=== PATIENT | female | born 1950 | race Caucasian/White ===

== ENCOUNTER 2016-12-28 14:10 | Emergency (ER) | payer MEDICAID ==
[2016-12-28 14:20] VITALS: BMI 29.1
[2016-12-28 14:22] VITALS: BP 141/78
--- NOTE | 2016-12-28 14:34 | DR.SOBA ---
HPI - Time Seen Time seen: 14:30 - Primary Care Physician Primary Care Physician: SATYA FINNEY - HPI Comment HPI Comment: Hx of fibromyalgia, complaint of back, chest pain and Dyspnea when lying down. Patient used her mothers nebulizer prior to arrival (not prescribed to patient) - Complaints Chief Complaint:: PT STATES " I HAVE BEEN SOB, WHEN I LAY DOWN AND CHEST PAIN'S OFF AND ON , AND KINDNEY PAIN".. Self Treatment fo Chief Complaint: PT STATES " I COULD NOT SLEEP AT NIGHT"./. - Reviewed Nurses Notes Reviewed: Yes - Source History Provided: Patient - Mode of Arrival Mode of Arrival: Ambulatory - Timing Onset of Chief Complaint: 12/27/16 - Duration Duration: Days - Context Onset:: At Rest PE Risk Factors:: None History of:: Anxiety Prehospital Care:: Inhaled B2 - Modifying Factors Worsens:: Lying Flat Improves:: Sitting Up - Associated Signs and Symptoms Associated Signs and Symptoms: Chest Pain, Anxiety - If Chest Pain Location: Chest Wall - If Cough Cough: None - Other History Other History: FIBROMYALGIA PMH - PMH Past Medical History: Yes Past Medical History: Anxiety, Arthritis, Depression, Diabetes, GERD, Hypertension Past Surgical History: Yes Surgical History: Cholecystectomy, Hysterectomy, Ortho Surgery - Family History History of Family Medical Conditions: Yes Family Medical History: Diabetes Mellitus, Cancer, [place], Coronary Artery Disease, Heart Failure, Sudden Cardiac , Hypertension - Social History Does patient currently use any type of tobacco product: No Have you used tobacco products in the last 12 months: No Type of Tobacco Use: None Does any household member use tobacco: No Do you use any recreational Drugs:: No Lives With: Family Lives Where: Home - infectious screening In the last 2 months have you had wt loss of >10#?: NO Have you had fever, night sweats or hemotysis?: No Have you traveled outside the country in the last 6 months?: No Isolation: Standard ROS - Review of Systems Constitutional: No Symptoms Reported Eyes: No Symptoms Reported ENTM: No Symptoms Reported Respiratoy: Short of Breath Cardiovascular: Chest Pain Gastrointestinal/Abdominal: No Symptoms Reported Genitourinary: Other (kidney pain) Musculoskeletal: Other (pain all over fibromyalgia) Integumentary: No Symptoms Reported Hematologic/Lymphatic: No Symptoms Reported Endocrine: No Symptoms Reported Psychiatric: Anxiety, Depression All Other Systems: Reviewed and Negative PE - Vital Signs Vitals: Temperature 98.2 F Pulse Rate 112 Respiratory Rate 20 Blood Pressure [Left Arm] 158/80 Blood Pressure [Right Arm] 171/75 Blood Pressure [Standing] 84/59 Blood Pressure [Lying] 96/58 Blood Pressure 141/78 O2 Sat by Pulse Oximetry 96 - General Limitations: No Limitations General Appearance: Alert, In No Apparent Distress - Head Head Exam: Normal Inspection - Eyes Eye exam: Normal Appearance, EOMI. negative: Scleral Icterus, Conjunctival Injection - ENT ENT Exam: Normal Exam - Neck Neck Exam: Normal Inspection, Full ROM, Trachea Midline - Chest Chest Inspection: Normal Inspection - Respiratory Respiratory Exam: Normal Lung Sounds Bilat. negative: Accessory Muscle Use, Respiratory Distress Respiratory Exam: Bilateral Clear to Auscultation - Cardiovascular Cardiovascular Exam: Tachycardia - Extremities Extremities Exam: Normal Inspection, Full ROM - Back Back Exam: Normal Inspection - Neurologic Neurological Exam: Alert, Oriented X3, CN II-XII Intact - Psychiatric Psychiatric Exam: Depressed, Anxious - Skin Skin Exam: Intact, Normal Color Course - Treatment Treatment: told patient results of test. will repeat troponin 4 hours after first test. Patient with no distress lying in ER. - Consultation Called: 14:00 ROR - Labs Reviewed Result Diagrams: 12/28/16 14:56 12/28/16 14:56 Laboratory: WBC 12.1 X10^3/uL (3.6-10.0) H 12/28/16 14:56 RBC 4.11 X10^6/uL (3.5-5.4) 12/28/16 14:56 Hgb 11.2 g/dL (12.0-16.0) L 12/28/16 14:56 Hct 35.8 % (36.0-47.0) L 12/28/16 14:56 MCV 87.1 fL (80.0-100.0) 12/28/16 14:56 MCH 27.2 pg (27.0-34.0) 12/28/16 14:56 MCHC 31.2 g/dL (33.0-35.0) L 12/28/16 14:56 RDW 17.1 % (11.6-16.5) H 12/28/16 14:56 Plt Count 294 X10^3/uL (150.0-450.0) 12/28/16 14:56 MPV 8.2 fL (7.4-11.0) 12/28/16 14:56 Neut % 78.7 % (42.0-75.0) H 12/28/16 14:56 Lymph % 14.9 % (21.0-51.0) L 12/28/16 14:56 [place] % 5.2 % (0.0-13.0) 12/28/16 14:56 Eos % 0.5 % (0.9-2.9) L 12/28/16 14:56 Baso % 0.7 % (0.2-1.0) 12/28/16 14:56 Neut # 9.5 x10^3/uL (2.2-4.8) H 12/28/16 14:56 Lymph # 1.8 X10^3/uL (1.3-2.9) 12/28/16 14:56 [place] # 0.6 x10^3/uL (0.3-0.8) 12/28/16 14:56 Eos # 0.1 x10^3/uL (0.0-0.2) 12/28/16 14:56 Baso # 0.1 X10^3/uL (0.0-0.1) 12/28/16 14:56 Absolute Nucleated RBC 0.1 /100WBC 12/28/16 14:56 Sodium 138 mmol/L (136-145) 12/28/16 14:56 Corrected Sodium 142 mmol/L (136-145) 12/28/16 14:56 Potassium 4.1 mmol/L (3.5-5.1) 12/28/16 14:56 Chloride 99 mmol/L (98-107) 12/28/16 14:56 Carbon Dioxide 29.9 mmol/L (21-32) 12/28/16 14:56 BUN 13 mg/dL (7-18) 12/28/16 14:56 Creatinine 1.14 mg/dL (0.55-1.02) H 12/28/16 14:56 Est GFR (MDRD) Af Amer > 60 (>60) 12/28/16 14:56 Est GFR (MDRD) Non-Af 51 (>60) L 12/28/16 14:56 Glucose 254 mg/dL (65-99) H 12/28/16 14:56 Calcium 9.2 mg/dL (8.5-10.1) 12/28/16 14:56 Corrected Calcium TNP 12/28/16 14:56 Total Bilirubin 1.00 mg/dL (0.2-1.0) 12/28/16 14:56 AST 20 Units/L (15-37) 12/28/16 14:56 ALT 31 Units/L (12-78) 12/28/16 14:56 Alkaline Phosphatase 96 Units/L (46-116) 12/28/16 14:56 Creatine Kinase 42 Units/L (26-192) 12/28/16 14:56 CK-MB (CK-2) < 1.0 ng/mL (0-4.0) 12/28/16 14:56 CK/CKMB % Calc 2.4 % (<4) 12/28/16 14:56 Troponin I 0.09 ng/mL (0-1.5) 12/28/16 18:23 B-Natriuretic Peptide 964 pg/mL (0-79) H* 12/28/16 14:56 Total Protein 7.0 g/dL (6.4-8.2) 12/28/16 14:56 Albumin 3.4 g/dL (3.4-5.0) 12/28/16 14:56 Globulin 3.6 g/dL (2.5-4.5) 12/28/16 14:56 Albumin/Globulin Ratio 0.9 Ratio (1.1-2.1) L 12/28/16 14:56 Specimen Type Clean catch urine 12/28/16 15:08 Urine Color Dark yellow (YELLOW) 12/28/16 15:08 Urine Appearance Slightly hazy (CLEAR) 12/28/16 15:08 Urine pH 6.0 (5.0 - 8.0) 12/28/16 15:08 Ur Specific [place] 1.015 (1.000-1.030) 12/28/16 15:08 Urine Protein 2+ (NEGATIVE) 12/28/16 15:08 Urine Glucose (UA) 2+ (NEGATIVE) 12/28/16 15:08 Urine Ketones 1+ (NEGATIVE) 12/28/16 15:08 Urine Occult Blood 1+ (NEGATIVE) 12/28/16 15:08 Urine Nitrite Negative (NEGATIVE) 12/28/16 15:08 Urine Bilirubin Negative (NEGATIVE) 12/28/16 15:08 Urine Urobilinogen 1+ (NORMAL) 12/28/16 15:08 Ur Leukocyte Esterase 1+ (NEGATIVE) 12/28/16 15:08 Urine RBC 0-2 /HPF (NEGATIVE) 12/28/16 15:08 Urine WBC 0-2 /HPF (NEGATIVE) 12/28/16 15:08 Ur Squamous Epith Cells Moderate /HPF (NEGATIVE) 12/28/16 15:08 Amorphous Sediment Trace /HPF (NEGATIVE) 12/28/16 15:08 Urine Bacteria Trace /HPF (NEGATIVE) 12/28/16 15:08 Hyaline Casts Few /LPF (NEGATIVE) 12/28/16 15:08 Ur Culture Indicated? No/not indicated 12/28/16 15:08 - EKG Rate: 104 Brady: Normal Rhythm: ST Block: None Hypertrophy: None ST: Nonsp - Diagnosis Discharge Problem: Fibromyalgia syndrome - Discharge Plan Condition: Stable Prescriptions: Prednisone [Deltasone] 20 mg PO BID #6 tab - Follow ups/Referrals Follow ups/Referrals: Jose Ceja [Primary Care Provider] - 3 days - Instructions
[2016-12-28 15:24] LABS: BLOOD UREA NITROGEN 13 mg/dL (7-18); CALCIUM 9.2 mg/dL (8.5-10.1); CARBON DIOXIDE 29.9 mmol/L (21-32); CHLORIDE 99 mmol/L (98-107); COR NA(FOR HYPERGLY) 142 mmol/L (136-145); CREATININE 1.14 mg/dL (0.55-1.02); GLUCOSE 254 mg/dL (65-99); SODIUM 138 mmol/L (136-145); TROPONIN I 0.09 ng/mL (0-1.5); eGFR BLACK RACES > 60 (>60); eGFR NON BLACK RACES 51 (>60)
[2016-12-28 15:28] LABS: ALANINE AMINOTRANSFERASE 31 Units/L (12-78); ALBUMIN 3.4 g/dL (3.4-5.0); ALKALINE PHOSPHATASE 96 Units/L (46-116); ASPARTATE AMINO TRANSFERASE 20 Units/L (15-37); CKMB % 2.4 % (<4); CREATINE KINASE 42 Units/L (26-192); CREATINE KINASE MB < 1.0 ng/mL (0-4.0)
[2016-12-28 15:28] LABS: BILIRUBIN,URINE NEGATIVE (NEGATIVE); BLOOD/HEMOGLOBIN,URINE 1+ (NEGATIVE); GLUCOSE, URINE 2+ (NEGATIVE); KETONES,URINE 1+ (NEGATIVE); LEUKOCYTE ESTERASE ,URINE 1+ (NEGATIVE); NITRITES,URINE NEGATIVE (NEGATIVE); PROTEIN,URINE 2+ (NEGATIVE); UROBILINOGEN,URINE 1+ (NORMAL)
[2016-12-28 15:40] LABS: AMORPHOUS SEDIMENT,UR TRACE /HPF (NEGATIVE); APPEARANCE,URINE SLIGHTLY HAZY (CLEAR); BACTERIA,URINE TRACE /HPF (NEGATIVE); COLOR,URINE DARK YELLOW (YELLOW); HYALINE CASTS, URINE FEW /LPF (NEGATIVE); RBC,URINE 0-2 /HPF (NEGATIVE); SQUAMOUS EPITHELIAL CELL,UR MODERATE /HPF (NEGATIVE)
[2016-12-28 15:44] LABS: BASOPHILS # (AUTO) 0.1 X10^3/uL (0.0-0.1); BASOPHILS % (AUTO) 0.7 % (0.2-1.0); EOSINOPHILS # (AUTO) 0.1 x10^3/uL (0.0-0.2); EOSINOPHILS % (AUTO) 0.5 % (0.9-2.9); HEMATOCRIT 35.8 % (36.0-47.0); HEMOGLOBIN 11.2 g/dL (12.0-16.0); LYMPHOCYTES # (AUTO) 1.8 X10^3/uL (1.3-2.9); LYMPHOCYTES % (AUTO) 14.9 % (21.0-51.0); MEAN CORPUSCULAR HEMOGLOBIN 27.2 pg (27.0-34.0); MEAN CORPUSCULAR HGB CONC 31.2 g/dL (33.0-35.0); MEAN CORPUSCULAR VOLUME 87.1 fL (80.0-100.0); MEAN PLATELET VOLUME 8.2 fL (7.4-11.0); MONOCYTES # (AUTO) 0.6 x10^3/uL (0.3-0.8); MONOCYTES % (AUTO) 5.2 % (0.0-13.0); NEUTROPHILS # (AUTO) 9.5 x10^3/uL (2.2-4.8); NEUTROPHILS % (AUTO) 78.7 % (42.0-75.0); PLATELET COUNT 294 X10^3/uL (150.0-450.0); RED BLOOD COUNT 4.11 X10^6/uL (3.5-5.4); RED CELL DISTRIBUTION WIDTH 17.1 % (11.6-16.5); WHITE BLOOD COUNT 12.1 X10^3/uL (3.6-10.0)
--- NOTE | 2016-12-28 16:05 | RAD ---
HISTORY: Shortness of breath Study: Chest two-view Comparison: May 20, 2015 Findings: The heart is enlarged. No congestive heart failure is noted. The aorta is calcified. The lung [place]yl[place] are clear. The bony thorax is unremarkable. IMPRESSION: 1. Cardiomegaly without congestive heart failure 2. Lungs clear Reported By:
[2016-12-28 16:19] LABS: B-TYPE NATRIURETIC PEPTIDE 964 pg/mL (0-79)
[2016-12-28] MEDS ORDERED: LASIX ONE (16:31)
[2016-12-28] MEDS ORDERED: TORADOL 60 MG VIAL IM ONE (18:54)
[2016-12-28] MEDS ORDERED: TORADOL 60 MG VIAL ONE (18:57)
[2016-12-29] MEDS ORDERED: LASIX PO SCH (09:00)
== END 2016-12-28 19:20 | disposition home or self-care (01) ==
LOC: ER 14:26
DX: M79.7 Fibromyalgia (principal); I51.7 Cardiomegaly
CPT/HCPCS: 36415; 71020; 80053; 81001; 82550; 82553; 83880; 84484; 85025; 93005; 93010; 96372; 99283; J1885

== ENCOUNTER → 2017-04-26 | Outpatient (CLI) | payer OTHER, MEDICAID ==
[2017-04-26 13:11] LABS: BASOPHILS # (AUTO) 0.1 X10^3/uL (0.0-0.1); BASOPHILS % (AUTO) 1.3 % (0.2-1.0); EOSINOPHILS # (AUTO) 0.5 x10^3/uL (0.0-0.2); HEMATOCRIT 31.6 % (36.0-47.0); HEMOGLOBIN 10.2 g/dL (12.0-16.0); LYMPHOCYTES # (AUTO) 2.4 X10^3/uL (1.3-2.9); LYMPHOCYTES % (AUTO) 23.1 % (21.0-51.0); MEAN CORPUSCULAR HEMOGLOBIN 26.6 pg (27.0-34.0); MEAN CORPUSCULAR HGB CONC 32.3 g/dL (33.0-35.0); MEAN CORPUSCULAR VOLUME 82.5 fL (80.0-100.0); MEAN PLATELET VOLUME 8.2 fL (7.4-11.0); MONOCYTES # (AUTO) 0.7 x10^3/uL (0.3-0.8); MONOCYTES % (AUTO) 6.5 % (0.0-13.0); NEUTROPHILS # (AUTO) 6.7 x10^3/uL (2.2-4.8); NEUTROPHILS % (AUTO) 64.1 % (42.0-75.0); PLATELET COUNT 229 X10^3/uL (150.0-450.0); RED BLOOD COUNT 3.83 X10^6/uL (3.5-5.4); RED CELL DISTRIBUTION WIDTH 19.1 % (11.6-16.5)
[2017-04-26 13:28] LABS: CALCIUM 9.2 mg/dL (8.5-10.1); CARBON DIOXIDE 33.2 mmol/L (21-32); CREATININE 1.24 mg/dL (0.55-1.02)
[2017-04-26 13:38] LABS: PLATELET MORPHOLOGY COMMENT NORMAL (NORMAL)
== END ==
LOC: LAB 12:37
PROVIDERS: ATTEND Internal Medicine Cardiovascular Disease
DX: I50.9 Heart failure, unspecified (principal)
CPT/HCPCS: 36415; 80048; 85025; 85610

== ENCOUNTER → 2017-05-02 | Outpatient (CLI) | payer OTHER, MEDICAID ==
[2017-05-02 09:50] LABS: ALANINE AMINOTRANSFERASE 41 Units/L (12-78); ALBUMIN 3.6 g/dL (3.4-5.0); ALKALINE PHOSPHATASE 90 Units/L (46-116); ASPARTATE AMINO TRANSFERASE 33 Units/L (15-37); BLOOD UREA NITROGEN 9 mg/dL (7-18); CARBON DIOXIDE 27.4 mmol/L (21-32); CHLORIDE 104 mmol/L (98-107); COR NA(FOR HYPERGLY) 143 mmol/L (136-145); CREATININE 1.18 mg/dL (0.55-1.02); SODIUM 140 mmol/L (136-145); TOTAL PROTEIN 7.1 g/dL (6.4-8.2); eGFR BLACK RACES 59 (>60); eGFR NON BLACK RACES 49 (>60)
== END ==
LOC: LAB 09:17
PROVIDERS: ATTEND Nurse Practitioner
DX: E87.5 Hyperkalemia (principal)
CPT/HCPCS: 36415; 80053

== ENCOUNTER 2017-08-12 14:24 | Inpatient (IN) | payer OTHER, MEDICAID ==
[2017-08-12] MEDS ORDERED: PHARMACY CONSULT - DOSE _____ XX SCH (17:16)
[2017-08-12 17:25] LABS: BASOPHILS # (AUTO) 0.1 X10^3/uL (0.0-0.1); BASOPHILS % (AUTO) 0.6 % (0.2-1.0); EOSINOPHILS # (AUTO) 0.2 x10^3/uL (0.0-0.2); HEMOGLOBIN 9.1 g/dL (12.0-16.0); LYMPHOCYTES # (AUTO) 1.5 X10^3/uL (1.3-2.9); LYMPHOCYTES % (AUTO) 11.8 % (21.0-51.0); MEAN CORPUSCULAR HEMOGLOBIN 26.3 pg (27.0-34.0); MEAN CORPUSCULAR HGB CONC 32.3 g/dL (33.0-35.0); MEAN CORPUSCULAR VOLUME 81.4 fL (80.0-100.0); MEAN PLATELET VOLUME 8.1 fL (7.4-11.0); MONOCYTES # (AUTO) 0.4 x10^3/uL (0.3-0.8); MONOCYTES % (AUTO) 3.5 % (0.0-13.0); NEUTROPHILS # (AUTO) 10.4 x10^3/uL (2.2-4.8); NEUTROPHILS % (AUTO) 82.1 % (42.0-75.0); PLATELET COUNT 278 X10^3/uL (150.0-450.0); RED BLOOD COUNT 3.44 X10^6/uL (3.5-5.4); RED CELL DISTRIBUTION WIDTH 18.1 % (11.6-16.5); WHITE BLOOD COUNT 12.7 X10^3/uL (3.6-10.0)
[2017-08-12 17:40] LABS: ALBUMIN 3.2 g/dL (3.4-5.0); CARBON DIOXIDE 31.1 mmol/L (21-32); COR CA(FOR HYPOALB) 9.6 mg/dL (8.5-10.1); CREATININE 1.78 mg/dL (0.55-1.02); TOTAL PROTEIN 7.3 g/dL (6.4-8.2)
[2017-08-12] MEDS: NS 1000 ML 1,000 ML IV SCH (17:58)
[2017-08-12 19:27] VITALS: BMI 26.8
[2017-08-12] MEDS ORDERED: VANCOMYCIN HCL 500 MG VIAL 750 MG in D5W 250 ML IV 250 ML IV SCH (20:00)
[2017-08-12] MEDS ORDERED: NS 250 ML IV 250 ML IV ONE (22:07)
[2017-08-12] MEDS ORDERED: VANCOMYCIN HCL 1 GM VIAL ONE (22:08)
[2017-08-12] MEDS: ROXICODONE TAB 15 MG PO PRN (22:29)
[2017-08-12] MEDS: VANCOMYCIN HCL IV SCH (22:31)
[2017-08-12] MEDS: NS IV SCH (22:31)
[2017-08-12] MEDS: SNACK - Diabetic Appropriate PO SCH (22:35)
[2017-08-12] MEDS: XANAX PO SCH (22:36)
[2017-08-13] MEDS: ROXICODONE TAB 15 MG PO PRN ×3 (05:25→20:30)
[2017-08-13] MEDS: XANAX PO SCH ×3 (05:28→22:26)
[2017-08-13] MEDS: NS 1000 ML 1,000 ML IV SCH ×3 (06:05→22:25)
[2017-08-13 06:31] LABS: ALBUMIN 3.1 g/dL (3.4-5.0); CALCIUM 8.8 mg/dL (8.5-10.1); CARBON DIOXIDE 30.1 mmol/L (21-32); COR CA(FOR HYPOALB) 9.5 mg/dL (8.5-10.1); CREATININE 1.63 mg/dL (0.55-1.02)
[2017-08-13 06:34] LABS: BASOPHILS # (AUTO) 0.1 X10^3/uL (0.0-0.1); BASOPHILS % (AUTO) 0.5 % (0.2-1.0); EOSINOPHILS # (AUTO) 0.2 x10^3/uL (0.0-0.2); EOSINOPHILS % (AUTO) 1.7 % (0.9-2.9); HEMATOCRIT 27.7 % (36.0-47.0); HEMOGLOBIN 8.9 g/dL (12.0-16.0); LYMPHOCYTES # (AUTO) 2.8 X10^3/uL (1.3-2.9); LYMPHOCYTES % (AUTO) 19.8 % (21.0-51.0); MEAN CORPUSCULAR HEMOGLOBIN 26.4 pg (27.0-34.0); MEAN CORPUSCULAR VOLUME 82.5 fL (80.0-100.0); MEAN PLATELET VOLUME 8.6 fL (7.4-11.0); MONOCYTES # (AUTO) 0.4 x10^3/uL (0.3-0.8); MONOCYTES % (AUTO) 2.5 % (0.0-13.0); NEUTROPHILS # (AUTO) 10.8 x10^3/uL (2.2-4.8); NEUTROPHILS % (AUTO) 75.5 % (42.0-75.0); PLATELET COUNT 274 X10^3/uL (150.0-450.0); RED BLOOD COUNT 3.36 X10^6/uL (3.5-5.4); RED CELL DISTRIBUTION WIDTH 17.7 % (11.6-16.5); WHITE BLOOD COUNT 14.3 X10^3/uL (3.6-10.0)
[2017-08-13 06:39] LABS: PLATELET MORPHOLOGY COMMENT NORMAL (NORMAL)
[2017-08-13 06:40] LABS: HYPOCHROMASIA SLIGHT
[2017-08-13] MEDS: GLUCOPHAGE XR PO SCH ×2 (08:55→20:31)
[2017-08-13] MEDS: PROTONIX TAB 40 MG PO SCH ×2 (08:55→20:31)
[2017-08-13] MEDS: ASPIRIN EC 81 MG PO SCH (08:55)
[2017-08-13] MEDS: LASIX PO SCH ×2 (08:56→20:31)
[2017-08-13] MEDS: CHECK PATCH XX SCH ×2 (08:56→20:34)
[2017-08-13] MEDS: ZOCOR TAB 10 MG PO SCH (08:56)
[2017-08-13] MEDS: PLAVIX PO SCH (08:56)
[2017-08-13] MEDS: FOLIC ACID TAB 1 MG PO SCH (08:56)
[2017-08-13] MEDS: EFFEXOR XR 150 MG CAP PO SCH (08:56)
[2017-08-13] MEDS: CLARITIN PO SCH (08:56)
[2017-08-13] MEDS ORDERED: PATIENT'S HOME MEDICATION (Venlafaxine Hcl [Venlafaxine Hcl Er] 150 MG) PO SCH (09:00)
[2017-08-13] MEDS ORDERED: PATIENT'S HOME MEDICATION (Loratadine [Loratadine] 1 TAB) PO SCH (09:00)
[2017-08-13] MEDS ORDERED: PHARMACY CONSULT - TPN XX SCH (10:00)
[2017-08-13] MEDS: PROCALAMINE 3 % 1,000 ML IV SCH (10:52)
[2017-08-13] MEDS: HumuLIN R SUBCUT PRN ×2 (12:21→17:00)
[2017-08-13] MEDS: ALBUMIN HUMAN 25%- 100ML 100 ML IV SCH (16:59)
[2017-08-13] MEDS: GENTAMICIN TOPICAL OINT TOP SCH ×2 (17:00→20:44)
[2017-08-13] MEDS: NS IV SCH (20:28)
[2017-08-13] MEDS: VANCOMYCIN HCL IV SCH (20:28)
[2017-08-13] MEDS: COREG TAB 3.125 MG PO SCH (20:32)
[2017-08-13] MEDS ORDERED: MIRALAX POWDER (1 DOSE 17GM) PO PRN (21:13)
[2017-08-13] MEDS: SNACK - Diabetic Appropriate PO SCH (22:25)
[2017-08-14] MEDS: XANAX PO SCH ×3 (05:13→21:03)
[2017-08-14] MEDS: ROXICODONE TAB 15 MG PO PRN ×2 (05:39→21:02)
[2017-08-14 06:47] LABS: BASOPHILS % (AUTO) 0.5 % (0.2-1.0); EOSINOPHILS # (AUTO) 0.3 x10^3/uL (0.0-0.2); HEMATOCRIT 24.4 % (36.0-47.0); LYMPHOCYTES # (AUTO) 1.8 X10^3/uL (1.3-2.9); MEAN CORPUSCULAR HGB CONC 32.9 g/dL (33.0-35.0); MEAN CORPUSCULAR VOLUME 81.9 fL (80.0-100.0); MEAN PLATELET VOLUME 8.2 fL (7.4-11.0); MONOCYTES # (AUTO) 0.3 x10^3/uL (0.3-0.8); MONOCYTES % (AUTO) 3.4 % (0.0-13.0); NEUTROPHILS # (AUTO) 6.5 x10^3/uL (2.2-4.8); NEUTROPHILS % (AUTO) 73.1 % (42.0-75.0); PLATELET COUNT 226 X10^3/uL (150.0-450.0); RED BLOOD COUNT 2.98 X10^6/uL (3.5-5.4); RED CELL DISTRIBUTION WIDTH 17.8 % (11.6-16.5); WHITE BLOOD COUNT 8.9 X10^3/uL (3.6-10.0)
[2017-08-14 06:55] LABS: CALCIUM 8.7 mg/dL (8.5-10.1); CARBON DIOXIDE 28.7 mmol/L (21-32); COR CA(FOR HYPOALB) 9.5 mg/dL (8.5-10.1); CREATININE 1.45 mg/dL (0.55-1.02); TOTAL PROTEIN 6.7 g/dL (6.4-8.2)
[2017-08-14] MEDS: NS 1000 ML 1,000 ML IV SCH ×2 (08:43→21:24)
[2017-08-14] MEDS: PROTONIX TAB 40 MG PO SCH ×2 (08:44→21:05)
[2017-08-14] MEDS: LASIX PO SCH ×2 (08:44→21:04)
[2017-08-14] MEDS: CLARITIN PO SCH (08:44)
[2017-08-14] MEDS: ZOCOR TAB 10 MG PO SCH (08:44)
[2017-08-14] MEDS: ASPIRIN EC 81 MG PO SCH (08:44)
[2017-08-14] MEDS: GLUCOPHAGE XR PO SCH ×2 (08:44→21:04)
[2017-08-14] MEDS: COREG TAB 3.125 MG PO SCH ×2 (08:44→21:04)
[2017-08-14] MEDS: EFFEXOR XR 150 MG CAP PO SCH (08:44)
[2017-08-14] MEDS: PLAVIX PO SCH (08:44)
[2017-08-14] MEDS: FOLIC ACID TAB 1 MG PO SCH (08:44)
[2017-08-14] MEDS: GENTAMICIN TOPICAL OINT TOP SCH ×2 (08:45→21:24)
[2017-08-14] MEDS: CHECK PATCH XX SCH ×2 (08:45→21:24)
[2017-08-14] MEDS: ALBUMIN HUMAN 25%- 100ML 100 ML IV SCH (10:15)
[2017-08-14] MEDS ORDERED: NS 1000 ML 1,000 ML IV ONE (10:27)
[2017-08-14] MEDS ORDERED: NS 100 ML IV + SPIKE MINIBAG* 100 ML IV ONE (11:37)
[2017-08-14] MEDS: ZOSYN VIAL 3.375 GM IV SCH ×3 (12:07→21:25)
[2017-08-14] MEDS: HumuLIN R SUBCUT PRN ×3 (13:25→21:14)
[2017-08-14] MEDS: PROCALAMINE 3 % 1,000 ML IV SCH (16:12)
--- NOTE | 2017-08-14 16:16 | DR.UPDATE ---
H&P Update History and Physical Update: WAS SEEN IN THE OFFICE ON 08/12/2017. AN H&P WAS COMPLETED PRIOR TO ADMISSION. PATIENT HAS BEEN SEEN AND EXAMINED WITH NO CHANGES NOTED TO H&P. Changes noted: NO Yes with the following:
--- NOTE | 2017-08-14 16:54 | VAS ---
HISTORY: Cellulitis, lower extremity swelling Study: Deep vein Doppler ultrasound both lower extremities Comparison: 12/20/2014 TECHNIQUE: Multiple vasquez scale and color flow Doppler images of the deep venous system were obtained of the right and left lower extremity. FINDINGS: The deep venous system of the right and left lower extremities were evaluated from the level of the c ommon femoral vein through the popliteal vein. Normal color flow and augmentation can be observed. In addition, normal compression is seen throughout the deep venous system. IMPRESSION: 1. Negative for DVT. Reported By:
[2017-08-14] MEDS ORDERED: INVANZ INJ 1 GM VIAL 1 GM in NS 50 ML IV + SPIKE MINIBAG* 50 ML IV SCH (17:00)
[2017-08-14] MEDS ORDERED: NS 50 ML IV 50 ML IV ONE (17:32)
[2017-08-14] MEDS ORDERED: NS 100 ML IV 100 ML IV ONE ×2 (17:33→20:21)
[2017-08-14] MEDS: SNACK - Diabetic Appropriate PO SCH (21:24)
--- NOTE | 2017-08-14 22:00 | PCM.PROG ---
Progress Note - Progress Note for Day of Date: 08/13/17 - Subjective Subjective: WAS ADMITTED FOR CELLULITIS TO THE BILATERAL LOWER EXTREMITIES. SHE HAS A DECUBITUS ULCER TO THE LATERAL ASPECT OF THE RIGHT FOOT. WOUNDS ARE ALSO NOTED TO BILATERAL GREAT TOES. CULTURES WERE COLLECTED AND ARE PENDING. TODAY, SHE IS ALERT AND ORIENTED, SITTING UP IN BED ON MORNING ROUNDS. SHE COMPLAINS OF PAIN TO BILATERAL LOWER EXTREMITITIES. LEGS AND FEET CONTINUE WITH ERYTHEMA AND WARMTH. WOUND TO RIGHT FOOT IS OPEN TO AIR, NO DRAINAGE NOTED. HER VITAL SIGNS THIS MORNING ARE 98.2-102-20-95%-129/62. LABS WERE OBTAINED THIS MORNING. HER WBC REMAINS ELEVATED TODAY AT 14.3. RBC 3.36, HGB 8.9 , HCT 27.7, BUN 55, CREATINNE 1.63, GLUCOSE 172, ALK PHOS 137, ALBUMIN 3.1. BLOOD AND WOUND CULTURES ARE PENDING. TODAY, WE PLAN TO START GENTAMYCIN OINTMENT TO WOUNDS BID. WE WILL ALSO START TPN AND ALBUMIN FOR HYPOALBUMINEMIA. OTHERWISE, WE WILL CONTINUE WITH IV ANTIBIOTICS AND PLAN TO OBTAIN A MRI WITH CONTRAST OF LOWER EXTREMITIES ON TUESDAY. WE WILL FOLLOW UP WITH AM LABS AND CONTINUE TO MONITOR PATIENT. - Past Medical Family Social History Past Med/Fam/Surg Hx: No changes since H&P Allergies: Allergies codeine Allergy (Verified 08/13/17 04:47) morphine Allergy (Verified 08/13/17 04:47) Sulfa (Sulfonamide Antibiotics) [SULFA] Allergy (Verified 08/13/17 04:47) TAPE Allergy (Uncoded 12/28/16 14:14) - Review of Systems ROS: No change since H&P - Vital Signs and I&O's Vital Signs: Temperature 99.4 F Pulse Rate [Right Brachial] 92 Pulse Rate [Left Brachial] 103 Respiratory Rate 18 Blood Pressure [Left Arm] 122/58 Blood Pressure [Right Arm] 118/60 Blood Pressure [Standing] 84/59 Blood Pressure [Lying] 96/58 Blood Pressure 141/78 O2 Sat by Pulse Oximetry 93 Intake and Output: Intake & Output 08/12/17 08/13/17 08/14/17 08/15/17 11:59 11:59 11:59 11:59 Intake Total 1700 2670 2300 Output Total 0 Balance 1700 2670 2300 - Physical Exam Oriented: Normal Eyes: Normal Ear: Normal Nose: Normal Throat: Normal Respiratory: Normal Cardiovascular: Edema (BILATERAL LOWER EXTREMITIES ) : Normal Auscultation: Bowel Sounds: Normal Palpation: Normal Tenderness: Normal Skin: Red, Tender, Hot, Wound (BILATERAL LOWER EXTREMITY CELLULITIS, DECUBITUS ULCER TO BILATERAL FEET) Musculoskeletal: Right, Left, Leg, Foot, Swelling, Tender Psychiatric: Normal Mood Description: Calm Affect: Normal Speech Pattern: Clear, Appropriate - Laboratory and Diagnostics Result Diagrams: 08/14/17 06:12 08/14/17 06:12 Labs: 08/12/17 17:46 Toe - Left Big Gram Stain - Final 08/12/17 17:46 Toe - Left Big Wound Culture - Preliminary 08/12/17 17:46 Toe - Right Big Gram Stain - Final 08/12/17 17:46 Toe - Right Big Wound Culture - Preliminary 08/12/17 17:46 Foot - Right Gram Stain - Final 08/12/17 17:46 Foot - Right Wound Culture - Final Citrobacter Braakii 08/12/17 17:05 Blood Blood Culture - Preliminary 08/12/17 17:04 Blood Blood Culture - Preliminary Laboratory WBC 8.9 X10^3/uL (3.6-10.0) 08/14/17 06:12 RBC 2.98 X10^6/uL (3.5-5.4) L 08/14/17 06:12 Hgb 8.0 g/dL (12.0-16.0) L 08/14/17 06:12 Hct 24.4 % (36.0-47.0) L 08/14/17 06:12 MCV 81.9 fL (80.0-100.0) 08/14/17 06:12 MCH 27.0 pg (27.0-34.0) 08/14/17 06:12 MCHC 32.9 g/dL (33.0-35.0) L 08/14/17 06:12 RDW 17.8 % (11.6-16.5) H 08/14/17 06:12 Plt Count 226 X10^3/uL (150.0-450.0) 08/14/17 06:12 Plt Count Comment Adequate (ADEQUATE) 08/13/17 05:10 MPV 8.2 fL (7.4-11.0) 08/14/17 06:12 Neut % 73.1 % (42.0-75.0) 08/14/17 06:12 Lymph % 20.0 % (21.0-51.0) L 08/14/17 06:12 [place] % 3.4 % (0.0-13.0) 08/14/17 06:12 Eos % 3.0 % (0.9-2.9) H 08/14/17 06:12 Baso % 0.5 % (0.2-1.0) 08/14/17 06:12 Neut # 6.5 x10^3/uL (2.2-4.8) H 08/14/17 06:12 Lymph # 1.8 X10^3/uL (1.3-2.9) 08/14/17 06:12 [place] # 0.3 x10^3/uL (0.3-0.8) 08/14/17 06:12 Eos # 0.3 x10^3/uL (0.0-0.2) H 08/14/17 06:12 Baso # 0.0 X10^3/uL (0.0-0.1) 08/14/17 06:12 Absolute Nucleated RBC 0.0 /100WBC 08/14/17 06:12 Plt Morphology Comment Normal (NORMAL) 08/13/17 05:10 RBC Morphology Abnormal (NORMAL) A 08/13/17 05:10 Hypochromasia Slight A 08/13/17 05:10 Sodium 137 mmol/L (136-145) 08/14/17 06:12 Corrected Sodium 140 mmol/L (136-145) 08/14/17 06:12 Potassium 4.3 mmol/L (3.5-5.1) 08/14/17 06:12 Chloride 100 mmol/L (98-107) 08/14/17 06:12 Carbon Dioxide 28.7 mmol/L (21-32) 08/14/17 06:12 BUN 48 mg/dL (7-18) H 08/14/17 06:12 Creatinine 1.45 mg/dL (0.55-1.02) H 08/14/17 06:12 Est GFR (MDRD) Af Amer 47 (>60) L 08/14/17 06:12 Est GFR (MDRD) Non-Af 39 (>60) L 08/14/17 06:12 Glucose 225 mg/dL (65-99) H 08/14/17 06:12 POC Glucose (mg/dL) 309 mg/dL (65-99) H 08/14/17 21:01 Calcium 8.7 mg/dL (8.5-10.1) 08/14/17 06:12 Corrected Calcium 9.5 mg/dL (8.5-10.1) 08/14/17 06:12 Total Bilirubin 0.30 mg/dL (0.2-1.0) 08/14/17 06:12 AST 20 Units/L (15-37) 08/14/17 06:12 ALT 26 Units/L (12-78) 08/14/17 06:12 Alkaline Phosphatase 124 Units/L (46-116) H 08/14/17 06:12 Total Protein 6.7 g/dL (6.4-8.2) 08/14/17 06:12 Albumin 3.0 g/dL (3.4-5.0) L 08/14/17 06:12 Globulin 3.7 g/dL (2.5-4.5) 08/14/17 06:12 Albumin/Globulin Ratio 0.8 Ratio (1.1-2.1) L 08/14/17 06:12 - Plan (1) Cellulitis of both lower extremities Status: Acute Plan: CONTINUE IV ANTIBIOTICS, CONTINUE TO MONITOR (2) Decubital ulcer Status: Acute Qualifiers: Pressure ulcer location: foot, unspecified location Pressure ulcer stage: stage 2 Laterality: unspecified laterality Qualified Code(s): L89.892 - Pressure ulcer of other site, stage 2 Plan: WOUND CARE, WOUND CULTURES, CONTINUE IV ANTIBIOTICS, CONTINUE TO MONITOR
[2017-08-15] MEDS: XANAX PO SCH ×3 (05:46→21:04)
[2017-08-15] MEDS: ZOSYN VIAL 3.375 GM IV SCH ×3 (05:46→21:40)
[2017-08-15 06:23] LABS: BASOPHILS # (AUTO) 0.1 X10^3/uL (0.0-0.1); BASOPHILS % (AUTO) 0.6 % (0.2-1.0); EOSINOPHILS # (AUTO) 0.4 x10^3/uL (0.0-0.2); EOSINOPHILS % (AUTO) 3.6 % (0.9-2.9); HEMATOCRIT 23.8 % (36.0-47.0); LYMPHOCYTES # (AUTO) 1.8 X10^3/uL (1.3-2.9); LYMPHOCYTES % (AUTO) 18.5 % (21.0-51.0); MEAN CORPUSCULAR HEMOGLOBIN 27.4 pg (27.0-34.0); MEAN CORPUSCULAR HGB CONC 33.5 g/dL (33.0-35.0); MEAN CORPUSCULAR VOLUME 81.8 fL (80.0-100.0); MONOCYTES # (AUTO) 0.4 x10^3/uL (0.3-0.8); MONOCYTES % (AUTO) 4.4 % (0.0-13.0); NEUTROPHILS # (AUTO) 7.1 x10^3/uL (2.2-4.8); NEUTROPHILS % (AUTO) 72.9 % (42.0-75.0); PLATELET COUNT 223 X10^3/uL (150.0-450.0); RED BLOOD COUNT 2.91 X10^6/uL (3.5-5.4); RED CELL DISTRIBUTION WIDTH 18.1 % (11.6-16.5); WHITE BLOOD COUNT 9.8 X10^3/uL (3.6-10.0)
[2017-08-15 06:33] LABS: CALCIUM 8.6 mg/dL (8.5-10.1); CARBON DIOXIDE 29.9 mmol/L (21-32); COR CA(FOR HYPOALB) 9.4 mg/dL (8.5-10.1); CREATININE 1.53 mg/dL (0.55-1.02); TOTAL PROTEIN 6.7 g/dL (6.4-8.2)
[2017-08-15] MEDS: PLAVIX PO SCH (09:58)
[2017-08-15] MEDS: EFFEXOR XR 150 MG CAP PO SCH (09:58)
[2017-08-15] MEDS: COREG TAB 3.125 MG PO SCH ×2 (09:58→21:04)
[2017-08-15] MEDS: LASIX PO SCH ×2 (09:58→21:04)
[2017-08-15] MEDS: CLARITIN PO SCH (09:59)
[2017-08-15] MEDS: ZOCOR TAB 10 MG PO SCH (09:59)
[2017-08-15] MEDS: PROTONIX TAB 40 MG PO SCH ×2 (09:59→21:05)
[2017-08-15] MEDS: ASPIRIN EC 81 MG PO SCH (09:59)
[2017-08-15] MEDS: ALBUMIN HUMAN 25%- 100ML 100 ML IV SCH (09:59)
[2017-08-15] MEDS: FOLIC ACID TAB 1 MG PO SCH (09:59)
[2017-08-15] MEDS: CHECK PATCH XX SCH ×2 (10:01→21:37)
[2017-08-15] MEDS: HumuLIN R SUBCUT PRN ×3 (11:50→21:10)
[2017-08-15] MEDS: GENTAMICIN TOPICAL OINT TOP SCH ×2 (11:52→22:38)
[2017-08-15] MEDS: INVANZ INJ 1 GM VIAL 1 GM in NS 100 ML IV + SPIKE MINIBAG* 100 ML IV SCH (11:54)
[2017-08-15] MEDS: NS 1000 ML 1,000 ML IV SCH (14:22)
[2017-08-15] MEDS: ROXICODONE TAB 15 MG PO PRN ×2 (14:23→21:05)
--- NOTE | 2017-08-15 16:56 | PCM.PROG ---
Progress Note - Progress Note for Day of Date: 08/14/17 - Subjective Subjective: WAS ADMITTED FOR CELLULITIS TO THE BILATERAL LOWER EXTREMITIES. SHE HAS A DECUBITUS ULCER TO THE LATERAL ASPECT OF THE RIGHT FOOT. WOUNDS ARE ALSO NOTED TO BILATERAL GREAT TOES. TODAY, SHE IS ALERT AND ORIENTED , SITTING UP IN BED ON MORNING ROUNDS. SHE COMPLAINS OF INCREASING PAIN TO BILATERAL LOWER EXTREMITITIES. LEGS AND FEET CONTINUE WITH ERYTHEMA AND WARMTH. WOUND TO RIGHT FOOT IS OPEN TO AIR, NO DRAINAGE NOTED. HER VITAL SIGNS THIS MORNING ARE 98.9-103-20-97%-122/58. LABS WERE OBTAINED THIS MORNING. WBC HAS DECREASED FROM 14.3 TO 8.9. SHE IS NOTED TO BE ANEMIC WITH HGB BEING 8.0, HCT 24.4. BUN 40, CREATININE 1.53, GLUCOSE 221, AST 45, ALK PHOS 119, ALBUMIN 3.0. WOUND CULTURE OF WOUND TO THE RIGHT LATERAL FOOT REPORTS GROWTH OF CITROBACTER BRAAKII. WE WILL DISCONTINUE VANCOMYCIN AND START INVANZ 1GM IV DAILY AND ZOSYN 3.375MG IV TID. WE WILL OBTAIN BILATERAL VENOUS DOPPLERS TODAY TO ASSESS FOR POSSIBLE DVT. WE WILL ALSO OBTAIN A MRI WITH CONTRAST OF THE RIGHT LOWER EXTREMITY TOMORROW. DUE TO ELEVATED BUN AND CREATININE, WE WILL BOLUS 1 LITER OF NORMAL SALINE AND INCREASE MAINTENANCE FLUIDS TO 100ML/HR. OTHERWISE, WE WILL FOLLOW UP WITH AM LABS AND CONTINUE TO MONITOR PATIENT. - Past Medical Family Social History Past Med/Fam/Surg Hx: No changes since H&P Allergies: Allergies codeine Allergy (Verified 08/13/17 04:47) morphine Allergy (Verified 08/13/17 04:47) Sulfa (Sulfonamide Antibiotics) [SULFA] Allergy (Verified 08/13/17 04:47) TAPE Allergy (Uncoded 12/28/16 14:14) - Review of Systems ROS: No change since H&P - Vital Signs and I&O's Vital Signs: Temperature 98.7 F Pulse Rate [Right Brachial] 90 Pulse Rate [Left Brachial] 103 Respiratory Rate 18 Blood Pressure [Left Arm] 115/51 Blood Pressure [Right Arm] 142/65 Blood Pressure [Standing] 84/59 Blood Pressure [Lying] 96/58 Blood Pressure 141/78 O2 Sat by Pulse Oximetry 92 Intake and Output: Intake & Output 01/06/18 08/14/17 08/15/17 08/16/17 11:59 11:59 11:59 11:59 Intake Total 1700 2670 3900 Output Total 0 Balance 1700 2670 3900 - Physical Exam Oriented: Normal Eyes: Normal Ear: Normal Nose: Normal Throat: Normal Respiratory: Normal Cardiovascular: Edema (BILATERAL LOWER EXTREMITIES ) : Normal Auscultation: Bowel Sounds: Normal Palpation: Normal Tenderness: Normal Skin: Red, Tender, Hot, Wound (BILATERAL LOWER EXTREMITY CELLULITIS, DECUBITUS ULCER TO BILATERAL FEET) Musculoskeletal: Right, Left, Leg, Foot, Swelling, Tender Psychiatric: Normal Mood Description: Calm Affect: Normal Speech Pattern: Clear, Appropriate - Laboratory and Diagnostics Result Diagrams: 08/15/17 05:30 08/15/17 05:30 Labs: 08/12/17 17:46 Toe - Right Big Gram Stain - Final 08/12/17 17:46 Toe - Right Big Wound Culture - Final 08/12/17 17:46 Toe - Left Big Gram Stain - Final 08/12/17 17:46 Toe - Left Big Wound Culture - Final 08/12/17 17:46 Foot - Right Gram Stain - Final 08/12/17 17:46 Foot - Right Wound Culture - Final Citrobacter Braakii 08/12/17 17:05 Blood Blood Culture - Preliminary 08/12/17 17:04 Blood Blood Culture - Preliminary Laboratory WBC 9.8 X10^3/uL (3.6-10.0) 08/15/17 05:30 RBC 2.91 X10^6/uL (3.5-5.4) L 08/15/17 05:30 Hgb 8.0 g/dL (12.0-16.0) L 08/15/17 05:30 Hct 23.8 % (36.0-47.0) L 08/15/17 05:30 MCV 81.8 fL (80.0-100.0) 08/15/17 05:30 MCH 27.4 pg (27.0-34.0) 08/15/17 05:30 MCHC 33.5 g/dL (33.0-35.0) 08/15/17 05:30 RDW 18.1 % (11.6-16.5) H 08/15/17 05:30 Plt Count 223 X10^3/uL (150.0-450.0) 08/15/17 05:30 Plt Count Comment Adequate (ADEQUATE) 08/13/17 05:10 MPV 8.0 fL (7.4-11.0) 08/15/17 05:30 Neut % 72.9 % (42.0-75.0) 08/15/17 05:30 Lymph % 18.5 % (21.0-51.0) L 08/15/17 05:30 [place] % 4.4 % (0.0-13.0) 08/15/17 05:30 Eos % 3.6 % (0.9-2.9) H 08/15/17 05:30 Baso % 0.6 % (0.2-1.0) 08/15/17 05:30 Neut # 7.1 x10^3/uL (2.2-4.8) H 08/15/17 05:30 Lymph # 1.8 X10^3/uL (1.3-2.9) 08/15/17 05:30 [place] # 0.4 x10^3/uL (0.3-0.8) 08/15/17 05:30 Eos # 0.4 x10^3/uL (0.0-0.2) H 08/15/17 05:30 Baso # 0.1 X10^3/uL (0.0-0.1) 08/15/17 05:30 Absolute Nucleated RBC 0.0 /100WBC 08/15/17 05:30 Plt Morphology Comment Normal (NORMAL) 08/13/17 05:10 RBC Morphology Abnormal (NORMAL) A 08/13/17 05:10 Hypochromasia Slight A 08/13/17 05:10 Sodium 139 mmol/L (136-145) 08/15/17 05:30 Corrected Sodium 142 mmol/L (136-145) 08/15/17 05:30 Potassium 3.9 mmol/L (3.5-5.1) 08/15/17 05:30 Chloride 102 mmol/L (98-107) 08/15/17 05:30 Carbon Dioxide 29.9 mmol/L (21-32) 08/15/17 05:30 BUN 40 mg/dL (7-18) H 08/15/17 05:30 Creatinine 1.53 mg/dL (0.55-1.02) H 08/15/17 05:30 Est GFR (MDRD) Af Amer 44 (>60) L 08/15/17 05:30 Est GFR (MDRD) Non-Af 36 (>60) L 08/15/17 05:30 Glucose 221 mg/dL (65-99) H 08/15/17 05:30 POC Glucose (mg/dL) 229 mg/dL (65-99) H 08/15/17 11:27 Calcium 8.6 mg/dL (8.5-10.1) 08/15/17 05:30 Corrected Calcium 9.4 mg/dL (8.5-10.1) 08/15/17 05:30 Total Bilirubin 0.40 mg/dL (0.2-1.0) 08/15/17 05:30 AST 45 Units/L (15-37) H 08/15/17 05:30 ALT 37 Units/L (12-78) 08/15/17 05:30 Alkaline Phosphatase 119 Units/L (46-116) H 08/15/17 05:30 Total Protein 6.7 g/dL (6.4-8.2) 08/15/17 05:30 Albumin 3.0 g/dL (3.4-5.0) L 08/15/17 05:30 Globulin 3.7 g/dL (2.5-4.5) 08/15/17 05:30 Albumin/Globulin Ratio 0.8 Ratio (1.1-2.1) L 08/15/17 05:30 - Plan (1) Cellulitis of both lower extremities Status: Acute Plan: CONTINUE IV ANTIBIOTICS, OBTAIN VENOUS DOPPLER AND MRI WITH CONTRAST, CONTINUE TO MONITOR (2) Decubital ulcer Status: Acute Qualifiers: Pressure ulcer location: foot, unspecified location Pressure ulcer stage: stage 2 Laterality: unspecified laterality Qualified Code(s): L89.892 - Pressure ulcer of other site, stage 2 Plan: WOUND CARE, WOUND CULTURES, CONTINUE IV ANTIBIOTICS, CONTINUE TO MONITOR (3) Citrobacter infection Status: Acute Plan: INVANZ 1GM IV DAILY, ZOSYN 3.375GM IV TID, CONTINUE TO MONITOR
[2017-08-15] MEDS ORDERED: NS 250 ML IV 250 ML IV ONE (19:05)
[2017-08-15] MEDS ORDERED: PHARMACY COMMENT IV SCH (20:45)
[2017-08-15] MEDS: SNACK - Diabetic Appropriate PO SCH (22:37)
[2017-08-16] MEDS: NS 1000 ML 1,000 ML IV SCH ×2 (02:09→16:40)
[2017-08-16] MEDS: ZOSYN VIAL 3.375 GM IV SCH ×3 (05:26→21:56)
[2017-08-16] MEDS: XANAX PO SCH ×3 (05:26→21:56)
[2017-08-16] MEDS: HumuLIN R SUBCUT PRN ×4 (05:57→21:57)
[2017-08-16 06:13] LABS: BASOPHILS # (AUTO) 0.1 X10^3/uL (0.0-0.1); BASOPHILS % (AUTO) 0.7 % (0.2-1.0); EOSINOPHILS # (AUTO) 0.4 x10^3/uL (0.0-0.2); EOSINOPHILS % (AUTO) 4.8 % (0.9-2.9); HEMATOCRIT 26.1 % (36.0-47.0); HEMOGLOBIN 8.4 g/dL (12.0-16.0); LYMPHOCYTES # (AUTO) 1.4 X10^3/uL (1.3-2.9); LYMPHOCYTES % (AUTO) 15.3 % (21.0-51.0); MEAN CORPUSCULAR HEMOGLOBIN 26.7 pg (27.0-34.0); MEAN CORPUSCULAR HGB CONC 32.3 g/dL (33.0-35.0); MEAN CORPUSCULAR VOLUME 82.6 fL (80.0-100.0); MEAN PLATELET VOLUME 7.9 fL (7.4-11.0); MONOCYTES # (AUTO) 0.5 x10^3/uL (0.3-0.8); NEUTROPHILS # (AUTO) 6.6 x10^3/uL (2.2-4.8); NEUTROPHILS % (AUTO) 73.2 % (42.0-75.0); PLATELET COUNT 198 X10^3/uL (150.0-450.0); RED BLOOD COUNT 3.16 X10^6/uL (3.5-5.4); RED CELL DISTRIBUTION WIDTH 18.1 % (11.6-16.5)
[2017-08-16 06:20] LABS: ALANINE AMINOTRANSFERASE 63 Units/L (12-78); ALBUMIN 3.4 g/dL (3.4-5.0); ALKALINE PHOSPHATASE 137 Units/L (46-116); ASPARTATE AMINO TRANSFERASE 77 Units/L (15-37); BLOOD UREA NITROGEN 32 mg/dL (7-18); CALCIUM 8.8 mg/dL (8.5-10.1); CHLORIDE 99 mmol/L (98-107); COR NA(FOR HYPERGLY) 143 mmol/L (136-145); CREATININE 1.51 mg/dL (0.55-1.02); SODIUM 138 mmol/L (136-145); TOTAL PROTEIN 7.4 g/dL (6.4-8.2); eGFR BLACK RACES 44 (>60); eGFR NON BLACK RACES 37 (>60)
[2017-08-16 06:43] LABS: PLATELET MORPHOLOGY COMMENT NORMAL (NORMAL)
[2017-08-16] MEDS: ALBUMIN HUMAN 25%- 100ML 100 ML IV SCH (09:16)
[2017-08-16] MEDS: INVANZ INJ 1 GM VIAL 1 GM in NS 100 ML IV + SPIKE MINIBAG* 100 ML IV SCH (09:17)
[2017-08-16] MEDS: EFFEXOR XR 150 MG CAP PO SCH (09:18)
[2017-08-16] MEDS: COREG TAB 3.125 MG PO SCH ×2 (09:18→20:55)
[2017-08-16] MEDS: ZOCOR TAB 10 MG PO SCH (09:18)
[2017-08-16] MEDS: FOLIC ACID TAB 1 MG PO SCH (09:18)
[2017-08-16] MEDS: LASIX PO SCH ×2 (09:18→20:54)
[2017-08-16] MEDS: CLARITIN PO SCH (09:19)
[2017-08-16] MEDS: ASPIRIN EC 81 MG PO SCH (09:21)
[2017-08-16] MEDS: PLAVIX PO SCH (09:21)
[2017-08-16] MEDS: GENTAMICIN TOPICAL OINT TOP SCH ×2 (09:22→20:56)
[2017-08-16] MEDS: CHECK PATCH XX SCH ×2 (09:22→20:55)
[2017-08-16] MEDS: PROTONIX TAB 40 MG PO SCH ×2 (09:22→20:54)
--- NOTE | 2017-08-16 11:48 | DR.CARTERH ---
Dr. Ceja H&P - Allergies Allergies/Adverse Reactions: Allergies Allergy/AdvReac Type Severity Reaction Status Date / Time codeine Allergy Verified 08/13/17 04:47 morphine Allergy Verified 08/13/17 04:47 Sulfa (Sulfonamide Allergy Verified 08/13/17 04:47 Antibiotics) [SULFA] TAPE Allergy Uncoded 12/28/16 14:14 - Past Medical History Past Medical History: Anxiety, Arthritis, Depression, Diabetes, GERD, Hypertension Additional Medical History: Chronic Pain Syndrome, Gastroparesis, Chronic Constipation, Fibromyalgia, Cervical Dysplasia - Past Surgical History Surgical History: Angioplasty/Stents, Cholecystectomy, Hysterectomy, Ortho Surgery, Tonsillectomy Additional Surgical History: Laser surgery for cervical dysplasia - Family History Family Medical History: Diabetes Mellitus, Cancer, [place], Coronary Artery Disease, Heart Failure, Sudden Cardiac , Hypertension - Social History Does patient currently use any type of tobacco product: No Have you used tobacco products in the last 12 months: No Type of Tobacco Use: None Does any household member use tobacco: No Alcohol Use: None Drug Use: Prescription Drugs - Medications Home Medications: Aspirin EC [ASPIRIN EC 81 MG *] 1 tab PO DAILY 08/12/17 [History Confirmed 08/12] Fentanyl 50 Mcg/Hr [DURAGESIC PATCH 50 mcg/hr *] 1 patch TOP Q72H 08/12/17 [ History Confirmed 08/12/17] Furosemide [LASIX TAB 40 MG *] 1 tab PO BID 08/12/17 [History Confirmed 08/12/17 ] Pantoprazole Sodium 1 tab PO BID 08/12/17 [History Confirmed 08/12/17] - Physical Exam Vital Signs: Temperature 98.9 F Pulse Rate [Right Brachial] 88 Pulse Rate [Left Brachial] 103 Respiratory Rate 18 Blood Pressure [Left Arm] 134/63 Blood Pressure [Right Arm] 145/65 Blood Pressure [Standing] 84/59 Blood Pressure [Lying] 96/58 Blood Pressure 141/78 O2 Sat by Pulse Oximetry 99 Oriented: Normal
[2017-08-16] MEDS ORDERED: NS 100 ML IV + SPIKE MINIBAG* 100 ML IV ONE ×2 (12:44→20:27)
[2017-08-16] MEDS: ACTOS PO SCH (12:47)
--- NOTE | 2017-08-16 13:17 | DR.CONSULT ---
Consult - Consultation for Day of: Date: 08/16/17 - Allergies Allergies/Adverse Reactions: Allergies Allergy/AdvReac Type Severity Reaction Status Date / Time codeine Allergy Verified 08/13/17 04:47 morphine Allergy Verified 08/13/17 04:47 Sulfa (Sulfonamide Allergy Verified 08/13/17 04:47 Antibiotics) [SULFA] TAPE Allergy Uncoded 12/28/16 14:14 - Past Medical History Past Medical History: Anxiety, Arthritis, Depression, Diabetes, GERD, Hypertension Additional Medical History: Chronic Pain Syndrome, Gastroparesis, Chronic Constipation, Fibromyalgia, Cervical Dysplasia - Past Surgical History Surgical History: Angioplasty/Stents, Cholecystectomy, Hysterectomy, Ortho Surgery, Tonsillectomy Additional Surgical History: Laser surgery for cervical dysplasia - Family History Family Medical History: Diabetes Mellitus, Cancer, PR, Coronary Artery Disease, Heart Failure, Sudden Cardiac , Hypertension - Social History Does patient currently use any type of tobacco product: No Have you used tobacco products in the last 12 months: No Type of Tobacco Use: None Does any household member use tobacco: No Alcohol Use: None Drug Use: Prescription Drugs - Medications Home Medications: Aspirin EC [ASPIRIN EC 81 MG *] 1 tab PO DAILY 08/12/17 [History Confirmed 08/12] Fentanyl 50 Mcg/Hr [DURAGESIC PATCH 50 mcg/hr *] 1 patch TOP Q72H 08/12/17 [ History Confirmed 08/12/17] Furosemide [LASIX TAB 40 MG *] 1 tab PO BID 08/12/17 [History Confirmed 08/12/17 ] Pantoprazole Sodium 1 tab PO BID 08/12/17 [History Confirmed 08/12/17] - Physical Exam Vital Signs: Temperature 98.2 F Pulse Rate [Right Brachial] 95 Pulse Rate [Left Brachial] 103 Respiratory Rate 18 Blood Pressure [Left Arm] 147/65 Blood Pressure [Right Arm] 145/65 Blood Pressure [Standing] 84/59 Blood Pressure [Lying] 96/58 Blood Pressure 141/78 O2 Sat by Pulse Oximetry 96
--- NOTE | 2017-08-16 13:40 | DR.CONSULT ---
Consult - Consultation for Day of: Date: 08/16/17 - Chief Complaint Chief Complaint: Pt is amitted with cellulitis both feet .. Pt noticed ulcerated area on the lateral aspect of the Rt foot about 2 weeks ago as well as ulceration of the Lt big toe . She started to have progressive swelling and redness involving both feet extending up to the calves.pt is having severe pain more with ambulation .. H/O previous ulcer on the Rt foot few years back with complete healing - Allergies Allergies/Adverse Reactions: Allergies Allergy/AdvReac Type Severity Reaction Status Date / Time codeine Allergy Verified 08/13/17 04:47 morphine Allergy Verified 08/13/17 04:47 Sulfa (Sulfonamide Allergy Verified 08/13/17 04:47 Antibiotics) [SULFA] TAPE Allergy Uncoded 12/28/16 14:14 - History of Present Illness History of Present Illness: As mentioned above .. Pt has peripheral diabetic neuropathy and PVD required stenting according to pt. - Past Medical History Past Medical History: Anxiety, Arthritis, Depression, Diabetes, GERD, Hypertension Additional Medical History: Chronic Pain Syndrome, Gastroparesis, Chronic Constipation, Fibromyalgia, Cervical Dysplasia - Past Surgical History Surgical History: Angioplasty/Stents, Cholecystectomy, Hysterectomy, Ortho Surgery, Tonsillectomy Additional Surgical History: Laser surgery for cervical dysplasia - Family History Family Medical History: Diabetes Mellitus, Cancer, SC, Coronary Artery Disease, Heart Failure, Sudden Cardiac , Hypertension - Social History Does patient currently use any type of tobacco product: No Have you used tobacco products in the last 12 months: No Type of Tobacco Use: None Does any household member use tobacco: No Alcohol Use: None Drug Use: Prescription Drugs - Medications Home Medications: Aspirin EC [ASPIRIN EC 81 MG *] 1 tab PO DAILY 08/12/17 [History Confirmed 08/12] Fentanyl 50 Mcg/Hr [DURAGESIC PATCH 50 mcg/hr *] 1 patch TOP Q72H 08/12/17 [ History Confirmed 08/12/17] Furosemide [LASIX TAB 40 MG *] 1 tab PO BID 08/12/17 [History Confirmed 08/12/17 ] Pantoprazole Sodium 1 tab PO BID 08/12/17 [History Confirmed 08/12/17] - Review of Systems Gastrointestinal: Nausea (h/o GERD and Gastroperesis ) - Physical Exam Vital Signs: Temperature 98.2 F Pulse Rate [Right Brachial] 95 Pulse Rate [Left Brachial] 103 Respiratory Rate 18 Blood Pressure [Left Arm] 147/65 Blood Pressure [Right Arm] 145/65 Blood Pressure [Standing] 84/59 Blood Pressure [Lying] 96/58 Blood Pressure 141/78 O2 Sat by Pulse Oximetry 96 Oriented: Normal, Time, Person, Place Eyes: Normal Ear: Normal Nose: Normal Throat: Normal Respiratory: Clear Throughout Cardiovascular: Normal : Normal Auscultation: Bowel Sounds: Normal Palpation: Normal Tenderness: Normal Musculoskeletal: Right (Rt foot ulcer on the lateral aspect ,2 x 2 cm down through the sub cu tissue with erythema involving the foot and extending to the ankle ), Left (Lt foot ulceration involving the big toe with moderate erythema ) , Leg (Bilateral calf tenderness with 2+ edema both feet more on the Rt ), Deformity, Pulse Deficit (all pulses were weak but felt with the doppler ) - Plan Plan: Pt is having infected diabetic ulcers Rt lateral foot and Lt big toe. cellulitis both feet . possible osteomyelitis Rt metatarsal. Diabetic peripheral neuropathy. PVD. DM, HTN,Arthritis. Pt is on IV ATB , local care , leg elevation ,DVT prophylaxis. scheduled for bone scan to R/O osteomyelitis
[2017-08-16] MEDS: ROXICODONE TAB 15 MG PO PRN (20:53)
[2017-08-16] MEDS: SNACK - Diabetic Appropriate PO SCH (21:55)
[2017-08-17] MEDS: NS 1000 ML 1,000 ML IV SCH ×2 (01:52→17:07)
[2017-08-17] MEDS ORDERED: NS 100 ML IV + SPIKE MINIBAG* 100 ML IV ONE (05:38)
[2017-08-17 06:07] LABS: BASOPHILS % (AUTO) 0.6 % (0.2-1.0); EOSINOPHILS # (AUTO) 0.4 x10^3/uL (0.0-0.2); EOSINOPHILS % (AUTO) 5.8 % (0.9-2.9); HEMATOCRIT 21.8 % (36.0-47.0); HEMOGLOBIN 7.3 g/dL (12.0-16.0); LYMPHOCYTES # (AUTO) 1.4 X10^3/uL (1.3-2.9); LYMPHOCYTES % (AUTO) 20.2 % (21.0-51.0); MEAN CORPUSCULAR HEMOGLOBIN 26.9 pg (27.0-34.0); MEAN CORPUSCULAR HGB CONC 33.4 g/dL (33.0-35.0); MEAN CORPUSCULAR VOLUME 80.5 fL (80.0-100.0); MEAN PLATELET VOLUME 7.9 fL (7.4-11.0); MONOCYTES # (AUTO) 0.7 x10^3/uL (0.3-0.8); MONOCYTES % (AUTO) 9.5 % (0.0-13.0); NEUTROPHILS # (AUTO) 4.4 x10^3/uL (2.2-4.8); NEUTROPHILS % (AUTO) 63.9 % (42.0-75.0); PLATELET COUNT 187 X10^3/uL (150.0-450.0); RED BLOOD COUNT 2.71 X10^6/uL (3.5-5.4); WHITE BLOOD COUNT 6.9 X10^3/uL (3.6-10.0)
[2017-08-17] MEDS: ZOSYN VIAL 3.375 GM IV SCH ×4 (06:13→23:16)
[2017-08-17] MEDS: XANAX PO SCH ×3 (06:13→23:13)
[2017-08-17 06:48] LABS: CALCIUM 8.5 mg/dL (8.5-10.1); CARBON DIOXIDE 36.2 mmol/L (21-32); COR CA(FOR HYPOALB) 9.3 mg/dL (8.5-10.1); CREATININE 1.42 mg/dL (0.55-1.02); TOTAL PROTEIN 6.3 g/dL (6.4-8.2)
[2017-08-17 06:50] LABS: PLATELET MORPHOLOGY COMMENT NORMAL (NORMAL)
[2017-08-17 06:51] LABS: HYPOCHROMASIA SLIGHT
[2017-08-17] MEDS ORDERED: POTASSIUM CHL 40 MEQ/NS 0.45% 500 ML IV PRN (07:05)
[2017-08-17] MEDS ORDERED: POTASSIUM CHL 60 MEQ/NS 0.45% 500 ML IV PRN (07:05)
[2017-08-17] MEDS ORDERED: MAGNESIUM SULFATE 1 GM/100 mL PREMIX 1 GM/100 ML BAG IV PRN (07:05)
[2017-08-17] MEDS ORDERED: K-LYTE EFFERVESCENT PO PRN (07:05)
[2017-08-17] MEDS ORDERED: POTASSIUM CHLORIDE LIQ 20 MEQ UDC PO PRN (07:05)
[2017-08-17] MEDS ORDERED: K-RIDER 10 MEQ/NS 100 ML 10 MEQ/100 ML BAG IV PRN (07:05)
[2017-08-17] MEDS: FOLIC ACID TAB 1 MG PO SCH (08:22)
[2017-08-17] MEDS: PLAVIX PO SCH (08:22)
[2017-08-17] MEDS: ASPIRIN EC 81 MG PO SCH (08:22)
[2017-08-17] MEDS: ZOCOR TAB 10 MG PO SCH (08:22)
[2017-08-17] MEDS: COREG TAB 3.125 MG PO SCH ×2 (08:22→23:14)
[2017-08-17] MEDS: CLARITIN PO SCH (08:22)
[2017-08-17] MEDS: EFFEXOR XR 150 MG CAP PO SCH (08:23)
[2017-08-17] MEDS: PROTONIX TAB 40 MG PO SCH ×2 (08:23→23:16)
[2017-08-17] MEDS: ACTOS PO SCH (08:23)
[2017-08-17] MEDS: MAG-OX TAB PO PRN (08:25)
[2017-08-17] MEDS ORDERED: METHOTREXATE PO SCH (09:00)
[2017-08-17] MEDS: ALBUMIN HUMAN 25%- 100ML 100 ML IV SCH (09:37)
[2017-08-17] MEDS: INVANZ INJ 1 GM VIAL 1 GM in NS 100 ML IV + SPIKE MINIBAG* 100 ML IV SCH (09:37)
[2017-08-17] MEDS: CHECK PATCH XX SCH ×2 (09:38→23:14)
[2017-08-17] MEDS: GENTAMICIN TOPICAL OINT TOP SCH ×2 (09:38→23:15)
[2017-08-17] MEDS: LASIX PO SCH ×2 (11:42→23:15)
--- NOTE | 2017-08-17 12:28 | NM ---
BONE SCAN THREE PHASE CLINICAL INDICATION: Bilateral foot cellulitis PROCEDURE: 25.5 mCi of technetium-99m MDP were administered intravenously. Flow and blood pool imag es were obtained of the state area. Approximately 2-4 hours later delayed images were also acquired. COMPARISON: None. No plain films obtained. FINDINGS: There is three-phase uptake primarily involving the right foot primarily at what appears to be the 5th MTP joint although to a lesser degree involving the more proximal foot and ankle. IMPRESSION: 1. Abnormal uptake in the distribution mentioned above. This is somewhat nonspecific in the absence of an anatomic study such as plain film or MRI but , with a history cellulitis, osteomyelitis cannot be excluded. Reported By:
[2017-08-17] MEDS ORDERED: NS 100 ML IV 100 ML IV ONE ×2 (13:01→22:58)
[2017-08-17] MEDS: HumuLIN R SUBCUT PRN ×2 (13:20→18:09)
[2017-08-17] MEDS ORDERED: NS 250 ML IV 0 ML IV ONE (13:45)
--- NOTE | 2017-08-17 14:30 | RAD ---
Examination: Left foot, three views History: Cellulitis Findings: No acute fracture, dislocation or osteomyelitis. Apparent partial amputation of the proxima l phalanx, 5th toe. Calcaneal enthesophytes are present. No abnormal calcification is seen. Impression: No acute osseous abnormality noted. Reported By:
--- NOTE | 2017-08-17 14:30 | RAD ---
History: Right foot cellulitis Study: AP and oblique and lateral views of the right foot Findings: There is artifact from a slip for or sock around the right foot. There is osteopenia. There is a moderate plantar spur. No fracture or subluxation is demonstrated. There is no definite bone er osion or destruction. Impression: Exam compromised by artifact from soccer slowed per but no obvious bony abnormality is de monstrated. Reported By:
--- NOTE | 2017-08-17 15:30 | PCM.PROG ---
Progress Note - Progress Note for Day of Date: 08/17/17 - Subjective Subjective: WAS ADMITTED FOR CELLULITIS TO THE BILATERAL LOWER EXTREMITIES. SHE HAS A DECUBITUS ULCER TO THE LATERAL ASPECT OF THE RIGHT FOOT. WOUNDS ARE ALSO NOTED TO BILATERAL GREAT TOES. TODAY, SHE IS ALERT AND ORIENTED , SITTING UP IN BED ON MORNING ROUNDS. SHE COMPLAINS OF INCREASING PAIN TO BILATERAL LOWER EXTREMITITIES. LEGS AND FEET CONTINUE WITH ERYTHEMA AND WARMTH. WOUND TO RIGHT FOOT IS OPEN TO AIR, NO DRAINAGE NOTED. HER VITAL SIGNS THIS MORNING ARE 98.9-103-20-97%-122/58. LABS WERE OBTAINED THIS MORNING. WBC HAS DECREASED FROM 14.3 TO 8.9. SHE IS NOTED TO BE ANEMIC WITH HGB BEING 8.0, HCT 24.4. BUN 40, CREATININE 1.53, GLUCOSE 221, AST 45, ALK PHOS 119, ALBUMIN 3.0. WOUND CULTURE OF WOUND TO THE RIGHT LATERAL FOOT REPORTS GROWTH OF CITROBACTER BRAAKII. WE WILL DISCONTINUE VANCOMYCIN AND START INVANZ 1GM IV DAILY AND ZOSYN 3.375MG IV TID. WE WILL OBTAIN BILATERAL VENOUS DOPPLERS TODAY TO ASSESS FOR POSSIBLE DVT. WE WILL ALSO OBTAIN A MRI WITH CONTRAST OF THE RIGHT LOWER EXTREMITY TOMORROW. DUE TO ELEVATED BUN AND CREATININE, WE WILL BOLUS 1 LITER OF NORMAL SALINE AND INCREASE MAINTENANCE FLUIDS TO 100ML/HR. OTHERWISE, WE WILL FOLLOW UP WITH AM LABS AND CONTINUE TO MONITOR PATIENT. was seen today .. Still having moderate to severe pain mainly the Rt foot and calf. having moderate drainage. Bone scan showed possible osteomyelitis Rt metatarsal .. doppler study is negative for DVT - Past Medical Family Social History Allergies: Allergies codeine Allergy (Verified 08/13/17 04:47) morphine Allergy (Verified 08/13/17 04:47) Sulfa (Sulfonamide Antibiotics) [SULFA] Allergy (Verified 08/13/17 04:47) TAPE Allergy (Uncoded 12/28/16 14:14) - Review of Systems ROS: No change since H&P - Vital Signs and I&O's Vital Signs: Temperature 98.2 F Pulse Rate [Right Brachial] 93 Pulse Rate [Left Brachial] 103 Respiratory Rate 18 Blood Pressure [Left Arm] 121/58 Blood Pressure [Right Arm] 112/54 Blood Pressure [Standing] 84/59 Blood Pressure [Lying] 96/58 Blood Pressure 141/78 O2 Sat by Pulse Oximetry 96 Intake and Output: Intake & Output 08/15/17 08/16/17 08/17/17 08/18/17 11:59 11:59 11:59 11:59 Intake Total 3900 3120 1999 105 Balance 3900 3120 1999 105 - Physical Exam Oriented: Normal, Time, Person, Place Eyes: Normal Ear: Normal Nose: Normal Throat: Normal Respiratory: Normal Cardiovascular: Normal : Normal Auscultation: Bowel Sounds: Normal Palpation: Normal Tenderness: Normal, Epigastric (epigastric and mid abdominal tenderness, no reboubd ,no regidity) Skin: Red, Tender, Hot, Wound (BILATERAL LOWER EXTREMITY CELLULITIS, DECUBITUS ULCER TO BILATERAL FEET) Musculoskeletal: Right (Rt foot ulcer on the lateral aspect ,2 x 2 cm down through the sub cu tissue with erythema involving the foot and extending to the ankle ), Left (Lt foot ulceration involving the big toe with moderate erythema ) , Leg (Bilateral calf tenderness with 2+ edema both feet more on the Rt ), Foot (Rt foot ulcer is the same , 2 x 2 cm with exudate and associated cellulitis about 5 x 5 cm ), Deformity, Pulse Deficit (all pulses were weak but felt with the doppler ) Psychiatric: Normal Mood Description: Calm Affect: Normal Speech Pattern: Clear, Appropriate - Laboratory and Diagnostics Result Diagrams: 08/18/17 08:58 08/18/17 08:58 Labs: 08/12/17 17:46 Toe - Right Big Gram Stain - Final 08/12/17 17:46 Toe - Right Big Wound Culture - Final 08/12/17 17:46 Toe - Left Big Gram Stain - Final 08/12/17 17:46 Toe - Left Big Wound Culture - Final 08/12/17 17:46 Foot - Right Gram Stain - Final 08/12/17 17:46 Foot - Right Wound Culture - Final Citrobacter Braakii 08/12/17 17:05 Blood Blood Culture - Preliminary 08/12/17 17:04 Blood Blood Culture - Preliminary Laboratory WBC 6.9 X10^3/uL (3.6-10.0) 08/17/17 05:35 RBC 2.71 X10^6/uL (3.5-5.4) L 08/17/17 05:35 Hgb 7.3 g/dL (12.0-16.0) L 08/17/17 05:35 Hct 21.8 % (36.0-47.0) L 08/17/17 05:35 MCV 80.5 fL (80.0-100.0) 08/17/17 05:35 MCH 26.9 pg (27.0-34.0) L 08/17/17 05:35 MCHC 33.4 g/dL (33.0-35.0) 08/17/17 05:35 RDW 18.0 % (11.6-16.5) H 08/17/17 05:35 Plt Count 187 X10^3/uL (150.0-450.0) 08/17/17 05:35 Plt Count Comment Adequate (ADEQUATE) 08/17/17 05:35 MPV 7.9 fL (7.4-11.0) 08/17/17 05:35 Neut % 63.9 % (42.0-75.0) 08/17/17 05:35 Lymph % 20.2 % (21.0-51.0) L 08/17/17 05:35 Mcduffie % 9.5 % (0.0-13.0) 08/17/17 05:35 Eos % 5.8 % (0.9-2.9) H 08/17/17 05:35 Baso % 0.6 % (0.2-1.0) 08/17/17 05:35 Neut # 4.4 x10^3/uL (2.2-4.8) 08/17/17 05:35 Lymph # 1.4 X10^3/uL (1.3-2.9) 08/17/17 05:35 Mcduffie # 0.7 x10^3/uL (0.3-0.8) 08/17/17 05:35 Eos # 0.4 x10^3/uL (0.0-0.2) H 08/17/17 05:35 Baso # 0.0 X10^3/uL (0.0-0.1) 08/17/17 05:35 Absolute Nucleated RBC 0.1 /100WBC 08/17/17 05:35 Plt Morphology Comment Normal (NORMAL) 08/17/17 05:35 RBC Morphology Abnormal (NORMAL) A 08/17/17 05:35 Hypochromasia Slight A 08/17/17 05:35 Sodium 142 mmol/L (136-145) 08/17/17 05:35 Corrected Sodium 144 mmol/L (136-145) 08/17/17 05:35 Potassium 3.0 mmol/L (3.5-5.1) L* 08/17/17 05:35 Chloride 99 mmol/L (98-107) 08/17/17 05:35 Carbon Dioxide 36.2 mmol/L (21-32) H 08/17/17 05:35 BUN 24 mg/dL (7-18) H 08/17/17 05:35 Creatinine 1.42 mg/dL (0.55-1.02) H 08/17/17 05:35 Est GFR (MDRD) Af Amer 48 (>60) L 08/17/17 05:35 Est GFR (MDRD) Non-Af 39 (>60) L 08/17/17 05:35 Glucose 175 mg/dL (65-99) H 08/17/17 05:35 POC Glucose (mg/dL) 223 mg/dL (65-99) H 08/17/17 12:53 Hemoglobin A1c 8.2 % (4.5-6.2) H 08/17/17 05:35 Calcium 8.5 mg/dL (8.5-10.1) 08/17/17 05:35 Corrected Calcium 9.3 mg/dL (8.5-10.1) 08/17/17 05:35 Magnesium 1.2 mg/dL (1.7-2.9) L 08/17/17 05:35 Total Bilirubin 0.40 mg/dL (0.2-1.0) 08/17/17 05:35 AST 51 Units/L (15-37) H 08/17/17 05:35 ALT 58 Units/L (12-78) 08/17/17 05:35 Alkaline Phosphatase 91 Units/L (46-116) 08/17/17 05:35 Total Protein 6.3 g/dL (6.4-8.2) L 08/17/17 05:35 Albumin 3.0 g/dL (3.4-5.0) L 08/17/17 05:35 Globulin 3.3 g/dL (2.5-4.5) 08/17/17 05:35 Albumin/Globulin Ratio 0.9 Ratio (1.1-2.1) L 08/17/17 05:35 Blood Type O POSITIVE 08/17/17 12:10 Antibody Screen Negative 08/17/17 12:10 Crossmatch See Detail 08/17/17 12:10 - Plan (1) Diabetic foot ulcer with osteomyelitis Status: Acute Narrative Support Text: bone scan was consistent with oseomyelitis,, Plan: will debride in am and obtain deep culture.. same IV ATB pending C&S (2) Cellulitis of both lower extremities Status: Acute Plan: CONTINUE IV ANTIBIOTICS, OBTAIN VENOUS DOPPLER AND MRI WITH CONTRAST, CONTINUE TO MONITOR (3) Fibromyalgia syndrome Status: Chronic (4) Cervical dysplasia Status: Chronic (5) Depression Status: Chronic (6) Essential hypertension Status: Chronic (7) Fibromyalgia Status: Chronic (8) GERD (gastroesophageal reflux disease) Status: Chronic Qualifiers: Esophagitis presence: without esophagitis Qualified Code(s): K21.9 - Gastro -esophageal reflux disease without esophagitis (9) Osteoarthritis Status: Chronic (10) Chronic kidney disease (CKD) Status: Chronic (11) Chronic anemia Status: Chronic
[2017-08-17] MEDS ORDERED: NS 500 ML IV 500 ML IV ONE (16:18)
[2017-08-17] MEDS ORDERED: BENADRYL INJ 50 MG VIAL IVP PRN (16:18)
[2017-08-17] MEDS ORDERED: TYLENOL 325 MG TAB PO PRN (16:18)
--- NOTE | 2017-08-17 20:42 | PCM.PROG ---
Progress Note - Progress Note for Day of Date: 08/17/17 - Subjective Subjective: WAS ADMITTED FOR CELLULITIS TO THE BILATERAL LOWER EXTREMITIES. SHE HAS A DECUBITUS ULCER TO THE LATERAL ASPECT OF THE RIGHT FOOT AND BILATERAL GREAT TOES. TODAY, SHE IS ALERT AND ORIENTED, SITTING UP IN BED ON MORNING ROUNDS. SHE CONTINUES TO COMPLAIN PAIN TO BILATERAL LOWER EXTREMITITIES. LEGS AND FEET CONTINUE WITH ERYTHEMA AND WARMTH, BUT APPEARS TO HAVE SLIGHTLY IMPROVED SINCE WE LAST SAW HER. WOUND TO RIGHT FOOT IS NOTED WITH A DRESSING. DRESSING IS DRY AND INTACT. WOUNDS TO BILATERAL GREAT TOES OPEN TO AIR. NO DRAINAGE NOTED. HER VITAL SIGNS THIS MORNING ARE 98.1-79-18-99%-109/44. LABS WERE OBTAINED THIS MORNING. ABNORMAL LAB VALUES INCLUDE THE FOLLOWING: RBC 2.71, HGB 7.3, HCT 21.8, POTASSIUM 3.0, CARBON DIOXIDE 36.2, BUN 24, CREATININE 1.42, GLUCOSE 175, HEMOGLOBIC A1C 8.2, MAGNESIUM 1.2, AST 51, TOTAL PROTEIN 6.3 , ALBUMIN 3.0. SHE CONTINUES ON ABX FOR INFECTION. CONSULTED WITH PATIENT AND PLANS FOR DEBRIDEMENT OF WOUND, PENDING RESULTS OF BONE SCAN. PATIENT IS SCHEDULED FOR BONE SCAN TODAY. WE ALSO PLAN TO TRANSFUSE 2 UNITS OF PACKED RED BLOOD CELLS FOR LOW HEMOGLOBIN. WE WILL PREMEDICATE WITH TYLENOL 650MG PO AND BENADRYL 25MG IV X 1 PRIOR TO TRANSFUSION. OTHERWISE, WE WILL FOLLOW UP WITH AM LABS AND CONTINUE TO MONITOR PATIENT. - Past Medical Family Social History Past Med/Fam/Surg Hx: No changes since H&P Allergies: Allergies codeine Allergy (Verified 08/13/17 04:47) morphine Allergy (Verified 08/13/17 04:47) Sulfa (Sulfonamide Antibiotics) [SULFA] Allergy (Verified 08/13/17 04:47) TAPE Allergy (Uncoded 12/28/16 14:14) - Review of Systems ROS: No change since H&P - Vital Signs and I&O's Vital Signs: Temperature 98.1 F Pulse Rate [Right Brachial] 79 Pulse Rate [Left Brachial] 103 Respiratory Rate 18 Blood Pressure [Left Arm] 121/58 Blood Pressure [Right Arm] 109/44 Blood Pressure [Standing] 84/59 Blood Pressure [Lying] 96/58 Blood Pressure 141/78 O2 Sat by Pulse Oximetry 99 Intake and Output: Intake & Output 08/15/17 08/16/17 08/17/17 08/18/17 11:59 11:59 11:59 11:59 Intake Total 3900 3120 2000 1590 Output Total 1100 Balance 3900 3120 2000 490 - Physical Exam Oriented: Normal, Time, Person, Place Eyes: Normal Ear: Normal Nose: Normal Throat: Normal Respiratory: Normal Cardiovascular: Normal : Normal Auscultation: Bowel Sounds: Normal Tenderness: Normal, Epigastric Skin: Red, Tender, Hot, Wound (BILATERAL LOWER EXTREMITY CELLULITIS, DECUBITUS ULCER TO BILATERAL FEET) Musculoskeletal: Right (Rt foot ulcer on the lateral aspect ,2 x 2 cm down through the sub cu tissue with erythema involving the foot and extending to the ankle ), Left (Lt foot ulceration involving the big toe with moderate erythema ) , Leg (Bilateral calf tenderness with 2+ edema both feet more on the Rt ), Foot (Rt foot ulcer is the same , 2 x 2 cm with exudate and associated cellulitis about 5 x 5 cm ), Deformity, Pulse Deficit (all pulses were weak but felt with the doppler ) Psychiatric: Normal Mood Description: Calm Affect: Normal Speech Pattern: Clear, Appropriate - Laboratory and Diagnostics Result Diagrams: 08/17/17 05:35 08/17/17 05:35 Labs: 08/12/17 17:04 Blood Blood Culture - Final 08/12/17 17:05 Blood Blood Culture - Final 08/12/17 17:46 Toe - Right Big Gram Stain - Final 08/12/17 17:46 Toe - Right Big Wound Culture - Final 08/12/17 17:46 Toe - Left Big Gram Stain - Final 08/12/17 17:46 Toe - Left Big Wound Culture - Final 08/12/17 17:46 Foot - Right Gram Stain - Final 08/12/17 17:46 Foot - Right Wound Culture - Final Citrobacter Braakii Laboratory WBC 6.9 X10^3/uL (3.6-10.0) 08/17/17 05:35 RBC 2.71 X10^6/uL (3.5-5.4) L 08/17/17 05:35 Hgb 7.3 g/dL (12.0-16.0) L 08/17/17 05:35 Hct 21.8 % (36.0-47.0) L 08/17/17 05:35 MCV 80.5 fL (80.0-100.0) 08/17/17 05:35 MCH 26.9 pg (27.0-34.0) L 08/17/17 05:35 MCHC 33.4 g/dL (33.0-35.0) 08/17/17 05:35 RDW 18.0 % (11.6-16.5) H 08/17/17 05:35 Plt Count 187 X10^3/uL (150.0-450.0) 08/17/17 05:35 Plt Count Comment Adequate (ADEQUATE) 08/17/17 05:35 MPV 7.9 fL (7.4-11.0) 08/17/17 05:35 Neut % 63.9 % (42.0-75.0) 08/17/17 05:35 Lymph % 20.2 % (21.0-51.0) L 08/17/17 05:35 Wheeler % 9.5 % (0.0-13.0) 08/17/17 05:35 Eos % 5.8 % (0.9-2.9) H 08/17/17 05:35 Baso % 0.6 % (0.2-1.0) 08/17/17 05:35 Neut # 4.4 x10^3/uL (2.2-4.8) 08/17/17 05:35 Lymph # 1.4 X10^3/uL (1.3-2.9) 08/17/17 05:35 Wheeler # 0.7 x10^3/uL (0.3-0.8) 08/17/17 05:35 Eos # 0.4 x10^3/uL (0.0-0.2) H 08/17/17 05:35 Baso # 0.0 X10^3/uL (0.0-0.1) 08/17/17 05:35 Absolute Nucleated RBC 0.1 /100WBC 08/17/17 05:35 Plt Morphology Comment Normal (NORMAL) 08/17/17 05:35 RBC Morphology Abnormal (NORMAL) A 08/17/17 05:35 Hypochromasia Slight A 08/17/17 05:35 Sodium 142 mmol/L (136-145) 08/17/17 05:35 Corrected Sodium 144 mmol/L (136-145) 08/17/17 05:35 Potassium 3.0 mmol/L (3.5-5.1) L* 08/17/17 05:35 Chloride 99 mmol/L (98-107) 08/17/17 05:35 Carbon Dioxide 36.2 mmol/L (21-32) H 08/17/17 05:35 BUN 24 mg/dL (7-18) H 08/17/17 05:35 Creatinine 1.42 mg/dL (0.55-1.02) H 08/17/17 05:35 Est GFR (MDRD) Af Amer 48 (>60) L 08/17/17 05:35 Est GFR (MDRD) Non-Af 39 (>60) L 08/17/17 05:35 Glucose 175 mg/dL (65-99) H 08/17/17 05:35 POC Glucose (mg/dL) 237 mg/dL (65-99) H 08/17/17 16:55 Hemoglobin A1c 8.2 % (4.5-6.2) H 08/17/17 05:35 Calcium 8.5 mg/dL (8.5-10.1) 08/17/17 05:35 Corrected Calcium 9.3 mg/dL (8.5-10.1) 08/17/17 05:35 Magnesium 1.2 mg/dL (1.7-2.9) L 08/17/17 05:35 Total Bilirubin 0.40 mg/dL (0.2-1.0) 08/17/17 05:35 AST 51 Units/L (15-37) H 08/17/17 05:35 ALT 58 Units/L (12-78) 08/17/17 05:35 Alkaline Phosphatase 91 Units/L (46-116) 08/17/17 05:35 Total Protein 6.3 g/dL (6.4-8.2) L 08/17/17 05:35 Albumin 3.0 g/dL (3.4-5.0) L 08/17/17 05:35 Globulin 3.3 g/dL (2.5-4.5) 08/17/17 05:35 Albumin/Globulin Ratio 0.9 Ratio (1.1-2.1) L 08/17/17 05:35 Stool Description 150 grs brown soft 08/17/17 16:34 Stl Occult Blood (IFOB) Negative (NEGATIVE) 08/17/17 16:34 Blood Type O POSITIVE 08/17/17 12:10 Antibody Screen Negative 08/17/17 12:10 Crossmatch See Detail 08/17/17 12:10 - Plan (1) Cellulitis of both lower extremities Status: Acute Plan: CONTINUE IV ANTIBIOTICS, OBTAIN BONE SCAN, CONTINUE TO MONITOR (2) Decubital ulcer Status: Acute Qualifiers: Pressure ulcer location: foot, unspecified location Pressure ulcer stage: stage 2 Laterality: unspecified laterality Qualified Code(s): L89.892 - Pressure ulcer of other site, stage 2 Plan: WOUND CARE, WOUND CULTURES, CONTINUE IV ANTIBIOTICS, CONTINUE TO MONITOR (3) Citrobacter infection Status: Acute Plan: INVANZ 1GM IV DAILY, ZOSYN 3.375GM IV TID, CONTINUE TO MONITOR (4) Anemia Status: Acute Qualifiers: Anemia type: iron deficiency Iron deficiency anemia type: unspecified iron deficiency Qualified Code(s): D50.9 - Iron deficiency anemia, unspecified Plan: TRANSFUSE 2 UNITS PRBC, CONTINUE TO MONITOR H&H
[2017-08-17] MEDS ORDERED: NS 250 ML IV 500 ML IV ONE (22:11)
[2017-08-17] MEDS: SNACK - Diabetic Appropriate PO SCH (23:15)
[2017-08-18] MEDS ORDERED: NS 100 ML IV 100 ML IV ONE ×3 (05:56→21:03)
[2017-08-18] MEDS: XANAX PO SCH ×3 (06:13→21:34)
[2017-08-18 09:13] LABS: BASOPHILS % (AUTO) 0.3 % (0.2-1.0); EOSINOPHILS # (AUTO) 0.5 x10^3/uL (0.0-0.2); EOSINOPHILS % (AUTO) 5.3 % (0.9-2.9); HEMATOCRIT 30.4 % (36.0-47.0); LYMPHOCYTES # (AUTO) 1.2 X10^3/uL (1.3-2.9); LYMPHOCYTES % (AUTO) 11.9 % (21.0-51.0); MEAN CORPUSCULAR HEMOGLOBIN 27.1 pg (27.0-34.0); MEAN CORPUSCULAR HGB CONC 33.1 g/dL (33.0-35.0); MEAN CORPUSCULAR VOLUME 81.9 fL (80.0-100.0); MEAN PLATELET VOLUME 7.6 fL (7.4-11.0); MONOCYTES # (AUTO) 0.6 x10^3/uL (0.3-0.8); MONOCYTES % (AUTO) 5.9 % (0.0-13.0); NEUTROPHILS # (AUTO) 7.6 x10^3/uL (2.2-4.8); NEUTROPHILS % (AUTO) 76.6 % (42.0-75.0); PLATELET COUNT 213 X10^3/uL (150.0-450.0); RED BLOOD COUNT 3.71 X10^6/uL (3.5-5.4); RED CELL DISTRIBUTION WIDTH 18.3 % (11.6-16.5); WHITE BLOOD COUNT 9.9 X10^3/uL (3.6-10.0)
[2017-08-18] MEDS ORDERED: DIPRIVAN VIAL ONE (09:30)
[2017-08-18] MEDS ORDERED: XYLOCAINE 2 % (PLAIN) ONE (09:30)
[2017-08-18] MEDS ORDERED: KETALAR ONE (09:30)
[2017-08-18] MEDS ORDERED: VERSED ONE (09:30)
[2017-08-18 09:38] LABS: ALBUMIN 3.2 g/dL (3.4-5.0); CARBON DIOXIDE 34.2 mmol/L (21-32); COR CA(FOR HYPOALB) 9.6 mg/dL (8.5-10.1); CREATININE 1.25 mg/dL (0.55-1.02); MAGNESIUM 1.6 mg/dL (1.7-2.9); TOTAL PROTEIN 6.7 g/dL (6.4-8.2)
[2017-08-18] MEDS: COREG TAB 3.125 MG PO SCH ×2 (10:16→21:35)
[2017-08-18] MEDS ORDERED: LR 1000 ML IV 1,000 ML IV ONE (11:14)
[2017-08-18] MEDS ORDERED: FENTANYL INJ 100 mcg ONE (11:22)
[2017-08-18] MEDS ORDERED: XYLOCAINE-MPF 1% ONE (11:31)
[2017-08-18] MEDS ORDERED: BACTROBAN OINT ONE (11:43)
[2017-08-18] MEDS: ACTOS PO SCH (12:32)
[2017-08-18] MEDS: FOLIC ACID TAB 1 MG PO SCH (12:32)
[2017-08-18] MEDS: CLARITIN PO SCH (12:33)
[2017-08-18] MEDS: MAG-OX TAB PO PRN (12:34)
[2017-08-18] MEDS: LASIX PO SCH ×2 (12:34→21:35)
[2017-08-18] MEDS: ZOCOR TAB 10 MG PO SCH (12:34)
[2017-08-18] MEDS: INVANZ INJ 1 GM VIAL 1 GM in NS 100 ML IV 100 ML IV SCH (12:35)
[2017-08-18] MEDS: GENTAMICIN TOPICAL OINT TOP SCH ×2 (12:35→21:34)
[2017-08-18] MEDS: PROTONIX TAB 40 MG PO SCH ×2 (12:35→21:35)
[2017-08-18] MEDS: EFFEXOR XR 150 MG CAP PO SCH (12:36)
[2017-08-18] MEDS: PLAVIX PO SCH (12:36)
[2017-08-18] MEDS: ASPIRIN EC 81 MG PO SCH (12:36)
[2017-08-18] MEDS: CHECK PATCH XX SCH ×2 (12:37→21:33)
[2017-08-18] MEDS: ALBUMIN HUMAN 25%- 100ML 100 ML IV SCH (12:38)
[2017-08-18] MEDS: HumuLIN R SUBCUT PRN ×2 (13:04→22:26)
[2017-08-18] MEDS: ZOSYN VIAL 3.375 GM IV SCH ×2 (14:00→21:31)
[2017-08-18] MEDS: NS 1000 ML 1,000 ML IV SCH ×2 (14:06→17:22)
[2017-08-18] MEDS: SNACK - Diabetic Appropriate PO SCH (21:25)
[2017-08-18] MEDS: ROXICODONE TAB 15 MG PO PRN (21:43)
[2017-08-19] MEDS ORDERED: NS 100 ML IV 100 ML IV ONE (05:29)
[2017-08-19 06:11] LABS: BASOPHILS % (AUTO) 0.3 % (0.2-1.0); EOSINOPHILS # (AUTO) 0.4 x10^3/uL (0.0-0.2); HEMATOCRIT 29.5 % (36.0-47.0); HEMOGLOBIN 9.9 g/dL (12.0-16.0); LYMPHOCYTES # (AUTO) 1.6 X10^3/uL (1.3-2.9); LYMPHOCYTES % (AUTO) 17.6 % (21.0-51.0); MEAN CORPUSCULAR HEMOGLOBIN 27.1 pg (27.0-34.0); MEAN CORPUSCULAR HGB CONC 33.6 g/dL (33.0-35.0); MEAN CORPUSCULAR VOLUME 80.6 fL (80.0-100.0); MEAN PLATELET VOLUME 8.1 fL (7.4-11.0); MONOCYTES # (AUTO) 0.2 x10^3/uL (0.3-0.8); MONOCYTES % (AUTO) 2.6 % (0.0-13.0); NEUTROPHILS # (AUTO) 6.6 x10^3/uL (2.2-4.8); NEUTROPHILS % (AUTO) 74.5 % (42.0-75.0); PLATELET COUNT 239 X10^3/uL (150.0-450.0); RED BLOOD COUNT 3.66 X10^6/uL (3.5-5.4); WHITE BLOOD COUNT 8.9 X10^3/uL (3.6-10.0)
[2017-08-19] MEDS: NS 1000 ML 1,000 ML IV SCH ×2 (06:16→08:46)
[2017-08-19] MEDS: XANAX PO SCH (06:17)
[2017-08-19] MEDS: ZOSYN VIAL 3.375 GM IV SCH (06:17)
[2017-08-19 06:32] LABS: ALBUMIN 3.2 g/dL (3.4-5.0); CALCIUM 8.9 mg/dL (8.5-10.1); COR CA(FOR HYPOALB) 9.5 mg/dL (8.5-10.1); CREATININE 1.29 mg/dL (0.55-1.02); MAGNESIUM 1.4 mg/dL (1.7-2.9); TOTAL PROTEIN 6.6 g/dL (6.4-8.2)
[2017-08-19] MEDS: INVANZ INJ 1 GM VIAL 1 GM in NS 100 ML IV 100 ML IV SCH (08:46)
[2017-08-19] MEDS: CLARITIN PO SCH (08:47)
[2017-08-19] MEDS: FOLIC ACID TAB 1 MG PO SCH (08:47)
[2017-08-19] MEDS: MAG-OX TAB PO PRN ×2 (08:47→12:34)
[2017-08-19] MEDS: ASPIRIN EC 81 MG PO SCH (08:47)
[2017-08-19] MEDS: ZOCOR TAB 10 MG PO SCH (08:47)
[2017-08-19] MEDS: EFFEXOR XR 150 MG CAP PO SCH (08:47)
[2017-08-19] MEDS: ACTOS PO SCH (08:47)
[2017-08-19] MEDS: PROTONIX TAB 40 MG PO SCH (08:48)
[2017-08-19] MEDS: COREG TAB 3.125 MG PO SCH (08:48)
[2017-08-19] MEDS: GENTAMICIN TOPICAL OINT TOP SCH (08:50)
[2017-08-19] MEDS: CHECK PATCH XX SCH (08:50)
[2017-08-19] MEDS: PLAVIX PO SCH (08:50)
[2017-08-19] MEDS: ALBUMIN HUMAN 25%- 100ML 100 ML IV SCH (08:53)
[2017-08-19] MEDS ORDERED: BACTROBAN OINT TOP PRN (09:39)
[2017-08-19] MEDS ORDERED: HYDROGEN PEROXIDE 3% ONE (09:57)
[2017-08-19] MEDS ORDERED: NS IRRIGATION 500 ML IR ONE (09:57)
[2017-08-19] MEDS: LASIX PO SCH (11:13)
[2017-08-19] MEDS: HumuLIN R SUBCUT PRN (12:40)
[2017-08-19 13:56] VITALS: BP 140/63
--- NOTE | 2017-08-19 20:13 | PCM.PROG ---
Progress Note - Progress Note for Day of Date: 08/18/17 - Subjective Subjective: WAS ADMITTED FOR CELLULITIS TO THE BILATERAL LOWER EXTREMITIES. SHE HAS A DECUBITUS ULCER TO THE LATERAL ASPECT OF THE RIGHT FOOT AND BILATERAL GREAT TOES. TODAY, SHE IS ALERT AND ORIENTED, SITTING UP IN BED ON MORNING ROUNDS. SHE CONTINUES TO COMPLAIN PAIN TO BILATERAL LOWER EXTREMITITIES. LEGS AND FEET CONTINUE WITH ERYTHEMA AND WARMTH, NO IMPROVEMENT NOTED SINCE YESTERDAY. ALL WOUNDS OPEN TO AIR AT THIS TIME. NO DRAINAGE NOTED. PATIENT RECEIVED TWO UNITS OF PACKED RED BLOOD CELLS YESTERDAY. HER HGB IS STABLE THIS MORNING. HER VITAL SIGNS THIS MORNING ARE 97.4-70-18-100%-141/62. LABS WERE OBTAINED THIS MORNING. ABNORMAL LAB VALUES INCLUDE THE FOLLOWING: HGB 10.0, HCT 30.4, POTASSIUM 3.3, CARBON DIOXIDE 34.2, CREATININE 1.25, GLUCOSE 224 , MAGNESIUM 1.6, ALBUMIN 3.2. A BONE SCAN WAS OBTAINED YESTERDAY AND REPORTED THREE PHASE UPTAKE PRIMARILY INVOLVING THE RIGHT FOOT PRIMARILY AT WHAT APPEARS TO BE THE 5TH MTP JOINT ALTHOUGH TO A LESSER DEGREE INVOLVING THE MORE PROXIMAL FOOT AND ANKLE. THIS IS SOMEWHAT NONSPECIFIC IN THE ABSENCE OF AN ANATOMIC STUDY SUCH A PLAIN FILM OR MRI. OSTEOMYELITIS CANNOT BE EXCLUDED. AN MRI IS NOT ABLE TO BE OBTAINED DUE TO PATIENT HAVING A DEFIBRILLATOR. SHE CONTINUES ON ABX FOR GROWTH OF CITROBACTER BRAAKII TO THE WOUND ON RIGHT LATERAL FOOT. WE WILL CONTINUE THIS TODAY. OTHERWISE, WE WILL FOLLOW UP WITH AM LABS AND CONTINUE TO MONITOR PATIENT. - Past Medical Family Social History Past Med/Fam/Surg Hx: No changes since H&P Allergies: Allergies codeine Allergy (Verified 08/13/17 04:47) morphine Allergy (Verified 08/13/17 04:47) Sulfa (Sulfonamide Antibiotics) [SULFA] Allergy (Verified 08/13/17 04:47) TAPE Allergy (Uncoded 12/28/16 14:14) - Review of Systems ROS: No change since H&P - Vital Signs and I&O's Vital Signs: Temperature 97.9 F Pulse Rate [Right Brachial] 79 Pulse Rate [Left Brachial] 85 Pulse Rate 72 Respiratory Rate 18 Blood Pressure [Left Arm] 121/58 Blood Pressure [Right Arm] 140/63 Blood Pressure [Standing] 84/59 Blood Pressure [Lying] 96/58 Blood Pressure 141/78 O2 Sat by Pulse Oximetry 94 Intake and Output: Intake & Output 08/17/17 08/18/17 08/19/17 08/20/17 11:59 11:59 11:59 11:59 Intake Total 1999 3170 206 Output Total 1100 500 Balance 1999 2069 1560 - Physical Exam Oriented: Normal, Time, Person, Place Eyes: Normal Ear: Normal Nose: Normal Throat: Normal Respiratory: Normal Cardiovascular: Normal : Normal Auscultation: Bowel Sounds: Normal Palpation: Normal Tenderness: Normal, Epigastric (epigastric and mid abdominal tenderness, no reboubd ,no regidity) Skin: Red, Tender, Hot, Wound (BILATERAL LOWER EXTREMITY CELLULITIS, DECUBITUS ULCER TO BILATERAL FEET) Musculoskeletal: Right (Rt foot ulcer on the lateral aspect ,2 x 2 cm down through the sub cu tissue with erythema involving the foot and extending to the ankle ), Left (Lt foot ulceration involving the big toe with moderate erythema ) , Leg (Bilateral calf tenderness with 2+ edema both feet more on the Rt ), Foot (Rt foot ulcer is the same , 2 x 2 cm with exudate and associated cellulitis about 5 x 5 cm ), Deformity, Pulse Deficit (all pulses were weak but felt with the doppler ) Psychiatric: Normal Mood Description: Calm Affect: Normal Speech Pattern: Clear, Appropriate - Laboratory and Diagnostics Result Diagrams: 08/19/17 04:50 08/19/17 04:50 Labs: 08/18/17 12:05 Foot - Right Gram Stain - Final 08/18/17 12:05 Foot - Right Wound Culture - Preliminary 08/18/17 12:11 Foot - Right - Preliminary 08/12/17 17:04 Blood Blood Culture - Final 08/12/17 17:05 Blood Blood Culture - Final 08/12/17 17:46 Toe - Right Big Gram Stain - Final 08/12/17 17:46 Toe - Right Big Wound Culture - Final 08/12/17 17:46 Toe - Left Big Gram Stain - Final 08/12/17 17:46 Toe - Left Big Wound Culture - Final 08/12/17 17:46 Foot - Right Gram Stain - Final 08/12/17 17:46 Foot - Right Wound Culture - Final [facility] WBC 8.9 X10^3/uL (3.6-10.0) 08/19/17 04:50 RBC 3.66 X10^6/uL (3.5-5.4) 08/19/17 04:50 Hgb 9.9 g/dL (12.0-16.0) L 08/19/17 04:50 Hct 29.5 % (36.0-47.0) L 08/19/17 04:50 MCV 80.6 fL (80.0-100.0) 08/19/17 04:50 MCH 27.1 pg (27.0-34.0) 08/19/17 04:50 MCHC 33.6 g/dL (33.0-35.0) 08/19/17 04:50 RDW 18.0 % (11.6-16.5) H 08/19/17 04:50 Plt Count 239 X10^3/uL (150.0-450.0) 08/19/17 04:50 Plt Count Comment Adequate (ADEQUATE) 08/17/17 05:35 MPV 8.1 fL (7.4-11.0) 08/19/17 04:50 Neut % 74.5 % (42.0-75.0) 08/19/17 04:50 Lymph % 17.6 % (21.0-51.0) L 08/19/17 04:50 [place] % 2.6 % (0.0-13.0) 08/19/17 04:50 Eos % 5.0 % (0.9-2.9) H 08/19/17 04:50 Baso % 0.3 % (0.2-1.0) 08/19/17 04:50 Neut # 6.6 x10^3/uL (2.2-4.8) H 08/19/17 04:50 Lymph # 1.6 X10^3/uL (1.3-2.9) 08/19/17 04:50 [place] # 0.2 x10^3/uL (0.3-0.8) L 08/19/17 04:50 Eos # 0.4 x10^3/uL (0.0-0.2) H 08/19/17 04:50 Baso # 0.0 X10^3/uL (0.0-0.1) 08/19/17 04:50 Absolute Nucleated RBC 0.0 /100WBC 08/19/17 04:50 Plt Morphology Comment Normal (NORMAL) 08/17/17 05:35 RBC Morphology Abnormal (NORMAL) A 08/17/17 05:35 Hypochromasia Slight A 08/17/17 05:35 Sodium 137 mmol/L (136-145) 08/19/17 04:50 Corrected Sodium 139 mmol/L (136-145) 08/19/17 04:50 Potassium 3.1 mmol/L (3.5-5.1) L 08/19/17 04:50 Chloride 94 mmol/L (98-107) L 08/19/17 04:50 Carbon Dioxide 38.0 mmol/L (21-32) H 08/19/17 04:50 BUN 16 mg/dL (7-18) 08/19/17 04:50 Creatinine 1.29 mg/dL (0.55-1.02) H 08/19/17 04:50 Est GFR (MDRD) Af Amer 53 (>60) L 08/19/17 04:50 Est GFR (MDRD) Non-Af 44 (>60) L 08/19/17 04:50 Glucose 192 mg/dL (65-99) H 08/19/17 04:50 POC Glucose (mg/dL) 220 mg/dL (65-99) H 08/19/17 11:39 Hemoglobin A1c 8.2 % (4.5-6.2) H 08/17/17 05:35 Calcium 8.9 mg/dL (8.5-10.1) 08/19/17 04:50 Corrected Calcium 9.5 mg/dL (8.5-10.1) 08/19/17 04:50 Magnesium 1.4 mg/dL (1.7-2.9) L 08/19/17 04:50 Total Bilirubin 0.70 mg/dL (0.2-1.0) 08/19/17 04:50 AST 25 Units/L (15-37) 08/19/17 04:50 ALT 38 Units/L (12-78) 08/19/17 04:50 Alkaline Phosphatase 78 Units/L (46-116) 08/19/17 04:50 Total Protein 6.6 g/dL (6.4-8.2) 08/19/17 04:50 Albumin 3.2 g/dL (3.4-5.0) L 08/19/17 04:50 Globulin 3.4 g/dL (2.5-4.5) 08/19/17 04:50 Albumin/Globulin Ratio 0.9 Ratio (1.1-2.1) L 08/19/17 04:50 Carcinoembryonic Ag 1.6 ng/mL (0.0-3.0) 08/17/17 05:35 Stool Description 150 grs brown soft 08/17/17 16:34 Stl Occult Blood (IFOB) Negative (NEGATIVE) 08/17/17 16:34 Blood Type O POSITIVE 08/17/17 12:10 Antibody Screen Negative 08/17/17 12:10 Crossmatch See Detail 08/17/17 12:10 - Plan (1) Cellulitis of both lower extremities Status: Acute Plan: CONTINUE IV ANTIBIOTICS, OBTAIN VENOUS DOPPLER AND MRI WITH CONTRAST, CONTINUE TO MONITOR (2) Decubital ulcer Status: Acute Qualifiers: Pressure ulcer location: foot, unspecified location Pressure ulcer stage: stage 2 Laterality: unspecified laterality Qualified Code(s): L89.892 - Pressure ulcer of other site, stage 2 Plan: WOUND CARE, WOUND CULTURES, CONTINUE IV ANTIBIOTICS, CONTINUE TO MONITOR (3) Citrobacter infection Status: Acute Plan: INVANZ 1GM IV DAILY, ZOSYN 3.375GM IV TID, CONTINUE TO MONITOR (4) Anemia Status: Acute Qualifiers: Anemia type: iron deficiency Iron deficiency anemia type: unspecified iron deficiency Qualified Code(s): D50.9 - Iron deficiency anemia, unspecified Plan: TRANSFUSE 2 UNITS PRBC, CONTINUE TO MONITOR H&H
[2017-08-20] MEDS ORDERED: HYDROGEN PEROXIDE 3% MT SCH (09:00)
== END 2017-08-19 13:15 | disposition home health service (06) | DRG 571 ==
LOC: MED/SURG 14:24
PROVIDERS: ADMIT Internal Medicine; ATTEND Internal Medicine
PROC: 30233N1 Transfusion of Nonautologous Red Blood Cells into Peripheral Vein, Percutaneous Approach (ICD-10-PCS; 2017-08-17)
PROC: 30233N1 Transfusion of Nonautologous Red Blood Cells into Peripheral Vein, Percutaneous Approach (ICD-10-PCS; 2017-08-18)
PROC: 0JBQ0ZZ Excision of Right Foot Subcutaneous Tissue and Fascia, Open Approach (ICD-10-PCS; principal; 2017-08-18 11:00)
DX: L03.116 Cellulitis of left lower limb (principal); M86.171 Other acute osteomyelitis, right ankle and foot; L03.115 Cellulitis of right lower limb; E11.621 Type 2 diabetes mellitus with foot ulcer; E11.628 Type 2 diabetes mellitus with other skin complications; E11.59 Type 2 diabetes mellitus with other circulatory complications; L89.892 Pressure ulcer of other site, stage 2; B95.7 Other staphylococcus as the cause of diseases classified elsewhere; B96.89 Other specified bacterial agents as the cause of diseases classified elsewhere; E78.2 Mixed hyperlipidemia; E03.8 Other specified hypothyroidism; J44.9 Chronic obstructive pulmonary disease, unspecified; G89.4 Chronic pain syndrome; D50.8 Other iron deficiency anemias; N18.9 Chronic kidney disease, unspecified; M79.7 Fibromyalgia; R26.89 Other abnormalities of gait and mobility
CPT/HCPCS: 36415; 36430; 73630; 78315; 80053; 82270; 82378; 83036; 83735; 85025; 86850; 86900; 86901; 86922; 87040; 87070; 87075; 87077; 87186; 87205; 93970; A4216; A4222; B5200; P9016; P9047; A9503; J1200; J1335; J1815; J2001; J2250; J2543; J3010; J3370; J3480; J3490; J7120; J8610

== ENCOUNTER 2017-09-02 13:06 | Inpatient (IN) | payer OTHER, MEDICAID ==
[2017-09-02] MEDS ORDERED: HumuLIN R SUBCUT PRN (14:07)
[2017-09-02] MEDS ORDERED: NS 1000 ML 1,000 ML IV SCH (15:00)
[2017-09-02] MEDS ORDERED: PHARMACY CONSULT - DOSE _____ XX SCH ×2 (15:00→15:40)
[2017-09-02 15:57] LABS: BASOPHILS # (AUTO) 0.1 X10^3/uL (0.0-0.1); BASOPHILS % (AUTO) 0.5 % (0.2-1.0); EOSINOPHILS # (AUTO) 0.4 x10^3/uL (0.0-0.2); EOSINOPHILS % (AUTO) 4.3 % (0.9-2.9); HEMATOCRIT 30.7 % (36.0-47.0); HEMOGLOBIN 9.8 g/dL (12.0-16.0); LYMPHOCYTES # (AUTO) 1.7 X10^3/uL (1.3-2.9); LYMPHOCYTES % (AUTO) 16.8 % (21.0-51.0); MEAN CORPUSCULAR HEMOGLOBIN 26.4 pg (27.0-34.0); MEAN CORPUSCULAR VOLUME 82.3 fL (80.0-100.0); MEAN PLATELET VOLUME 7.7 fL (7.4-11.0); MONOCYTES # (AUTO) 0.2 x10^3/uL (0.3-0.8); MONOCYTES % (AUTO) 2.1 % (0.0-13.0); NEUTROPHILS # (AUTO) 7.9 x10^3/uL (2.2-4.8); NEUTROPHILS % (AUTO) 76.3 % (42.0-75.0); PLATELET COUNT 383 X10^3/uL (150.0-450.0); RED BLOOD COUNT 3.73 X10^6/uL (3.5-5.4); RED CELL DISTRIBUTION WIDTH 18.2 % (11.6-16.5); WHITE BLOOD COUNT 10.4 X10^3/uL (3.6-10.0)
[2017-09-02 16:18] LABS: ALANINE AMINOTRANSFERASE 29 Units/L (12-78); ALBUMIN 3.6 g/dL (3.4-5.0); ALKALINE PHOSPHATASE 93 Units/L (46-116); ASPARTATE AMINO TRANSFERASE 31 Units/L (15-37); BLOOD UREA NITROGEN 44 mg/dL (7-18); CALCIUM 9.4 mg/dL (8.5-10.1); CARBON DIOXIDE 30.3 mmol/L (21-32); CHLORIDE 99 mmol/L (98-107); COR NA(FOR HYPERGLY) 138 mmol/L (136-145); CREATININE 1.96 mg/dL (0.55-1.02); SODIUM 137 mmol/L (136-145); TOTAL PROTEIN 7.8 g/dL (6.4-8.2); eGFR BLACK RACES 33 (>60); eGFR NON BLACK RACES 27 (>60)
[2017-09-02] MEDS: NS 1000 ML 1,000 ML IV SCH (17:02)
[2017-09-02 18:42] VITALS: BMI 26.6
[2017-09-02] MEDS: SNACK - Diabetic Appropriate PO SCH (20:40)
[2017-09-02] MEDS: VANCOMYCIN 1 GM PREMIX (ADDVANTAGE) 250 ML IV SCH (20:40)
[2017-09-02] MEDS: LEVAQUIN PREMIX IV 750 MG 750 MG/150 ML BAG IV SCH (20:40)
--- NOTE | 2017-09-03 00:05 | DR.UPDATE ---
H&P Update History and Physical Update: WAS SEEN AT THE OFFICE TODAY. A H&P WAS COMPLETED PRIOR TO ADMISSION. PATIENT HAS BEEN SEEN AND EXAMINED WITH NO CHANGES NOTED TO H&P. Changes noted: NO Yes with the following:
[2017-09-03] MEDS: NS 1000 ML 1,000 ML IV SCH ×3 (06:26→17:35)
[2017-09-03 06:57] LABS: ALBUMIN 3.1 g/dL (3.4-5.0); CALCIUM 8.8 mg/dL (8.5-10.1); COR CA(FOR HYPOALB) 9.5 mg/dL (8.5-10.1); CREATININE 1.58 mg/dL (0.55-1.02)
[2017-09-03 07:03] LABS: BASOPHILS # (AUTO) 0.1 X10^3/uL (0.0-0.1); BASOPHILS % (AUTO) 0.7 % (0.2-1.0); EOSINOPHILS # (AUTO) 0.5 x10^3/uL (0.0-0.2); EOSINOPHILS % (AUTO) 5.8 % (0.9-2.9); HEMATOCRIT 28.9 % (36.0-47.0); HEMOGLOBIN 9.5 g/dL (12.0-16.0); LYMPHOCYTES # (AUTO) 1.6 X10^3/uL (1.3-2.9); LYMPHOCYTES % (AUTO) 18.4 % (21.0-51.0); MEAN CORPUSCULAR HEMOGLOBIN 26.5 pg (27.0-34.0); MEAN CORPUSCULAR HGB CONC 32.7 g/dL (33.0-35.0); MEAN CORPUSCULAR VOLUME 81.1 fL (80.0-100.0); MEAN PLATELET VOLUME 7.6 fL (7.4-11.0); MONOCYTES # (AUTO) 0.3 x10^3/uL (0.3-0.8); MONOCYTES % (AUTO) 3.6 % (0.0-13.0); NEUTROPHILS # (AUTO) 6.3 x10^3/uL (2.2-4.8); NEUTROPHILS % (AUTO) 71.5 % (42.0-75.0); PLATELET COUNT 344 X10^3/uL (150.0-450.0); RED BLOOD COUNT 3.56 X10^6/uL (3.5-5.4); RED CELL DISTRIBUTION WIDTH 18.4 % (11.6-16.5); WHITE BLOOD COUNT 8.8 X10^3/uL (3.6-10.0)
[2017-09-03] MEDS ORDERED: NS 500 ML IV 500 ML IV ONE (09:00)
[2017-09-03] MEDS ORDERED: HYDROGEN PEROXIDE 3% ONE (10:27)
[2017-09-03] MEDS ORDERED: NS IRRIGATION 500 ML IR ONE (10:27)
[2017-09-03] MEDS ORDERED: NEOSPORIN OINT ONE (10:29)
[2017-09-03] MEDS: HumuLIN R SUBCUT PRN (20:26)
[2017-09-03] MEDS: VANCOMYCIN 1 GM PREMIX (ADDVANTAGE) 250 ML IV SCH (20:27)
[2017-09-03] MEDS: SNACK - Diabetic Appropriate PO SCH (20:34)
[2017-09-03] MEDS: COREG TAB 6.25 MG PO SCH (22:25)
[2017-09-03] MEDS: PROTONIX TAB 40 MG PO SCH (22:26)
[2017-09-03] MEDS: XANAX PO SCH (22:26)
[2017-09-03] MEDS: ROXICODONE TAB 15 MG PO PRN (22:26)
[2017-09-03] MEDS: ZOCOR TAB 10 MG PO SCH (22:26)
[2017-09-03] MEDS: CHECK PATCH XX SCH (22:42)
[2017-09-04] MEDS: NS 1000 ML 1,000 ML IV SCH ×3 (05:26→20:20)
[2017-09-04 06:47] LABS: BASOPHILS # (AUTO) 0.1 X10^3/uL (0.0-0.1); EOSINOPHILS # (AUTO) 0.3 x10^3/uL (0.0-0.2); EOSINOPHILS % (AUTO) 4.5 % (0.9-2.9); HEMATOCRIT 26.2 % (36.0-47.0); HEMOGLOBIN 8.7 g/dL (12.0-16.0); LYMPHOCYTES # (AUTO) 2.1 X10^3/uL (1.3-2.9); LYMPHOCYTES % (AUTO) 28.8 % (21.0-51.0); MEAN CORPUSCULAR HGB CONC 33.2 g/dL (33.0-35.0); MEAN CORPUSCULAR VOLUME 81.2 fL (80.0-100.0); MEAN PLATELET VOLUME 7.8 fL (7.4-11.0); MONOCYTES # (AUTO) 0.4 x10^3/uL (0.3-0.8); MONOCYTES % (AUTO) 5.5 % (0.0-13.0); NEUTROPHILS # (AUTO) 4.3 x10^3/uL (2.2-4.8); NEUTROPHILS % (AUTO) 60.2 % (42.0-75.0); PLATELET COUNT 257 X10^3/uL (150.0-450.0); RED BLOOD COUNT 3.23 X10^6/uL (3.5-5.4); RED CELL DISTRIBUTION WIDTH 18.1 % (11.6-16.5); WHITE BLOOD COUNT 7.2 X10^3/uL (3.6-10.0)
[2017-09-04] MEDS: GLUCOPHAGE PO SCH ×2 (06:52→16:21)
[2017-09-04 06:55] LABS: ALBUMIN 2.8 g/dL (3.4-5.0); CALCIUM 8.5 mg/dL (8.5-10.1); CARBON DIOXIDE 32.2 mmol/L (21-32); COR CA(FOR HYPOALB) 9.5 mg/dL (8.5-10.1); CREATININE 1.24 mg/dL (0.55-1.02); TOTAL PROTEIN 6.2 g/dL (6.4-8.2)
[2017-09-04] MEDS ORDERED: PLAVIX PO SCH (09:00)
[2017-09-04] MEDS ORDERED: ECOTRIN TAB 325 MG PO SCH (09:00)
[2017-09-04] MEDS ORDERED: CLARITIN PO SCH (09:00)
[2017-09-04] MEDS ORDERED: NS 500 ML IV 500 ML IV ONE ×2 (09:31→22:00)
[2017-09-04] MEDS: FOLIC ACID TAB 1 MG PO SCH (10:06)
[2017-09-04] MEDS: XANAX PO SCH ×3 (10:07→21:30)
[2017-09-04] MEDS: EFFEXOR XR 150 MG CAP PO SCH (10:07)
[2017-09-04] MEDS: COREG TAB 6.25 MG PO SCH ×2 (10:08→21:30)
[2017-09-04] MEDS: PROTONIX TAB 40 MG PO SCH ×2 (10:08→21:32)
[2017-09-04] MEDS: VASOTEC TAB 10 MG PO SCH (10:08)
[2017-09-04] MEDS: CHECK PATCH XX SCH ×2 (10:09→21:29)
[2017-09-04] MEDS: CLARITIN PO SCH (10:09)
[2017-09-04] MEDS ORDERED: GLUCOPHAGE ONE (16:11)
[2017-09-04] MEDS: GENTAMICIN TOPICAL OINT EXT SCH ×2 (18:35→21:45)
[2017-09-04] MEDS: VANCOMYCIN 1 GM PREMIX (ADDVANTAGE) 250 ML IV SCH (19:51)
[2017-09-04] MEDS: SNACK - Diabetic Appropriate PO SCH (21:29)
[2017-09-04] MEDS: ZOCOR TAB 10 MG PO SCH (21:30)
[2017-09-04] MEDS: LEVAQUIN PREMIX IV 750 MG 750 MG/150 ML BAG IV SCH (21:31)
[2017-09-04] MEDS: ROXICODONE TAB 15 MG PO PRN (21:33)
[2017-09-05] MEDS ORDERED: NS 1000 ML 1,000 ML IV ONE (03:30)
[2017-09-05] MEDS: GENTAMICIN TOPICAL OINT EXT SCH ×4 (05:18→22:56)
[2017-09-05 05:50] LABS: BASOPHILS % (AUTO) 0.7 % (0.2-1.0); EOSINOPHILS # (AUTO) 0.4 x10^3/uL (0.0-0.2); EOSINOPHILS % (AUTO) 6.7 % (0.9-2.9); HEMATOCRIT 26.6 % (36.0-47.0); HEMOGLOBIN 8.8 g/dL (12.0-16.0); LYMPHOCYTES # (AUTO) 1.9 X10^3/uL (1.3-2.9); MEAN CORPUSCULAR HEMOGLOBIN 26.9 pg (27.0-34.0); MEAN CORPUSCULAR HGB CONC 32.9 g/dL (33.0-35.0); MEAN CORPUSCULAR VOLUME 81.7 fL (80.0-100.0); MEAN PLATELET VOLUME 7.6 fL (7.4-11.0); MONOCYTES # (AUTO) 0.5 x10^3/uL (0.3-0.8); MONOCYTES % (AUTO) 7.4 % (0.0-13.0); NEUTROPHILS # (AUTO) 3.8 x10^3/uL (2.2-4.8); NEUTROPHILS % (AUTO) 57.2 % (42.0-75.0); PLATELET COUNT 230 X10^3/uL (150.0-450.0); RED BLOOD COUNT 3.26 X10^6/uL (3.5-5.4); RED CELL DISTRIBUTION WIDTH 18.2 % (11.6-16.5); WHITE BLOOD COUNT 6.7 X10^3/uL (3.6-10.0)
[2017-09-05 05:54] LABS: ALANINE AMINOTRANSFERASE 52 Units/L (12-78); ALBUMIN 2.7 g/dL (3.4-5.0); ALKALINE PHOSPHATASE 89 Units/L (46-116); ASPARTATE AMINO TRANSFERASE 59 Units/L (15-37); BLOOD UREA NITROGEN 17 mg/dL (7-18); CALCIUM 8.1 mg/dL (8.5-10.1); CARBON DIOXIDE 27.4 mmol/L (21-32); CHLORIDE 108 mmol/L (98-107); COR CA(FOR HYPOALB) 9.1 mg/dL (8.5-10.1); COR NA(FOR HYPERGLY) 143 mmol/L (136-145); CREATININE 1.16 mg/dL (0.55-1.02); SODIUM 142 mmol/L (136-145); TOTAL PROTEIN 6.1 g/dL (6.4-8.2); eGFR BLACK RACES > 60 (>60); eGFR NON BLACK RACES 50 (>60)
[2017-09-05] MEDS: GLUCOPHAGE PO SCH ×2 (07:05→17:48)
[2017-09-05] MEDS: XANAX PO SCH ×3 (07:05→21:31)
[2017-09-05] MEDS ORDERED: NS 1000 ML 1,000 ML ONE (07:49)
[2017-09-05] MEDS ORDERED: NS IRRIGATION 1000 ML 1,000 ML with BACITRACIN VIAL 50,000 UNT IR ONE ×2 (07:57)
[2017-09-05] MEDS ORDERED: ANCEF 1 GM IV PREMIX* 1 GM/50 ML BAG IV ONE (08:18)
[2017-09-05] MEDS ORDERED: BACTROBAN OINT ONE (08:58)
[2017-09-05] MEDS: FOLIC ACID TAB 1 MG PO SCH (09:32)
[2017-09-05] MEDS: VASOTEC TAB 10 MG PO SCH (09:33)
[2017-09-05] MEDS: CLARITIN PO SCH (09:33)
[2017-09-05] MEDS: COREG TAB 6.25 MG PO SCH ×2 (09:34→21:31)
[2017-09-05] MEDS: PROTONIX TAB 40 MG PO SCH ×2 (09:34→21:31)
[2017-09-05] MEDS: CHECK PATCH XX SCH ×2 (09:35→22:57)
[2017-09-05] MEDS: EFFEXOR XR 150 MG CAP PO SCH (09:35)
[2017-09-05] MEDS: NS 1000 ML 1,000 ML IV SCH ×2 (09:59→22:57)
[2017-09-05] MEDS ORDERED: NS 100 ML IV 100 ML IV ONE (10:03)
[2017-09-05] MEDS: METHOTREXATE PO SCH (13:36)
[2017-09-05 13:43] LABS: CREATININE 1.06 mg/dL (0.55-1.02)
[2017-09-05 13:45] LABS: VANCOMYCIN,TROUGH 11.8 ug/mL (15-20)
[2017-09-05] MEDS: VANCOMYCIN 1 GM PREMIX (ADDVANTAGE) 250 ML IV SCH (14:33)
--- NOTE | 2017-09-05 14:35 | CT ---
CT angiogram of the bilateral lower extremities without and with contrast Indication: Bilateral foot cellulitis. Comparison: Radiographs and bone scan 08/17/2017 Technique: CT images of the lower abdomen, pelvis, and bilateral lower extremities were obtained with out and with IV contrast, per protocol. Automatic exposure control was utilized. MIP images provided. Angiographic findings: There is marked diffuse atherosclerosis of the visualized distal abdominal aor ta and iliac arteries. There is no aneurysmal dilatation or significant narrowing of the distal aorta there are mild to moderate multifocal stenoses of the bilateral internal iliac arteries and their ma heather branches. There is approximately 50% narrowing of the bilateral common iliac arteries. The dean [employer] graduate studies al iliac arteries are grossly patent bilaterally. Right lower extremity: There is mild narrowing of the common femoral artery related to atheroscleroti c plaque (approximately 50%). There is severe focal narrowing of the proximal deep femoral artery, wh ich is otherwise grossly patent. There is minimal flow within the proximal SFA, which is otherwise oc cluded distal to the adductor hiatus. There is reconstitution of the distal SFA via deep femoral viktor aterals. There are mild to moderate multifocal stenoses of the popliteal artery, which is otherwise g rossly patent. There is some flow within the proximal portion of the anterior tibial artery, without significant flow within its distal 3rd. The posterior tibial and peroneal arteries are patent through out, without significant narrowing, resulting in a 2 vessel runoff to the foot. The dorsalis pedis ar kenneth is grossly patent, supplied by the peroneal artery. Left lower extremity: There is [id number] narrowing of the common femoral artery (approximately 60%). The deep femoral artery is grossly patent. There is some flow within the proximal portion of t he SFA, which is otherwise occluded to the lower thigh, distal to the adductor hiatus, with reconstit ution via deep femoral artery collaterals. There is mild to moderate multifocal stenoses of the popli teal artery. The anterior posterior tibial arteries are grossly patent throughout their course. There is diminished flow within the distal peroneal artery, although there is three-vessel runoff to the f oot. The dorsalis pedis artery is patent, supplied by the anterior tibial artery. Non angiographic findings: There is large ulceration overlying the right 5th MTP joint with associate d osteolysis of the 5th metatarsal head and proximal phalanx, progressed compared with the most recen t radiographs. No significant ulceration or osteolysis of the left foot is appreciated. Bone windows otherwise demonstrates mild lumbar spondylosis. No marked bowel thickening or dilatation of the visua lized lower GI tract is seen. The uterus is absent. The urinary bladder and rectum are unremarkable. The visualized kidneys demonstrate no acute abnormality. There is mild left renal atrophy. No free fl uid or adenopathy identified. Calcified bilateral buttock injection granulomas are noted. Impression: 1. Large ulceration overlying the right 5th MTP joint with osteomyelitis of the 5th metatarsal head a nd proximal phalanx, with presumed septic arthritis of the MTP joint. Consider further evaluation wit h post-contrast MRI, as indicated. No evidence for osteomyelitis of the left foot. 2. Severe diffuse atherosclerosis with complete occlusion of essentially the entire SFA bilaterally, with reconstitution distally via deep femoral artery collaterals. Additional less severe multifocal s tenoses as above. There is 2 vessel runoff to the right foot and three-vessel runoff to the left. 3. Additional findings as above. Reported By:
[2017-09-05] MEDS: ROXICODONE TAB 15 MG PO PRN ×2 (14:53→21:31)
[2017-09-05] MEDS ORDERED: DIPRIVAN VIAL ONE (15:10)
[2017-09-05] MEDS ORDERED: VERSED ONE (15:10)
[2017-09-05] MEDS ORDERED: GLUCOPHAGE ONE (17:37)
[2017-09-05] MEDS: HumuLIN R SUBCUT PRN (17:48)
--- NOTE | 2017-09-05 19:17 | PCM.PROG ---
Progress Note - Progress Note for Day of Date: 09/03/17 - Subjective Subjective: WAS A DIRECT ADMISSION FOR BILATERAL LOWER EXTREMITY CELLULITIS AND DIABETIC ULCERS TO BILATERAL FEET. TODAY, SHE IS ALERT AND ORIENTED, LYING IN BED ON MORNING ROUNDS. SHE REPORTS PAIN TO BILATERAL LOWER EXTREMITIES. ON EXAMINATION, HEART IS REGULAR IN RATE AND RHYTHM. BILATERAL LUNGS ARE NOTED WITH DIMINISHED LUNG SOUNDS. ABDOMEN IS ROUND, SOFT, AND NON- TENDER WITH NORMAL BOWEL SOUNDS NOTED TO ALL QUADRANTS. BIALTERAL LOWER EXTREMITIES ARE NOTED WITH WARMTH, ERETHEMA, AND EDEMA. DIABETIC ULCERS NOTED TO LEFT GREAT TOE, RIGHT GREAT TOE, AND RIGHT LATERAL FOOT. WOUND TO LEFT FOOT IS NOTED WITH APPROXIMATELY 10% YELLOW SLOUGH, 90% GRANULATED/RED. WOUND TO RIGHT GREAT TOE IS NOTED WITH NECROTIC TISSUE ALONG THE TOP OF THE TOE. WOUND TO RIGHT LATERAL FOOT IS NOTED WITH APPROXIMATELY 80% ESCHAR, 5% YELLOW/SLOUGH, AND 15% GRANULATED/RED. HER VITALS THIS MORNING ARE 97.8-78-20-95%-150/67. LABS WERE OBTAINED. ABNORMAL LAB VALUES INCLUDE THE FOLLOWING: HGB 9.5, HCT 28.9, BUN 33, CREATININE 1.58, GFR 35, GLUCOXE 168, ALBUMIN 3.1. WE PLAN TO OBTAIN A CT OF THE LOWER EXTREMITIES WITH CONTRAST IN THE MORNING. WE WILL BOLUS 500ML NORMAL SALINE AND THEN INCREASE MAINTENANCE FLUIDS TO 100ML/HR. WE WILL CONSULT WITH FOR DEBRIDEMENT OF WOUNDS. OTHERWISE, WE WILL CONTINUE WITH CURRENT PLAN OF CARE. WE PLAN TO FOLLOW UP WITH AM LABS AND CONTINUE TO MONITOR PATIENT. - Past Medical Family Social History Past Med/Fam/Surg Hx: No changes since H&P Allergies: Allergies codeine Allergy (Verified 08/13/17 04:47) morphine Allergy (Verified 08/13/17 04:47) Sulfa (Sulfonamide Antibiotics) [SULFA] Allergy (Verified 08/13/17 04:47) TAPE Allergy (Uncoded 12/28/16 14:14) - Review of Systems ROS: No change since H&P - Vital Signs and I&O's Vital Signs: Temperature 98.2 F Pulse Rate [Left Brachial] 73 Respiratory Rate 18 Blood Pressure [Left Arm] 139/63 Blood Pressure [Right Arm] 150/67 Blood Pressure [Standing] 84/59 Blood Pressure [Lying] 96/58 Blood Pressure 140/63 O2 Sat by Pulse Oximetry 93 Intake and Output: Intake & Output 09/03/17 09/04/17 09/05/17 09/06/17 11:59 11:59 11:59 11:59 Intake Total 1300 1576 3909 360 Output Total 0 400 Balance 1300 1576 3509 360 - Physical Exam Oriented: Normal Eyes: Normal. negative: Blurred Vision, Diplopia, Discharge, Pain, Redness, Photophobia, Other Ear: Normal. negative: Right, Left, Swelling, Ecchymosis, Hemotypanum, Abrasion , Laceration Nose: Normal. negative: Injected, Discharge, Blood, Other Throat: Normal. negative: Tonsillar Hypertrophy, Red, Exudate, Dry, Other Respiratory: Normal. negative: Right, Left, Generalized, Superior, Inferior, Diminished, Wheezes, Rales, Rhonchi, OTHER Cardiovascular: Edema (BILATERAL LOWER EXTREMITIES ) : Normal. negative: Dysuria, Hematuria, Frequency, Discharge, Testicular Pain , Bleeding, , Other Auscultation: Bowel Sounds: Normal. negative: Bruit, Absent, Increased, Decreased, High Pitched, Other Palpation: Normal Tenderness: negative: Normal, Diffuse, RUQ, RLQ, LUQ, LLQ, Epigastric, Periumbilical, Suprapubic, Mild, Moderate, Severe, Rebound, Guarding, Rigidity, Other Skin: Red, Tender (BILATERAL LOWER EXTREMITIES WARM, ERYTHEMA, EDEMA. WOUND TO BILATERAL FEET ), Wound Musculoskeletal: Right, Left, Leg, Foot, Instability Psychiatric: Normal Mood Description: Calm Affect: Normal Speech Pattern: Clear, Appropriate - Laboratory and Diagnostics Result Diagrams: 09/05/17 05:10 09/05/17 13:10 Labs: 09/05/17 09:20 Toe - Left Big Gram Stain - Final 09/02/17 16:51 Toe - Left Big Gram Stain - Final 09/02/17 16:51 Toe - Left Big Wound Culture - Final 09/02/17 16:51 Foot - Right Gram Stain - Final 09/02/17 16:51 Foot - Right Wound Culture - Preliminary 09/02/17 16:51 Toe - Right Big Gram Stain - Final 09/02/17 16:51 Toe - Right Big Wound Culture - Preliminary Laboratory WBC 6.7 X10^3/uL (3.6-10.0) 09/05/17 05:10 RBC 3.26 X10^6/uL (3.5-5.4) L 09/05/17 05:10 Hgb 8.8 g/dL (12.0-16.0) L 09/05/17 05:10 Hct 26.6 % (36.0-47.0) L 09/05/17 05:10 MCV 81.7 fL (80.0-100.0) 09/05/17 05:10 MCH 26.9 pg (27.0-34.0) L 09/05/17 05:10 MCHC 32.9 g/dL (33.0-35.0) L 09/05/17 05:10 RDW 18.2 % (11.6-16.5) H 09/05/17 05:10 Plt Count 230 X10^3/uL (150.0-450.0) 09/05/17 05:10 MPV 7.6 fL (7.4-11.0) 09/05/17 05:10 Neut % 57.2 % (42.0-75.0) 09/05/17 05:10 Lymph % 28.0 % (21.0-51.0) 09/05/17 05:10 [place] % 7.4 % (0.0-13.0) 09/05/17 05:10 Eos % 6.7 % (0.9-2.9) H 09/05/17 05:10 Baso % 0.7 % (0.2-1.0) 09/05/17 05:10 Neut # 3.8 x10^3/uL (2.2-4.8) 09/05/17 05:10 Lymph # 1.9 X10^3/uL (1.3-2.9) 09/05/17 05:10 [place] # 0.5 x10^3/uL (0.3-0.8) 09/05/17 05:10 Eos # 0.4 x10^3/uL (0.0-0.2) H 09/05/17 05:10 Baso # 0.0 X10^3/uL (0.0-0.1) 09/05/17 05:10 Absolute Nucleated RBC 0.1 /100WBC 09/05/17 05:10 Sodium 142 mmol/L (136-145) 09/05/17 05:10 Corrected Sodium 143 mmol/L (136-145) 09/05/17 05:10 Potassium 3.9 mmol/L (3.5-5.1) 09/05/17 05:10 Chloride 108 mmol/L (98-107) H 09/05/17 05:10 Carbon Dioxide 27.4 mmol/L (21-32) 09/05/17 05:10 BUN 17 mg/dL (7-18) 09/05/17 05:10 Creatinine 1.06 mg/dL (0.55-1.02) H 09/05/17 13:10 Est GFR (MDRD) Af Amer > 60 (>60) 09/05/17 05:10 Est GFR (MDRD) Non-Af 50 (>60) L 09/05/17 05:10 Glucose 150 mg/dL (65-99) H 09/05/17 05:10 POC Glucose (mg/dL) 217 mg/dL (65-99) H 09/05/17 17:18 Calcium 8.1 mg/dL (8.5-10.1) L 09/05/17 05:10 Corrected Calcium 9.1 mg/dL (8.5-10.1) 09/05/17 05:10 Total Bilirubin 0.20 mg/dL (0.2-1.0) 09/05/17 05:10 AST 59 Units/L (15-37) H 09/05/17 05:10 ALT 52 Units/L (12-78) 09/05/17 05:10 Alkaline Phosphatase 89 Units/L (46-116) 09/05/17 05:10 Total Protein 6.1 g/dL (6.4-8.2) L 09/05/17 05:10 Albumin 2.7 g/dL (3.4-5.0) L 09/05/17 05:10 Globulin 3.4 g/dL (2.5-4.5) 09/05/17 05:10 Albumin/Globulin Ratio 0.8 Ratio (1.1-2.1) L 09/05/17 05:10 Vancomycin Trough 11.8 ug/mL (15-20) L 09/05/17 13:10 Tissue Pathology To follow 09/05/17 08:54 - Plan (1) Cellulitis of both lower extremities Status: Acute Plan: VANCOMYCIN 1GM IV BID, LEVAQUIN 750MG IV Q48H, WOUND CARE, GENTAMYCIN OINTMENT TO WOUND, OBTAIN LOWER EXTREMITY CT WITH CONTRAST, CONTINUE TO MONITOR (2) Diabetic foot ulcer with osteomyelitis Status: Acute Plan: VANCOMYCIN 1GM IV BID, LEVAQUIN 750MG IV Q48H, WOUND CARE, GENTAMYCIN OINTMENT TO WOUND, CONSULT GENERAL SURGERY FOR DEBRIDEMENT, CONTINUE TO MONITOR (3) Anxiety Status: Chronic Plan: CONTINUE XANAX, CONTINUE TO MONITOR (4) Depression Status: Chronic Qualifiers: Depression Type: major depressive disorder Major depression recurrence: recurrent Active/Remission status: remission status unspecified Qualified Code(s): F33.9 - Major depressive disorder, recurrent, unspecified Plan: CONTINUE VENLAFAXINE, CONTINUE TO MONITOR (5) Diabetes mellitus, type 2 Status: Chronic Qualifiers: Diabetes mellitus complication status: without complication Diabetes mellitus ocean transportation intermediary insulin use: with ocean transportation intermediary use Qualified Code(s): E11.9 - Type 2 diabetes mellitus without complications; Z79.4 - termite inspector (current) use of insulin; Z79.4 - [facility] (current) use of insulin; Z79.4 - [facility] ( current) use of insulin; Z79.4 - termite inspector (current) use of insulin Plan: CONTINUE HUMULIN R SLIDING SCALE, CONTINUE TO MONITOR OTBS (6) Essential hypertension Status: Chronic Plan: CONTINUE COREG, CONTINUE VASOTEC, CONTINUE TO MONITOR (7) Chronic anemia Status: Chronic Plan: CONTINUE FOLIC ACID, CONTINUE TO MONITOR
[2017-09-05 20:16] LABS: CREATININE 1.27 mg/dL (0.55-1.02)
[2017-09-05 20:33] LABS: VANCOMYCIN,TROUGH 22.5 ug/mL (15-20)
--- NOTE | 2017-09-05 21:10 | PCM.PROG ---
Progress Note - Progress Note for Day of Date: 09/04/17 - Subjective Subjective: WAS A DIRECT ADMISSION FOR BILATERAL LOWER EXTREMITY CELLULITIS AND DIABETIC ULCERS TO BILATERAL FEET. TODAY, SHE IS ALERT AND ORIENTED, LYING IN BED ON MORNING ROUNDS. SHE CONTINUES TO REPORT PAIN TO BILATERAL LOWER EXTREMITIES. ON EXAMINATION, HEART IS REGULAR IN RATE AND RHYTHM. BILATERAL LUNGS ARE NOTED WITH DIMINISHED LUNG SOUNDS. ABDOMEN IS ROUND , SOFT, AND NON-TENDER WITH NORMAL BOWEL SOUNDS NOTED TO ALL QUADRANTS. BIALTERAL LOWER EXTREMITIES CONTINUE WITH WARMTH, ERETHEMA, AND EDEMA. DRESSINGS ARE NOTED TO WOUNDS ON LEFT GREAT TOE, RIGHT GREAT TOE, AND RIGHT LATERAL FOOT. DRESSINGS ARE DRY AND INTACT AT THIS TIME. HER VITALS THIS MORNING ARE 98.2-66-18-96%-143/67. LABS WERE OBTAINED. ABNORMAL LAB VALUES INCLUDE THE FOLLOWING: RBC 3.23, HGB 8.7, HCT 26.2, CARBON DIOXIDE 32.2, BUN 20 , CREATININE 1.24, GLUCOSE 189, TOTAL PROTEIN 6.2, ALBUMIN 2.8. HER GFR CONTINUES TO BE TOO LOW TO OBTAIN CT OF THE LOWER EXTREMITIES TODAY. WE WILL BOLUS 500ML NORMAL SALINE THIS MORNING, BOLUS 500ML NORMAL SALINE AT 2200, AND THEN BOLUS ONE LITER AN HOUR PRIOR TO AM LABS. WE WILL ORDER FOR CT TO BE OTAINED IN THE MORNING. PLANS TO TAKE PATIENT TO THE OR FOR DEBIRDEMENT OF WOUNDS TOMORROW MORNING. WE AGREE WITH PLAN. OTHERWISE, WE WILL CONTINUE WITH CURRENT PLAN OF CARE TODAY. WE PLAN TO FOLLOW UP WITH AM LABS AND CONTINUE TO MONITOR PATIENT. - Past Medical Family Social History Past Med/Fam/Surg Hx: No changes since H&P Allergies: Allergies codeine Allergy (Verified 08/13/17 04:47) morphine Allergy (Verified 08/13/17 04:47) Sulfa (Sulfonamide Antibiotics) [SULFA] Allergy (Verified 08/13/17 04:47) TAPE Allergy (Uncoded 12/28/16 14:14) - Review of Systems ROS: No change since H&P - Vital Signs and I&O's Vital Signs: Temperature 98.2 F Pulse Rate [Left Brachial] 73 Respiratory Rate 18 Blood Pressure [Left Arm] 139/63 Blood Pressure [Right Arm] 150/67 Blood Pressure [Standing] 84/59 Blood Pressure [Lying] 96/58 Blood Pressure 140/63 O2 Sat by Pulse Oximetry 93 Intake and Output: Intake & Output 09/03/17 09/04/17 09/05/17 09/06/17 11:59 11:59 11:59 11:59 Intake Total 1300 1576 3909 360 Output Total 0 400 Balance 1300 1576 3509 360 - Physical Exam Oriented: Normal Eyes: Normal. negative: Blurred Vision, Diplopia, Discharge, Pain, Redness, Photophobia, Other Ear: Normal. negative: Right, Left, Swelling, Ecchymosis, Hemotypanum, Abrasion , Laceration Nose: Normal. negative: Injected, Discharge, Blood, Other Throat: Normal. negative: Tonsillar Hypertrophy, Red, Exudate, Dry, Other Respiratory: Normal. negative: Right, Left, Generalized, Superior, Inferior, Diminished, Wheezes, Rales, Rhonchi, OTHER Cardiovascular: Edema (BILATERAL LOWER EXTREMITIES ) : Normal. negative: Dysuria, Hematuria, Frequency, Discharge, Testicular Pain , Bleeding, , Other Auscultation: Bowel Sounds: Normal. negative: Bruit, Absent, Increased, Decreased, High Pitched, Other Palpation: Normal Tenderness: negative: Normal, Diffuse, RUQ, RLQ, LUQ, LLQ, Epigastric, Periumbilical, Suprapubic, Mild, Moderate, Severe, Rebound, Guarding, Rigidity, Other Skin: Red, Tender (BILATERAL LOWER EXTREMITIES WARM, ERYTHEMA, EDEMA. WOUND TO BILATERAL FEET ), Wound Musculoskeletal: Right, Left, Leg, Foot, Instability Psychiatric: Normal Mood Description: Calm Affect: Normal Speech Pattern: Clear, Appropriate - Laboratory and Diagnostics Result Diagrams: 09/05/17 05:10 09/05/17 19:43 Labs: 09/05/17 09:20 Toe - Left Big Gram Stain - Final 09/02/17 16:51 Toe - Left Big Gram Stain - Final 09/02/17 16:51 Toe - Left Big Wound Culture - Final 09/02/17 16:51 Foot - Right Gram Stain - Final 09/02/17 16:51 Foot - Right Wound Culture - Preliminary 09/02/17 16:51 Toe - Right Big Gram Stain - Final 09/02/17 16:51 Toe - Right Big Wound Culture - Preliminary Laboratory WBC 6.7 X10^3/uL (3.6-10.0) 09/05/17 05:10 RBC 3.26 X10^6/uL (3.5-5.4) L 09/05/17 05:10 Hgb 8.8 g/dL (12.0-16.0) L 09/05/17 05:10 Hct 26.6 % (36.0-47.0) L 09/05/17 05:10 MCV 81.7 fL (80.0-100.0) 09/05/17 05:10 MCH 26.9 pg (27.0-34.0) L 09/05/17 05:10 MCHC 32.9 g/dL (33.0-35.0) L 09/05/17 05:10 RDW 18.2 % (11.6-16.5) H 09/05/17 05:10 Plt Count 230 X10^3/uL (150.0-450.0) 09/05/17 05:10 MPV 7.6 fL (7.4-11.0) 09/05/17 05:10 Neut % 57.2 % (42.0-75.0) 09/05/17 05:10 Lymph % 28.0 % (21.0-51.0) 09/05/17 05:10 [place] % 7.4 % (0.0-13.0) 09/05/17 05:10 Eos % 6.7 % (0.9-2.9) H 09/05/17 05:10 Baso % 0.7 % (0.2-1.0) 09/05/17 05:10 Neut # 3.8 x10^3/uL (2.2-4.8) 09/05/17 05:10 Lymph # 1.9 X10^3/uL (1.3-2.9) 09/05/17 05:10 [place] # 0.5 x10^3/uL (0.3-0.8) 09/05/17 05:10 Eos # 0.4 x10^3/uL (0.0-0.2) H 09/05/17 05:10 Baso # 0.0 X10^3/uL (0.0-0.1) 09/05/17 05:10 Absolute Nucleated RBC 0.1 /100WBC 09/05/17 05:10 Sodium 142 mmol/L (136-145) 09/05/17 05:10 Corrected Sodium 143 mmol/L (136-145) 09/05/17 05:10 Potassium 3.9 mmol/L (3.5-5.1) 09/05/17 05:10 Chloride 108 mmol/L (98-107) H 09/05/17 05:10 Carbon Dioxide 27.4 mmol/L (21-32) 09/05/17 05:10 BUN 17 mg/dL (7-18) 09/05/17 05:10 Creatinine 1.27 mg/dL (0.55-1.02) H 09/05/17 19:43 Est GFR (MDRD) Af Amer > 60 (>60) 09/05/17 05:10 Est GFR (MDRD) Non-Af 50 (>60) L 09/05/17 05:10 Glucose 150 mg/dL (65-99) H 09/05/17 05:10 POC Glucose (mg/dL) 217 mg/dL (65-99) H 09/05/17 17:18 Calcium 8.1 mg/dL (8.5-10.1) L 09/05/17 05:10 Corrected Calcium 9.1 mg/dL (8.5-10.1) 09/05/17 05:10 Total Bilirubin 0.20 mg/dL (0.2-1.0) 09/05/17 05:10 AST 59 Units/L (15-37) H 09/05/17 05:10 ALT 52 Units/L (12-78) 09/05/17 05:10 Alkaline Phosphatase 89 Units/L (46-116) 09/05/17 05:10 Total Protein 6.1 g/dL (6.4-8.2) L 09/05/17 05:10 Albumin 2.7 g/dL (3.4-5.0) L 09/05/17 05:10 Globulin 3.4 g/dL (2.5-4.5) 09/05/17 05:10 Albumin/Globulin Ratio 0.8 Ratio (1.1-2.1) L 09/05/17 05:10 Vancomycin Trough 22.5 ug/mL (15-20) H* 09/05/17 19:43 Tissue Pathology To follow 09/05/17 08:54 - Plan (1) Cellulitis of both lower extremities Status: Acute Plan: VANCOMYCIN 1GM IV BID, LEVAQUIN 750MG IV Q48H, WOUND CARE, GENTAMYCIN OINTMENT TO WOUND, OBTAIN LOWER EXTREMITY CT WITH CONTRAST, CONTINUE TO MONITOR (2) Diabetic foot ulcer with osteomyelitis Status: Acute Plan: VANCOMYCIN 1GM IV BID, LEVAQUIN 750MG IV Q48H, WOUND CARE, GENTAMYCIN OINTMENT TO WOUND, CONSULT GENERAL SURGERY FOR DEBRIDEMENT, CONTINUE TO MONITOR (3) Anxiety Status: Chronic Plan: CONTINUE XANAX, CONTINUE TO MONITOR (4) Depression Status: Chronic Qualifiers: Depression Type: major depressive disorder Major depression recurrence: recurrent Active/Remission status: remission status unspecified Qualified Code(s): F33.9 - Major depressive disorder, recurrent, unspecified Plan: CONTINUE VENLAFAXINE, CONTINUE TO MONITOR (5) Diabetes mellitus, type 2 Status: Chronic Qualifiers: Diabetes mellitus complication status: without complication Diabetes mellitus rat exterminator insulin use: with rat exterminator use Qualified Code(s): E11.9 - Type 2 diabetes mellitus without complications; Z79.4 - termite exterminator helper (current) use of insulin; Z79.4 - FPC (current) use of insulin; Z79.4 - termite exterminator helper ( current) use of insulin; Z79.4 - FPC (current) use of insulin Plan: CONTINUE HUMULIN R SLIDING SCALE, CONTINUE TO MONITOR OTBS (6) Essential hypertension Status: Chronic Plan: CONTINUE COREG, CONTINUE VASOTEC, CONTINUE TO MONITOR (7) Chronic anemia Status: Chronic Plan: CONTINUE FOLIC ACID, CONTINUE TO MONITOR
[2017-09-05] MEDS: ZOCOR TAB 10 MG PO SCH (21:31)
[2017-09-05] MEDS: SNACK - Diabetic Appropriate PO SCH (22:56)
[2017-09-06] MEDS: NS 1000 ML 1,000 ML IV SCH ×3 (01:21→13:33)
[2017-09-06] MEDS ORDERED: GLUCOPHAGE ONE (06:03)
[2017-09-06 06:15] LABS: BASOPHILS % (AUTO) 0.6 % (0.2-1.0); EOSINOPHILS # (AUTO) 0.6 x10^3/uL (0.0-0.2); EOSINOPHILS % (AUTO) 7.9 % (0.9-2.9); HEMATOCRIT 26.3 % (36.0-47.0); HEMOGLOBIN 8.6 g/dL (12.0-16.0); LYMPHOCYTES # (AUTO) 1.7 X10^3/uL (1.3-2.9); LYMPHOCYTES % (AUTO) 22.8 % (21.0-51.0); MEAN CORPUSCULAR HGB CONC 32.8 g/dL (33.0-35.0); MEAN CORPUSCULAR VOLUME 82.3 fL (80.0-100.0); MONOCYTES # (AUTO) 0.8 x10^3/uL (0.3-0.8); MONOCYTES % (AUTO) 10.6 % (0.0-13.0); NEUTROPHILS # (AUTO) 4.2 x10^3/uL (2.2-4.8); NEUTROPHILS % (AUTO) 58.1 % (42.0-75.0); PLATELET COUNT 219 X10^3/uL (150.0-450.0); RED BLOOD COUNT 3.19 X10^6/uL (3.5-5.4); RED CELL DISTRIBUTION WIDTH 18.7 % (11.6-16.5); WHITE BLOOD COUNT 7.3 X10^3/uL (3.6-10.0)
[2017-09-06] MEDS: ROXICODONE TAB 15 MG PO PRN ×2 (06:25→21:16)
[2017-09-06] MEDS: XANAX PO SCH ×3 (06:26→21:16)
[2017-09-06] MEDS: GLUCOPHAGE PO SCH ×2 (06:26→16:43)
[2017-09-06] MEDS: GENTAMICIN TOPICAL OINT EXT SCH ×4 (06:26→21:20)
[2017-09-06 06:27] LABS: ALBUMIN 2.8 g/dL (3.4-5.0); CALCIUM 8.1 mg/dL (8.5-10.1); CARBON DIOXIDE 26.7 mmol/L (21-32); COR CA(FOR HYPOALB) 9.1 mg/dL (8.5-10.1); CREATININE 1.38 mg/dL (0.55-1.02); TOTAL PROTEIN 6.2 g/dL (6.4-8.2)
[2017-09-06] MEDS: VANCOMYCIN 1 GM PREMIX (ADDVANTAGE) 250 ML IV SCH ×2 (08:31→21:21)
[2017-09-06] MEDS: PROTONIX TAB 40 MG PO SCH ×2 (08:33→21:16)
[2017-09-06] MEDS: FOLIC ACID TAB 1 MG PO SCH (08:33)
[2017-09-06] MEDS: EFFEXOR XR 150 MG CAP PO SCH (08:33)
[2017-09-06] MEDS: CLARITIN PO SCH (08:33)
[2017-09-06] MEDS: COREG TAB 6.25 MG PO SCH ×2 (08:34→21:16)
[2017-09-06] MEDS: VASOTEC TAB 10 MG PO SCH (08:34)
[2017-09-06] MEDS: CHECK PATCH XX SCH ×2 (08:36→21:21)
[2017-09-06] MEDS: HumuLIN R SUBCUT PRN ×2 (12:20→16:41)
--- NOTE | 2017-09-06 12:29 | PCM.PROG ---
Progress Note - Progress Note for Day of Date: 09/06/17 - Subjective Subjective: s/p debridement both feet ulcers . dong fairly well ,. still c/o pain Rt foot - Past Medical Family Social History Past Med/Fam/Surg Hx: No changes since H&P Allergies: Allergies codeine Allergy (Verified 08/13/17 04:47) morphine Allergy (Verified 08/13/17 04:47) Sulfa (Sulfonamide Antibiotics) [SULFA] Allergy (Verified 08/13/17 04:47) TAPE Allergy (Uncoded 12/28/16 14:14) - Review of Systems ROS: No change since H&P - Vital Signs and I&O's Vital Signs: Temperature 98.4 F Pulse Rate [Left Brachial] 86 Respiratory Rate 20 Blood Pressure [Left Arm] 146/66 Blood Pressure [Right Arm] 150/67 Blood Pressure [Standing] 84/59 Blood Pressure [Lying] 96/58 Blood Pressure 140/63 O2 Sat by Pulse Oximetry 95 Intake and Output: Intake & Output 09/04/17 09/05/17 09/06/17 09/07/17 11:59 11:59 11:59 11:59 Intake Total 1576 3909 2310 Output Total 400 Balance 1576 3509 2310 - Physical Exam Oriented: Normal Eyes: Normal. negative: Blurred Vision, Diplopia, Discharge, Pain, Redness, Photophobia, Other Ear: Normal. negative: Right, Left, Swelling, Ecchymosis, Hemotypanum, Abrasion , Laceration Nose: Normal. negative: Injected, Discharge, Blood, Other Throat: Normal. negative: Tonsillar Hypertrophy, Red, Exudate, Dry, Other Respiratory: Normal. negative: Right, Left, Generalized, Superior, Inferior, Diminished, Wheezes, Rales, Rhonchi, OTHER Cardiovascular: Edema (BILATERAL LOWER EXTREMITIES ) : Normal. negative: Dysuria, Hematuria, Frequency, Discharge, Testicular Pain , Bleeding, , Other Auscultation: Bowel Sounds: Normal. negative: Bruit, Absent, Increased, Decreased, High Pitched, Other Tenderness: negative: Normal, Diffuse, RUQ, RLQ, LUQ, LLQ, Epigastric, Periumbilical, Suprapubic, Mild, Moderate, Severe, Rebound, Guarding, Rigidity, Other Skin: Red, Tender (BILATERAL LOWER EXTREMITIES WARM, ERYTHEMA, EDEMA. WOUND TO BILATERAL FEET ), Wound Musculoskeletal: Right (Rt 5th metatarsal head is exposed and infected ..associated cellulitis of the forefoot '), Left, Leg, Foot, Instability Psychiatric: Normal Mood Description: Calm Affect: Normal Speech Pattern: Clear, Appropriate - Laboratory and Diagnostics Result Diagrams: 09/06/17 05:42 09/06/17 05:42 Labs: 09/05/17 09:20 Toe - Left Big Gram Stain - Final 09/05/17 09:20 Toe - Left Big Wound Culture - Preliminary 09/02/17 16:51 Foot - Right Gram Stain - Final 09/02/17 16:51 Foot - Right Wound Culture - Final 09/02/17 16:51 Toe - Right Big Gram Stain - Final 09/02/17 16:51 Toe - Right Big Wound Culture - Preliminary 09/02/17 16:51 Toe - Left Big Gram Stain - Final 09/02/17 16:51 Toe - Left Big Wound Culture - Final Laboratory WBC 7.3 X10^3/uL (3.6-10.0) 09/06/17 05:42 RBC 3.19 X10^6/uL (3.5-5.4) L 09/06/17 05:42 Hgb 8.6 g/dL (12.0-16.0) L 09/06/17 05:42 Hct 26.3 % (36.0-47.0) L 09/06/17 05:42 MCV 82.3 fL (80.0-100.0) 09/06/17 05:42 MCH 27.0 pg (27.0-34.0) 09/06/17 05:42 MCHC 32.8 g/dL (33.0-35.0) L 09/06/17 05:42 RDW 18.7 % (11.6-16.5) H 09/06/17 05:42 Plt Count 219 X10^3/uL (150.0-450.0) 09/06/17 05:42 MPV 8.0 fL (7.4-11.0) 09/06/17 05:42 Neut % 58.1 % (42.0-75.0) 09/06/17 05:42 Lymph % 22.8 % (21.0-51.0) 09/06/17 05:42 [place] % 10.6 % (0.0-13.0) 09/06/17 05:42 Eos % 7.9 % (0.9-2.9) H 09/06/17 05:42 Baso % 0.6 % (0.2-1.0) 09/06/17 05:42 Neut # 4.2 x10^3/uL (2.2-4.8) 09/06/17 05:42 Lymph # 1.7 X10^3/uL (1.3-2.9) 09/06/17 05:42 [place] # 0.8 x10^3/uL (0.3-0.8) 09/06/17 05:42 Eos # 0.6 x10^3/uL (0.0-0.2) H 09/06/17 05:42 Baso # 0.0 X10^3/uL (0.0-0.1) 09/06/17 05:42 Absolute Nucleated RBC 0.1 /100WBC 09/06/17 05:42 Sodium 141 mmol/L (136-145) 09/06/17 05:42 Corrected Sodium 144 mmol/L (136-145) 09/06/17 05:42 Potassium 3.8 mmol/L (3.5-5.1) 09/06/17 05:42 Chloride 105 mmol/L (98-107) 09/06/17 05:42 Carbon Dioxide 26.7 mmol/L (21-32) 09/06/17 05:42 BUN 21 mg/dL (7-18) H 09/06/17 05:42 Creatinine 1.38 mg/dL (0.55-1.02) H 09/06/17 05:42 Est GFR (MDRD) Af Amer 49 (>60) L 09/06/17 05:42 Est GFR (MDRD) Non-Af 41 (>60) L 09/06/17 05:42 Glucose 243 mg/dL (65-99) H 09/06/17 05:42 POC Glucose (mg/dL) 200 mg/dL (65-99) H 09/06/17 12:01 Calcium 8.1 mg/dL (8.5-10.1) L 09/06/17 05:42 Corrected Calcium 9.1 mg/dL (8.5-10.1) 09/06/17 05:42 Total Bilirubin 0.10 mg/dL (0.2-1.0) L 09/06/17 05:42 AST 48 Units/L (15-37) H 09/06/17 05:42 ALT 59 Units/L (12-78) 09/06/17 05:42 Alkaline Phosphatase 123 Units/L (46-116) H 09/06/17 05:42 Total Protein 6.2 g/dL (6.4-8.2) L 09/06/17 05:42 Albumin 2.8 g/dL (3.4-5.0) L 09/06/17 05:42 Globulin 3.4 g/dL (2.5-4.5) 09/06/17 05:42 Albumin/Globulin Ratio 0.8 Ratio (1.1-2.1) L 09/06/17 05:42 Vancomycin Trough 22.5 ug/mL (15-20) H* 09/05/17 19:43 Tissue Pathology To follow 09/05/17 08:54 - Plan (1) Diabetic foot ulcer with osteomyelitis Status: Acute Plan: VANCOMYCIN 1GM IV BID, LEVAQUIN 750MG IV Q48H, WOUND CARE, GENTAMYCIN OINTMENT TO WOUND,. for transmetatarsal amputation Rt 5th and maybe 4th toe in am.
--- NOTE | 2017-09-06 21:07 | PCM.PROG ---
Progress Note - Progress Note for Day of Date: 09/05/17 - Subjective Subjective: WAS A DIRECT ADMISSION FOR BILATERAL LOWER EXTREMITY CELLULITIS AND DIABETIC ULCERS TO BILATERAL FEET. TODAY, SHE IS ALERT AND ORIENTED, LYING IN BED ON MORNING ROUNDS. SHE CONTINUES TO REPORT PAIN TO BILATERAL LOWER EXTREMITIES. ON EXAMINATION, HEART IS REGULAR IN RATE AND RHYTHM. BILATERAL LUNGS ARE NOTED WITH DIMINISHED LUNG SOUNDS. ABDOMEN IS ROUND , SOFT, AND NON-TENDER WITH NORMAL BOWEL SOUNDS NOTED TO ALL QUADRANTS. BIALTERAL LOWER EXTREMITIES CONTINUE WITH WARMTH, ERETHEMA, AND EDEMA. DRESSINGS ARE NOTED TO WOUNDS ON LEFT GREAT TOE, RIGHT GREAT TOE, AND RIGHT LATERAL FOOT. DRESSINGS ARE DRY AND INTACT AT THIS TIME. HER VITALS THIS MORNING ARE 98.2-73-20-94%-142/65. LABS WERE OBTAINED. ABNORMAL LAB VALUES INCLUDE THE FOLLOWING: RBC 3.26, HGB 8.8, HCT 26.6, BUN 21, CREATININE 1.38, GLUCOSE 243, CALCIUM 8.1, AST 48, ALK PHOS 123, TOTAL PROTEIN 6.2, ALBUMIN 2.8. A LOWER EXTREMITY CTA WAS OBTAINED TODAY. IT REPORTED LARGE ULCERATION OVERLYING THE RIGHT 5TH MTP JOINT WITH OSTEOMYELITIS OF THE 5TH METATARSAL HEAD AND PROXIMAL PHALANX, WITH PRESUMED SEPTIC ARTHRITIS OF THE MTP JOINT. SEVERE DIFFUSE ATHERSCLEROSIS WITH COMPLETE OCCLUSION OF ESSENTIALLY THE ENTIRE SFA BILATERALLY WITH RECONSTITUTION DISTALLY VIA DEEP FEMORAL ARTERY COLLATERALS. ADDITIONAL LESS SEVERE MULTIFOCAL STENOSIS. THERE IS 2 VESSEL RUNOFF TO THE RIGHT FOOT AND 3 VESSEL RUNOFF TO THE LEFT. PLANS TO TAKE PATIENT TO THE OR FOR DEBIRDEMENT OF WOUNDS THIS MORNING. WE AGREE WITH PLAN. OTHERWISE, WE WILL CONTINUE WITH CURRENT PLAN OF CARE TODAY. WE PLAN TO FOLLOW UP WITH AM LABS AND CONTINUE TO MONITOR PATIENT. - Past Medical Family Social History Past Med/Fam/Surg Hx: No changes since H&P Allergies: Allergies codeine Allergy (Verified 08/13/17 04:47) morphine Allergy (Verified 08/13/17 04:47) Sulfa (Sulfonamide Antibiotics) [SULFA] Allergy (Verified 08/13/17 04:47) TAPE Allergy (Uncoded 12/28/16 14:14) - Review of Systems ROS: No change since H&P - Vital Signs and I&O's Vital Signs: Temperature 97.9 F Pulse Rate [Left Brachial] 82 Respiratory Rate 18 Blood Pressure [Left Arm] 175/77 Blood Pressure [Right Arm] 150/67 Blood Pressure [Standing] 84/59 Blood Pressure [Lying] 96/58 Blood Pressure 140/63 O2 Sat by Pulse Oximetry 96 Intake and Output: Intake & Output 09/04/17 09/05/17 09/06/17 09/07/17 11:59 11:59 11:59 11:59 Intake Total 1576 3909 2310 650 Output Total 400 Balance 1576 3509 2310 650 - Physical Exam Oriented: Normal Eyes: Normal. negative: Blurred Vision, Diplopia, Discharge, Pain, Redness, Photophobia, Other Ear: Normal. negative: Right, Left, Swelling, Ecchymosis, Hemotypanum, Abrasion , Laceration Nose: Normal. negative: Injected, Discharge, Blood, Other Throat: Normal. negative: Tonsillar Hypertrophy, Red, Exudate, Dry, Other Respiratory: Normal. negative: Right, Left, Generalized, Superior, Inferior, Diminished, Wheezes, Rales, Rhonchi, OTHER Cardiovascular: Edema (BILATERAL LOWER EXTREMITIES ) : Normal. negative: Dysuria, Hematuria, Frequency, Discharge, Testicular Pain , Bleeding, , Other Auscultation: Bowel Sounds: Normal. negative: Bruit, Absent, Increased, Decreased, High Pitched, Other Palpation: Normal Tenderness: negative: Normal, Diffuse, RUQ, RLQ, LUQ, LLQ, Epigastric, Periumbilical, Suprapubic, Mild, Moderate, Severe, Rebound, Guarding, Rigidity, Other Skin: Red, Tender (BILATERAL LOWER EXTREMITIES WARM, ERYTHEMA, EDEMA. WOUND TO BILATERAL FEET ), Wound Musculoskeletal: Right (Rt 5th metatarsal head is exposed and infected ..associated cellulitis of the forefoot '), Left, Leg, Foot, Instability Psychiatric: Normal Mood Description: Calm Affect: Normal Speech Pattern: Clear, Appropriate - Laboratory and Diagnostics Result Diagrams: 09/06/17 05:42 09/06/17 05:42 Labs: 09/05/17 09:20 Toe - Left Big Gram Stain - Final 09/05/17 09:20 Toe - Left Big Wound Culture - Preliminary 09/02/17 16:51 Foot - Right Gram Stain - Final 09/02/17 16:51 Foot - Right Wound Culture - Final 09/02/17 16:51 Toe - Right Big Gram Stain - Final 09/02/17 16:51 Toe - Right Big Wound Culture - Preliminary 09/02/17 16:51 Toe - Left Big Gram Stain - Final 09/02/17 16:51 Toe - Left Big Wound Culture - Final Laboratory WBC 7.3 X10^3/uL (3.6-10.0) 09/06/17 05:42 RBC 3.19 X10^6/uL (3.5-5.4) L 09/06/17 05:42 Hgb 8.6 g/dL (12.0-16.0) L 09/06/17 05:42 Hct 26.3 % (36.0-47.0) L 09/06/17 05:42 MCV 82.3 fL (80.0-100.0) 09/06/17 05:42 MCH 27.0 pg (27.0-34.0) 09/06/17 05:42 MCHC 32.8 g/dL (33.0-35.0) L 09/06/17 05:42 RDW 18.7 % (11.6-16.5) H 09/06/17 05:42 Plt Count 219 X10^3/uL (150.0-450.0) 09/06/17 05:42 MPV 8.0 fL (7.4-11.0) 09/06/17 05:42 Neut % 58.1 % (42.0-75.0) 09/06/17 05:42 Lymph % 22.8 % (21.0-51.0) 09/06/17 05:42 [place] % 10.6 % (0.0-13.0) 09/06/17 05:42 Eos % 7.9 % (0.9-2.9) H 09/06/17 05:42 Baso % 0.6 % (0.2-1.0) 09/06/17 05:42 Neut # 4.2 x10^3/uL (2.2-4.8) 09/06/17 05:42 Lymph # 1.7 X10^3/uL (1.3-2.9) 09/06/17 05:42 [place] # 0.8 x10^3/uL (0.3-0.8) 09/06/17 05:42 Eos # 0.6 x10^3/uL (0.0-0.2) H 09/06/17 05:42 Baso # 0.0 X10^3/uL (0.0-0.1) 09/06/17 05:42 Absolute Nucleated RBC 0.1 /100WBC 09/06/17 05:42 Sodium 141 mmol/L (136-145) 09/06/17 05:42 Corrected Sodium 144 mmol/L (136-145) 09/06/17 05:42 Potassium 3.8 mmol/L (3.5-5.1) 09/06/17 05:42 Chloride 105 mmol/L (98-107) 09/06/17 05:42 Carbon Dioxide 26.7 mmol/L (21-32) 09/06/17 05:42 BUN 21 mg/dL (7-18) H 09/06/17 05:42 Creatinine 1.38 mg/dL (0.55-1.02) H 09/06/17 05:42 Est GFR (MDRD) Af Amer 49 (>60) L 09/06/17 05:42 Est GFR (MDRD) Non-Af 41 (>60) L 09/06/17 05:42 Glucose 243 mg/dL (65-99) H 09/06/17 05:42 POC Glucose (mg/dL) 226 mg/dL (65-99) H 09/06/17 16:26 Calcium 8.1 mg/dL (8.5-10.1) L 09/06/17 05:42 Corrected Calcium 9.1 mg/dL (8.5-10.1) 09/06/17 05:42 Total Bilirubin 0.10 mg/dL (0.2-1.0) L 09/06/17 05:42 AST 48 Units/L (15-37) H 09/06/17 05:42 ALT 59 Units/L (12-78) 09/06/17 05:42 Alkaline Phosphatase 123 Units/L (46-116) H 09/06/17 05:42 Total Protein 6.2 g/dL (6.4-8.2) L 09/06/17 05:42 Albumin 2.8 g/dL (3.4-5.0) L 09/06/17 05:42 Globulin 3.4 g/dL (2.5-4.5) 09/06/17 05:42 Albumin/Globulin Ratio 0.8 Ratio (1.1-2.1) L 09/06/17 05:42 Vancomycin Trough 22.5 ug/mL (15-20) H* 09/05/17 19:43 Tissue Pathology To follow 09/05/17 08:54 - Plan (1) Cellulitis of both lower extremities Status: Acute Plan: VANCOMYCIN 1GM IV BID, LEVAQUIN 750MG IV Q48H, WOUND CARE, GENTAMYCIN OINTMENT TO WOUND, OBTAIN LOWER EXTREMITY CT WITH CONTRAST, CONTINUE TO MONITOR (2) Diabetic foot ulcer with osteomyelitis Status: Acute Plan: VANCOMYCIN 1GM IV BID, LEVAQUIN 750MG IV Q48H, WOUND CARE, GENTAMYCIN OINTMENT TO WOUND,. for transmetatarsal amputation Rt 5th and maybe 4th toe in am. (3) Anxiety Status: Chronic Plan: CONTINUE XANAX, CONTINUE TO MONITOR (4) Depression Status: Chronic Qualifiers: Depression Type: major depressive disorder Major depression recurrence: recurrent Active/Remission status: remission status unspecified Qualified Code(s): F33.9 - Major depressive disorder, recurrent, unspecified Plan: CONTINUE VENLAFAXINE, CONTINUE TO MONITOR (5) Diabetes mellitus, type 2 Status: Chronic Qualifiers: Diabetes mellitus complication status: without complication Diabetes mellitus halfway insulin use: with halfway use Qualified Code(s): E11.9 - Type 2 diabetes mellitus without complications; Z79.4 - continuous churn buttermaker (current) use of insulin; Z79.4 - continuous churn buttermaker (current) use of insulin; Z79.4 - continuous churn buttermaker ( current) use of insulin; Z79.4 - continuous churn buttermaker (current) use of insulin Plan: CONTINUE HUMULIN R SLIDING SCALE, CONTINUE TO MONITOR OTBS (6) Essential hypertension Status: Chronic Plan: CONTINUE COREG, CONTINUE VASOTEC, CONTINUE TO MONITOR (7) Chronic anemia Status: Chronic Plan: CONTINUE FOLIC ACID, CONTINUE TO MONITOR
[2017-09-06] MEDS: LEVAQUIN PREMIX IV 750 MG 750 MG/150 ML BAG IV SCH (21:15)
[2017-09-06] MEDS: ZOCOR TAB 10 MG PO SCH (21:16)
[2017-09-06] MEDS: SNACK - Diabetic Appropriate PO SCH (21:20)
[2017-09-07] MEDS: NS 1000 ML 1,000 ML IV SCH ×2 (01:18→13:24)
[2017-09-07] MEDS: GENTAMICIN TOPICAL OINT EXT SCH ×3 (05:35→21:21)
[2017-09-07] MEDS: XANAX PO SCH ×3 (05:47→21:20)
[2017-09-07] MEDS: HumuLIN R SUBCUT PRN ×4 (05:48→21:18)
[2017-09-07] MEDS: GLUCOPHAGE PO SCH ×3 (06:18→18:34)
[2017-09-07 06:31] LABS: BASOPHILS % (AUTO) 0.5 % (0.2-1.0); EOSINOPHILS # (AUTO) 0.5 x10^3/uL (0.0-0.2); EOSINOPHILS % (AUTO) 5.8 % (0.9-2.9); HEMATOCRIT 25.9 % (36.0-47.0); HEMOGLOBIN 8.5 g/dL (12.0-16.0); LYMPHOCYTES # (AUTO) 1.7 X10^3/uL (1.3-2.9); LYMPHOCYTES % (AUTO) 20.5 % (21.0-51.0); MEAN CORPUSCULAR HEMOGLOBIN 27.1 pg (27.0-34.0); MEAN CORPUSCULAR VOLUME 82.2 fL (80.0-100.0); MEAN PLATELET VOLUME 8.1 fL (7.4-11.0); MONOCYTES # (AUTO) 0.7 x10^3/uL (0.3-0.8); MONOCYTES % (AUTO) 9.1 % (0.0-13.0); NEUTROPHILS # (AUTO) 5.3 x10^3/uL (2.2-4.8); NEUTROPHILS % (AUTO) 64.1 % (42.0-75.0); PLATELET COUNT 217 X10^3/uL (150.0-450.0); RED BLOOD COUNT 3.15 X10^6/uL (3.5-5.4); RED CELL DISTRIBUTION WIDTH 19.1 % (11.6-16.5); WHITE BLOOD COUNT 8.2 X10^3/uL (3.6-10.0)
[2017-09-07 07:24] LABS: ALBUMIN 2.7 g/dL (3.4-5.0); CALCIUM 7.9 mg/dL (8.5-10.1); CARBON DIOXIDE 26.4 mmol/L (21-32); COR CA(FOR HYPOALB) 8.9 mg/dL (8.5-10.1); CREATININE 1.2 mg/dL (0.55-1.02); TOTAL PROTEIN 6.1 g/dL (6.4-8.2)
[2017-09-07] MEDS: LR 1000 ML IV 1,000 ML IV ONE ×2 (07:35→07:39)
[2017-09-07] MEDS ORDERED: NS IRRIGATION 1000 ML 1,000 ML with BACITRACIN VIAL 50,000 UNT IR ONE ×4 (07:36)
[2017-09-07] MEDS ORDERED: MARCAINE 0.25% INJ ONE (07:43)
[2017-09-07] MEDS: VASOTEC TAB 10 MG PO SCH (09:15)
[2017-09-07] MEDS: FOLIC ACID TAB 1 MG PO SCH (09:15)
[2017-09-07] MEDS: EFFEXOR XR 150 MG CAP PO SCH (09:16)
[2017-09-07] MEDS: CLARITIN PO SCH (09:16)
[2017-09-07] MEDS: COREG TAB 6.25 MG PO SCH ×2 (09:16→21:19)
[2017-09-07] MEDS: PROTONIX TAB 40 MG PO SCH ×2 (09:16→21:19)
[2017-09-07] MEDS: VANCOMYCIN 1 GM PREMIX (ADDVANTAGE) 250 ML IV SCH (09:20)
[2017-09-07] MEDS: ROXICODONE TAB 15 MG PO PRN ×2 (09:28→21:19)
[2017-09-07 09:42] LABS: CREATININE 1.1 mg/dL (0.55-1.02)
[2017-09-07 09:53] LABS: VANCOMYCIN,TROUGH 22.1 ug/mL (15-20)
[2017-09-07] MEDS ORDERED: DIPRIVAN VIAL ONE (10:01)
[2017-09-07] MEDS ORDERED: VERSED ONE (10:01)
[2017-09-07] MEDS ORDERED: XYLOCAINE 2 % (PLAIN) ONE (10:01)
--- NOTE | 2017-09-07 10:30 | OR.GENERIC ---
Post-Op Note Generic - Post-Op Note Operative Report: PT underwent transmetatarsal amputation Rt 5th toe for osteomyelitis of the metatarsal head . there was no arterial bleeding from the digital arteries the wound was left open and the depth of the incision was cultured .. lila wait few days and decide if the wound coiuld be closed ..
[2017-09-07] MEDS: CHECK PATCH XX SCH ×2 (10:51→21:20)
[2017-09-07] MEDS ORDERED: KETALAR ONE (14:54)
[2017-09-07] MEDS ORDERED: GLUCOPHAGE ONE (17:49)
--- NOTE | 2017-09-07 19:43 | PCM.PROG ---
Progress Note - Progress Note for Day of Date: 09/06/17 - Subjective Subjective: WAS A DIRECT ADMISSION FOR BILATERAL LOWER EXTREMITY CELLULITIS AND DIABETIC ULCERS TO BILATERAL FEET. TOOK PATIENT TO THE OR FOR DEBRIDEMENT OF WOUNDS TO THE LEFT GREAT TOE AND RIGHT LATERAL FOOT. TODAY, SHE IS ALERT AND ORIENTED, LYING IN BED ON MORNING ROUNDS. SHE CONTINUES TO REPORT PAIN TO BILATERAL LOWER EXTREMITIES. ON EXAMINATION, HEART IS REGULAR IN RATE AND RHYTHM. BILATERAL LUNGS ARE NOTED WITH DIMINISHED LUNG SOUNDS. ABDOMEN IS ROUND, SOFT, AND NON-TENDER WITH NORMAL BOWEL SOUNDS NOTED TO ALL QUADRANTS. BIALTERAL LOWER EXTREMITIES CONTINUE WITH WARMTH, ERETHEMA, AND EDEMA. DRESSINGS ARE NOTED TO WOUNDS ON LEFT GREAT TOE, RIGHT GREAT TOE, AND RIGHT LATERAL FOOT. DRESSINGS ARE DRY AND INTACT AT THIS TIME. HER VITALS THIS MORNING ARE 98.4-86-20-95%-144/66. LABS WERE OBTAINED. SHE REMAINS HEMODYNAMICALLY STABLE TODAY. REVIEWED THE LOWER EXTREMITY CT. HE PLANS TO TAKE PATIENT BACK TO SURGERY TOMORROW FOR REMOVAL OF THE 5TH METATARSAL DUE TO SEPTIC JOINT. WE AGREE WITH PLAN. AFTER DISCHARGE, WE WILL SCHEDULE HER TO FOLLOW UP WITH A VASCULAR SURGEON. OTHERWISE, WE WILL CONTINUE WITH CURRENT PLAN OF CARE TODAY. WE PLAN TO FOLLOW UP WITH AM LABS AND CONTINUE TO MONITOR PATIENT. - Past Medical Family Social History Past Med/Fam/Surg Hx: No changes since H&P Allergies: Allergies codeine Allergy (Verified 08/13/17 04:47) morphine Allergy (Verified 08/13/17 04:47) Sulfa (Sulfonamide Antibiotics) [SULFA] Allergy (Verified 08/13/17 04:47) TAPE Allergy (Uncoded 12/28/16 14:14) - Review of Systems ROS: No change since H&P - Vital Signs and I&O's Vital Signs: Temperature 98.3 F Pulse Rate [Left Brachial] 80 Pulse Rate 76 Respiratory Rate 18 Blood Pressure [Left Arm] 130/61 Blood Pressure [Right Arm] 130/63 Blood Pressure [Standing] 84/59 Blood Pressure [Lying] 96/58 Blood Pressure 142/65 O2 Sat by Pulse Oximetry 95 Intake and Output: Intake & Output 09/05/17 09/06/17 09/07/17 09/08/17 11:59 11:59 11:59 11:59 Intake Total 3909 2310 1850 780 Output Total 400 300 Balance 3509 2310 1550 780 - Physical Exam Oriented: Normal Eyes: Normal. negative: Blurred Vision, Diplopia, Discharge, Pain, Redness, Photophobia, Other Ear: Normal. negative: Right, Left, Swelling, Ecchymosis, Hemotypanum, Abrasion , Laceration Nose: Normal. negative: Injected, Discharge, Blood, Other Throat: Normal. negative: Tonsillar Hypertrophy, Red, Exudate, Dry, Other Respiratory: Normal. negative: Right, Left, Generalized, Superior, Inferior, Diminished, Wheezes, Rales, Rhonchi, OTHER Cardiovascular: Edema (BILATERAL LOWER EXTREMITIES ) : Normal. negative: Dysuria, Hematuria, Frequency, Discharge, Testicular Pain , Bleeding, , Other Auscultation: Bowel Sounds: Normal. negative: Bruit, Absent, Increased, Decreased, High Pitched, Other Palpation: Normal Tenderness: negative: Normal, Diffuse, RUQ, RLQ, LUQ, LLQ, Epigastric, Periumbilical, Suprapubic, Mild, Moderate, Severe, Rebound, Guarding, Rigidity, Other Skin: Red, Tender (BILATERAL LOWER EXTREMITIES WARM, ERYTHEMA, EDEMA. WOUND TO BILATERAL FEET ), Wound Musculoskeletal: Right (Rt 5th metatarsal head is exposed and infected ..associated cellulitis of the forefoot '), Left, Leg, Foot, Instability Psychiatric: Normal Mood Description: Calm Affect: Normal Speech Pattern: Clear, Appropriate - Laboratory and Diagnostics Result Diagrams: 09/07/17 05:45 09/07/17 09:20 Labs: 09/05/17 09:20 Toe - Left Big Gram Stain - Final 09/05/17 09:20 Toe - Left Big Wound Culture - Final Acinetobacter Baumanii/Haemoly 09/07/17 08:08 Toe - Right Little Gram Stain - Final 09/02/17 16:51 Foot - Right Gram Stain - Final 09/02/17 16:51 Foot - Right Wound Culture - Final 09/02/17 16:51 Toe - Right Big Gram Stain - Final 09/02/17 16:51 Toe - Right Big Wound Culture - Preliminary 09/02/17 16:51 Toe - Left Big Gram Stain - Final 09/02/17 16:51 Toe - Left Big Wound Culture - Final Laboratory WBC 8.2 X10^3/uL (3.6-10.0) 09/07/17 05:45 RBC 3.15 X10^6/uL (3.5-5.4) L 09/07/17 05:45 Hgb 8.5 g/dL (12.0-16.0) L 09/07/17 05:45 Hct 25.9 % (36.0-47.0) L 09/07/17 05:45 MCV 82.2 fL (80.0-100.0) 09/07/17 05:45 MCH 27.1 pg (27.0-34.0) 09/07/17 05:45 MCHC 33.0 g/dL (33.0-35.0) 09/07/17 05:45 RDW 19.1 % (11.6-16.5) H 09/07/17 05:45 Plt Count 217 X10^3/uL (150.0-450.0) 09/07/17 05:45 MPV 8.1 fL (7.4-11.0) 09/07/17 05:45 Neut % 64.1 % (42.0-75.0) 09/07/17 05:45 Lymph % 20.5 % (21.0-51.0) L 09/07/17 05:45 [place] % 9.1 % (0.0-13.0) 09/07/17 05:45 Eos % 5.8 % (0.9-2.9) H 09/07/17 05:45 Baso % 0.5 % (0.2-1.0) 09/07/17 05:45 Neut # 5.3 x10^3/uL (2.2-4.8) H 09/07/17 05:45 Lymph # 1.7 X10^3/uL (1.3-2.9) 09/07/17 05:45 [place] # 0.7 x10^3/uL (0.3-0.8) 09/07/17 05:45 Eos # 0.5 x10^3/uL (0.0-0.2) H 09/07/17 05:45 Baso # 0.0 X10^3/uL (0.0-0.1) 09/07/17 05:45 Absolute Nucleated RBC 0.1 /100WBC 09/07/17 05:45 Sodium 142 mmol/L (136-145) 09/07/17 05:45 Corrected Sodium 144 mmol/L (136-145) 09/07/17 05:45 Potassium 3.8 mmol/L (3.5-5.1) 09/07/17 05:45 Chloride 108 mmol/L (98-107) H 09/07/17 05:45 Carbon Dioxide 26.4 mmol/L (21-32) 09/07/17 05:45 BUN 16 mg/dL (7-18) 09/07/17 05:45 Creatinine 1.10 mg/dL (0.55-1.02) H 09/07/17 09:20 Est GFR (MDRD) Af Amer 58 (>60) L 09/07/17 05:45 Est GFR (MDRD) Non-Af 48 (>60) L 09/07/17 05:45 Glucose 193 mg/dL (65-99) H 09/07/17 05:45 POC Glucose (mg/dL) 227 mg/dL (65-99) H 09/07/17 16:40 Calcium 7.9 mg/dL (8.5-10.1) L 09/07/17 05:45 Corrected Calcium 8.9 mg/dL (8.5-10.1) 09/07/17 05:45 Total Bilirubin 0.20 mg/dL (0.2-1.0) 09/07/17 05:45 AST 145 Units/L (15-37) H 09/07/17 05:45 ALT 114 Units/L (12-78) H 09/07/17 05:45 Alkaline Phosphatase 112 Units/L (46-116) 09/07/17 05:45 Total Protein 6.1 g/dL (6.4-8.2) L 09/07/17 05:45 Albumin 2.7 g/dL (3.4-5.0) L 09/07/17 05:45 Globulin 3.4 g/dL (2.5-4.5) 09/07/17 05:45 Albumin/Globulin Ratio 0.8 Ratio (1.1-2.1) L 09/07/17 05:45 Vancomycin Trough 22.1 ug/mL (15-20) H* 09/07/17 09:20 Tissue Pathology To follow 09/07/17 08:08 - Plan (1) Cellulitis of both lower extremities Status: Acute Plan: VANCOMYCIN 1GM IV BID, LEVAQUIN 750MG IV Q48H, WOUND CARE, GENTAMYCIN OINTMENT TO WOUND, OBTAIN LOWER EXTREMITY CT WITH CONTRAST, CONTINUE TO MONITOR (2) Diabetic foot ulcer with osteomyelitis Status: Acute Plan: VANCOMYCIN 1GM IV BID, LEVAQUIN 750MG IV Q48H, WOUND CARE, GENTAMYCIN OINTMENT TO WOUND,. for transmetatarsal amputation Rt 5th and maybe 4th toe in am. (3) Anxiety Status: Chronic Plan: CONTINUE XANAX, CONTINUE TO MONITOR (4) Depression Status: Chronic Qualifiers: Depression Type: major depressive disorder Major depression recurrence: recurrent Active/Remission status: remission status unspecified Qualified Code(s): F33.9 - Major depressive disorder, recurrent, unspecified Plan: CONTINUE VENLAFAXINE, CONTINUE TO MONITOR (5) Diabetes mellitus, type 2 Status: Chronic Qualifiers: Diabetes mellitus complication status: without complication Diabetes mellitus roasterman insulin use: with longterm use Qualified Code(s): E11.9 - Type 2 diabetes mellitus without complications; Z79.4 - long-term (current) use of insulin; Z79.4 - rn long term care (current) use of insulin; Z79.4 - long-term ( current) use of insulin; Z79.4 - long-term (current) use of insulin Plan: CONTINUE HUMULIN R SLIDING SCALE, CONTINUE TO MONITOR OTBS (6) Essential hypertension Status: Chronic Plan: CONTINUE COREG, CONTINUE VASOTEC, CONTINUE TO MONITOR (7) Chronic anemia Status: Chronic Plan: CONTINUE FOLIC ACID, CONTINUE TO MONITOR
[2017-09-07] MEDS: VANCOMYCIN HCL 1 GM VIAL 1 GM in NS 250 ML IV 250 ML IV SCH (21:18)
[2017-09-07] MEDS: ZOCOR TAB 10 MG PO SCH (21:20)
[2017-09-07] MEDS: SNACK - Diabetic Appropriate PO SCH (21:20)
[2017-09-08] MEDS ORDERED: GLUCOPHAGE ONE ×2 (05:58→17:26)
[2017-09-08] MEDS: ROXICODONE TAB 15 MG PO PRN ×3 (06:01→23:48)
[2017-09-08] MEDS: XANAX PO SCH ×3 (06:01→22:03)
[2017-09-08] MEDS: GLUCOPHAGE PO SCH ×2 (06:02→17:25)
[2017-09-08] MEDS: GENTAMICIN TOPICAL OINT EXT SCH ×3 (06:02→22:04)
[2017-09-08] MEDS: HumuLIN R SUBCUT PRN ×3 (06:03→17:34)
[2017-09-08] MEDS: NS 1000 ML 1,000 ML IV SCH ×2 (06:04→17:34)
[2017-09-08 06:11] LABS: BASOPHILS # (AUTO) 0.1 X10^3/uL (0.0-0.1); BASOPHILS % (AUTO) 0.6 % (0.2-1.0); EOSINOPHILS # (AUTO) 0.4 x10^3/uL (0.0-0.2); EOSINOPHILS % (AUTO) 3.9 % (0.9-2.9); HEMOGLOBIN 8.1 g/dL (12.0-16.0); LYMPHOCYTES # (AUTO) 1.7 X10^3/uL (1.3-2.9); LYMPHOCYTES % (AUTO) 14.9 % (21.0-51.0); MEAN CORPUSCULAR HEMOGLOBIN 26.6 pg (27.0-34.0); MEAN CORPUSCULAR HGB CONC 32.2 g/dL (33.0-35.0); MEAN CORPUSCULAR VOLUME 82.7 fL (80.0-100.0); MONOCYTES # (AUTO) 1.2 x10^3/uL (0.3-0.8); MONOCYTES % (AUTO) 10.7 % (0.0-13.0); NEUTROPHILS % (AUTO) 69.9 % (42.0-75.0); PLATELET COUNT 244 X10^3/uL (150.0-450.0); RED BLOOD COUNT 3.03 X10^6/uL (3.5-5.4); WHITE BLOOD COUNT 11.4 X10^3/uL (3.6-10.0)
[2017-09-08 06:12] LABS: ALBUMIN 2.9 g/dL (3.4-5.0); CALCIUM 8.3 mg/dL (8.5-10.1); CARBON DIOXIDE 25.2 mmol/L (21-32); COR CA(FOR HYPOALB) 9.2 mg/dL (8.5-10.1); CREATININE 1.47 mg/dL (0.55-1.02); TOTAL PROTEIN 6.2 g/dL (6.4-8.2)
[2017-09-08] MEDS: PROTONIX TAB 40 MG PO SCH ×2 (09:22→22:03)
[2017-09-08] MEDS: COREG TAB 6.25 MG PO SCH ×2 (09:22→22:03)
[2017-09-08] MEDS: CLARITIN PO SCH (09:23)
[2017-09-08] MEDS: FOLIC ACID TAB 1 MG PO SCH (09:23)
[2017-09-08] MEDS: VASOTEC TAB 10 MG PO SCH (09:23)
[2017-09-08] MEDS: EFFEXOR XR 150 MG CAP PO SCH (09:23)
[2017-09-08] MEDS: CHECK PATCH XX SCH ×2 (09:45→22:04)
--- NOTE | 2017-09-08 11:17 | PCM.PROG ---
Progress Note - Progress Note for Day of Date: 09/08/17 - Subjective Subjective: PO transmetatarsal amputation Rt 5th toe. 4th toe is viable ,no signs of ischemia now.otherwise Pt is doing fine. - Past Medical Family Social History Past Med/Fam/Surg Hx: No changes since H&P Allergies: Allergies codeine Allergy (Verified 08/13/17 04:47) morphine Allergy (Verified 08/13/17 04:47) Sulfa (Sulfonamide Antibiotics) [SULFA] Allergy (Verified 08/13/17 04:47) TAPE Allergy (Uncoded 12/28/16 14:14) - Review of Systems ROS: No change since H&P - Vital Signs and I&O's Vital Signs: Temperature 98.9 F Pulse Rate [Left Brachial] 86 Pulse Rate 76 Respiratory Rate 20 Blood Pressure [Left Arm] 117/54 Blood Pressure [Right Arm] 130/63 Blood Pressure [Standing] 84/59 Blood Pressure [Lying] 96/58 Blood Pressure 142/65 O2 Sat by Pulse Oximetry 92 Intake and Output: Intake & Output 09/05/17 09/06/17 09/07/17 09/08/17 11:59 11:59 11:59 11:59 Intake Total 3909 2310 1850 3335 Output Total 400 300 Balance 3509 2310 1550 3335 - Physical Exam Oriented: Normal Eyes: Normal. negative: Blurred Vision, Diplopia, Discharge, Pain, Redness, Photophobia, Other Ear: Normal. negative: Right, Left, Swelling, Ecchymosis, Hemotypanum, Abrasion , Laceration Nose: Normal. negative: Injected, Discharge, Blood, Other Throat: Normal. negative: Tonsillar Hypertrophy, Red, Exudate, Dry, Other Respiratory: Normal. negative: Right, Left, Generalized, Superior, Inferior, Diminished, Wheezes, Rales, Rhonchi, OTHER Cardiovascular: Edema (BILATERAL LOWER EXTREMITIES ) : Normal. negative: Dysuria, Hematuria, Frequency, Discharge, Testicular Pain , Bleeding, , Other Auscultation: Bowel Sounds: Normal. negative: Bruit, Absent, Increased, Decreased, High Pitched, Other Tenderness: negative: Normal, Diffuse, RUQ, RLQ, LUQ, LLQ, Epigastric, Periumbilical, Suprapubic, Mild, Moderate, Severe, Rebound, Guarding, Rigidity, Other Skin: Red, Tender (BILATERAL LOWER EXTREMITIES WARM, ERYTHEMA, EDEMA. WOUND TO BILATERAL FEET ), Wound Musculoskeletal: Right (Rt 5th metatarsal head is exposed and infected ..associated cellulitis of the forefoot '), Left, Leg, Foot, Instability Psychiatric: Normal Mood Description: Calm Affect: Normal Speech Pattern: Clear, Appropriate - Laboratory and Diagnostics Result Diagrams: 09/08/17 05:17 09/08/17 05:17 Labs: 09/07/17 08:08 Toe - Right Little Gram Stain - Final 09/07/17 08:08 Toe - Right Little Wound Culture - Preliminary 09/05/17 09:20 Toe - Left Big Gram Stain - Final 09/05/17 09:20 Toe - Left Big Wound Culture - Final Acinetobacter Baumanii/Haemoly 09/02/17 16:51 Foot - Right Gram Stain - Final 09/02/17 16:51 Foot - Right Wound Culture - Final 09/02/17 16:51 Toe - Right Big Gram Stain - Final 09/02/17 16:51 Toe - Right Big Wound Culture - Preliminary 09/02/17 16:51 Toe - Left Big Gram Stain - Final 09/02/17 16:51 Toe - Left Big Wound Culture - Final Laboratory WBC 11.4 X10^3/uL (3.6-10.0) H 09/08/17 05:17 RBC 3.03 X10^6/uL (3.5-5.4) L 09/08/17 05:17 Hgb 8.1 g/dL (12.0-16.0) L 09/08/17 05:17 Hct 25.0 % (36.0-47.0) L 09/08/17 05:17 MCV 82.7 fL (80.0-100.0) 09/08/17 05:17 MCH 26.6 pg (27.0-34.0) L 09/08/17 05:17 MCHC 32.2 g/dL (33.0-35.0) L 09/08/17 05:17 RDW 19.0 % (11.6-16.5) H 09/08/17 05:17 Plt Count 244 X10^3/uL (150.0-450.0) 09/08/17 05:17 MPV 8.0 fL (7.4-11.0) 09/08/17 05:17 Neut % 69.9 % (42.0-75.0) 09/08/17 05:17 Lymph % 14.9 % (21.0-51.0) L 09/08/17 05:17 [place] % 10.7 % (0.0-13.0) 09/08/17 05:17 Eos % 3.9 % (0.9-2.9) H 09/08/17 05:17 Baso % 0.6 % (0.2-1.0) 09/08/17 05:17 Neut # 8.0 x10^3/uL (2.2-4.8) H 09/08/17 05:17 Lymph # 1.7 X10^3/uL (1.3-2.9) 09/08/17 05:17 [place] # 1.2 x10^3/uL (0.3-0.8) H 09/08/17 05:17 Eos # 0.4 x10^3/uL (0.0-0.2) H 09/08/17 05:17 Baso # 0.1 X10^3/uL (0.0-0.1) 09/08/17 05:17 Absolute Nucleated RBC 0.0 /100WBC 09/08/17 05:17 Sodium 138 mmol/L (136-145) 09/08/17 05:17 Corrected Sodium 142 mmol/L (136-145) 09/08/17 05:17 Potassium 4.0 mmol/L (3.5-5.1) 09/08/17 05:17 Chloride 105 mmol/L (98-107) 09/08/17 05:17 Carbon Dioxide 25.2 mmol/L (21-32) 09/08/17 05:17 BUN 16 mg/dL (7-18) 09/08/17 05:17 Creatinine 1.47 mg/dL (0.55-1.02) H 09/08/17 05:17 Est GFR (MDRD) Af Amer 46 (>60) L 09/08/17 05:17 Est GFR (MDRD) Non-Af 38 (>60) L 09/08/17 05:17 Glucose 254 mg/dL (65-99) H 09/08/17 05:17 POC Glucose (mg/dL) 247 mg/dL (65-99) H 09/08/17 05:55 Calcium 8.3 mg/dL (8.5-10.1) L 09/08/17 05:17 Corrected Calcium 9.2 mg/dL (8.5-10.1) 09/08/17 05:17 Total Bilirubin 0.30 mg/dL (0.2-1.0) 09/08/17 05:17 AST 169 Units/L (15-37) H 09/08/17 05:17 ALT 203 Units/L (12-78) H 09/08/17 05:17 Alkaline Phosphatase 150 Units/L (46-116) H 09/08/17 05:17 Total Protein 6.2 g/dL (6.4-8.2) L 09/08/17 05:17 Albumin 2.9 g/dL (3.4-5.0) L 09/08/17 05:17 Globulin 3.3 g/dL (2.5-4.5) 09/08/17 05:17 Albumin/Globulin Ratio 0.9 Ratio (1.1-2.1) L 09/08/17 05:17 Vancomycin Trough 22.1 ug/mL (15-20) H* 09/07/17 09:20 Tissue Pathology To follow 09/07/17 08:08 - Plan (1) Diabetic foot ulcer with osteomyelitis Status: Acute Plan: s/p transmetatarsal amputation Rt 5th toe. same IV ATB , local care and diabetic care . DVT prophylaxis .
[2017-09-08] MEDS: VANCOMYCIN HCL 1 GM VIAL 1 GM in NS 250 ML IV 250 ML IV SCH (22:02)
[2017-09-08] MEDS: LEVAQUIN PREMIX IV 750 MG 750 MG/150 ML BAG IV SCH (22:03)
[2017-09-08] MEDS: ZOCOR TAB 10 MG PO SCH (22:03)
[2017-09-08] MEDS: SNACK - Diabetic Appropriate PO SCH (22:59)
[2017-09-09 05:32] LABS: BASOPHILS % (AUTO) 0.3 % (0.2-1.0); EOSINOPHILS # (AUTO) 0.4 x10^3/uL (0.0-0.2); EOSINOPHILS % (AUTO) 4.2 % (0.9-2.9); HEMATOCRIT 24.4 % (36.0-47.0); HEMOGLOBIN 8.1 g/dL (12.0-16.0); LYMPHOCYTES # (AUTO) 1.4 X10^3/uL (1.3-2.9); LYMPHOCYTES % (AUTO) 13.3 % (21.0-51.0); MEAN CORPUSCULAR HEMOGLOBIN 27.3 pg (27.0-34.0); MEAN CORPUSCULAR VOLUME 82.9 fL (80.0-100.0); MEAN PLATELET VOLUME 7.9 fL (7.4-11.0); MONOCYTES # (AUTO) 1.2 x10^3/uL (0.3-0.8); MONOCYTES % (AUTO) 11.2 % (0.0-13.0); NEUTROPHILS # (AUTO) 7.3 x10^3/uL (2.2-4.8); PLATELET COUNT 231 X10^3/uL (150.0-450.0); RED BLOOD COUNT 2.94 X10^6/uL (3.5-5.4); RED CELL DISTRIBUTION WIDTH 19.3 % (11.6-16.5); WHITE BLOOD COUNT 10.3 X10^3/uL (3.6-10.0)
[2017-09-09 05:35] LABS: ALBUMIN 2.6 g/dL (3.4-5.0); CALCIUM 8.1 mg/dL (8.5-10.1); CARBON DIOXIDE 25.3 mmol/L (21-32); COR CA(FOR HYPOALB) 9.2 mg/dL (8.5-10.1); CREATININE 1.21 mg/dL (0.55-1.02)
[2017-09-09] MEDS ORDERED: GLUCOPHAGE ONE ×2 (06:09→15:57)
[2017-09-09] MEDS: NS 1000 ML 1,000 ML IV SCH ×2 (06:21→16:45)
[2017-09-09] MEDS: GLUCOPHAGE PO SCH ×2 (06:21→16:45)
[2017-09-09] MEDS: XANAX PO SCH ×4 (06:22→21:35)
[2017-09-09] MEDS: GENTAMICIN TOPICAL OINT EXT SCH ×4 (06:22→23:00)
[2017-09-09] MEDS: HumuLIN R SUBCUT PRN ×3 (06:23→21:39)
--- NOTE | 2017-09-09 07:37 | RAD ---
Examination: AP chest History: SOB Comparison 12/28/2016 Findings: The heart is enlarged with a new pacemaker. The lungs are grossly clear although the retroc ardiac lower lobe is partly obscured by the heart. There is no evidence for consolidation, pneumothor ax or large pleural effusion. Impression: Cardiomegaly with interval insertion of twin lead pacemaker. Reported By:
[2017-09-09] MEDS: CHECK PATCH XX SCH ×2 (08:28→21:36)
[2017-09-09] MEDS: COREG TAB 6.25 MG PO SCH ×2 (08:28→21:36)
[2017-09-09] MEDS: EFFEXOR XR 150 MG CAP PO SCH (08:28)
[2017-09-09] MEDS: CLARITIN PO SCH (08:28)
[2017-09-09] MEDS: FOLIC ACID TAB 1 MG PO SCH (08:29)
[2017-09-09] MEDS: PROTONIX TAB 40 MG PO SCH ×2 (08:29→21:38)
[2017-09-09] MEDS: ROXICODONE TAB 15 MG PO PRN ×3 (08:29→21:35)
[2017-09-09] MEDS: VASOTEC TAB 10 MG PO SCH (08:29)
--- NOTE | 2017-09-09 19:45 | PCM.PROG ---
Progress Note - Progress Note for Day of Date: 09/07/17 - Subjective Subjective: WAS A DIRECT ADMISSION FOR BILATERAL LOWER EXTREMITY CELLULITIS AND DIABETIC ULCERS TO BILATERAL FEET. SHE HAD DEBRIDEMENT OF WOUNDS TO THE LEFT GREAT TOE AND RIGHT LATERAL FOOT. TODAY, SHE IS ALERT AND ORIENTED, LYING IN BED ON MORNING ROUNDS. SHE CONTINUES TO REPORT PAIN TO BILATERAL LOWER EXTREMITIES. ON EXAMINATION, HEART IS REGULAR IN RATE AND RHYTHM. BILATERAL LUNGS ARE NOTED WITH DIMINISHED LUNG SOUNDS. ABDOMEN IS ROUND, SOFT, AND NON- TENDER WITH NORMAL BOWEL SOUNDS NOTED TO ALL QUADRANTS. BIALTERAL LOWER EXTREMITIES CONTINUE WITH WARMTH, ERETHEMA, AND EDEMA. DRESSINGS ARE NOTED TO WOUNDS ON LEFT GREAT TOE, RIGHT GREAT TOE, AND RIGHT LATERAL FOOT. DRESSINGS ARE DRY AND INTACT AT THIS TIME. HER VITALS THIS MORNING ARE 97.5-80-20-94%-119/ 75. LABS WERE OBTAINED. SHE REMAINS HEMODYNAMICALLY STABLE TODAY. WOUND CULTURE OF THE LEFT GREAT TOE REPORTS GROWTH OF ACINETOBACTER BAUMANII/HAEMOLY. IT IS SENSITIVE TO THE VANCOMYCIN AND LEVAQUIN THAT SHE IS CURRENTLY RECEIVING. PLANS TO TAKE PATIENT TO THE OR TODAY FOR REMOVAL OF THE 5TH METATARSAL DUE TO SEPTIC JOINT. WE AGREE WITH PLAN. OTHERWISE, WE WILL CONTINUE WITH CURRENT PLAN OF CARE TODAY. WE PLAN TO FOLLOW UP WITH AM LABS AND CONTINUE TO MONITOR PATIENT. - Past Medical Family Social History Past Med/Fam/Surg Hx: No changes since H&P Allergies: Allergies codeine Allergy (Verified 08/13/17 04:47) morphine Allergy (Verified 08/13/17 04:47) Sulfa (Sulfonamide Antibiotics) [SULFA] Allergy (Verified 08/13/17 04:47) TAPE Allergy (Uncoded 12/28/16 14:14) - Review of Systems ROS: No change since H&P - Vital Signs and I&O's Vital Signs: Temperature 98.2 F Pulse Rate [Left Brachial] 81 Pulse Rate 76 Respiratory Rate 18 Blood Pressure [Left Arm] 123/60 Blood Pressure [Right Arm] 130/63 Blood Pressure [Standing] 84/59 Blood Pressure [Lying] 96/58 Blood Pressure 142/65 O2 Sat by Pulse Oximetry 96 Intake and Output: Intake & Output 09/07/17 09/08/17 09/09/17 09/10/17 11:59 11:59 11:59 11:59 Intake Total 1850 3335 3375 995 Output Total 300 Balance 1550 3335 3375 995 - Physical Exam Oriented: Normal Eyes: Normal. negative: Blurred Vision, Diplopia, Discharge, Pain, Redness, Photophobia, Other Ear: Normal. negative: Right, Left, Swelling, Ecchymosis, Hemotypanum, Abrasion , Laceration Nose: Normal. negative: Injected, Discharge, Blood, Other Throat: Normal. negative: Tonsillar Hypertrophy, Red, Exudate, Dry, Other Respiratory: Normal. negative: Right, Left, Generalized, Superior, Inferior, Diminished, Wheezes, Rales, Rhonchi, OTHER Cardiovascular: Edema (BILATERAL LOWER EXTREMITIES ) : Normal. negative: Dysuria, Hematuria, Frequency, Discharge, Testicular Pain , Bleeding, , Other Auscultation: Bowel Sounds: Normal. negative: Bruit, Absent, Increased, Decreased, High Pitched, Other Palpation: Normal Tenderness: negative: Normal, Diffuse, RUQ, RLQ, LUQ, LLQ, Epigastric, Periumbilical, Suprapubic, Mild, Moderate, Severe, Rebound, Guarding, Rigidity, Other Skin: Red, Tender (BILATERAL LOWER EXTREMITIES WARM, ERYTHEMA, EDEMA. WOUND TO BILATERAL FEET ), Wound Musculoskeletal: Right (Rt 5th metatarsal head is exposed and infected ..associated cellulitis of the forefoot '), Left, Leg, Foot, Instability Psychiatric: Normal Mood Description: Calm Affect: Normal Speech Pattern: Clear, Appropriate - Laboratory and Diagnostics Result Diagrams: 09/09/17 04:50 09/09/17 04:50 Labs: 09/07/17 08:08 Toe - Right Little Gram Stain - Final 09/07/17 08:08 Toe - Right Little Wound Culture - Preliminary 09/02/17 16:51 Toe - Right Big Gram Stain - Final 09/02/17 16:51 Toe - Right Big Wound Culture - Final 09/05/17 09:20 Toe - Left Big Gram Stain - Final 09/05/17 09:20 Toe - Left Big Wound Culture - Final Acinetobacter Baumanii/Haemoly 09/02/17 16:51 Foot - Right Gram Stain - Final 09/02/17 16:51 Foot - Right Wound Culture - Final 09/02/17 16:51 Toe - Left Big Gram Stain - Final 09/02/17 16:51 Toe - Left Big Wound Culture - Final Laboratory WBC 10.3 X10^3/uL (3.6-10.0) H 09/09/17 04:50 RBC 2.94 X10^6/uL (3.5-5.4) L 09/09/17 04:50 Hgb 8.1 g/dL (12.0-16.0) L 09/09/17 04:50 Hct 24.4 % (36.0-47.0) L 09/09/17 04:50 MCV 82.9 fL (80.0-100.0) 09/09/17 04:50 MCH 27.3 pg (27.0-34.0) 09/09/17 04:50 MCHC 33.0 g/dL (33.0-35.0) 09/09/17 04:50 RDW 19.3 % (11.6-16.5) H 09/09/17 04:50 Plt Count 231 X10^3/uL (150.0-450.0) 09/09/17 04:50 MPV 7.9 fL (7.4-11.0) 09/09/17 04:50 Neut % 71.0 % (42.0-75.0) 09/09/17 04:50 Lymph % 13.3 % (21.0-51.0) L 09/09/17 04:50 [place] % 11.2 % (0.0-13.0) 09/09/17 04:50 Eos % 4.2 % (0.9-2.9) H 09/09/17 04:50 Baso % 0.3 % (0.2-1.0) 09/09/17 04:50 Neut # 7.3 x10^3/uL (2.2-4.8) H 09/09/17 04:50 Lymph # 1.4 X10^3/uL (1.3-2.9) 09/09/17 04:50 [place] # 1.2 x10^3/uL (0.3-0.8) H 09/09/17 04:50 Eos # 0.4 x10^3/uL (0.0-0.2) H 09/09/17 04:50 Baso # 0.0 X10^3/uL (0.0-0.1) 09/09/17 04:50 Absolute Nucleated RBC 0.1 /100WBC 09/09/17 04:50 Sodium 139 mmol/L (136-145) 09/09/17 04:50 Corrected Sodium 143 mmol/L (136-145) 09/09/17 04:50 Potassium 3.7 mmol/L (3.5-5.1) 09/09/17 04:50 Chloride 106 mmol/L (98-107) 09/09/17 04:50 Carbon Dioxide 25.3 mmol/L (21-32) 09/09/17 04:50 BUN 15 mg/dL (7-18) 09/09/17 04:50 Creatinine 1.21 mg/dL (0.55-1.02) H 09/09/17 04:50 Est GFR (MDRD) Af Amer 57 (>60) L 09/09/17 04:50 Est GFR (MDRD) Non-Af 47 (>60) L 09/09/17 04:50 Glucose 259 mg/dL (65-99) H 09/09/17 04:50 POC Glucose (mg/dL) 233 mg/dL (65-99) H 09/09/17 16:06 Calcium 8.1 mg/dL (8.5-10.1) L 09/09/17 04:50 Corrected Calcium 9.2 mg/dL (8.5-10.1) 09/09/17 04:50 Total Bilirubin 0.30 mg/dL (0.2-1.0) 09/09/17 04:50 AST 132 Units/L (15-37) H 09/09/17 04:50 ALT 194 Units/L (12-78) H 09/09/17 04:50 Alkaline Phosphatase 145 Units/L (46-116) H 09/09/17 04:50 Total Protein 6.0 g/dL (6.4-8.2) L 09/09/17 04:50 Albumin 2.6 g/dL (3.4-5.0) L 09/09/17 04:50 Globulin 3.4 g/dL (2.5-4.5) 09/09/17 04:50 Albumin/Globulin Ratio 0.8 Ratio (1.1-2.1) L 09/09/17 04:50 Vancomycin Trough 22.1 ug/mL (15-20) H* 09/07/17 09:20 Tissue Pathology To follow 09/07/17 08:08 - Plan (1) Cellulitis of both lower extremities Status: Acute Plan: VANCOMYCIN 1GM IV BID, LEVAQUIN 750MG IV Q48H, WOUND CARE, GENTAMYCIN OINTMENT TO WOUND, OBTAIN LOWER EXTREMITY CT WITH CONTRAST, CONTINUE TO MONITOR (2) Diabetic foot ulcer with osteomyelitis Status: Acute Plan: s/p transmetatarsal amputation Rt 5th toe. same IV ATB , local care and diabetic care . DVT prophylaxis . (3) Anxiety Status: Chronic Plan: CONTINUE XANAX, CONTINUE TO MONITOR (4) Depression Status: Chronic Qualifiers: Depression Type: major depressive disorder Major depression recurrence: recurrent Active/Remission status: remission status unspecified Qualified Code(s): F33.9 - Major depressive disorder, recurrent, unspecified Plan: CONTINUE VENLAFAXINE, CONTINUE TO MONITOR (5) Diabetes mellitus, type 2 Status: Chronic Qualifiers: Diabetes mellitus complication status: without complication Diabetes mellitus mcfp insulin use: with termination clerk use Qualified Code(s): E11.9 - Type 2 diabetes mellitus without complications; Z79.4 - termite exterminator helper (current) use of insulin; Z79.4 - termite exterminator helper (current) use of insulin; Z79.4 - termite exterminator helper ( current) use of insulin; Z79.4 - termite exterminator helper (current) use of insulin Plan: CONTINUE HUMULIN R SLIDING SCALE, CONTINUE TO MONITOR OTBS (6) Essential hypertension Status: Chronic Plan: CONTINUE COREG, CONTINUE VASOTEC, CONTINUE TO MONITOR (7) Chronic anemia Status: Chronic Plan: CONTINUE FOLIC ACID, CONTINUE TO MONITOR
[2017-09-09] MEDS ORDERED: PHARMACY COMMENT IV SCH (20:30)
[2017-09-09] MEDS: ZOCOR TAB 10 MG PO SCH (21:35)
[2017-09-09] MEDS: VANCOMYCIN HCL 1 GM VIAL 1 GM in NS 250 ML IV 250 ML IV SCH (21:36)
[2017-09-09] MEDS: SNACK - Diabetic Appropriate PO SCH (21:39)
[2017-09-10] MEDS ORDERED: GLUCOPHAGE ONE ×2 (05:36→16:47)
[2017-09-10] MEDS: GENTAMICIN TOPICAL OINT EXT SCH ×3 (05:37→22:08)
[2017-09-10] MEDS: XANAX PO SCH ×3 (05:38→22:07)
[2017-09-10] MEDS: NS 1000 ML 1,000 ML IV SCH ×2 (05:40→17:15)
[2017-09-10 06:07] LABS: ALBUMIN 2.6 g/dL (3.4-5.0); CALCIUM 8.4 mg/dL (8.5-10.1); CARBON DIOXIDE 30.5 mmol/L (21-32); COR CA(FOR HYPOALB) 9.5 mg/dL (8.5-10.1); CREATININE 1.33 mg/dL (0.55-1.02); TOTAL PROTEIN 6.1 g/dL (6.4-8.2)
[2017-09-10 06:14] LABS: BASOPHILS # (AUTO) 0.1 X10^3/uL (0.0-0.1); BASOPHILS % (AUTO) 0.5 % (0.2-1.0); EOSINOPHILS # (AUTO) 0.5 x10^3/uL (0.0-0.2); EOSINOPHILS % (AUTO) 4.8 % (0.9-2.9); LYMPHOCYTES # (AUTO) 1.6 X10^3/uL (1.3-2.9); LYMPHOCYTES % (AUTO) 15.5 % (21.0-51.0); MEAN CORPUSCULAR HEMOGLOBIN 27.5 pg (27.0-34.0); MEAN CORPUSCULAR HGB CONC 33.4 g/dL (33.0-35.0); MEAN CORPUSCULAR VOLUME 82.6 fL (80.0-100.0); MEAN PLATELET VOLUME 7.9 fL (7.4-11.0); MONOCYTES # (AUTO) 1.2 x10^3/uL (0.3-0.8); MONOCYTES % (AUTO) 11.3 % (0.0-13.0); NEUTROPHILS # (AUTO) 7.1 x10^3/uL (2.2-4.8); NEUTROPHILS % (AUTO) 67.9 % (42.0-75.0); PLATELET COUNT 234 X10^3/uL (150.0-450.0); RED CELL DISTRIBUTION WIDTH 19.2 % (11.6-16.5); WHITE BLOOD COUNT 10.4 X10^3/uL (3.6-10.0)
[2017-09-10] MEDS: GLUCOPHAGE PO SCH ×2 (06:20→16:59)
[2017-09-10] MEDS: FOLIC ACID TAB 1 MG PO SCH (08:15)
[2017-09-10] MEDS: VASOTEC TAB 10 MG PO SCH (08:15)
[2017-09-10] MEDS: COREG TAB 6.25 MG PO SCH ×2 (08:15→22:07)
[2017-09-10] MEDS: EFFEXOR XR 150 MG CAP PO SCH (08:15)
[2017-09-10] MEDS: PROTONIX TAB 40 MG PO SCH ×2 (08:15→22:07)
[2017-09-10] MEDS: CLARITIN PO SCH (08:16)
[2017-09-10] MEDS: CHECK PATCH XX SCH ×2 (08:18→22:09)
[2017-09-10] MEDS: HumuLIN R SUBCUT PRN ×2 (11:54→16:59)
--- NOTE | 2017-09-10 12:20 | PCM.PROG ---
Progress Note - Progress Note for Day of Date: 09/10/17 - Subjective Subjective: WAS A DIRECT ADMISSION FOR BILATERAL LOWER EXTREMITY CELLULITIS AND DIABETIC ULCERS TO BILATERAL FEET. SHE HAD DEBRIDEMENT OF WOUNDS TO THE LEFT GREAT TOE AND RIGHT LATERAL FOOT. then trasmetatarsal amputation Rt 5th toe.., SHE IS ALERT AND ORIENTED, LYING IN BED ON MORNING ROUNDS. SHE CONTINUES TO REPORT PAIN TO BILATERAL LOWER EXTREMITIES. ON EXAMINATION, HEART IS REGULAR IN RATE AND RHYTHM. BILATERAL LUNGS ARE NOTED WITH DIMINISHED LUNG SOUNDS. ABDOMEN IS ROUND, SOFT, AND NON-TENDER WITH NORMAL BOWEL SOUNDS NOTED TO ALL QUADRANTS. BIALTERAL LOWER EXTREMITIES CONTINUE WITH WARMTH, ERETHEMA, AND EDEMA. DRESSINGS was changed TO WOUNDS ON LEFT GREAT TOE, RIGHT foot.. HER VITALS THIS MORNING ARE 97.5-80-20-94%-119/75. LABS WERE OBTAINED. SHE REMAINS HEMODYNAMICALLY STABLE TODAY. WOUND CULTURE OF THE LEFT GREAT TOE REPORTS GROWTH OF ACINETOBACTER BAUMANII/HAEMOLY. IT IS SENSITIVE TO THE VANCOMYCIN AND LEVAQUIN THAT SHE IS CURRENTLY RECEIVING. WE WILL CONTINUE WITH CURRENT PLAN OF CARE TODAY. WE PLAN TO FOLLOW UP WITH AM LABS AND CONTINUE TO MONITOR PATIENT. - Past Medical Family Social History Past Med/Fam/Surg Hx: No changes since H&P Allergies: Allergies codeine Allergy (Verified 08/13/17 04:47) morphine Allergy (Verified 08/13/17 04:47) Sulfa (Sulfonamide Antibiotics) [SULFA] Allergy (Verified 08/13/17 04:47) TAPE Allergy (Uncoded 12/28/16 14:14) - Review of Systems ROS: No change since H&P - Vital Signs and I&O's Vital Signs: Temperature 97.7 F Pulse Rate [Left Brachial] 93 Pulse Rate 76 Respiratory Rate 18 Blood Pressure [Left Arm] 154/67 Blood Pressure [Right Arm] 130/63 Blood Pressure [Standing] 84/59 Blood Pressure [Lying] 96/58 Blood Pressure 142/65 O2 Sat by Pulse Oximetry 96 Intake and Output: Intake & Output 09/08/17 09/09/17 09/10/17 09/11/17 11:59 11:59 11:59 11:59 Intake Total 3335 3375 2286 Balance 3335 3375 2286 - Physical Exam Oriented: Normal Eyes: Normal. negative: Blurred Vision, Diplopia, Discharge, Pain, Redness, Photophobia, Other Ear: Normal. negative: Right, Left, Swelling, Ecchymosis, Hemotypanum, Abrasion , Laceration Nose: Normal. negative: Injected, Discharge, Blood, Other Throat: Normal. negative: Tonsillar Hypertrophy, Red, Exudate, Dry, Other Respiratory: Normal. negative: Right, Left, Generalized, Superior, Inferior, Diminished, Wheezes, Rales, Rhonchi, OTHER Cardiovascular: Edema (BILATERAL LOWER EXTREMITIES ) : Normal. negative: Dysuria, Hematuria, Frequency, Discharge, Testicular Pain , Bleeding, , Other Auscultation: Bowel Sounds: Normal. negative: Bruit, Absent, Increased, Decreased, High Pitched, Other Tenderness: negative: Normal, Diffuse, RUQ, RLQ, LUQ, LLQ, Epigastric, Periumbilical, Suprapubic, Mild, Moderate, Severe, Rebound, Guarding, Rigidity, Other Skin: Red, Wound, Other (rt foot incision is fairly clean , no necrosis or drainage ) Musculoskeletal: Right (Rt 5th metatarsal head is exposed and infected ..associated cellulitis of the forefoot '), Left, Leg, Foot Psychiatric: Normal Mood Description: Calm Affect: Normal Speech Pattern: Clear, Appropriate - Laboratory and Diagnostics Result Diagrams: 09/10/17 04:15 09/10/17 04:15 Labs: 09/07/17 08:08 Toe - Right Little Gram Stain - Final 09/07/17 08:08 Toe - Right Little Wound Culture - Final 09/02/17 16:51 Toe - Right Big Gram Stain - Final 09/02/17 16:51 Toe - Right Big Wound Culture - Final 09/05/17 09:20 Toe - Left Big Gram Stain - Final 09/05/17 09:20 Toe - Left Big Wound Culture - Final Acinetobacter Baumanii/Haemoly 09/02/17 16:51 Foot - Right Gram Stain - Final 09/02/17 16:51 Foot - Right Wound Culture - Final 09/02/17 16:51 Toe - Left Big Gram Stain - Final 09/02/17 16:51 Toe - Left Big Wound Culture - Final Laboratory WBC 10.4 X10^3/uL (3.6-10.0) H 09/10/17 04:15 RBC 2.90 X10^6/uL (3.5-5.4) L 09/10/17 04:15 Hgb 8.0 g/dL (12.0-16.0) L 09/10/17 04:15 Hct 24.0 % (36.0-47.0) L 09/10/17 04:15 MCV 82.6 fL (80.0-100.0) 09/10/17 04:15 MCH 27.5 pg (27.0-34.0) 09/10/17 04:15 MCHC 33.4 g/dL (33.0-35.0) 09/10/17 04:15 RDW 19.2 % (11.6-16.5) H 09/10/17 04:15 Plt Count 234 X10^3/uL (150.0-450.0) 09/10/17 04:15 MPV 7.9 fL (7.4-11.0) 09/10/17 04:15 Neut % 67.9 % (42.0-75.0) 09/10/17 04:15 Lymph % 15.5 % (21.0-51.0) L 09/10/17 04:15 [place] % 11.3 % (0.0-13.0) 09/10/17 04:15 Eos % 4.8 % (0.9-2.9) H 09/10/17 04:15 Baso % 0.5 % (0.2-1.0) 09/10/17 04:15 Neut # 7.1 x10^3/uL (2.2-4.8) H 09/10/17 04:15 Lymph # 1.6 X10^3/uL (1.3-2.9) 09/10/17 04:15 [place] # 1.2 x10^3/uL (0.3-0.8) H 09/10/17 04:15 Eos # 0.5 x10^3/uL (0.0-0.2) H 09/10/17 04:15 Baso # 0.1 X10^3/uL (0.0-0.1) 09/10/17 04:15 Absolute Nucleated RBC 0.1 /100WBC 09/10/17 04:15 Sodium 143 mmol/L (136-145) 09/10/17 04:15 Corrected Sodium 145 mmol/L (136-145) 09/10/17 04:15 Potassium 3.7 mmol/L (3.5-5.1) 09/10/17 04:15 Chloride 106 mmol/L (98-107) 09/10/17 04:15 Carbon Dioxide 30.5 mmol/L (21-32) 09/10/17 04:15 BUN 14 mg/dL (7-18) 09/10/17 04:15 Creatinine 1.33 mg/dL (0.55-1.02) H 09/10/17 04:15 Est GFR (MDRD) Af Amer 51 (>60) L 09/10/17 04:15 Est GFR (MDRD) Non-Af 43 (>60) L 09/10/17 04:15 Glucose 181 mg/dL (65-99) H 09/10/17 04:15 POC Glucose (mg/dL) 269 mg/dL (65-99) H 09/10/17 11:19 Calcium 8.4 mg/dL (8.5-10.1) L 09/10/17 04:15 Corrected Calcium 9.5 mg/dL (8.5-10.1) 09/10/17 04:15 Total Bilirubin 0.30 mg/dL (0.2-1.0) 09/10/17 04:15 AST 79 Units/L (15-37) H 09/10/17 04:15 ALT 165 Units/L (12-78) H 09/10/17 04:15 Alkaline Phosphatase 147 Units/L (46-116) H 09/10/17 04:15 Total Protein 6.1 g/dL (6.4-8.2) L 09/10/17 04:15 Albumin 2.6 g/dL (3.4-5.0) L 09/10/17 04:15 Globulin 3.5 g/dL (2.5-4.5) 09/10/17 04:15 Albumin/Globulin Ratio 0.7 Ratio (1.1-2.1) L 09/10/17 04:15 Vancomycin Trough 22.1 ug/mL (15-20) H* 09/07/17 09:20 Tissue Pathology To follow 09/07/17 08:08 - Plan (1) Diabetic foot ulcer with osteomyelitis Status: Acute Plan: s/p transmetatarsal amputation Rt 5th toe. same IV ATB , local care and diabetic care . DVT prophylaxis .
[2017-09-10] MEDS: ROXICODONE TAB 15 MG PO PRN ×2 (16:59→22:08)
[2017-09-10 21:18] LABS: CREATININE 1.33 mg/dL (0.55-1.02); VANCOMYCIN,TROUGH 12.7 ug/mL (15-20)
[2017-09-10] MEDS: VANCOMYCIN HCL 1 GM VIAL 1 GM in NS 250 ML IV 250 ML IV SCH (22:04)
[2017-09-10] MEDS: ZOCOR TAB 10 MG PO SCH (22:07)
[2017-09-10] MEDS: SNACK - Diabetic Appropriate PO SCH (22:09)
[2017-09-10] MEDS: LEVAQUIN PREMIX IV 750 MG 750 MG/150 ML BAG IV SCH (22:09)
[2017-09-11] MEDS: ROXICODONE TAB 15 MG PO PRN ×2 (05:30→14:46)
[2017-09-11] MEDS ORDERED: GLUCOPHAGE ONE ×2 (05:41→17:01)
[2017-09-11 06:08] LABS: BASOPHILS # (AUTO) 0.1 X10^3/uL (0.0-0.1); BASOPHILS % (AUTO) 0.8 % (0.2-1.0); EOSINOPHILS # (AUTO) 0.7 x10^3/uL (0.0-0.2); HEMATOCRIT 25.2 % (36.0-47.0); HEMOGLOBIN 8.2 g/dL (12.0-16.0); LYMPHOCYTES # (AUTO) 2.1 X10^3/uL (1.3-2.9); LYMPHOCYTES % (AUTO) 18.3 % (21.0-51.0); MEAN CORPUSCULAR HEMOGLOBIN 26.8 pg (27.0-34.0); MEAN CORPUSCULAR HGB CONC 32.4 g/dL (33.0-35.0); MEAN CORPUSCULAR VOLUME 82.7 fL (80.0-100.0); MEAN PLATELET VOLUME 7.6 fL (7.4-11.0); MONOCYTES # (AUTO) 0.9 x10^3/uL (0.3-0.8); MONOCYTES % (AUTO) 8.1 % (0.0-13.0); NEUTROPHILS # (AUTO) 7.7 x10^3/uL (2.2-4.8); NEUTROPHILS % (AUTO) 66.8 % (42.0-75.0); PLATELET COUNT 260 X10^3/uL (150.0-450.0); RED BLOOD COUNT 3.05 X10^6/uL (3.5-5.4); RED CELL DISTRIBUTION WIDTH 19.4 % (11.6-16.5); WHITE BLOOD COUNT 11.6 X10^3/uL (3.6-10.0)
[2017-09-11] MEDS: XANAX PO SCH ×3 (06:23→21:40)
[2017-09-11] MEDS: GLUCOPHAGE PO SCH ×2 (06:23→17:02)
[2017-09-11] MEDS: GENTAMICIN TOPICAL OINT EXT SCH ×3 (06:23→21:45)
[2017-09-11 06:37] LABS: ALBUMIN 2.6 g/dL (3.4-5.0); TOTAL PROTEIN 6.3 g/dL (6.4-8.2)
[2017-09-11 06:58] LABS: CALCIUM 8.5 mg/dL (8.5-10.1); CARBON DIOXIDE 31.2 mmol/L (21-32); COR CA(FOR HYPOALB) 9.6 mg/dL (8.5-10.1); CREATININE 1.26 mg/dL (0.55-1.02)
[2017-09-11] MEDS: NS 1000 ML 1,000 ML IV SCH (07:15)
[2017-09-11] MEDS: VASOTEC TAB 10 MG PO SCH (09:13)
[2017-09-11] MEDS: COREG TAB 6.25 MG PO SCH ×2 (09:13→21:40)
[2017-09-11] MEDS: EFFEXOR XR 150 MG CAP PO SCH (09:13)
[2017-09-11] MEDS: FOLIC ACID TAB 1 MG PO SCH (09:13)
[2017-09-11] MEDS: PROTONIX TAB 40 MG PO SCH ×2 (09:13→21:40)
[2017-09-11] MEDS: CHECK PATCH XX SCH ×2 (09:14→21:45)
[2017-09-11] MEDS: CLARITIN PO SCH (09:17)
--- NOTE | 2017-09-11 20:51 | PCM.PROG ---
Progress Note - Progress Note for Day of Date: 09/08/17 - Subjective Subjective: IS BEING TREATED FOR BILATERAL LOWER EXTREMITY CELLULITIS AND DIABETIC ULCERS TO BILATERAL FEET. SHE HAD DEBRIDEMENT OF WOUNDS TO THE LEFT GREAT TOE AND RIGHT LATERAL FOOT. TOOK PATIENT BACK TO THE OR YESTERDAY FOR AMPUTATION OF THE RIGHT 5TH TOE. HE REPORTED THAT 4TH TOE WAS VIABLE WITH NO SIGNS OF ISCHEMIA AT THE TIME. TODAY, SHE IS RESTING IN BED WITH EYES CLOSED ON MORNING ROUNDS. SHE AWAKENS AND RESPONDS TO VERBAL STIMULI. SHE REPORTS INTERMITTENT PAIN TO THE RIGHT FOOT. ON EXAMINATION, HEART IS REGULAR IN RATE AND RHYTHM. BILATERAL LUNGS ARE NOTED WITH DIMINISHED LUNG SOUNDS. ABDOMEN IS ROUND, SOFT, AND NON-TENDER WITH NORMAL BOWEL SOUNDS NOTED TO ALL QUADRANTS. BIALTERAL LOWER EXTREMITIES CONTINUE WITH WARMTH, ERETHEMA, AND EDEMA. DRESSINGS ARE NOTED TO WOUNDS ON LEFT GREAT TOE, RIGHT GREAT TOE, AND RIGHT LATERAL FOOT. DRESSINGS ARE DRY AND INTACT AT THIS TIME. HER VITALS THIS MORNING ARE 98.9-86-20-96%-117/54. LABS WERE OBTAINED. ABNORMAL LAB VALUES INCLUDE THE FOLLOWING: WBC 11.4, RBC 3.03, HGB 8.1, HCT 25.0, CREATININE 1.47, GFR 38, GLUCOSE 254, AST 169, ALT 203, ALK PHOS 150, TOTAL PROTEIN 6.2, ALBUMIN 2.9. WOUND TO LEFT GREAT TOE IS GROWING ACINETOBACTER BAUMANII/HAEMOLY. SHE IS CURRENTLY RECEIVING VANCOMYCIN IV AND LEVAQUIN IV. AFTER DISCHARGE, WE WILL REFER HER TO A VASCULAR SURGERON. WE WILL HAVE PHYSICAL THERPY WORK WITH PATIENT TODAY. OTHERWISE, WE WILL CONTINUE WITH CURRENT PLAN OF CARE TODAY. WE PLAN TO FOLLOW UP WITH AM LABS AND CONTINUE TO MONITOR PATIENT. - Past Medical Family Social History Past Med/Fam/Surg Hx: No changes since H&P Allergies: Allergies codeine Allergy (Verified 08/13/17 04:47) morphine Allergy (Verified 08/13/17 04:47) Sulfa (Sulfonamide Antibiotics) [SULFA] Allergy (Verified 08/13/17 04:47) TAPE Allergy (Uncoded 12/28/16 14:14) - Review of Systems ROS: No change since H&P - Vital Signs and I&O's Vital Signs: Temperature 98.0 F Pulse Rate [Right Brachial] 92 Pulse Rate [Left Brachial] 81 Pulse Rate 76 Respiratory Rate 92 Blood Pressure [Left Arm] 133/32 Blood Pressure [Right Arm] 138/63 Blood Pressure [Standing] 84/59 Blood Pressure [Lying] 96/58 Blood Pressure 142/65 O2 Sat by Pulse Oximetry 94 Intake and Output: Intake & Output 09/09/17 09/10/17 09/11/17 09/12/17 11:59 11:59 11:59 11:59 Intake Total 3375 2286 1430 880 Balance 3375 2286 1430 880 - Physical Exam Oriented: Normal Eyes: Normal. negative: Blurred Vision, Diplopia, Discharge, Pain, Redness, Photophobia, Other Ear: Normal. negative: Right, Left, Swelling, Ecchymosis, Hemotypanum, Abrasion , Laceration Nose: Normal. negative: Injected, Discharge, Blood, Other Throat: Normal. negative: Tonsillar Hypertrophy, Red, Exudate, Dry, Other Respiratory: Normal. negative: Right, Left, Generalized, Superior, Inferior, Diminished, Wheezes, Rales, Rhonchi, OTHER Cardiovascular: Edema (BILATERAL LOWER EXTREMITIES ) : Normal. negative: Dysuria, Hematuria, Frequency, Discharge, Testicular Pain , Bleeding, , Other Auscultation: Bowel Sounds: Normal. negative: Bruit, Absent, Increased, Decreased, High Pitched, Other Palpation: Normal Tenderness: negative: Normal, Diffuse, RUQ, RLQ, LUQ, LLQ, Epigastric, Periumbilical, Suprapubic, Mild, Moderate, Severe, Rebound, Guarding, Rigidity, Other Skin: Red, Wound, Other (rt foot incision is fairly clean , no necrosis or drainage ) Musculoskeletal: Right (Rt 5th metatarsal head is exposed and infected ..associated cellulitis of the forefoot '), Left, Leg, Foot Psychiatric: Normal Mood Description: Calm Affect: Normal Speech Pattern: Clear, Appropriate - Laboratory and Diagnostics Result Diagrams: 09/11/17 05:50 09/11/17 05:50 Labs: 09/07/17 08:08 Toe - Right Little Gram Stain - Final 09/07/17 08:08 Toe - Right Little Wound Culture - Final 09/02/17 16:51 Toe - Right Big Gram Stain - Final 09/02/17 16:51 Toe - Right Big Wound Culture - Final 09/05/17 09:20 Toe - Left Big Gram Stain - Final 09/05/17 09:20 Toe - Left Big Wound Culture - Final Acinetobacter Baumanii/Haemoly 09/02/17 16:51 Foot - Right Gram Stain - Final 09/02/17 16:51 Foot - Right Wound Culture - Final 09/02/17 16:51 Toe - Left Big Gram Stain - Final 09/02/17 16:51 Toe - Left Big Wound Culture - Final Laboratory WBC 11.6 X10^3/uL (3.6-10.0) H 09/11/17 05:50 RBC 3.05 X10^6/uL (3.5-5.4) L 09/11/17 05:50 Hgb 8.2 g/dL (12.0-16.0) L 09/11/17 05:50 Hct 25.2 % (36.0-47.0) L 09/11/17 05:50 MCV 82.7 fL (80.0-100.0) 09/11/17 05:50 MCH 26.8 pg (27.0-34.0) L 09/11/17 05:50 MCHC 32.4 g/dL (33.0-35.0) L 09/11/17 05:50 RDW 19.4 % (11.6-16.5) H 09/11/17 05:50 Plt Count 260 X10^3/uL (150.0-450.0) 09/11/17 05:50 MPV 7.6 fL (7.4-11.0) 09/11/17 05:50 Neut % 66.8 % (42.0-75.0) 09/11/17 05:50 Lymph % 18.3 % (21.0-51.0) L 09/11/17 05:50 [place] % 8.1 % (0.0-13.0) 09/11/17 05:50 Eos % 6.0 % (0.9-2.9) H 09/11/17 05:50 Baso % 0.8 % (0.2-1.0) 09/11/17 05:50 Neut # 7.7 x10^3/uL (2.2-4.8) H 09/11/17 05:50 Lymph # 2.1 X10^3/uL (1.3-2.9) 09/11/17 05:50 [place] # 0.9 x10^3/uL (0.3-0.8) H 09/11/17 05:50 Eos # 0.7 x10^3/uL (0.0-0.2) H 09/11/17 05:50 Baso # 0.1 X10^3/uL (0.0-0.1) 09/11/17 05:50 Absolute Nucleated RBC 0.0 /100WBC 09/11/17 05:50 Sodium 143 mmol/L (136-145) 09/11/17 05:50 Corrected Sodium 145 mmol/L (136-145) 09/11/17 05:50 Potassium 4.0 mmol/L (3.5-5.1) 09/11/17 05:50 Chloride 106 mmol/L (98-107) 09/11/17 05:50 Carbon Dioxide 31.2 mmol/L (21-32) 09/11/17 05:50 BUN 12 mg/dL (7-18) 09/11/17 05:50 Creatinine 1.26 mg/dL (0.55-1.02) H 09/11/17 05:50 Est GFR (MDRD) Af Amer 55 (>60) L 09/11/17 05:50 Est GFR (MDRD) Non-Af 45 (>60) L 09/11/17 05:50 Glucose 176 mg/dL (65-99) H 09/11/17 05:50 POC Glucose (mg/dL) 199 mg/dL (65-99) H 09/11/17 16:40 Calcium 8.5 mg/dL (8.5-10.1) 09/11/17 05:50 Corrected Calcium 9.6 mg/dL (8.5-10.1) 09/11/17 05:50 Total Bilirubin 0.30 mg/dL (0.2-1.0) 09/11/17 05:50 AST 46 Units/L (15-37) H 09/11/17 05:50 ALT 136 Units/L (12-78) H 09/11/17 05:50 Alkaline Phosphatase 142 Units/L (46-116) H 09/11/17 05:50 Total Protein 6.3 g/dL (6.4-8.2) L 09/11/17 05:50 Albumin 2.6 g/dL (3.4-5.0) L 09/11/17 05:50 Globulin 3.7 g/dL (2.5-4.5) 09/11/17 05:50 Albumin/Globulin Ratio 0.7 Ratio (1.1-2.1) L 09/11/17 05:50 Vancomycin Trough 12.7 ug/mL (15-20) L 09/10/17 20:50 Tissue Pathology To follow 09/07/17 08:08 - Plan (1) Cellulitis of both lower extremities Status: Acute Plan: VANCOMYCIN 1GM IV BID, LEVAQUIN 750MG IV Q48H, WOUND CARE, GENTAMYCIN OINTMENT TO WOUND, OBTAIN LOWER EXTREMITY CT WITH CONTRAST, CONTINUE TO MONITOR (2) Diabetic foot ulcer with osteomyelitis Status: Acute Plan: s/p transmetatarsal amputation Rt 5th toe. same IV ATB , local care and diabetic care . DVT prophylaxis . (3) Anxiety Status: Chronic Plan: CONTINUE XANAX, CONTINUE TO MONITOR (4) Depression Status: Chronic Qualifiers: Depression Type: major depressive disorder Major depression recurrence: recurrent Active/Remission status: remission status unspecified Qualified Code(s): F33.9 - Major depressive disorder, recurrent, unspecified Plan: CONTINUE VENLAFAXINE, CONTINUE TO MONITOR (5) Diabetes mellitus, type 2 Status: Chronic Qualifiers: Diabetes mellitus complication status: without complication Diabetes mellitus terminal gauger supervisor insulin use: with terminal gauger supervisor use Qualified Code(s): E11.9 - Type 2 diabetes mellitus without complications; Z79.4 - terminal manager (current) use of insulin; Z79.4 - terminal manager (current) use of insulin; Z79.4 - terminal manager ( current) use of insulin; Z79.4 - terminal manager (current) use of insulin Plan: CONTINUE HUMULIN R SLIDING SCALE, CONTINUE TO MONITOR OTBS (6) Essential hypertension Status: Chronic Plan: CONTINUE COREG, CONTINUE VASOTEC, CONTINUE TO MONITOR (7) Chronic anemia Status: Chronic Plan: CONTINUE FOLIC ACID, CONTINUE TO MONITOR
[2017-09-11] MEDS: VANCOMYCIN HCL 1 GM VIAL 1 GM in NS 250 ML IV 250 ML IV SCH ×2 (21:38→21:39)
[2017-09-11] MEDS: ZOCOR TAB 10 MG PO SCH (21:40)
[2017-09-11] MEDS: SNACK - Diabetic Appropriate PO SCH (21:40)
--- NOTE | 2017-09-11 22:08 | PCM.PROG ---
Progress Note - Progress Note for Day of Date: 09/09/17 - Subjective Subjective: IS BEING TREATED FOR BILATERAL LOWER EXTREMITY CELLULITIS AND DIABETIC ULCERS TO BILATERAL FEET. SHE HAD DEBRIDEMENT OF WOUNDS TO THE LEFT GREAT TOE AND RIGHT LATERAL FOOT. TOOK PATIENT BACK TO THE OR FOR AMPUTATION OF THE RIGHT 5TH TOE. HE REPORTED THAT 4TH TOE WAS VIABLE WITH NO SIGNS OF ISCHEMIA AT THE TIME. TODAY, SHE IS RESTING IN BED WITH EYES CLOSED ON MORNING ROUNDS. SHE AWAKENS AND RESPONDS TO VERBAL STIMULI. SHE REPORTS INTERMITTENT PAIN TO THE RIGHT FOOT. ON EXAMINATION, HEART IS REGULAR IN RATE AND RHYTHM. BILATERAL LUNGS ARE CLEAR TO AUSCULTATION. ABDOMEN IS ROUND , SOFT, AND NON-TENDER WITH NORMAL BOWEL SOUNDS NOTED TO ALL QUADRANTS. BIALTERAL LOWER EXTREMITIES CONTINUE WITH WARMTH, ERETHEMA, AND EDEMA. DRESSINGS ARE NOTED TO WOUNDS ON LEFT GREAT TOE, RIGHT GREAT TOE, AND RIGHT LATERAL FOOT. DRESSINGS ARE DRY AND INTACT AT THIS TIME. HER VITALS THIS MORNING 98.4-94-18-96%-149/71. LABS WERE OBTAINED. ABNORMAL LAB VALUES INCLUDE THE FOLLOWING: WBC 10.3, 2.94, HGB 8.1, HCT 24.4, CREATININE 1.21, GFR 47, GLUCOSE 259, CALCIUM 8.1, AST 132, ALT 194, ALK PHOS 145, TOTAL PROTEIN 6.0, ALBUMIN 2.6. AFTER DISCHARGE, WE PLAN TO HAVE HOME HEALTH ASSIST PATIENT FOR THERAPY AND WOUND CARE. WE WILL CONTINUE WITH CURRENT PLAN OF CARE TODAY. WE PLAN TO FOLLOW UP WITH AM LABS AND CONTINUE TO MONITOR PATIENT. - Past Medical Family Social History Past Med/Fam/Surg Hx: No changes since H&P Allergies: Allergies codeine Allergy (Verified 08/13/17 04:47) morphine Allergy (Verified 08/13/17 04:47) Sulfa (Sulfonamide Antibiotics) [SULFA] Allergy (Verified 08/13/17 04:47) TAPE Allergy (Uncoded 12/28/16 14:14) - Review of Systems ROS: No change since H&P - Vital Signs and I&O's Vital Signs: Temperature 98.0 F Pulse Rate [Right Brachial] 92 Pulse Rate [Left Brachial] 81 Pulse Rate 76 Respiratory Rate 92 Blood Pressure [Left Arm] 133/32 Blood Pressure [Right Arm] 138/63 Blood Pressure [Standing] 84/59 Blood Pressure [Lying] 96/58 Blood Pressure 142/65 O2 Sat by Pulse Oximetry 94 Intake and Output: Intake & Output 09/09/17 09/10/17 09/11/17 09/12/17 11:59 11:59 11:59 11:59 Intake Total 3375 2286 1430 880 Balance 3375 2286 1430 880 - Physical Exam Oriented: Normal Eyes: Normal. negative: Blurred Vision, Diplopia, Discharge, Pain, Redness, Photophobia, Other Ear: Normal. negative: Right, Left, Swelling, Ecchymosis, Hemotypanum, Abrasion , Laceration Nose: Normal. negative: Injected, Discharge, Blood, Other Throat: Normal. negative: Tonsillar Hypertrophy, Red, Exudate, Dry, Other Respiratory: Normal. negative: Right, Left, Generalized, Superior, Inferior, Diminished, Wheezes, Rales, Rhonchi, OTHER Cardiovascular: Edema (BILATERAL LOWER EXTREMITIES ) : Normal. negative: Dysuria, Hematuria, Frequency, Discharge, Testicular Pain , Bleeding, , Other Auscultation: Bowel Sounds: Normal. negative: Bruit, Absent, Increased, Decreased, High Pitched, Other Palpation: Normal Tenderness: negative: Normal, Diffuse, RUQ, RLQ, LUQ, LLQ, Epigastric, Periumbilical, Suprapubic, Mild, Moderate, Severe, Rebound, Guarding, Rigidity, Other Skin: Red, Wound, Other (rt foot incision is fairly clean , no necrosis or drainage ) Musculoskeletal: Right (Rt 5th metatarsal head is exposed and infected ..associated cellulitis of the forefoot '), Left, Leg, Foot Psychiatric: Normal Mood Description: Calm Affect: Normal Speech Pattern: Clear, Appropriate - Laboratory and Diagnostics Result Diagrams: 09/11/17 05:50 09/11/17 05:50 Labs: 09/07/17 08:08 Toe - Right Little Gram Stain - Final 09/07/17 08:08 Toe - Right Little Wound Culture - Final 09/02/17 16:51 Toe - Right Big Gram Stain - Final 09/02/17 16:51 Toe - Right Big Wound Culture - Final 09/05/17 09:20 Toe - Left Big Gram Stain - Final 09/05/17 09:20 Toe - Left Big Wound Culture - Final Acinetobacter Baumanii/Haemoly 09/02/17 16:51 Foot - Right Gram Stain - Final 09/02/17 16:51 Foot - Right Wound Culture - Final 09/02/17 16:51 Toe - Left Big Gram Stain - Final 09/02/17 16:51 Toe - Left Big Wound Culture - Final Laboratory WBC 11.6 X10^3/uL (3.6-10.0) H 09/11/17 05:50 RBC 3.05 X10^6/uL (3.5-5.4) L 09/11/17 05:50 Hgb 8.2 g/dL (12.0-16.0) L 09/11/17 05:50 Hct 25.2 % (36.0-47.0) L 09/11/17 05:50 MCV 82.7 fL (80.0-100.0) 09/11/17 05:50 MCH 26.8 pg (27.0-34.0) L 09/11/17 05:50 MCHC 32.4 g/dL (33.0-35.0) L 09/11/17 05:50 RDW 19.4 % (11.6-16.5) H 09/11/17 05:50 Plt Count 260 X10^3/uL (150.0-450.0) 09/11/17 05:50 MPV 7.6 fL (7.4-11.0) 09/11/17 05:50 Neut % 66.8 % (42.0-75.0) 09/11/17 05:50 Lymph % 18.3 % (21.0-51.0) L 09/11/17 05:50 [place] % 8.1 % (0.0-13.0) 09/11/17 05:50 Eos % 6.0 % (0.9-2.9) H 09/11/17 05:50 Baso % 0.8 % (0.2-1.0) 09/11/17 05:50 Neut # 7.7 x10^3/uL (2.2-4.8) H 09/11/17 05:50 Lymph # 2.1 X10^3/uL (1.3-2.9) 09/11/17 05:50 [place] # 0.9 x10^3/uL (0.3-0.8) H 09/11/17 05:50 Eos # 0.7 x10^3/uL (0.0-0.2) H 09/11/17 05:50 Baso # 0.1 X10^3/uL (0.0-0.1) 09/11/17 05:50 Absolute Nucleated RBC 0.0 /100WBC 09/11/17 05:50 Sodium 143 mmol/L (136-145) 09/11/17 05:50 Corrected Sodium 145 mmol/L (136-145) 09/11/17 05:50 Potassium 4.0 mmol/L (3.5-5.1) 09/11/17 05:50 Chloride 106 mmol/L (98-107) 09/11/17 05:50 Carbon Dioxide 31.2 mmol/L (21-32) 09/11/17 05:50 BUN 12 mg/dL (7-18) 09/11/17 05:50 Creatinine 1.26 mg/dL (0.55-1.02) H 09/11/17 05:50 Est GFR (MDRD) Af Amer 55 (>60) L 09/11/17 05:50 Est GFR (MDRD) Non-Af 45 (>60) L 09/11/17 05:50 Glucose 176 mg/dL (65-99) H 09/11/17 05:50 POC Glucose (mg/dL) 197 mg/dL (65-99) H 09/11/17 22:00 Calcium 8.5 mg/dL (8.5-10.1) 09/11/17 05:50 Corrected Calcium 9.6 mg/dL (8.5-10.1) 09/11/17 05:50 Total Bilirubin 0.30 mg/dL (0.2-1.0) 09/11/17 05:50 AST 46 Units/L (15-37) H 09/11/17 05:50 ALT 136 Units/L (12-78) H 09/11/17 05:50 Alkaline Phosphatase 142 Units/L (46-116) H 09/11/17 05:50 Total Protein 6.3 g/dL (6.4-8.2) L 09/11/17 05:50 Albumin 2.6 g/dL (3.4-5.0) L 09/11/17 05:50 Globulin 3.7 g/dL (2.5-4.5) 09/11/17 05:50 Albumin/Globulin Ratio 0.7 Ratio (1.1-2.1) L 09/11/17 05:50 Vancomycin Trough 12.7 ug/mL (15-20) L 09/10/17 20:50 Tissue Pathology To follow 09/07/17 08:08 - Plan (1) Cellulitis of both lower extremities Status: Acute Plan: VANCOMYCIN 1GM IV BID, LEVAQUIN 750MG IV Q48H, WOUND CARE, GENTAMYCIN OINTMENT TO WOUND, OBTAIN LOWER EXTREMITY CT WITH CONTRAST, CONTINUE TO MONITOR (2) Diabetic foot ulcer with osteomyelitis Status: Acute Plan: s/p transmetatarsal amputation Rt 5th toe. same IV ATB , local care and diabetic care . DVT prophylaxis . (3) Anxiety Status: Chronic Plan: CONTINUE XANAX, CONTINUE TO MONITOR (4) Depression Status: Chronic Qualifiers: Depression Type: major depressive disorder Major depression recurrence: recurrent Active/Remission status: remission status unspecified Qualified Code(s): F33.9 - Major depressive disorder, recurrent, unspecified Plan: CONTINUE VENLAFAXINE, CONTINUE TO MONITOR (5) Diabetes mellitus, type 2 Status: Chronic Qualifiers: Diabetes mellitus complication status: without complication Diabetes mellitus watermelon harvesting supervisor insulin use: with fci use Qualified Code(s): E11.9 - Type 2 diabetes mellitus without complications; Z79.4 - extermination inspector (current) use of insulin; Z79.4 - extermination inspector (current) use of insulin; Z79.4 - retirement ( current) use of insulin; Z79.4 - extermination inspector (current) use of insulin Plan: CONTINUE HUMULIN R SLIDING SCALE, CONTINUE TO MONITOR OTBS (6) Essential hypertension Status: Chronic Plan: CONTINUE COREG, CONTINUE VASOTEC, CONTINUE TO MONITOR (7) Chronic anemia Status: Chronic Plan: CONTINUE FOLIC ACID, CONTINUE TO MONITOR
[2017-09-12] MEDS: GENTAMICIN TOPICAL OINT EXT SCH ×2 (05:16→14:29)
[2017-09-12] MEDS: XANAX PO SCH (05:16)
[2017-09-12] MEDS ORDERED: GLUCOPHAGE ONE (05:48)
[2017-09-12] MEDS: GLUCOPHAGE PO SCH (06:02)
[2017-09-12 06:14] LABS: BASOPHILS # (AUTO) 0.1 X10^3/uL (0.0-0.1); BASOPHILS % (AUTO) 0.7 % (0.2-1.0); EOSINOPHILS # (AUTO) 0.6 x10^3/uL (0.0-0.2); EOSINOPHILS % (AUTO) 5.3 % (0.9-2.9); HEMATOCRIT 22.5 % (36.0-47.0); HEMOGLOBIN 7.5 g/dL (12.0-16.0); LYMPHOCYTES # (AUTO) 1.5 X10^3/uL (1.3-2.9); LYMPHOCYTES % (AUTO) 14.3 % (21.0-51.0); MEAN CORPUSCULAR HEMOGLOBIN 27.3 pg (27.0-34.0); MEAN CORPUSCULAR HGB CONC 33.2 g/dL (33.0-35.0); MEAN CORPUSCULAR VOLUME 82.2 fL (80.0-100.0); MEAN PLATELET VOLUME 7.8 fL (7.4-11.0); MONOCYTES # (AUTO) 1.1 x10^3/uL (0.3-0.8); MONOCYTES % (AUTO) 10.2 % (0.0-13.0); NEUTROPHILS # (AUTO) 7.5 x10^3/uL (2.2-4.8); NEUTROPHILS % (AUTO) 69.5 % (42.0-75.0); PLATELET COUNT 243 X10^3/uL (150.0-450.0); RED BLOOD COUNT 2.74 X10^6/uL (3.5-5.4); RED CELL DISTRIBUTION WIDTH 18.8 % (11.6-16.5); WHITE BLOOD COUNT 10.8 X10^3/uL (3.6-10.0)
[2017-09-12 06:50] LABS: HYPOCHROMASIA SLIGHT; PLATELET MORPHOLOGY COMMENT NORMAL (NORMAL)
[2017-09-12 07:11] LABS: ALBUMIN 2.4 g/dL (3.4-5.0); CALCIUM 8.4 mg/dL (8.5-10.1); CARBON DIOXIDE 29.4 mmol/L (21-32); COR CA(FOR HYPOALB) 9.7 mg/dL (8.5-10.1); CREATININE 1.18 mg/dL (0.55-1.02); TOTAL PROTEIN 5.8 g/dL (6.4-8.2)
[2017-09-12] MEDS: CHECK PATCH XX SCH (08:38)
[2017-09-12] MEDS: COREG TAB 6.25 MG PO SCH (08:38)
[2017-09-12] MEDS: ROXICODONE TAB 15 MG PO PRN (08:38)
[2017-09-12] MEDS: CLARITIN PO SCH (08:38)
[2017-09-12] MEDS: EFFEXOR XR 150 MG CAP PO SCH (08:41)
[2017-09-12] MEDS: FOLIC ACID TAB 1 MG PO SCH (08:42)
[2017-09-12] MEDS: PROTONIX TAB 40 MG PO SCH (08:42)
[2017-09-12] MEDS: VASOTEC TAB 10 MG PO SCH (08:42)
[2017-09-12] MEDS: METHOTREXATE PO SCH (08:42)
[2017-09-12 12:21] VITALS: BP 156/71
== END 2017-09-12 14:35 | disposition home health service (06) | DRG 617 ==
LOC: MED/SURG 13:06
PROVIDERS: ADMIT Internal Medicine; ATTEND Internal Medicine
PROC: 0JBQ0ZZ Excision of Right Foot Subcutaneous Tissue and Fascia, Open Approach (ICD-10-PCS; 2017-09-05)
PROC: 0JBR0ZZ Excision of Left Foot Subcutaneous Tissue and Fascia, Open Approach (ICD-10-PCS; principal; 2017-09-05 08:00)
PROC: 0Y6M0ZF Detachment at Right Foot, Partial 5th Ray, Open Approach (ICD-10-PCS; 2017-09-07)
DX: E11.621 Type 2 diabetes mellitus with foot ulcer (principal); L97.528 Non-pressure chronic ulcer of other part of left foot with other specified severity; L97.518 Non-pressure chronic ulcer of other part of right foot with other specified severity; M86.171 Other acute osteomyelitis, right ankle and foot; F33.8 Other recurrent depressive disorders; I10 Essential (primary) hypertension; Z79.4 Long term (current) use of insulin; D64.89 Other specified anemias; B96.89 Other specified bacterial agents as the cause of diseases classified elsewhere; R60.1 Generalized edema
CPT/HCPCS: 36415; 71045; 73706; 80053; 80202; 82565; 85025; 87070; 87075; 87077; 87186; 87205; 88304; 88305; 88311; 93005; 94760; A4216; A4222; S0020; J0690; J1815; J1956; J2001; J2250; J3370; J3490; J7120; J8610

== ENCOUNTER 2018-02-21 12:20 | Inpatient (IN) ==
[2018-02-21] MEDS ORDERED: NS 1/2 1000 ML IV 1,000 ML IV ONE (14:03)
[2018-02-21] MEDS: NS 1/2 1000 ML IV 1,000 ML IV SCH (14:20)
--- NOTE | 2018-02-21 14:42 | RAD ---
HISTORY: Pneumonia, cough, shortness of breath Study: Two-view chest Comparison: 09/09/2017 Findings: The trachea is midline. The cardiac silhouette is enlarged in size. There is pulmonary vascular conge stion present. A cardiac pacing device is in place. There appears to be a developing infiltrate withi n the right lung base, concerning for pneumonia. There may also be a left basilar infiltrate as well. A small volume pleural effusion on the left is suspected as well. IMPRESSION: 1. Findings concerning for bibasilar pneumonia and likely small volume pleural effusion. Cardiomegaly and mild pulmonary vascular congestion noted as well. Reported By:
[2018-02-21 14:48] LABS: BASOPHILS # (AUTO) 0.1 X10^3/uL (0.0-0.1); BASOPHILS % (AUTO) 0.8 % (0.2-1.0); EOSINOPHILS % (AUTO) 0.2 % (0.9-2.9); HEMATOCRIT 30.5 % (36.0-47.0); HEMOGLOBIN 9.7 g/dL (12.0-16.0); LYMPHOCYTES # (AUTO) 1.4 X10^3/uL (1.3-2.9); LYMPHOCYTES % (AUTO) 14.5 % (21.0-51.0); MEAN CORPUSCULAR HEMOGLOBIN 24.6 pg (27.0-34.0); MEAN CORPUSCULAR HGB CONC 31.9 g/dL (33.0-35.0); MEAN CORPUSCULAR VOLUME 77.2 fL (80.0-100.0); MEAN PLATELET VOLUME 8.1 fL (7.4-11.0); MONOCYTES # (AUTO) 0.6 x10^3/uL (0.3-0.8); MONOCYTES % (AUTO) 5.8 % (0.0-13.0); NEUTROPHILS # (AUTO) 7.5 x10^3/uL (2.2-4.8); NEUTROPHILS % (AUTO) 78.7 % (42.0-75.0); PLATELET COUNT 340 X10^3/uL (150.0-450.0); RED BLOOD COUNT 3.95 X10^6/uL (3.5-5.4); RED CELL DISTRIBUTION WIDTH 18.1 % (11.6-16.5); WHITE BLOOD COUNT 9.5 X10^3/uL (3.6-10.0)
[2018-02-21 15:01] LABS: ALANINE AMINOTRANSFERASE 27 Units/L (12-78); ALBUMIN 3.7 g/dL (3.4-5.0); ALKALINE PHOSPHATASE 141 Units/L (46-116); ASPARTATE AMINO TRANSFERASE 19 Units/L (15-37); BLOOD UREA NITROGEN 21 mg/dL (7-18); CALCIUM 9.2 mg/dL (8.5-10.1); CARBON DIOXIDE 26.7 mmol/L (21-32); CHLORIDE 104 mmol/L (98-107); COR NA(FOR HYPERGLY) 140 mmol/L (136-145); CREATININE 1.14 mg/dL (0.55-1.02); SODIUM 138 mmol/L (136-145); TOTAL PROTEIN 7.7 g/dL (6.4-8.2); eGFR NON BLACK RACES 51 (>60)
[2018-02-21 15:08] LABS: HYPOCHROMASIA SLIGHT; PLATELET MORPHOLOGY COMMENT NORMAL (NORMAL)
[2018-02-21 15:09] LABS: ANISOCYTOSIS 1+
[2018-02-21] MEDS: FORTAZ or TAZICEF VIAL INJ 1 G in NS 100 ML IV + SPIKE MINIBAG* 100 ML IV SCH ×2 (15:35→21:33)
[2018-02-21] MEDS: ZOFRAN INJ 4 MG VIAL IVP PRN ×2 (15:36→23:26)
[2018-02-21 15:53] VITALS: BMI 27.6
[2018-02-21] MEDS: ROBITUSSIN DM PO SCH ×2 (16:04→21:00)
[2018-02-21] MEDS: TYLENOL 325 MG TAB PO PRN (16:06)
[2018-02-21] MEDS ORDERED: DUONEB 0.5 MG/3 MG ONE (16:45)
[2018-02-21] MEDS ORDERED: SALINE 3% 15 ML NEB TX ONE (17:06)
[2018-02-21] MEDS ORDERED: XANAX ONE (17:40)
[2018-02-21] MEDS: XANAX PO PRN (17:52)
[2018-02-21] MEDS: DUONEB 0.5 MG/3 MG NEB SCH (21:32)
[2018-02-22] MEDS: DUONEB 0.5 MG/3 MG NEB SCH ×6 (01:08→20:49)
[2018-02-22] MEDS: NS 1/2 1000 ML IV 1,000 ML IV SCH ×3 (04:00→14:44)
[2018-02-22 05:22] LABS: BASOPHILS # (AUTO) 0.1 X10^3/uL (0.0-0.1); BASOPHILS % (AUTO) 1.2 % (0.2-1.0); EOSINOPHILS # (AUTO) 0.1 x10^3/uL (0.0-0.2); HEMATOCRIT 30.1 % (36.0-47.0); HEMOGLOBIN 9.5 g/dL (12.0-16.0); LYMPHOCYTES # (AUTO) 2.2 X10^3/uL (1.3-2.9); LYMPHOCYTES % (AUTO) 22.1 % (21.0-51.0); MEAN CORPUSCULAR HEMOGLOBIN 24.6 pg (27.0-34.0); MEAN CORPUSCULAR HGB CONC 31.5 g/dL (33.0-35.0); MEAN PLATELET VOLUME 8.1 fL (7.4-11.0); MONOCYTES # (AUTO) 0.8 x10^3/uL (0.3-0.8); MONOCYTES % (AUTO) 8.2 % (0.0-13.0); NEUTROPHILS # (AUTO) 6.6 x10^3/uL (2.2-4.8); NEUTROPHILS % (AUTO) 67.5 % (42.0-75.0); PLATELET COUNT 359 X10^3/uL (150.0-450.0); RED BLOOD COUNT 3.86 X10^6/uL (3.5-5.4); RED CELL DISTRIBUTION WIDTH 18.3 % (11.6-16.5); WHITE BLOOD COUNT 9.7 X10^3/uL (3.6-10.0)
[2018-02-22 05:41] LABS: ALANINE AMINOTRANSFERASE 27 Units/L (12-78); ALBUMIN 3.4 g/dL (3.4-5.0); ALKALINE PHOSPHATASE 128 Units/L (46-116); ASPARTATE AMINO TRANSFERASE 19 Units/L (15-37); BLOOD UREA NITROGEN 22 mg/dL (7-18); CALCIUM 8.9 mg/dL (8.5-10.1); CARBON DIOXIDE 28.1 mmol/L (21-32); CHLORIDE 104 mmol/L (98-107); COR NA(FOR HYPERGLY) 141 mmol/L (136-145); CREATININE 1.35 mg/dL (0.55-1.02); SODIUM 139 mmol/L (136-145); TOTAL PROTEIN 7.2 g/dL (6.4-8.2); eGFR NON BLACK RACES 42 (>60)
[2018-02-22 05:52] LABS: ANISOCYTOSIS SLIGHT; HYPOCHROMASIA SLIGHT; OVALOCYTES SLIGHT; PLATELET MORPHOLOGY COMMENT NORMAL (NORMAL)
[2018-02-22] MEDS: FORTAZ or TAZICEF VIAL INJ 1 G in NS 100 ML IV + SPIKE MINIBAG* 100 ML IV SCH ×2 (06:23→20:21)
[2018-02-22] MEDS ORDERED: NS 1/2 1000 ML IV 1,000 ML IV ONE ×2 (06:28→20:34)
--- NOTE | 2018-02-22 07:34 | RAD ---
HISTORY: Cough, shortness of breath, pneumonia Study: Chest AP portable Comparison: 02/21/2018 Findings: There is a pacemaker present on the left partially obscuring the left lateral mid lung. The heart rem ains enlarged. Mild pulmonary venous congestion is present. No interstitial edema or alveolar edema i s identified. The aorta is calcified. Right basilar lung infiltrate is unchanged. The left lung base now appears clear. The upper lung hylton are clear. The bony thorax is unremarkable. IMPRESSION: Moderate cardiomegaly with pulmonary venous congestion No change right basilar lung infiltrate Improved aeration and clearing left lower lobe Reported By:
[2018-02-22] MEDS ORDERED: OXYCODONE HCL 20 MG PO PRN (07:53)
[2018-02-22] MEDS: ROBITUSSIN DM PO SCH ×7 (08:39→20:58)
[2018-02-22] MEDS: ZOFRAN INJ 4 MG VIAL IVP PRN ×2 (08:39→14:45)
[2018-02-22] MEDS: FOLIC ACID TAB 1 MG PO SCH (08:41)
[2018-02-22] MEDS: LASIX PO SCH ×3 (08:41→20:59)
[2018-02-22] MEDS: PROTONIX TAB 40 MG PO SCH ×2 (08:41→20:22)
[2018-02-22] MEDS: ECOTRIN TAB 325 MG PO SCH (08:41)
[2018-02-22] MEDS: PLAVIX PO SCH (08:41)
[2018-02-22] MEDS ORDERED: PATIENT'S HOME MEDICATION (Venlafaxine Hcl [Venlafaxine Hcl Er] 150 MG) PO SCH (09:00)
[2018-02-22] MEDS ORDERED: ENALAPRIL MALEATE 10 MG PO SCH (09:00)
[2018-02-22] MEDS ORDERED: LORATADINE 10 MG PO SCH (09:00)
[2018-02-22] MEDS: COREG TAB 6.25 MG PO SCH ×2 (09:23→20:22)
[2018-02-22] MEDS: XANAX PO PRN ×2 (09:28→20:36)
--- NOTE | 2018-02-22 11:23 | DR.UPDATE ---
H&P Update History and Physical Update: WAS SEEN IN THE OFFICE TODAY. A H&P WAS COMPLETED PRIOR TO ADMISSION. PATIENT HAS BEEN SEEN AND EXAMINED WITH NO CHANGES NOTED TO H&P. Changes noted: NO Yes with the following:
[2018-02-22] MEDS: EFFEXOR XR 150 MG CAP PO SCH (12:36)
[2018-02-22] MEDS: CLARITIN PO SCH (12:36)
[2018-02-22] MEDS: VASOTEC TAB 10 MG PO SCH ×2 (12:37→20:22)
[2018-02-22] MEDS: KLONOPIN TAB 1 MG PO SCH ×2 (12:37→20:22)
[2018-02-22] MEDS: HumuLIN R SUBCUT PRN (12:38)
[2018-02-22] MEDS ORDERED: GLUCOPHAGE ONE (16:12)
[2018-02-22] MEDS: GLUCOPHAGE PO SCH (16:24)
[2018-02-22] MEDS: SNACK - Diabetic Appropriate PO SCH (20:21)
[2018-02-22] MEDS: ZOLOFT PO SCH (20:22)
[2018-02-22] MEDS: DESYREL PO SCH (20:22)
[2018-02-22] MEDS: ZOCOR TAB 10 MG PO SCH (20:25)
[2018-02-22] MEDS ORDERED: LANTUS SC SCH (21:00)
[2018-02-22] MEDS: LANTUS SC SCH (22:40)
[2018-02-23] MEDS: DUONEB 0.5 MG/3 MG NEB SCH ×6 (01:30→21:43)
[2018-02-23] MEDS: NS 1/2 1000 ML IV 1,000 ML IV SCH ×2 (04:07→18:32)
[2018-02-23 05:21] LABS: BASOPHILS # (AUTO) 0.1 X10^3/uL (0.0-0.1); BASOPHILS % (AUTO) 1.1 % (0.2-1.0); EOSINOPHILS # (AUTO) 0.3 x10^3/uL (0.0-0.2); EOSINOPHILS % (AUTO) 3.4 % (0.9-2.9); HEMATOCRIT 27.7 % (36.0-47.0); HEMOGLOBIN 9.2 g/dL (12.0-16.0); LYMPHOCYTES # (AUTO) 2.4 X10^3/uL (1.3-2.9); LYMPHOCYTES % (AUTO) 29.1 % (21.0-51.0); MEAN CORPUSCULAR HEMOGLOBIN 25.5 pg (27.0-34.0); MEAN CORPUSCULAR HGB CONC 33.2 g/dL (33.0-35.0); MEAN CORPUSCULAR VOLUME 76.8 fL (80.0-100.0); MONOCYTES # (AUTO) 0.7 x10^3/uL (0.3-0.8); NEUTROPHILS # (AUTO) 4.8 x10^3/uL (2.2-4.8); NEUTROPHILS % (AUTO) 57.4 % (42.0-75.0); PLATELET COUNT 297 X10^3/uL (150.0-450.0); RED BLOOD COUNT 3.61 X10^6/uL (3.5-5.4); RED CELL DISTRIBUTION WIDTH 18.6 % (11.6-16.5); WHITE BLOOD COUNT 8.3 X10^3/uL (3.6-10.0)
[2018-02-23 05:27] LABS: ALBUMIN 3.3 g/dL (3.4-5.0); CALCIUM 8.5 mg/dL (8.5-10.1); CARBON DIOXIDE 30.3 mmol/L (21-32); COR CA(FOR HYPOALB) 9.1 mg/dL (8.5-10.1); CREATININE 1.39 mg/dL (0.55-1.02); TOTAL PROTEIN 6.9 g/dL (6.4-8.2)
[2018-02-23] MEDS ORDERED: GLUCOPHAGE ONE (05:48)
[2018-02-23] MEDS: GLUCOPHAGE PO SCH (06:00)
[2018-02-23 06:01] LABS: HYPOCHROMASIA 1+; PLATELET MORPHOLOGY COMMENT NORMAL (NORMAL)
[2018-02-23 06:02] LABS: ANISOCYTOSIS SLIGHT; MICROCYTOSIS SLIGHT; OVALOCYTES SLIGHT
--- NOTE | 2018-02-23 07:04 | RAD ---
HISTORY: Follow-up pneumonia, cough, shortness of breath Study: Chest AP portable Comparison: 02/22/2018 Findings: The patient is rotated to the left. There is a pacemaker present on the left. The heart remains enlar ged. No definite congestive heart failure is present. Right basilar lung infiltrate is improving. A s mall right pleural effusion is likely present. The remainder of the lung hylton appear clear. IMPRESSION: Improving right basilar lung infiltrate Moderate cardiomegaly without congestive heart failure Reported By:
[2018-02-23] MEDS: ROBITUSSIN DM PO SCH ×6 (07:17→21:30)
[2018-02-23] MEDS: COREG TAB 6.25 MG PO SCH ×2 (09:54→20:25)
[2018-02-23] MEDS: FORTAZ or TAZICEF VIAL INJ 1 G in NS 100 ML IV + SPIKE MINIBAG* 100 ML IV SCH ×2 (09:54→20:24)
[2018-02-23] MEDS: EFFEXOR XR 150 MG CAP PO SCH (09:54)
[2018-02-23] MEDS: FOLIC ACID TAB 1 MG PO SCH (09:54)
[2018-02-23] MEDS: KLONOPIN TAB 1 MG PO SCH ×2 (09:54→20:25)
[2018-02-23] MEDS: PROTONIX TAB 40 MG PO SCH ×2 (09:54→20:25)
[2018-02-23] MEDS: ECOTRIN TAB 325 MG PO SCH (09:54)
[2018-02-23] MEDS: VASOTEC TAB 10 MG PO SCH ×2 (09:55→20:25)
[2018-02-23] MEDS: CLARITIN PO SCH (09:55)
[2018-02-23] MEDS: LASIX PO SCH ×2 (09:55→20:26)
[2018-02-23] MEDS: PLAVIX PO SCH (10:00)
[2018-02-23] MEDS: XANAX PO PRN ×2 (10:28→20:25)
[2018-02-23] MEDS: DIFLUCAN PO SCH (10:59)
[2018-02-23] MEDS: ROXICODONE TAB 15 MG PO PRN (17:28)
[2018-02-23] MEDS: ZOFRAN INJ 4 MG VIAL IVP PRN (17:28)
[2018-02-23] MEDS: SNACK - Diabetic Appropriate PO SCH (20:24)
[2018-02-23] MEDS: ZOLOFT PO SCH (20:25)
[2018-02-23] MEDS: ZOCOR TAB 10 MG PO SCH (20:25)
[2018-02-23] MEDS: DESYREL PO SCH (20:25)
--- NOTE | 2018-02-23 20:54 | PCM.PROG ---
Progress Note - Progress Note for Day of Date of Exam: 02/22/18 - Subjective Subjective: WAS ADMITTED FOR BIBASILAR PNEUMONIA AND CHF EXACERBATION. TODAY, SHE IS ALERT AND ORIENTED, LYING IN BED ON MORNING ROUNDS. SHE CONTINUES WITH COMPLAINTS OF INCREASED SHORTNESS OF BREATH AND COUGH. ON EXAMINATION, SHE IS TACHYCARDIC WITH HR 110-120. BILATERAL LUNGS ARE NOTED WITH SCATTERED WHEEZING AND RHONCHI THROUGHOUT. ABDOMEN IS ROUND, SOFT, AND NON- TENDER WITH NORMAL BOWEL SOUNDS NOTED IN ALL QUADRANTS. HIS VITALS ARE 97.9-112- 20-96%-140/80. ABNORMAL LABS INCLUDE THE FOLLOWING: HGB 9.5, HCT 30.1, BUN 22, CREATININE 1.35, GLUCOSE 191, ALK PHOS 128. CHEST XRAY REVEALED: Moderate cardiomegaly with pulmonary venous congestion. No change right basilar lung infiltrate. Improved aeration and clearing left lower lobe. TODAY, WE WILL CONTINUE WITH IV ANTIBIOTICS, RESPIRATORY TREATMENTS, AND CURRENT PLAN OF CARE. OTHERWISE, WE WILL FOLLOW UP WITH AM LABS AND CHEST XRAY AND CONTINUE TO MONITOR PATIENT. - Past Medical Family Social History Past Med/Fam/Surg Hx: No changes since H&P Allergies: Allergies codeine Allergy (Verified 08/13/17 04:47) morphine Allergy (Verified 08/13/17 04:47) Sulfa (Sulfonamide Antibiotics) [SULFA] Allergy (Verified 08/13/17 04:47) TAPE Allergy (Uncoded 12/28/16 14:14) - Review of Systems ROS: No change since H&P - Vital Signs and I&O's Vital Signs: Temperature 98.6 F Pulse Rate [Left Brachial] 98 Pulse Rate [Right Brachial] 105 Pulse Rate 91 Respiratory Rate 20 Blood Pressure [Left Arm] 129/84 Blood Pressure [Right Arm] 160/77 Blood Pressure [Standing] 84/59 Blood Pressure [Lying] 96/58 Blood Pressure 156/71 O2 Sat by Pulse Oximetry 96 Intake and Output: Intake & Output 02/21/18 02/22/18 02/23/18 02/24/18 11:59 11:59 11:59 11:59 Intake Total 800 / 800 2567 / 2567 320 / 320 Output Total 0 / 0 Balance 800 / 800 2567 / 2567 320 / 320 - Physical Exam Oriented: Normal Eyes: Normal Ear: Normal Nose: Normal Throat: Normal Respiratory: Generalized, Wheezes, Rhonchi Cardiovascular: Tachycardia. negative: S3, S4, Murmur : Normal Auscultation: Bowel Sounds: Normal Palpation: Normal Tenderness: Normal Skin: Normal Musculoskeletal: Normal Psychiatric: Normal Mood Description: Calm Affect: Normal Speech Pattern: Clear, Appropriate - Laboratory and Diagnostics Result Diagrams: 02/23/18 04:43 02/23/18 04:43 Labs: 02/21/18 14:18 Blood Blood Culture - Preliminary 02/21/18 14:15 Blood Blood Culture - Preliminary 02/21/18 18:22 Sputum - Expectorated Sputum Sputum Culture - Final 02/21/18 18:22 Sputum - Expectorated Sputum - Final Laboratory WBC 8.3 X10^3/uL (3.6-10.0) 02/23/18 04:43 RBC 3.61 X10^6/uL (3.5-5.4) 02/23/18 04:43 Hgb 9.2 g/dL (12.0-16.0) L 02/23/18 04:43 Hct 27.7 % (36.0-47.0) L 02/23/18 04:43 MCV 76.8 fL (80.0-100.0) L 02/23/18 04:43 MCH 25.5 pg (27.0-34.0) L 02/23/18 04:43 MCHC 33.2 g/dL (33.0-35.0) 02/23/18 04:43 RDW 18.6 % (11.6-16.5) H 02/23/18 04:43 Plt Count 297 X10^3/uL (150.0-450.0) 02/23/18 04:43 Plt Count Comment Adequate (ADEQUATE) 02/23/18 04:43 MPV 8.0 fL (7.4-11.0) 02/23/18 04:43 Neut % (Auto) 57.4 % (42.0-75.0) 02/23/18 04:43 Lymph % (Auto) 29.1 % (21.0-51.0) 02/23/18 04:43 [place] % (Auto) 9.0 % (0.0-13.0) 02/23/18 04:43 Eos % (Auto) 3.4 % (0.9-2.9) H 02/23/18 04:43 Baso % (Auto) 1.1 % (0.2-1.0) H 02/23/18 04:43 Neut # (Auto) 4.8 x10^3/uL (2.2-4.8) 02/23/18 04:43 Lymph # (Auto) 2.4 X10^3/uL (1.3-2.9) 02/23/18 04:43 [place] # (Auto) 0.7 x10^3/uL (0.3-0.8) 02/23/18 04:43 Eos # (Auto) 0.3 x10^3/uL (0.0-0.2) H 02/23/18 04:43 Baso # (Auto) 0.1 X10^3/uL (0.0-0.1) 02/23/18 04:43 Absolute Nucleated RBC 0.1 /100WBC 02/23/18 04:43 Plt Morphology Comment Normal (NORMAL) 02/23/18 04:43 RBC Morphology Abnormal (NORMAL) A 02/23/18 04:43 Hypochromasia 1+ A 02/23/18 04:43 Anisocytosis Slight A 02/23/18 04:43 Microcytosis Slight A 02/23/18 04:43 Ovalocytes Slight A 02/23/18 04:43 Sodium 139 mmol/L (136-145) 02/23/18 04:43 Corrected Sodium 142 mmol/L (136-145) 02/23/18 04:43 Potassium 4.6 mmol/L (3.5-5.1) 02/23/18 04:43 Chloride 103 mmol/L (98-107) 02/23/18 04:43 Carbon Dioxide 30.3 mmol/L (21-32) 02/23/18 04:43 BUN 22 mg/dL (7-18) H 02/23/18 04:43 Creatinine 1.39 mg/dL (0.55-1.02) H 02/23/18 04:43 Est GFR (MDRD) Af Amer 49 (>60) L 02/23/18 04:43 Est GFR (MDRD) Non-Af 40 (>60) L 02/23/18 04:43 Glucose 210 mg/dL (65-99) H 02/23/18 04:43 POC Glucose (mg/dL) 137 mg/dL (65-99) H 02/23/18 20:20 Calcium 8.5 mg/dL (8.5-10.1) 02/23/18 04:43 Corrected Calcium 9.1 mg/dL (8.5-10.1) 02/23/18 04:43 Total Bilirubin 0.20 mg/dL (0.2-1.0) 02/23/18 04:43 AST 13 Units/L (15-37) L 02/23/18 04:43 ALT 23 Units/L (12-78) 02/23/18 04:43 Alkaline Phosphatase 118 Units/L (46-116) H 02/23/18 04:43 Total Protein 6.9 g/dL (6.4-8.2) 02/23/18 04:43 Albumin 3.3 g/dL (3.4-5.0) L 02/23/18 04:43 Globulin 3.6 g/dL (2.5-4.5) 02/23/18 04:43 Albumin/Globulin Ratio 0.9 Ratio (1.1-2.1) L 02/23/18 04:43 - Plan (1) Pneumonia Status: Acute Qualifiers: Pneumonia type: due to unspecified organism Laterality: bilateral Lung location: lower lobe of lung Qualified Code(s): J18.1 - Lobar pneumonia, unspecified organism Plan: PNEUMONIA PROTOCOL, IV ANTIBIOTICS, RESPIRATORY TREATMENTS, SUPPLEMENTAL OXYGEN, CONTINUE TO MONITOR
[2018-02-23] MEDS: LANTUS SC SCH (21:00)
[2018-02-23] MEDS ORDERED: NS 1/2 1000 ML IV 1,000 ML IV ONE (23:59)
[2018-02-24] MEDS: DUONEB 0.5 MG/3 MG NEB SCH ×6 (00:53→21:51)
[2018-02-24 05:26] LABS: BASOPHILS # (AUTO) 0.1 X10^3/uL (0.0-0.1); BASOPHILS % (AUTO) 0.8 % (0.2-1.0); EOSINOPHILS # (AUTO) 0.3 x10^3/uL (0.0-0.2); EOSINOPHILS % (AUTO) 4.4 % (0.9-2.9); HEMOGLOBIN 8.4 g/dL (12.0-16.0); LYMPHOCYTES % (AUTO) 25.3 % (21.0-51.0); MEAN CORPUSCULAR HEMOGLOBIN 24.9 pg (27.0-34.0); MEAN CORPUSCULAR HGB CONC 32.2 g/dL (33.0-35.0); MEAN CORPUSCULAR VOLUME 77.4 fL (80.0-100.0); MONOCYTES # (AUTO) 0.6 x10^3/uL (0.3-0.8); MONOCYTES % (AUTO) 7.5 % (0.0-13.0); NEUTROPHILS # (AUTO) 4.9 x10^3/uL (2.2-4.8); PLATELET COUNT 255 X10^3/uL (150.0-450.0); RED BLOOD COUNT 3.36 X10^6/uL (3.5-5.4); RED CELL DISTRIBUTION WIDTH 18.2 % (11.6-16.5); WHITE BLOOD COUNT 7.9 X10^3/uL (3.6-10.0)
[2018-02-24 05:44] LABS: ALBUMIN 3.1 g/dL (3.4-5.0); CALCIUM 8.4 mg/dL (8.5-10.1); CARBON DIOXIDE 28.3 mmol/L (21-32); COR CA(FOR HYPOALB) 9.1 mg/dL (8.5-10.1); CREATININE 1.46 mg/dL (0.55-1.02); TOTAL PROTEIN 6.5 g/dL (6.4-8.2)
[2018-02-24 06:04] LABS: HYPOCHROMASIA 1+; PLATELET MORPHOLOGY COMMENT NORMAL (NORMAL)
[2018-02-24 06:05] LABS: ANISOCYTOSIS 1+; OVALOCYTES PRESENT
[2018-02-24] MEDS: HumuLIN R SUBCUT PRN (06:07)
[2018-02-24] MEDS: FOLIC ACID TAB 1 MG PO SCH (08:34)
[2018-02-24] MEDS: ROBITUSSIN DM PO SCH ×4 (08:34→20:07)
[2018-02-24] MEDS: FORTAZ or TAZICEF VIAL INJ 1 G in NS 100 ML IV + SPIKE MINIBAG* 100 ML IV SCH ×2 (08:34→20:07)
[2018-02-24] MEDS: KLONOPIN TAB 1 MG PO SCH ×2 (08:35→20:07)
[2018-02-24] MEDS: VASOTEC TAB 10 MG PO SCH ×2 (08:35→20:07)
[2018-02-24] MEDS: PROTONIX TAB 40 MG PO SCH ×2 (08:35→20:06)
[2018-02-24] MEDS: EFFEXOR XR 150 MG CAP PO SCH (08:35)
[2018-02-24] MEDS: ECOTRIN TAB 325 MG PO SCH (08:35)
[2018-02-24] MEDS: CLARITIN PO SCH (08:35)
[2018-02-24] MEDS: LASIX PO SCH ×2 (08:35→20:08)
[2018-02-24] MEDS: COREG TAB 6.25 MG PO SCH ×2 (08:35→20:06)
[2018-02-24] MEDS: DIFLUCAN PO SCH (09:20)
[2018-02-24] MEDS: NS 1/2 1000 ML IV 1,000 ML IV SCH ×2 (09:20→22:37)
[2018-02-24] MEDS: PLAVIX PO SCH (09:21)
[2018-02-24] MEDS ORDERED: NS 500 ML IV 500 ML IV ONE (09:50)
[2018-02-24] MEDS ORDERED: NS 1/2 1000 ML IV 1,000 ML IV ONE (13:42)
[2018-02-24] MEDS: ZOCOR TAB 10 MG PO SCH (20:06)
[2018-02-24] MEDS: DESYREL PO SCH (20:06)
[2018-02-24] MEDS: ZOLOFT PO SCH (20:06)
[2018-02-24] MEDS: LANTUS SC SCH (20:07)
[2018-02-24] MEDS: SNACK - Diabetic Appropriate PO SCH (20:07)
[2018-02-24] MEDS: XANAX PO PRN (20:07)
[2018-02-24] MEDS: TYLENOL 325 MG TAB PO PRN (20:09)
[2018-02-25] MEDS: DUONEB 0.5 MG/3 MG NEB SCH ×6 (01:55→21:47)
[2018-02-25 05:24] LABS: BASOPHILS # (AUTO) 0.1 X10^3/uL (0.0-0.1); BASOPHILS % (AUTO) 0.8 % (0.2-1.0); EOSINOPHILS # (AUTO) 0.3 x10^3/uL (0.0-0.2); EOSINOPHILS % (AUTO) 3.1 % (0.9-2.9); HEMOGLOBIN 9.1 g/dL (12.0-16.0); LYMPHOCYTES # (AUTO) 2.2 X10^3/uL (1.3-2.9); LYMPHOCYTES % (AUTO) 24.8 % (21.0-51.0); MEAN CORPUSCULAR HEMOGLOBIN 24.7 pg (27.0-34.0); MEAN CORPUSCULAR HGB CONC 31.4 g/dL (33.0-35.0); MEAN CORPUSCULAR VOLUME 78.9 fL (80.0-100.0); MEAN PLATELET VOLUME 8.5 fL (7.4-11.0); MONOCYTES # (AUTO) 0.7 x10^3/uL (0.3-0.8); MONOCYTES % (AUTO) 7.3 % (0.0-13.0); NEUTROPHILS # (AUTO) 5.7 x10^3/uL (2.2-4.8); PLATELET COUNT 298 X10^3/uL (150.0-450.0); RED BLOOD COUNT 3.67 X10^6/uL (3.5-5.4); RED CELL DISTRIBUTION WIDTH 18.8 % (11.6-16.5); WHITE BLOOD COUNT 8.9 X10^3/uL (3.6-10.0)
[2018-02-25 05:34] LABS: ALANINE AMINOTRANSFERASE 26 Units/L (12-78); ALBUMIN 3.6 g/dL (3.4-5.0); ALKALINE PHOSPHATASE 140 Units/L (46-116); ASPARTATE AMINO TRANSFERASE 16 Units/L (15-37); BLOOD UREA NITROGEN 23 mg/dL (7-18); CALCIUM 8.4 mg/dL (8.5-10.1); CARBON DIOXIDE 29.4 mmol/L (21-32); CHLORIDE 103 mmol/L (98-107); COR NA(FOR HYPERGLY) 140 mmol/L (136-145); CREATININE 1.46 mg/dL (0.55-1.02); SODIUM 137 mmol/L (136-145); TOTAL PROTEIN 6.9 g/dL (6.4-8.2); eGFR NON BLACK RACES 38 (>60)
[2018-02-25] MEDS: HumuLIN R SUBCUT PRN ×3 (05:39→21:22)
[2018-02-25 05:41] LABS: ANISOCYTOSIS 1+; HYPOCHROMASIA 1+; OVALOCYTES PRESENT; PLATELET MORPHOLOGY COMMENT NORMAL (NORMAL)
[2018-02-25] MEDS: COREG TAB 6.25 MG PO SCH ×2 (08:18→21:13)
[2018-02-25] MEDS: ECOTRIN TAB 325 MG PO SCH (08:18)
[2018-02-25] MEDS: DIFLUCAN PO SCH (08:18)
[2018-02-25] MEDS: EFFEXOR XR 150 MG CAP PO SCH (08:18)
[2018-02-25] MEDS: FORTAZ or TAZICEF VIAL INJ 1 G in NS 100 ML IV + SPIKE MINIBAG* 100 ML IV SCH ×2 (08:18→21:11)
[2018-02-25] MEDS: CLARITIN PO SCH (08:18)
[2018-02-25] MEDS: PROTONIX TAB 40 MG PO SCH ×2 (08:19→21:12)
[2018-02-25] MEDS: KLONOPIN TAB 1 MG PO SCH ×2 (08:19→21:13)
[2018-02-25] MEDS: FOLIC ACID TAB 1 MG PO SCH (08:19)
[2018-02-25] MEDS: LASIX PO SCH ×2 (08:19→14:17)
[2018-02-25] MEDS: ROBITUSSIN DM PO SCH ×5 (08:19→21:13)
[2018-02-25] MEDS: PLAVIX PO SCH (08:20)
[2018-02-25] MEDS: VASOTEC TAB 10 MG PO SCH ×2 (08:20→21:13)
[2018-02-25] MEDS: NS 1/2 1000 ML IV 1,000 ML IV SCH (14:17)
[2018-02-25] MEDS ORDERED: NS 1/2 1000 ML IV 1,000 ML IV ONE (15:44)
[2018-02-25] MEDS: ZOFRAN INJ 4 MG VIAL IVP PRN (18:35)
[2018-02-25] MEDS: ROXICODONE TAB 15 MG PO PRN (18:37)
[2018-02-25] MEDS: SNACK - Diabetic Appropriate PO SCH (21:11)
[2018-02-25] MEDS: ZOCOR TAB 10 MG PO SCH (21:13)
[2018-02-25] MEDS: ZOLOFT PO SCH (21:13)
[2018-02-25] MEDS: DESYREL PO SCH (21:13)
[2018-02-25] MEDS: LANTUS SC SCH (21:14)
[2018-02-26] MEDS: DUONEB 0.5 MG/3 MG NEB SCH ×6 (00:45→20:28)
[2018-02-26] MEDS: NS 1/2 1000 ML IV 1,000 ML IV SCH ×2 (05:45→16:54)
[2018-02-26 05:59] LABS: BASOPHILS # (AUTO) 0.1 X10^3/uL (0.0-0.1); BASOPHILS % (AUTO) 0.6 % (0.2-1.0); EOSINOPHILS # (AUTO) 0.2 x10^3/uL (0.0-0.2); EOSINOPHILS % (AUTO) 1.6 % (0.9-2.9); LYMPHOCYTES # (AUTO) 1.4 X10^3/uL (1.3-2.9); LYMPHOCYTES % (AUTO) 14.1 % (21.0-51.0); MEAN CORPUSCULAR HEMOGLOBIN 24.4 pg (27.0-34.0); MEAN CORPUSCULAR HGB CONC 31.1 g/dL (33.0-35.0); MEAN CORPUSCULAR VOLUME 78.5 fL (80.0-100.0); MEAN PLATELET VOLUME 8.3 fL (7.4-11.0); MONOCYTES # (AUTO) 0.8 x10^3/uL (0.3-0.8); MONOCYTES % (AUTO) 8.2 % (0.0-13.0); NEUTROPHILS # (AUTO) 7.4 x10^3/uL (2.2-4.8); NEUTROPHILS % (AUTO) 75.5 % (42.0-75.0); PLATELET COUNT 263 X10^3/uL (150.0-450.0); RED BLOOD COUNT 3.69 X10^6/uL (3.5-5.4); RED CELL DISTRIBUTION WIDTH 18.4 % (11.6-16.5); WHITE BLOOD COUNT 9.8 X10^3/uL (3.6-10.0)
[2018-02-26 06:12] LABS: ALANINE AMINOTRANSFERASE 30 Units/L (12-78); ALBUMIN 3.4 g/dL (3.4-5.0); ALKALINE PHOSPHATASE 139 Units/L (46-116); ASPARTATE AMINO TRANSFERASE 20 Units/L (15-37); BLOOD UREA NITROGEN 26 mg/dL (7-18); CALCIUM 8.5 mg/dL (8.5-10.1); CARBON DIOXIDE 29.1 mmol/L (21-32); CHLORIDE 100 mmol/L (98-107); COR NA(FOR HYPERGLY) 137 mmol/L (136-145); CREATININE 1.57 mg/dL (0.55-1.02); SODIUM 135 mmol/L (136-145); TOTAL PROTEIN 7.1 g/dL (6.4-8.2); eGFR NON BLACK RACES 35 (>60)
[2018-02-26 06:13] LABS: PLATELET MORPHOLOGY COMMENT NORMAL (NORMAL)
[2018-02-26 06:14] LABS: ANISOCYTOSIS 1+; HYPOCHROMASIA 1+
[2018-02-26 06:15] LABS: OVALOCYTES SLIGHT
[2018-02-26] MEDS: HumuLIN R SUBCUT PRN ×2 (06:47→11:39)
[2018-02-26] MEDS ORDERED: KLONOPIN TAB 1 MG PO PRN (07:43)
[2018-02-26] MEDS: CLARITIN PO SCH (09:03)
[2018-02-26] MEDS: FORTAZ or TAZICEF VIAL INJ 1 G in NS 100 ML IV + SPIKE MINIBAG* 100 ML IV SCH ×2 (09:03→21:17)
[2018-02-26] MEDS: LASIX PO SCH (09:04)
[2018-02-26] MEDS: FOLIC ACID TAB 1 MG PO SCH (09:04)
[2018-02-26] MEDS: ECOTRIN TAB 325 MG PO SCH (09:04)
[2018-02-26] MEDS: DIFLUCAN PO SCH (09:04)
[2018-02-26] MEDS: COREG TAB 6.25 MG PO SCH ×2 (09:04→21:15)
[2018-02-26] MEDS: EFFEXOR XR 150 MG CAP PO SCH (09:04)
[2018-02-26] MEDS: PLAVIX PO SCH (09:04)
[2018-02-26] MEDS: ROBITUSSIN DM PO SCH ×4 (09:05→21:16)
[2018-02-26] MEDS: ROXICODONE TAB 15 MG PO PRN ×2 (09:05→16:54)
[2018-02-26] MEDS: VASOTEC TAB 10 MG PO SCH ×2 (09:05→21:15)
[2018-02-26] MEDS: PROTONIX TAB 40 MG PO SCH ×2 (09:05→21:14)
[2018-02-26] MEDS ORDERED: NS 1000 ML 500 ML IV ONE (09:29)
[2018-02-26] MEDS ORDERED: NS 500 ML IV 500 ML IV ONE (09:41)
[2018-02-26] MEDS: TYLENOL 325 MG TAB PO PRN (14:41)
[2018-02-26] MEDS ORDERED: NS 1/2 1000 ML IV 1,000 ML IV ONE (16:17)
[2018-02-26 17:42] LABS: CALCIUM 8.6 mg/dL (8.5-10.1); CARBON DIOXIDE 28.3 mmol/L (21-32); CREATININE 1.54 mg/dL (0.55-1.02)
[2018-02-26] MEDS: DESYREL PO SCH (21:12)
[2018-02-26] MEDS: ZOLOFT PO SCH (21:14)
[2018-02-26] MEDS: COLACE CAP 100 MG PO SCH (21:14)
[2018-02-26] MEDS: ZOCOR TAB 10 MG PO SCH (21:15)
[2018-02-26] MEDS: SNACK - Diabetic Appropriate PO SCH (21:17)
[2018-02-26] MEDS: LANTUS SC SCH (22:12)
[2018-02-27] MEDS: DUONEB 0.5 MG/3 MG NEB SCH ×6 (00:36→20:08)
[2018-02-27 05:09] LABS: BASOPHILS # (AUTO) 0.1 X10^3/uL (0.0-0.1); BASOPHILS % (AUTO) 0.6 % (0.2-1.0); EOSINOPHILS # (AUTO) 0.1 x10^3/uL (0.0-0.2); EOSINOPHILS % (AUTO) 0.6 % (0.9-2.9); HEMATOCRIT 28.9 % (36.0-47.0); HEMOGLOBIN 9.1 g/dL (12.0-16.0); LYMPHOCYTES # (AUTO) 1.7 X10^3/uL (1.3-2.9); LYMPHOCYTES % (AUTO) 16.5 % (21.0-51.0); MEAN CORPUSCULAR HEMOGLOBIN 24.6 pg (27.0-34.0); MEAN CORPUSCULAR HGB CONC 31.5 g/dL (33.0-35.0); MEAN CORPUSCULAR VOLUME 78.2 fL (80.0-100.0); MEAN PLATELET VOLUME 8.6 fL (7.4-11.0); MONOCYTES # (AUTO) 0.6 x10^3/uL (0.3-0.8); MONOCYTES % (AUTO) 6.4 % (0.0-13.0); NEUTROPHILS # (AUTO) 7.7 x10^3/uL (2.2-4.8); NEUTROPHILS % (AUTO) 75.9 % (42.0-75.0); PLATELET COUNT 288 X10^3/uL (150.0-450.0); RED BLOOD COUNT 3.69 X10^6/uL (3.5-5.4); RED CELL DISTRIBUTION WIDTH 18.4 % (11.6-16.5); WHITE BLOOD COUNT 10.1 X10^3/uL (3.6-10.0)
[2018-02-27 05:23] LABS: ALBUMIN 3.3 g/dL (3.4-5.0); CALCIUM 8.8 mg/dL (8.5-10.1); COR CA(FOR HYPOALB) 9.4 mg/dL (8.5-10.1); CREATININE 1.46 mg/dL (0.55-1.02); TOTAL PROTEIN 7.1 g/dL (6.4-8.2)
[2018-02-27 05:35] LABS: ANISOCYTOSIS 1+; HYPOCHROMASIA 1+; PLATELET MORPHOLOGY COMMENT NORMAL (NORMAL)
[2018-02-27] MEDS: NS 1/2 1000 ML IV 1,000 ML IV SCH (05:45)
[2018-02-27] MEDS: HumuLIN R SUBCUT PRN ×3 (05:49→17:14)
[2018-02-27] MEDS: FORTAZ or TAZICEF VIAL INJ 1 G in NS 100 ML IV + SPIKE MINIBAG* 100 ML IV SCH ×2 (09:01→20:26)
[2018-02-27] MEDS: FOLIC ACID TAB 1 MG PO SCH (09:02)
[2018-02-27] MEDS: COREG TAB 6.25 MG PO SCH ×2 (09:02→20:26)
[2018-02-27] MEDS: ROBITUSSIN DM PO SCH ×5 (09:02→20:28)
[2018-02-27] MEDS: PLAVIX PO SCH (09:03)
[2018-02-27] MEDS: ECOTRIN TAB 325 MG PO SCH (09:03)
[2018-02-27] MEDS: DIFLUCAN PO SCH (09:03)
[2018-02-27] MEDS: CLARITIN PO SCH (09:03)
[2018-02-27] MEDS: PROTONIX TAB 40 MG PO SCH ×2 (09:03→20:26)
[2018-02-27] MEDS: EFFEXOR XR 150 MG CAP PO SCH (09:03)
[2018-02-27] MEDS: VASOTEC TAB 10 MG PO SCH ×2 (09:05→20:27)
[2018-02-27] MEDS ORDERED: ALBUMIN HUMAN 25%- 100 ML 100 ML IV ONE (09:29)
[2018-02-27] MEDS: LASIX IVP SCH ×2 (11:21→21:30)
[2018-02-27] MEDS ORDERED: NS 250 ML IV 250 ML IV ONE (14:19)
[2018-02-27] MEDS: XANAX PO PRN ×2 (14:26→20:31)
[2018-02-27] MEDS: ROXICODONE TAB 15 MG PO PRN (17:14)
[2018-02-27] MEDS: ZOCOR TAB 10 MG PO SCH (20:26)
[2018-02-27] MEDS: COLACE CAP 100 MG PO SCH (20:26)
[2018-02-27] MEDS: SNACK - Diabetic Appropriate PO SCH (20:26)
[2018-02-27] MEDS: ZOLOFT PO SCH (20:27)
[2018-02-27] MEDS: DESYREL PO SCH (20:27)
[2018-02-27] MEDS: LANTUS SC SCH (20:28)
[2018-02-28] MEDS: DUONEB 0.5 MG/3 MG NEB SCH ×6 (01:11→21:55)
[2018-02-28 05:34] LABS: BASOPHILS # (AUTO) 0.1 X10^3/uL (0.0-0.1); BASOPHILS % (AUTO) 0.8 % (0.2-1.0); EOSINOPHILS # (AUTO) 0.2 x10^3/uL (0.0-0.2); EOSINOPHILS % (AUTO) 2.3 % (0.9-2.9); HEMATOCRIT 26.4 % (36.0-47.0); HEMOGLOBIN 8.5 g/dL (12.0-16.0); LYMPHOCYTES % (AUTO) 21.9 % (21.0-51.0); MEAN CORPUSCULAR HEMOGLOBIN 24.4 pg (27.0-34.0); MEAN CORPUSCULAR HGB CONC 32.2 g/dL (33.0-35.0); MEAN CORPUSCULAR VOLUME 75.6 fL (80.0-100.0); MEAN PLATELET VOLUME 8.4 fL (7.4-11.0); MONOCYTES # (AUTO) 0.8 x10^3/uL (0.3-0.8); MONOCYTES % (AUTO) 8.7 % (0.0-13.0); NEUTROPHILS # (AUTO) 6.2 x10^3/uL (2.2-4.8); NEUTROPHILS % (AUTO) 66.3 % (42.0-75.0); PLATELET COUNT 238 X10^3/uL (150.0-450.0); RED BLOOD COUNT 3.49 X10^6/uL (3.5-5.4); RED CELL DISTRIBUTION WIDTH 17.7 % (11.6-16.5); WHITE BLOOD COUNT 9.3 X10^3/uL (3.6-10.0)
[2018-02-28 05:48] LABS: ANISOCYTOSIS 1+; HYPOCHROMASIA 1+; PLATELET MORPHOLOGY COMMENT NORMAL (NORMAL)
[2018-02-28 05:55] LABS: ALBUMIN 3.3 g/dL (3.4-5.0); CALCIUM 8.5 mg/dL (8.5-10.1); CARBON DIOXIDE 27.9 mmol/L (21-32); COR CA(FOR HYPOALB) 9.1 mg/dL (8.5-10.1); CREATININE 1.44 mg/dL (0.55-1.02); TOTAL PROTEIN 6.6 g/dL (6.4-8.2)
--- NOTE | 2018-02-28 06:43 | RAD ---
History: Cough and shortness of breath Study: Portable AP chest Comparison: February 24 Findings: The heart size is mildly enlarged as before with intact pacemaker wire leads via the left s ubclavian vein. There is left basilar retrocardiac density obscuring the left hemidiaphragm. The righ t lung appears grossly clear and improved compared to February 24. Impression: 1. Apparent left basilar pneumonia 2. Unchanged cardiomegaly Reported By:
[2018-02-28] MEDS: FORTAZ or TAZICEF VIAL INJ 1 G in NS 100 ML IV + SPIKE MINIBAG* 100 ML IV SCH ×2 (08:15→20:09)
[2018-02-28] MEDS: FOLIC ACID TAB 1 MG PO SCH (08:15)
[2018-02-28] MEDS: ROBITUSSIN DM PO SCH ×5 (08:15→20:12)
[2018-02-28] MEDS: PROTONIX TAB 40 MG PO SCH ×2 (08:16→20:10)
[2018-02-28] MEDS: ECOTRIN TAB 325 MG PO SCH (08:16)
[2018-02-28] MEDS: ROXICODONE TAB 15 MG PO PRN (08:16)
[2018-02-28] MEDS: EFFEXOR XR 150 MG CAP PO SCH (08:16)
[2018-02-28] MEDS: VASOTEC TAB 10 MG PO SCH ×2 (08:17→20:10)
[2018-02-28] MEDS: CLARITIN PO SCH (08:17)
[2018-02-28] MEDS: DIFLUCAN PO SCH (08:17)
[2018-02-28] MEDS: PLAVIX PO SCH (08:18)
[2018-02-28] MEDS: COREG TAB 6.25 MG PO SCH ×2 (08:18→20:10)
[2018-02-28] MEDS ORDERED: ALBUMIN HUMAN 25%- 100 ML 100 ML IV ONE ×2 (10:39→10:40)
[2018-02-28] MEDS: LASIX IVP SCH ×2 (11:09→20:11)
[2018-02-28] MEDS: DESYREL PO SCH (20:09)
[2018-02-28] MEDS: ZOCOR TAB 10 MG PO SCH (20:10)
[2018-02-28] MEDS: SNACK - Diabetic Appropriate PO SCH (20:10)
[2018-02-28] MEDS: COLACE CAP 100 MG PO SCH (20:10)
[2018-02-28] MEDS: ZOLOFT PO SCH (20:11)
[2018-02-28] MEDS: XANAX PO PRN (20:11)
[2018-02-28] MEDS: LANTUS SC SCH (20:12)
[2018-03-01] MEDS: DUONEB 0.5 MG/3 MG NEB SCH ×4 (00:57→12:02)
[2018-03-01] MEDS: HumuLIN R SUBCUT PRN (05:49)
[2018-03-01 06:33] LABS: BASOPHILS # (AUTO) 0.1 X10^3/uL (0.0-0.1); BASOPHILS % (AUTO) 0.7 % (0.2-1.0); EOSINOPHILS # (AUTO) 0.2 x10^3/uL (0.0-0.2); EOSINOPHILS % (AUTO) 2.4 % (0.9-2.9); HEMOGLOBIN 8.8 g/dL (12.0-16.0); LYMPHOCYTES # (AUTO) 1.6 X10^3/uL (1.3-2.9); LYMPHOCYTES % (AUTO) 17.9 % (21.0-51.0); MEAN CORPUSCULAR HEMOGLOBIN 24.8 pg (27.0-34.0); MEAN CORPUSCULAR HGB CONC 32.7 g/dL (33.0-35.0); MEAN CORPUSCULAR VOLUME 75.7 fL (80.0-100.0); MEAN PLATELET VOLUME 8.7 fL (7.4-11.0); MONOCYTES # (AUTO) 0.7 x10^3/uL (0.3-0.8); MONOCYTES % (AUTO) 8.5 % (0.0-13.0); NEUTROPHILS # (AUTO) 6.2 x10^3/uL (2.2-4.8); NEUTROPHILS % (AUTO) 70.5 % (42.0-75.0); PLATELET COUNT 236 X10^3/uL (150.0-450.0); RED BLOOD COUNT 3.57 X10^6/uL (3.5-5.4); RED CELL DISTRIBUTION WIDTH 17.9 % (11.6-16.5); WHITE BLOOD COUNT 8.8 X10^3/uL (3.6-10.0)
--- NOTE | 2018-03-01 06:47 | RAD ---
History: Cough and shortness of breath Study: Portable AP chest Comparison: Yesterday Findings: There is persistent left lower lobe retrocardiac density. The right lung is grossly clear. The heart is prominent with intact pacemaker wire leads from the left. Impression: Persistent left lower lobe consolidation Reported By:
[2018-03-01 06:53] LABS: ALANINE AMINOTRANSFERASE 23 Units/L (12-78); ALBUMIN 3.6 g/dL (3.4-5.0); ALKALINE PHOSPHATASE 142 Units/L (46-116); ASPARTATE AMINO TRANSFERASE 11 Units/L (15-37); BLOOD UREA NITROGEN 34 mg/dL (7-18); CALCIUM 8.7 mg/dL (8.5-10.1); CARBON DIOXIDE 33.5 mmol/L (21-32); CHLORIDE 99 mmol/L (98-107); COR NA(FOR HYPERGLY) 143 mmol/L (136-145); CREATININE 1.45 mg/dL (0.55-1.02); SODIUM 140 mmol/L (136-145); eGFR NON BLACK RACES 39 (>60)
[2018-03-01 06:59] LABS: HYPOCHROMASIA SLIGHT; PLATELET MORPHOLOGY COMMENT NORMAL (NORMAL)
[2018-03-01] MEDS: FORTAZ or TAZICEF VIAL INJ 1 G in NS 100 ML IV + SPIKE MINIBAG* 100 ML IV SCH (07:32)
[2018-03-01] MEDS ORDERED: K-LYTE EFFERVESCENT PO PRN (08:20)
[2018-03-01] MEDS ORDERED: POTASSIUM CHL 60 MEQ/NS 0.45% 500 ML IV PRN (08:20)
[2018-03-01] MEDS ORDERED: POTASSIUM CHL 40 MEQ/NS 0.45% 500 ML IV PRN (08:20)
[2018-03-01] MEDS ORDERED: POTASSIUM CHLORIDE LIQ 20 MEQ UDC PO PRN (08:20)
[2018-03-01] MEDS ORDERED: K-RIDER 10 MEQ/NS 100 ML 10 MEQ/100 ML BAG IV PRN (08:20)
[2018-03-01] MEDS: PROTONIX TAB 40 MG PO SCH (08:51)
[2018-03-01] MEDS: COREG TAB 6.25 MG PO SCH (08:52)
[2018-03-01] MEDS: CLARITIN PO SCH (08:52)
[2018-03-01] MEDS: VASOTEC TAB 10 MG PO SCH (08:52)
[2018-03-01] MEDS: EFFEXOR XR 150 MG CAP PO SCH (08:52)
[2018-03-01] MEDS: FOLIC ACID TAB 1 MG PO SCH (08:52)
[2018-03-01] MEDS: ECOTRIN TAB 325 MG PO SCH (08:52)
[2018-03-01] MEDS: DIFLUCAN PO SCH (08:52)
[2018-03-01] MEDS: ROBITUSSIN DM PO SCH (09:10)
[2018-03-01] MEDS: PLAVIX PO SCH (09:10)
[2018-03-01] MEDS: ZOFRAN INJ 4 MG VIAL IVP PRN (10:04)
[2018-03-01 11:03] VITALS: BP 127/62
--- NOTE | 2018-04-01 14:44 | DR.CARTERD ---
- Discharge Summary for: Discharge Summary for Date of:: 03/01/18 - Admission Date Date of Admission: 02/21/18 - Admission Diagnoses Admission Diagnosis: 1. Pneumonia 2. CHF exacerbation 3. Shortness of breath 4. Cough - Discharge Date Discharge Date: 03/01/18 - Discharge Diagnoses Discharge Diagnosis: 1. Pneumonia 2. CHF exacerbation 3. Shortness of breath 4. Cough - Hospital Course Hospital Course: Day one, Patient presented to the [facility] as a direct admit for further evaluation and treatment of pneumonia. She reported a non-productive cough, shortness of breath, and headache. Patient was seen in our office twice one week prior and received Rocephin IM times one and Kenalog IM times one. She was given prescriptions for Cipro and Amoxicillin which she stated she had been taking without results. A chest x-ray was obtained and showed: Findings concerning for bibasilar pneumonia and likely small volume pleural effusion; cardiomegaly and mild pulmonary vascular congestion noted as well. Medical HX: TIA, CAD, Defibrillator, HTN, Brovchitis, COPD, GERD, Gastrointestinal Ulcer, Constipation, UTI, Fibromyalgia, Arthritis, Back Pain, DM 11, Anemia, Depression , Hysterectomy, Tonsillectomy, Stent in left leg, Rotator cuff repair. Abnormal Labs: HGB 9.7, HCT 30.5, MCV 77.2, MCH 24.6, MCHC 31.9, RDW 18.1, BUN 21, Creatinine 1.14, GFR (NON) 51, Glucose 199, Alkaline Phosphatase 141, A/G ratio 0.9. Chest X-Ray: Findings concerning for bibasilar pneumonia and likely small volume pleural effusion. Cardiomegaly and mild pulmonary vascular congestion noted as well. We started Ceftazidime 1 GM IV Q12H for antibiotic therapy, NS @ 100 MLS/HR for gentle IV hydration, Duoneb treatments 4h for shortness of breath. Patient continued with shortness of breath and productive cough. Patient was continued on Lasix IV bid and [place] protocol with IV antibiotics and aggressive neb treatments. Day four, Patient continued to remain in the hospital for treatment of bibasilar pneumonia and CHF exacerbation. Coarse, diminished breath sounds noted on auscultation along with a non-productive intermittent cough. We continued to administer Ceftazidime 1 GM IV Q12H, Lasix 40 MG IV Q12, Zofran 4 MG IVP Q6H PRN, and Duoneb treatments 0.5 MG/3 MG 1 EA NEB Q4RESP along with home medications. Patient continued to use supplementary oxygen via nasal cannula. We continued to monitor patient. Abnormal Labs: RBC 3.36, HGB 8.4, HCT 26.0, MCV 77.4, MCH 24.9, MCHC 32.2, RDW 18.2, Potassium 5.3 , BUN 23, Creatinine 1.46, Glucose 215, Calcium 8.4, Alkaline Phosphatase 140. Day eight, Patient continued treatment for pneumonia and CHF exacerbation. Lasix 40 MG IV was administered Q12H times 2 doses on 02/27/18 along with Albumin 25% 100 MLS times 1 dose. Patient was continued on Lasix 40 MG IVP Q12H times 2 doses and Albumin 25% 100 MLS times 1 dose. Patient continued to receive Ceftazidime 1 GM IV Q12H and Duoneb Treatments 0.5 MG/3 MG 1 EA NEB Q4RESP. Chest x-ray revealed apparent left basilar pneumonia and unchanged cardiomegaly. Patient noted to have crackles along with diminished breath sounds on auscultation. Patient continued on supplemental oxygen at 2L/NC. On day nine, patient reported she was feeling better. She reported that cough was improved. Blood and sputum cultures were negative for growth. Vital signs stable. Labs wnl. On auscultation, lungs were noted with scattered rhonchi. Cough was intermittent, sputum thin. We planned for discharge. Instructions for medications and follow up were discussed with patient and family, both voiced understanding. Patient discharged home in stable condition with family. - Discharge Medications Discharge Medications: Home Medication List insulin glargine [Lantus U-100 Insulin] 10 - 15 unit SUB-Q PRN PRN 02/21/18 [ History] sertraline 2 tab PO HS 02/21/18 [History] trazodone 1 tab PO HS 02/21/18 [History] Prescriptions: Home medications Venlafaxine HCl [Venlafaxine HCl ER] 150 mg PO DAILY 10/08/12 Enalapril Maleate [Enalapril Maleate 10 mg] 10 mg PO DAILY 12/28/16 Loratadine 10 mg PO DAILY 12/28/16 Oxycodone HCl [Oxycontin] 20 mg PO QID PRN 12/28/16 alprazolam 1 mg PO TID 12/28/16 clopidogrel [Plavix] 75 mg PO DAILY 12/28/16 folic acid 2 mg PO DAILY 12/28/16 simvastatin 1 tab PO HS 12/28/16 fentanyl 1 patch TOP Q72H 08/12/17 furosemide 40 mg PO BID PRN 08/12/17 pantoprazole 40 mg PO BID 08/12/17 aspirin 325 mg PO DAILY 09/03/17 carvedilol 6.25 mg PO BID 09/03/17 furosemide 20 mg PO BID 09/03/17 insulin glargine [Lantus U-100 Insulin] 10 - 15 unit SC HS 09/03/17 metformin 500 mg PO BIDWM 09/03/17 - Discharge Disposition Discharge Disposition: Patient is to follow up in our office in one week.
== END 2018-03-01 12:30 | disposition home health service (06) | DRG 195 ==
LOC: MED/SURG 13:24
PROVIDERS: ADMIT Internal Medicine; ATTEND Internal Medicine
DX: R94.4 Abnormal results of kidney function studies; I73.9 Peripheral vascular disease, unspecified; E55.9 Vitamin D deficiency, unspecified; I48.2 Chronic atrial fibrillation; I50.9 Heart failure, unspecified; J18.0 Bronchopneumonia, unspecified organism; G89.4 Chronic pain syndrome; R06.02 Shortness of breath; E78.2 Mixed hyperlipidemia; E11.621 Type 2 diabetes mellitus with foot ulcer; I10 Essential (primary) hypertension; E11.65 Type 2 diabetes mellitus with hyperglycemia
CPT/HCPCS: 36415; 71010; 71020; 71045; 71046; 80048; 80053; 83735; 84132; 85025; 87040; 87070; 87205; 94640; 94669; 94760; A4222; P9047; J0713; J1815; J1940; J2405; J3490; J7040; J7050; J7620; J8499

== ENCOUNTER 2018-05-23 09:58 | Inpatient (IN) ==
[2018-05-23] MEDS ORDERED: LASIX IVP ONE (11:14)
[2018-05-23 12:00] LABS: ALBUMIN 2.7 g/dL (3.4-5.0); BASOPHILS % (AUTO) 0.7 % (0.2-1.0); CALCIUM 8.4 mg/dL (8.5-10.1); CARBON DIOXIDE 34.3 mmol/L (21-32); COR CA(FOR HYPOALB) 9.4 mg/dL (8.5-10.1); CREATININE 1.52 mg/dL (0.55-1.02); EOSINOPHILS # (AUTO) 0.2 x10^3/uL (0.0-0.2); EOSINOPHILS % (AUTO) 3.7 % (0.9-2.9); HEMATOCRIT 26.5 % (36.0-47.0); HEMOGLOBIN 8.1 g/dL (12.0-16.0); LYMPHOCYTES # (AUTO) 1.2 X10^3/uL (1.3-2.9); LYMPHOCYTES % (AUTO) 19.3 % (21.0-51.0); MEAN CORPUSCULAR HEMOGLOBIN 22.2 pg (27.0-34.0); MEAN CORPUSCULAR HGB CONC 30.5 g/dL (33.0-35.0); MEAN CORPUSCULAR VOLUME 72.7 fL (80.0-100.0); MEAN PLATELET VOLUME 8.7 fL (7.4-11.0); MONOCYTES # (AUTO) 0.7 x10^3/uL (0.3-0.8); MONOCYTES % (AUTO) 10.9 % (0.0-13.0); NEUTROPHILS % (AUTO) 65.4 % (42.0-75.0); PLATELET COUNT 211 X10^3/uL (150.0-450.0); RED BLOOD COUNT 3.65 X10^6/uL (3.5-5.4); RED CELL DISTRIBUTION WIDTH 19.8 % (11.6-16.5); TOTAL PROTEIN 6.3 g/dL (6.4-8.2); WHITE BLOOD COUNT 6.2 X10^3/uL (3.6-10.0)
[2018-05-23 12:03] LABS: PLATELET MORPHOLOGY COMMENT NORMAL (NORMAL)
[2018-05-23 12:04] LABS: HYPOCHROMASIA 1+
--- NOTE | 2018-05-23 12:38 | VAS ---
History: Status post fem-pop graft 1 month ago with severe edema and calf pain bilaterally Study: Deep venous Doppler of both lower extremity veins Comparison: August 14, 2017 Findings: The deep veins are evaluated from the common femoral to the tibial veins bilaterally. There is good Doppler flow with lumen compression and augmentation demonstrated bilaterally. Impression: No evidence for deep venous thrombosis Reported By:
--- NOTE | 2018-05-23 13:45 | RAD ---
Exam: Portable chest History: 68-year-old female with congestive heart failure. Shortness of breath. Comparison: Previous chest radiograph from 03/01/2018 Findings: Cardiomegaly with pulmonary vascular congestion is seen. Cardiac pacemaker is again noted. Right basi lar atelectasis is also present. Small effusions may be present on both sides as well. Impression: Cardiomegaly with pulmonary vascular congestion. Right basilar atelectasis Reported By:
[2018-05-23] MEDS: HumuLIN R SUBCUT PRN (14:02)
[2018-05-23] MEDS ORDERED: DUONEB 0.5 MG/3 MG NEB PRN (14:11)
[2018-05-23 15:30] VITALS: BMI 29.1
[2018-05-23] MEDS: LASIX IVP SCH (19:07)
[2018-05-23] MEDS: SNACK - Diabetic Appropriate PO SCH (21:00)
[2018-05-24] MEDS: LASIX IVP SCH ×2 (06:06→21:03)
[2018-05-24] MEDS: HumuLIN R SUBCUT PRN ×2 (06:07→17:35)
[2018-05-24 06:23] LABS: BASOPHILS % (AUTO) 0.4 % (0.2-1.0); EOSINOPHILS # (AUTO) 0.2 x10^3/uL (0.0-0.2); EOSINOPHILS % (AUTO) 3.5 % (0.9-2.9); HEMATOCRIT 25.3 % (36.0-47.0); HEMOGLOBIN 7.8 g/dL (12.0-16.0); LYMPHOCYTES # (AUTO) 1.5 X10^3/uL (1.3-2.9); LYMPHOCYTES % (AUTO) 23.9 % (21.0-51.0); MEAN CORPUSCULAR HEMOGLOBIN 22.6 pg (27.0-34.0); MEAN CORPUSCULAR HGB CONC 30.9 g/dL (33.0-35.0); MEAN CORPUSCULAR VOLUME 73.1 fL (80.0-100.0); MEAN PLATELET VOLUME 8.6 fL (7.4-11.0); MONOCYTES # (AUTO) 0.6 x10^3/uL (0.3-0.8); MONOCYTES % (AUTO) 9.7 % (0.0-13.0); NEUTROPHILS # (AUTO) 3.9 x10^3/uL (2.2-4.8); NEUTROPHILS % (AUTO) 62.5 % (42.0-75.0); PLATELET COUNT 223 X10^3/uL (150.0-450.0); RED BLOOD COUNT 3.47 X10^6/uL (3.5-5.4); RED CELL DISTRIBUTION WIDTH 20.2 % (11.6-16.5); WHITE BLOOD COUNT 6.3 X10^3/uL (3.6-10.0)
[2018-05-24 06:45] LABS: ALBUMIN 2.8 g/dL (3.4-5.0); CALCIUM 8.5 mg/dL (8.5-10.1); CARBON DIOXIDE 30.5 mmol/L (21-32); COR CA(FOR HYPOALB) 9.5 mg/dL (8.5-10.1); CREATININE 1.55 mg/dL (0.55-1.02); TOTAL PROTEIN 6.5 g/dL (6.4-8.2)
[2018-05-24 06:47] LABS: ANISOCYTOSIS 1+; HYPOCHROMASIA 1+; MICROCYTOSIS SLIGHT; PLATELET MORPHOLOGY COMMENT NORMAL (NORMAL)
[2018-05-24] MEDS ORDERED: TIOTROPIUM OLODATEROL IN PRN (10:24)
[2018-05-24] MEDS: LEVAQUIN PREMIX IV 500 MG 500 MG/100 ML BAG IV SCH (12:51)
[2018-05-24] MEDS: EFFEXOR XR 150 MG CAP PO SCH (12:52)
[2018-05-24] MEDS: PEPCID TAB 20 MG PO SCH ×2 (12:52→21:03)
[2018-05-24] MEDS: XANAX PO SCH ×4 (12:52→21:03)
[2018-05-24] MEDS: PROTONIX TAB 40 MG PO SCH ×2 (12:53→21:03)
[2018-05-24] MEDS: CLARITIN PO SCH (12:53)
[2018-05-24] MEDS: FORTAZ or TAZICEF VIAL INJ IVP SCH ×3 (12:56→21:04)
[2018-05-24] MEDS: HEMOCYTE-PLUS PO SCH (12:56)
[2018-05-24] MEDS: PLAVIX PO SCH (12:56)
[2018-05-24] MEDS ORDERED: ZOFRAN INJ 4 MG VIAL IVP PRN (13:28)
[2018-05-24] MEDS: PERCOCET TAB 5/325 MG PO PRN (18:48)
[2018-05-24] MEDS ORDERED: MAGNESIUM SULFATE 1 GRAM/100 mL PREMIX 1 GM/100 ML BAG IV PRN (20:36)
[2018-05-24] MEDS ORDERED: KLOR-CON PO PRN (20:36)
[2018-05-24] MEDS ORDERED: K-RIDER 10 MEQ/NS 100 ML 10 MEQ/100 ML BAG IV PRN (20:36)
[2018-05-24] MEDS ORDERED: POTASSIUM CHL 40 MEQ/NS 0.45% 500 ML IV PRN (20:36)
[2018-05-24] MEDS ORDERED: POTASSIUM CHL 60 MEQ/NS 0.45% 500 ML IV PRN (20:36)
[2018-05-24] MEDS ORDERED: MICRO K EXTEN CAP 10 MEQ PO PRN (20:36)
[2018-05-24] MEDS ORDERED: POTASSIUM CHLORIDE LIQ 20 MEQ UDC PO PRN (20:36)
[2018-05-24] MEDS ORDERED: K-DUR TAB 20 MEQ PO PRN (20:36)
[2018-05-24] MEDS: COREG TAB 6.25 MG PO SCH (21:03)
[2018-05-24] MEDS: ZOCOR TAB 10 MG PO SCH (21:03)
[2018-05-24] MEDS: COLACE CAP 100 MG PO PRN (21:20)
[2018-05-24] MEDS: SNACK - Diabetic Appropriate PO SCH ×2 (21:23→21:26)
[2018-05-24] MEDS: LANTUS SC SCH (21:25)
[2018-05-25] MEDS: FORTAZ or TAZICEF VIAL INJ IVP SCH ×3 (05:58→21:14)
[2018-05-25] MEDS: XANAX PO SCH ×3 (05:59→21:10)
[2018-05-25 06:29] LABS: BASOPHILS # (AUTO) 0.1 X10^3/uL (0.0-0.1); BASOPHILS % (AUTO) 1.1 % (0.2-1.0); EOSINOPHILS # (AUTO) 0.2 x10^3/uL (0.0-0.2); EOSINOPHILS % (AUTO) 3.5 % (0.9-2.9); HEMATOCRIT 29.8 % (36.0-47.0); HEMOGLOBIN 9.1 g/dL (12.0-16.0); LYMPHOCYTES # (AUTO) 2.1 X10^3/uL (1.3-2.9); LYMPHOCYTES % (AUTO) 30.8 % (21.0-51.0); MEAN CORPUSCULAR HEMOGLOBIN 22.3 pg (27.0-34.0); MEAN CORPUSCULAR HGB CONC 30.4 g/dL (33.0-35.0); MEAN CORPUSCULAR VOLUME 73.6 fL (80.0-100.0); MEAN PLATELET VOLUME 8.6 fL (7.4-11.0); MONOCYTES # (AUTO) 0.6 x10^3/uL (0.3-0.8); MONOCYTES % (AUTO) 9.3 % (0.0-13.0); NEUTROPHILS # (AUTO) 3.8 x10^3/uL (2.2-4.8); NEUTROPHILS % (AUTO) 55.3 % (42.0-75.0); PLATELET COUNT 242 X10^3/uL (150.0-450.0); RED BLOOD COUNT 4.05 X10^6/uL (3.5-5.4); RED CELL DISTRIBUTION WIDTH 19.9 % (11.6-16.5); WHITE BLOOD COUNT 6.9 X10^3/uL (3.6-10.0)
[2018-05-25 06:33] LABS: ALBUMIN 2.9 g/dL (3.4-5.0); CALCIUM 8.8 mg/dL (8.5-10.1); CARBON DIOXIDE 33.1 mmol/L (21-32); COR CA(FOR HYPOALB) 9.7 mg/dL (8.5-10.1); CREATININE 1.45 mg/dL (0.55-1.02); TOTAL PROTEIN 6.9 g/dL (6.4-8.2)
[2018-05-25 07:25] LABS: HYPOCHROMASIA 1+; PLATELET MORPHOLOGY COMMENT NORMAL (NORMAL)
--- NOTE | 2018-05-25 09:09 | RAD ---
History: Shortness of breath Study: AP chest Comparison: May 23 Findings: There is limited inspiration. There is mild cardiomegaly with intact pacemaker wire leads. There is persistent subsegmental atelectasis at the right lung base. Vascular congestion is improved. There is density at the left lung base obscuring the left hemidiaphragm. Impression: 1. Unchanged cardiomegaly 2. Improving vascular congestion 3. Subsegmental atelectasis at the lung bases 4. Probable left pleural effusion Reported By:
[2018-05-25] MEDS: LEVAQUIN PREMIX IV 500 MG 500 MG/100 ML BAG IV SCH (09:38)
[2018-05-25] MEDS: HEMOCYTE-PLUS PO SCH (09:39)
[2018-05-25] MEDS: PROTONIX TAB 40 MG PO SCH ×2 (09:39→21:11)
[2018-05-25] MEDS: PEPCID TAB 20 MG PO SCH ×2 (09:39→21:10)
[2018-05-25] MEDS: LASIX IVP SCH ×2 (09:39→21:14)
[2018-05-25] MEDS: EFFEXOR XR 150 MG CAP PO SCH (09:39)
[2018-05-25] MEDS: COREG TAB 6.25 MG PO SCH ×2 (09:39→21:10)
[2018-05-25] MEDS: CLARITIN PO SCH (09:39)
[2018-05-25] MEDS ORDERED: NS 250 ML IV 250 ML IV ONE (09:44)
[2018-05-25] MEDS: PLAVIX PO SCH (09:45)
[2018-05-25] MEDS: LOVENOX INJ 30 MG SYR SC SCH ×2 (09:45→21:13)
[2018-05-25] MEDS: ALBUMIN HUMAN 25%- 100 ML 100 ML IV SCH (09:47)
--- NOTE | 2018-05-25 10:33 | PCM.PROG ---
Progress Note - Progress Note for Day of Date of Exam: 05/24/18 - Subjective Subjective: WAS ADMITTED FOR SHORTNESS OF BREATH, BILATERAL LOWER EXTREMITY EDEMA, AND CELLULITIS OF THE LOWER EXTREMITIES. PATIENT IS STATUS POST FEMERAL POPLITEAL BYPASS ONLY A FEW DAYS AGO. THIS IS LIKELY THE CAUSE OF INFECTION. TODAY, SHE IS ALERT AND ORIENTED, LYING IN BED ON MORNING ROUNDS. SHE CONTINUES WITH COMPLAINTS OF SHORTNESS OF BREATH, BILATERAL LOWER EXTREMITY SWELLING AND REDNESS, AND GENERALIZED WEAKNESS. ON EXAMINATION, HEART IS REGULAR IN RATE AND RHYTHM. BILATERAL LUNGS ARE NOTED WITH DIMINISHED LUNG SOUNDS THROUGHOUT. ABDOMEN IS ROUND, SOFT, AND NON-TENDER WITH NORMAL BOWEL SOUNDS NOTED IN ALL QUADRANTS. BILATERAL LOWER EXTREMITIES ARE NOTED WITH ERYTHEMA AND 2+PITTING EDEMA. HER VITALS THIS MORNING ARE 98.8-90-20-96%NC-129/66. LABS WERE OBTAINED. ABNORMAL LAB VALUES INCLUDE THE FOLLOWING: RBC 3.47, HGB 7.8, HCT 25.3, POTASSIUM 3.3, BUN 32, CREATININE 1.55, GLUCOSE 232, ALK PHOS 153, BNP 2050, ALBUMIN 2.8. CHEST XRAY ON ADMISSION REVEALED: Cardiomegaly with pulmonary vascular congestion. Right basilar atelectasis. TODAY, WE WILL START IV FORTAZ, IV LEVAQUIN, HEMOCYTE 1 TAB PO DAILY, AND LASIX 20MG IV BID. WE WILL ALSO OBTAIN AN ECHOCARDIOGRAM. WE WILL CONTINUE TO MONITOR OTBS AND ADMINISTER PRN INSULIN NECESSARY. OTHERWISE, WE WILL FOLLOW UP WITH AM LABS AND CONTINUE TO MONITOR PATIENT. - Past Medical Family Social History Past Med/Fam/Surg Hx: No changes since H&P Allergies: Allergies codeine Allergy (Verified 08/13/17 04:47) morphine Allergy (Verified 08/13/17 04:47) Sulfa (Sulfonamide Antibiotics) [SULFA] Allergy (Verified 08/13/17 04:47) TAPE Allergy (Uncoded 12/28/16 14:14) - Review of Systems ROS: No change since H&P - Vital Signs and I&O's Vital Signs: Temperature 97.8 F Pulse Rate [Left Brachial] 76 Pulse Rate 108 Respiratory Rate 18 Blood Pressure [Left Arm] 120/72 Blood Pressure [Right Arm] 126/66 Blood Pressure [Standing] 84/59 Blood Pressure [Lying] 96/58 Blood Pressure 127/62 O2 Sat by Pulse Oximetry 100 Intake and Output: Intake & Output 05/22/18 05/23/18 05/24/18 05/25/18 11:59 11:59 11:59 11:59 Intake Total 760 / 760 670 / 670 Output Total 2250 / 2250 2100 / 2100 Balance -1490 / -1490 -1430 / -1430 - Physical Exam Oriented: Normal Eyes: Normal Ear: Normal Nose: Normal Throat: Normal Respiratory: Generalized, Diminished Cardiovascular: Edema (BILATERAL LOWER EXTREMITY 2+ PITTING EDEMA) : Normal Auscultation: Bowel Sounds: Normal Palpation: Normal Tenderness: Normal Skin: Red (BILATERAL LOWER EXTREMITIES ), Tender, Hot Musculoskeletal: Normal Psychiatric: Normal Mood Description: Calm Affect: Normal Speech Pattern: Clear, Appropriate - Laboratory and Diagnostics Result Diagrams: 05/25/18 05:22 05/25/18 05:22 Labs: Laboratory WBC 6.9 X10^3/uL (3.6-10.0) 05/25/18 05:22 RBC 4.05 X10^6/uL (3.5-5.4) 05/25/18 05:22 Hgb 9.1 g/dL (12.0-16.0) L 05/25/18 05:22 Hct 29.8 % (36.0-47.0) L 05/25/18 05:22 MCV 73.6 fL (80.0-100.0) L 05/25/18 05:22 MCH 22.3 pg (27.0-34.0) L 05/25/18 05:22 MCHC 30.4 g/dL (33.0-35.0) L 05/25/18 05:22 RDW 19.9 % (11.6-16.5) H 05/25/18 05:22 Plt Count 242 X10^3/uL (150.0-450.0) 05/25/18 05:22 Plt Count Comment Adequate (ADEQUATE) 05/25/18 05:22 MPV 8.6 fL (7.4-11.0) 05/25/18 05:22 Neut % (Auto) 55.3 % (42.0-75.0) 05/25/18 05:22 Lymph % (Auto) 30.8 % (21.0-51.0) 05/25/18 05:22 [place] % (Auto) 9.3 % (0.0-13.0) 05/25/18 05:22 Eos % (Auto) 3.5 % (0.9-2.9) H 05/25/18 05:22 Baso % (Auto) 1.1 % (0.2-1.0) H 05/25/18 05:22 Neut # (Auto) 3.8 x10^3/uL (2.2-4.8) 05/25/18 05:22 Lymph # (Auto) 2.1 X10^3/uL (1.3-2.9) 05/25/18 05:22 [place] # (Auto) 0.6 x10^3/uL (0.3-0.8) 05/25/18 05:22 Eos # (Auto) 0.2 x10^3/uL (0.0-0.2) 05/25/18 05:22 Baso # (Auto) 0.1 X10^3/uL (0.0-0.1) 05/25/18 05:22 Absolute Nucleated RBC 0.0 /100WBC 05/25/18 05:22 Plt Morphology Comment Normal (NORMAL) 05/25/18 05:22 RBC Morphology Abnormal (NORMAL) A 05/25/18 05:22 Hypochromasia 1+ A 05/25/18 05:22 Anisocytosis 1+ A 05/24/18 05:08 Microcytosis Slight A 05/24/18 05:08 Sodium 138 mmol/L (136-145) 05/25/18 05:22 Corrected Sodium 140 mmol/L (136-145) 05/25/18 05:22 Potassium 3.9 mmol/L (3.5-5.1) 05/25/18 05:22 Chloride 99 mmol/L (98-107) 05/25/18 05:22 Carbon Dioxide 33.1 mmol/L (21-32) H 05/25/18 05:22 BUN 29 mg/dL (7-18) H 05/25/18 05:22 Creatinine 1.45 mg/dL (0.55-1.02) H 05/25/18 05:22 Est GFR (MDRD) Af Amer 46 (>60) L 05/25/18 05:22 Est GFR (MDRD) Non-Af 38 (>60) L 05/25/18 05:22 Glucose 166 mg/dL (65-99) H 05/25/18 05:22 POC Glucose (mg/dL) 160 mg/dL (65-99) H 05/25/18 05:29 Calcium 8.8 mg/dL (8.5-10.1) 05/25/18 05:22 Corrected Calcium 9.7 mg/dL (8.5-10.1) 05/25/18 05:22 Total Bilirubin 0.50 mg/dL (0.2-1.0) 05/25/18 05:22 AST 17 Units/L (15-37) 05/25/18 05:22 ALT 19 Units/L (12-78) 05/25/18 05:22 Alkaline Phosphatase 126 Units/L (46-116) H 05/25/18 05:22 B-Natriuretic Peptide 2640 pg/mL (0-79) H* 05/25/18 05:22 Total Protein 6.9 g/dL (6.4-8.2) 05/25/18 05:22 Albumin 2.9 g/dL (3.4-5.0) L 05/25/18 05:22 Globulin 4.0 g/dL (2.5-4.5) 05/25/18 05:22 Albumin/Globulin Ratio 0.7 Ratio (1.1-2.1) L 05/25/18 05:22 - Plan (1) Cellulitis of both lower extremities Status: Acute (2) Congestive heart failure (CHF) Status: Acute (3) Shortness of breath Status: Acute (4) Essential hypertension Status: Chronic (5) Diabetes mellitus, type 2 Status: Chronic Qualifiers: Diabetes mellitus fpc insulin use: with ferry terminal agent use Diabetes mellitus complication status: without complication Qualified Code(s): E11.9 - Type 2 diabetes mellitus without complications; Z79.4 - exterminator (current) use of insulin; Z79.4 - long-term (current) use of insulin; Z79.4 - exterminator (current) use of insulin; Z79.4 - exterminator (current) use of insulin
[2018-05-25] MEDS: PERCOCET TAB 5/325 MG PO PRN (15:23)
[2018-05-25] MEDS: ZOCOR TAB 10 MG PO SCH (21:09)
[2018-05-25] MEDS: ULTRAM PO PRN (21:09)
[2018-05-25] MEDS: COLACE CAP 100 MG PO PRN (21:10)
[2018-05-25] MEDS: SNACK - Diabetic Appropriate PO SCH ×2 (21:11)
[2018-05-25] MEDS: LANTUS SC SCH (21:12)
[2018-05-26] MEDS: FORTAZ or TAZICEF VIAL INJ IVP SCH ×2 (05:55→21:47)
[2018-05-26] MEDS: XANAX PO SCH ×3 (05:56→21:43)
[2018-05-26 06:31] LABS: CALCIUM 8.2 mg/dL (8.5-10.1); CARBON DIOXIDE 33.1 mmol/L (21-32); CREATININE 1.84 mg/dL (0.55-1.02); TOTAL PROTEIN 6.6 g/dL (6.4-8.2)
[2018-05-26 06:36] LABS: BASOPHILS % (AUTO) 0.7 % (0.2-1.0); EOSINOPHILS # (AUTO) 0.2 x10^3/uL (0.0-0.2); EOSINOPHILS % (AUTO) 3.1 % (0.9-2.9); HEMATOCRIT 28.9 % (36.0-47.0); HEMOGLOBIN 8.7 g/dL (12.0-16.0); LYMPHOCYTES # (AUTO) 2.4 X10^3/uL (1.3-2.9); LYMPHOCYTES % (AUTO) 35.4 % (21.0-51.0); MEAN CORPUSCULAR HEMOGLOBIN 22.2 pg (27.0-34.0); MEAN CORPUSCULAR HGB CONC 30.1 g/dL (33.0-35.0); MEAN CORPUSCULAR VOLUME 73.9 fL (80.0-100.0); MEAN PLATELET VOLUME 8.6 fL (7.4-11.0); MONOCYTES # (AUTO) 0.7 x10^3/uL (0.3-0.8); MONOCYTES % (AUTO) 10.5 % (0.0-13.0); NEUTROPHILS # (AUTO) 3.4 x10^3/uL (2.2-4.8); NEUTROPHILS % (AUTO) 50.3 % (42.0-75.0); PLATELET COUNT 218 X10^3/uL (150.0-450.0); RED BLOOD COUNT 3.92 X10^6/uL (3.5-5.4); RED CELL DISTRIBUTION WIDTH 20.3 % (11.6-16.5); WHITE BLOOD COUNT 6.8 X10^3/uL (3.6-10.0)
[2018-05-26 07:19] LABS: ANISOCYTOSIS 1+; HYPOCHROMASIA 1+; PLATELET MORPHOLOGY COMMENT NORMAL (NORMAL); POIKILOCYTOSIS SLIGHT
[2018-05-26] MEDS: PROTONIX TAB 40 MG PO SCH ×2 (09:36→21:45)
[2018-05-26] MEDS: COREG TAB 6.25 MG PO SCH ×2 (09:36→21:46)
[2018-05-26] MEDS: CLARITIN PO SCH (09:36)
[2018-05-26] MEDS: PEPCID TAB 20 MG PO SCH (09:36)
[2018-05-26] MEDS: HEMOCYTE-PLUS PO SCH (09:36)
[2018-05-26] MEDS: EFFEXOR XR 150 MG CAP PO SCH (09:36)
[2018-05-26] MEDS: PLAVIX PO SCH (09:37)
[2018-05-26] MEDS: PERCOCET TAB 5/325 MG PO PRN ×2 (09:37→21:46)
[2018-05-26] MEDS: ALBUMIN HUMAN 25%- 100 ML 100 ML IV SCH (09:40)
[2018-05-26] MEDS: LASIX IVP SCH (09:40)
[2018-05-26] MEDS: LEVAQUIN PREMIX IV 500 MG 500 MG/100 ML BAG IV SCH (09:40)
[2018-05-26] MEDS: LOVENOX INJ 30 MG SYR SC SCH ×2 (09:41→21:44)
--- NOTE | 2018-05-26 09:57 | PCM.PROG ---
Progress Note - Progress Note for Day of Date of Exam: 05/25/18 - Subjective Subjective: WAS ADMITTED FOR SHORTNESS OF BREATH, BILATERAL LOWER EXTREMITY EDEMA, AND CELLULITIS OF THE LOWER EXTREMITIES. PATIENT IS STATUS POST FEMERAL POPLITEAL BYPASS. THIS IS LIKELY THE CAUSE OF INFECTION. TODAY, SHE IS ALERT AND ORIENTED, LYING IN BED ON MORNING ROUNDS. SHE CONTINUES WITH COMPLAINTS OF SHORTNESS OF BREATH, BILATERAL LOWER EXTREMITY SWELLING AND REDNESS, AND GENERALIZED WEAKNESS. ON EXAMINATION, HEART IS REGULAR IN RATE AND RHYTHM. BILATERAL LUNGS ARE NOTED WITH DIMINISHED LUNG SOUNDS THROUGHOUT. ABDOMEN IS ROUND, SOFT, AND NON-TENDER WITH NORMAL BOWEL SOUNDS NOTED IN ALL QUADRANTS. BILATERAL LOWER EXTREMITIES CONTINUE WITH ERYTHEMA AND 2+PITTING EDEMA. HER VITALS THIS MORNING ARE 97.8-76-18-100%-126/66. LABS WERE OBTAINED. ABNORMAL LAB VALUES INCLUDE THE FOLLOWING: HGB 9.1, HCT 29.8, CARBON DIOXIDE 33.1, BUN 29, CREATININE 1.45, GLUCOSE 166, ALK PHOS 126, BNP 2640, ALBUMIN 2.9. CHEST XRAY OBTAINED TODAY AND REVEALED: Unchanged cardiomegaly. Improving vasc ular congestion. Subsegmental atelectasis at the lung bases. Probable left pleural effusion. SHE IS CURRENTLY RECEIVING IV FORTAZ, IV LEVAQUIN, HEMOCYTE 1 TAB PO DAILY, AND LASIX 20MG IV BID. WE WILL START LOVENOX 30MG SC BID, ALBUMIN 25% IV DAILY. OTHERWISE, WE WILL CONTINUE WITH CURRENT PLAN OF CARE. WE WILL FOLLOW UP WITH AM LABS AND CONTINUE TO MONITOR PATIENT. - Past Medical Family Social History Past Med/Fam/Surg Hx: No changes since H&P Allergies: Allergies codeine Allergy (Verified 08/13/17 04:47) morphine Allergy (Verified 08/13/17 04:47) Sulfa (Sulfonamide Antibiotics) [SULFA] Allergy (Verified 08/13/17 04:47) TAPE Allergy (Uncoded 12/28/16 14:14) - Review of Systems ROS: No change since H&P - Vital Signs and I&O's Vital Signs: Temperature 98.1 F Pulse Rate [Left Brachial] 82 Pulse Rate 108 Respiratory Rate 20 Blood Pressure [Left Arm] 120/72 Blood Pressure [Right Arm] 97/51 Blood Pressure [Standing] 84/59 Blood Pressure [Lying] 96/58 Blood Pressure 127/62 O2 Sat by Pulse Oximetry 92 Intake and Output: Intake & Output 05/23/18 05/24/18 05/25/18 05/26/18 11:59 11:59 11:59 11:59 Intake Total 760 / 760 670 / 670 940 / 940 Output Total 2250 / 2250 2100 / 2100 2250 / 2250 Balance -1490 / -1490 -1430 / -1430 -1310 / -1310 - Physical Exam Oriented: Normal Eyes: Normal Ear: Normal Nose: Normal Throat: Normal Respiratory: Generalized, Diminished Cardiovascular: Edema (BILATERAL LOWER EXTREMITY 2+ PITTING EDEMA) : Normal Auscultation: Bowel Sounds: Normal Palpation: Normal Tenderness: Normal Skin: Red (BILATERAL LOWER EXTREMITIES ), Tender, Hot Musculoskeletal: Normal Psychiatric: Normal Mood Description: Calm Affect: Normal Speech Pattern: Clear, Appropriate - Laboratory and Diagnostics Result Diagrams: 05/26/18 05:57 05/26/18 05:57 Labs: 05/23/18 16:20 Blood Blood Culture - Preliminary 05/23/18 16:13 Blood Blood Culture - Preliminary Laboratory WBC 6.8 X10^3/uL (3.6-10.0) 05/26/18 05:57 RBC 3.92 X10^6/uL (3.5-5.4) 05/26/18 05:57 Hgb 8.7 g/dL (12.0-16.0) L 05/26/18 05:57 Hct 28.9 % (36.0-47.0) L 05/26/18 05:57 MCV 73.9 fL (80.0-100.0) L 05/26/18 05:57 MCH 22.2 pg (27.0-34.0) L 05/26/18 05:57 MCHC 30.1 g/dL (33.0-35.0) L 05/26/18 05:57 RDW 20.3 % (11.6-16.5) H 05/26/18 05:57 Plt Count 218 X10^3/uL (150.0-450.0) 05/26/18 05:57 Plt Count Comment Adequate (ADEQUATE) 05/26/18 05:57 MPV 8.6 fL (7.4-11.0) 05/26/18 05:57 Neut % (Auto) 50.3 % (42.0-75.0) 05/26/18 05:57 Lymph % (Auto) 35.4 % (21.0-51.0) 05/26/18 05:57 [place] % (Auto) 10.5 % (0.0-13.0) 05/26/18 05:57 Eos % (Auto) 3.1 % (0.9-2.9) H 05/26/18 05:57 Baso % (Auto) 0.7 % (0.2-1.0) 05/26/18 05:57 Neut # (Auto) 3.4 x10^3/uL (2.2-4.8) 05/26/18 05:57 Lymph # (Auto) 2.4 X10^3/uL (1.3-2.9) 05/26/18 05:57 [place] # (Auto) 0.7 x10^3/uL (0.3-0.8) 05/26/18 05:57 Eos # (Auto) 0.2 x10^3/uL (0.0-0.2) 05/26/18 05:57 Baso # (Auto) 0.0 X10^3/uL (0.0-0.1) 05/26/18 05:57 Absolute Nucleated RBC 0.0 /100WBC 05/26/18 05:57 Plt Morphology Comment Normal (NORMAL) 05/26/18 05:57 RBC Morphology Abnormal (NORMAL) A 05/26/18 05:57 Hypochromasia 1+ A 05/26/18 05:57 Poikilocytosis Slight A 05/26/18 05:57 Anisocytosis 1+ A 05/26/18 05:57 Microcytosis Slight A 05/24/18 05:08 Sodium 137 mmol/L (136-145) 05/26/18 05:57 Corrected Sodium 138 mmol/L (136-145) 05/26/18 05:57 Potassium 3.9 mmol/L (3.5-5.1) 05/26/18 05:57 Chloride 97 mmol/L (98-107) L 05/26/18 05:57 Carbon Dioxide 33.1 mmol/L (21-32) H 05/26/18 05:57 BUN 36 mg/dL (7-18) H 05/26/18 05:57 Creatinine 1.84 mg/dL (0.55-1.02) H 05/26/18 05:57 Est GFR (MDRD) Af Amer 35 (>60) L 05/26/18 05:57 Est GFR (MDRD) Non-Af 29 (>60) L 05/26/18 05:57 Glucose 149 mg/dL (65-99) H 05/26/18 05:57 POC Glucose (mg/dL) 134 mg/dL (65-99) H 05/26/18 05:34 Calcium 8.2 mg/dL (8.5-10.1) L 05/26/18 05:57 Corrected Calcium 9.0 mg/dL (8.5-10.1) 05/26/18 05:57 Total Bilirubin 0.50 mg/dL (0.2-1.0) 05/26/18 05:57 AST 15 Units/L (15-37) 05/26/18 05:57 ALT 16 Units/L (12-78) 05/26/18 05:57 Alkaline Phosphatase 112 Units/L (46-116) 05/26/18 05:57 B-Natriuretic Peptide 2170 pg/mL (0-79) H* 05/26/18 05:57 Total Protein 6.6 g/dL (6.4-8.2) 05/26/18 05:57 Albumin 3.0 g/dL (3.4-5.0) L 05/26/18 05:57 Globulin 3.6 g/dL (2.5-4.5) 05/26/18 05:57 Albumin/Globulin Ratio 0.8 Ratio (1.1-2.1) L 05/26/18 05:57 - Plan (1) Cellulitis of both lower extremities Status: Acute (2) Congestive heart failure (CHF) Status: Acute (3) Shortness of breath Status: Acute (4) Essential hypertension Status: Chronic (5) Diabetes mellitus, type 2 Status: Chronic Qualifiers: Diabetes mellitus terminal supervisor insulin use: with terminal supervisor use Diabetes mellitus complication status: without complication Qualified Code(s): E11.9 - Type 2 diabetes mellitus without complications; Z79.4 - correction (current) use of insulin; Z79.4 - correction (current) use of insulin; Z79.4 - manager long term care (current) use of insulin; Z79.4 - manager long term care (current) use of insulin
[2018-05-26] MEDS: ULTRAM PO PRN (13:27)
[2018-05-26] MEDS: ZOCOR TAB 10 MG PO SCH (21:44)
[2018-05-26] MEDS: SNACK - Diabetic Appropriate PO SCH ×2 (21:44→21:47)
[2018-05-26] MEDS: COLACE CAP 100 MG PO PRN (21:46)
[2018-05-26] MEDS: LANTUS SC SCH (23:38)
[2018-05-27] MEDS: XANAX PO SCH ×3 (06:14→21:00)
[2018-05-27 06:39] LABS: BASOPHILS # (AUTO) 0.1 X10^3/uL (0.0-0.1); BASOPHILS % (AUTO) 0.9 % (0.2-1.0); EOSINOPHILS # (AUTO) 0.3 x10^3/uL (0.0-0.2); EOSINOPHILS % (AUTO) 4.2 % (0.9-2.9); HEMATOCRIT 28.2 % (36.0-47.0); HEMOGLOBIN 8.7 g/dL (12.0-16.0); LYMPHOCYTES # (AUTO) 2.1 X10^3/uL (1.3-2.9); LYMPHOCYTES % (AUTO) 30.4 % (21.0-51.0); MEAN CORPUSCULAR HEMOGLOBIN 22.5 pg (27.0-34.0); MEAN CORPUSCULAR HGB CONC 30.7 g/dL (33.0-35.0); MEAN CORPUSCULAR VOLUME 73.2 fL (80.0-100.0); MEAN PLATELET VOLUME 8.5 fL (7.4-11.0); MONOCYTES # (AUTO) 0.7 x10^3/uL (0.3-0.8); MONOCYTES % (AUTO) 10.4 % (0.0-13.0); NEUTROPHILS # (AUTO) 3.7 x10^3/uL (2.2-4.8); NEUTROPHILS % (AUTO) 54.1 % (42.0-75.0); PLATELET COUNT 196 X10^3/uL (150.0-450.0); RED BLOOD COUNT 3.85 X10^6/uL (3.5-5.4); RED CELL DISTRIBUTION WIDTH 19.9 % (11.6-16.5); WHITE BLOOD COUNT 6.9 X10^3/uL (3.6-10.0)
[2018-05-27 06:59] LABS: ANISOCYTOSIS SLIGHT; HYPOCHROMASIA 1+; PLATELET MORPHOLOGY COMMENT NORMAL (NORMAL)
[2018-05-27 07:07] LABS: ALBUMIN 3.1 g/dL (3.4-5.0); CALCIUM 8.6 mg/dL (8.5-10.1); CARBON DIOXIDE 32.2 mmol/L (21-32); COR CA(FOR HYPOALB) 9.3 mg/dL (8.5-10.1); CREATININE 2.02 mg/dL (0.55-1.02); TOTAL PROTEIN 6.7 g/dL (6.4-8.2)
[2018-05-27] MEDS: ALBUMIN HUMAN 25%- 100 ML 100 ML IV SCH (09:10)
[2018-05-27] MEDS: PROTONIX TAB 40 MG PO SCH ×2 (09:10→20:57)
[2018-05-27] MEDS: PEPCID TAB 20 MG PO SCH (09:10)
[2018-05-27] MEDS: COREG TAB 6.25 MG PO SCH ×2 (09:10→20:56)
[2018-05-27] MEDS: CLARITIN PO SCH (09:10)
[2018-05-27] MEDS: EFFEXOR XR 150 MG CAP PO SCH (09:10)
[2018-05-27] MEDS: HEMOCYTE-PLUS PO SCH (09:10)
[2018-05-27] MEDS: FORTAZ or TAZICEF VIAL INJ IVP SCH ×2 (09:11→20:58)
[2018-05-27] MEDS: PLAVIX PO SCH (09:17)
[2018-05-27] MEDS: LOVENOX INJ 30 MG SYR SC SCH ×2 (09:35→20:52)
--- NOTE | 2018-05-27 11:32 | RAD ---
Examination: Portable AP chest History: Breathing problem, SOB Comparison 05/25/2018 Findings: Continued cardiomegaly with stable position of pacemaker. Slight interval improvement in ae ration of the lungs with decreasing congestion and perivascular edema. Persistent pleural effusions. No new abnormality. Impression: Persistent cardiomegaly and CHF with interval improvement in this process since 8. Reported By:
[2018-05-27] MEDS ORDERED: COLACE CAP 100 MG PO PRN (16:20)
[2018-05-27] MEDS: LANTUS SC SCH (20:49)
[2018-05-27] MEDS: MILK OF MAGNESIA PO PRN (20:51)
[2018-05-27] MEDS: ZOCOR TAB 10 MG PO SCH (20:57)
[2018-05-27] MEDS: SNACK - Diabetic Appropriate PO SCH (20:58)
[2018-05-28] MEDS: XANAX PO SCH ×3 (05:47→21:39)
[2018-05-28 06:23] LABS: BASOPHILS # (AUTO) 0.1 X10^3/uL (0.0-0.1); EOSINOPHILS # (AUTO) 0.2 x10^3/uL (0.0-0.2); EOSINOPHILS % (AUTO) 3.4 % (0.9-2.9); HEMOGLOBIN 8.7 g/dL (12.0-16.0); LYMPHOCYTES # (AUTO) 1.7 X10^3/uL (1.3-2.9); LYMPHOCYTES % (AUTO) 24.6 % (21.0-51.0); MEAN CORPUSCULAR HEMOGLOBIN 22.6 pg (27.0-34.0); MEAN CORPUSCULAR HGB CONC 30.9 g/dL (33.0-35.0); MEAN CORPUSCULAR VOLUME 73.2 fL (80.0-100.0); MEAN PLATELET VOLUME 8.8 fL (7.4-11.0); MONOCYTES # (AUTO) 0.8 x10^3/uL (0.3-0.8); MONOCYTES % (AUTO) 10.9 % (0.0-13.0); NEUTROPHILS # (AUTO) 4.2 x10^3/uL (2.2-4.8); NEUTROPHILS % (AUTO) 60.1 % (42.0-75.0); PLATELET COUNT 189 X10^3/uL (150.0-450.0); RED BLOOD COUNT 3.83 X10^6/uL (3.5-5.4); RED CELL DISTRIBUTION WIDTH 20.1 % (11.6-16.5)
[2018-05-28 06:46] LABS: ALBUMIN 3.3 g/dL (3.4-5.0); CALCIUM 8.8 mg/dL (8.5-10.1); CARBON DIOXIDE 31.6 mmol/L (21-32); COR CA(FOR HYPOALB) 9.4 mg/dL (8.5-10.1); CREATININE 1.88 mg/dL (0.55-1.02); TOTAL PROTEIN 6.8 g/dL (6.4-8.2)
[2018-05-28 06:58] LABS: ANISOCYTOSIS 1+; HYPOCHROMASIA 1+; PLATELET MORPHOLOGY COMMENT NORMAL (NORMAL)
[2018-05-28] MEDS: MILK OF MAGNESIA PO PRN ×2 (08:51→21:38)
[2018-05-28] MEDS: PEPCID TAB 20 MG PO SCH (08:53)
[2018-05-28] MEDS: PROTONIX TAB 40 MG PO SCH ×2 (08:53→21:40)
[2018-05-28] MEDS: CLARITIN PO SCH (08:53)
[2018-05-28] MEDS: HEMOCYTE-PLUS PO SCH (08:53)
[2018-05-28] MEDS: LOVENOX INJ 30 MG SYR SC SCH ×2 (08:54→21:38)
[2018-05-28] MEDS: FORTAZ or TAZICEF VIAL INJ IVP SCH ×2 (08:54→21:40)
[2018-05-28] MEDS: COREG TAB 6.25 MG PO SCH ×2 (08:54→21:40)
[2018-05-28] MEDS: PLAVIX PO SCH (08:54)
[2018-05-28] MEDS: EFFEXOR XR 150 MG CAP PO SCH (08:55)
[2018-05-28] MEDS ORDERED: LEVAQUIN PREMIX IV 500 MG 500 MG/100 ML BAG IV SCH (11:00)
[2018-05-28] MEDS: LASIX IVP SCH ×2 (14:06→21:40)
[2018-05-28] MEDS: ALBUMIN HUMAN 25%- 100 ML 100 ML IV SCH (14:53)
[2018-05-28] MEDS: MIRALAX POWDER (1 DOSE 17 G) PO SCH (14:55)
--- NOTE | 2018-05-28 20:39 | PCM.PROG ---
Progress Note - Progress Note for Day of Date of Exam: 05/26/18 - Subjective Subjective: WAS ADMITTED FOR SHORTNESS OF BREATH, BILATERAL LOWER EXTREMITY EDEMA, AND CELLULITIS OF THE LOWER EXTREMITIES. PATIENT IS STATUS POST FEMERAL POPLITEAL BYPASS. THIS IS LIKELY THE CAUSE OF INFECTION. TODAY, SHE IS ALERT AND ORIENTED, LYING IN BED ON MORNING ROUNDS. SHE CONTINUES WITH COMPLAINTS OF SHORTNESS OF BREATH, BILATERAL LOWER EXTREMITY SWELLING AND REDNESS, AND GENERALIZED WEAKNESS. ON EXAMINATION, HEART IS REGULAR IN RATE AND RHYTHM. BILATERAL LUNGS ARE NOTED WITH DIMINISHED LUNG SOUNDS THROUGHOUT. ABDOMEN IS ROUND, SOFT, AND NON-TENDER WITH NORMAL BOWEL SOUNDS NOTED IN ALL QUADRANTS. BILATERAL LOWER EXTREMITIES CONTINUE WITH ERYTHEMA AND 2+PITTING EDEMA. HER VITALS THIS MORNING ARE 97.6-93-18-100%-118/68. LABS WERE OBTAINED. ABNORMAL LAB VALUES INCLUDE THE FOLLOWING: HGB 8.7, HCT 28.2, CHLORIDE 97, CARBON DIOXIDE 33.1, BUN 36, CREATININE 1.84, GLUCOSE 149, CALCIUM 8.2, BNP 2170. SHE IS CURRENTLY RECEIVING IV FORTAZ, IV LEVAQUIN, HEMOCYTE 1 TAB PO DAILY, AND LASIX 20MG IV BID, AND ALBUMIN 25% IV DAILY. WE WILL CONTINUE WITH CURRENT PLAN OF CARE TODAY. OTHERWISE, WE WILL FOLLOW UP WITH AM LABS AND CONTINUE TO MONITOR PATIENT. - Past Medical Family Social History Past Med/Fam/Surg Hx: No changes since H&P Allergies: Allergies codeine Allergy (Verified 08/13/17 04:47) morphine Allergy (Verified 08/13/17 04:47) Sulfa (Sulfonamide Antibiotics) [SULFA] Allergy (Verified 08/13/17 04:47) TAPE Allergy (Uncoded 12/28/16 14:14) - Review of Systems ROS: No change since H&P - Vital Signs and I&O's Vital Signs: Temperature 97.7 F Pulse Rate [Right Brachial] 88 Pulse Rate [Left Brachial] 81 Pulse Rate 88 Respiratory Rate 18 Blood Pressure [Left Arm] 98/55 Blood Pressure [Right Arm] 90/58 Blood Pressure [Standing] 84/59 Blood Pressure [Lying] 96/58 Blood Pressure 127/62 O2 Sat by Pulse Oximetry 94 Intake and Output: Intake & Output 05/26/18 05/27/18 05/28/18 05/29/18 11:59 11:59 11:59 11:59 Intake Total 940 / 940 440 / 440 790 / 790 690 / 690 Output Total 2250 / 2250 1250 / 1250 900 / 900 Balance -1310 / -1310 -810 / -810 -110 / -110 690 / 690 - Physical Exam Oriented: Normal Eyes: Normal Ear: Normal Nose: Normal Throat: Normal Respiratory: Generalized, Diminished Cardiovascular: Edema (BILATERAL LOWER EXTREMITY 2+ PITTING EDEMA) : Normal Auscultation: Bowel Sounds: Normal Palpation: Normal Tenderness: Normal Skin: Red (BILATERAL LOWER EXTREMITIES ), Tender, Hot Musculoskeletal: Normal Psychiatric: Normal Mood Description: Calm Affect: Normal Speech Pattern: Clear, Appropriate - Laboratory and Diagnostics Result Diagrams: 05/28/18 05:15 05/28/18 05:15 Labs: 05/23/18 16:20 Blood Blood Culture - Preliminary 05/23/18 16:13 Blood Blood Culture - Preliminary Laboratory WBC 7.0 X10^3/uL (3.6-10.0) 05/28/18 05:15 RBC 3.83 X10^6/uL (3.5-5.4) 05/28/18 05:15 Hgb 8.7 g/dL (12.0-16.0) L 05/28/18 05:15 Hct 28.0 % (36.0-47.0) L 05/28/18 05:15 MCV 73.2 fL (80.0-100.0) L 05/28/18 05:15 MCH 22.6 pg (27.0-34.0) L 05/28/18 05:15 MCHC 30.9 g/dL (33.0-35.0) L 05/28/18 05:15 RDW 20.1 % (11.6-16.5) H 05/28/18 05:15 Plt Count 189 X10^3/uL (150.0-450.0) 05/28/18 05:15 Plt Count Comment Adequate (ADEQUATE) 05/28/18 05:15 MPV 8.8 fL (7.4-11.0) 05/28/18 05:15 Neut % (Auto) 60.1 % (42.0-75.0) 05/28/18 05:15 Lymph % (Auto) 24.6 % (21.0-51.0) 05/28/18 05:15 [place] % (Auto) 10.9 % (0.0-13.0) 05/28/18 05:15 Eos % (Auto) 3.4 % (0.9-2.9) H 05/28/18 05:15 Baso % (Auto) 1.0 % (0.2-1.0) 05/28/18 05:15 Neut # (Auto) 4.2 x10^3/uL (2.2-4.8) 05/28/18 05:15 Lymph # (Auto) 1.7 X10^3/uL (1.3-2.9) 05/28/18 05:15 [place] # (Auto) 0.8 x10^3/uL (0.3-0.8) 05/28/18 05:15 Eos # (Auto) 0.2 x10^3/uL (0.0-0.2) 05/28/18 05:15 Baso # (Auto) 0.1 X10^3/uL (0.0-0.1) 05/28/18 05:15 Absolute Nucleated RBC 0.1 /100WBC 05/28/18 05:15 Plt Morphology Comment Normal (NORMAL) 05/28/18 05:15 RBC Morphology Abnormal (NORMAL) A 05/28/18 05:15 Hypochromasia 1+ A 05/28/18 05:15 Poikilocytosis Slight A 05/26/18 05:57 Anisocytosis 1+ A 05/28/18 05:15 Microcytosis Slight A 05/24/18 05:08 Sodium 139 mmol/L (136-145) 05/28/18 05:15 Corrected Sodium 141 mmol/L (136-145) 05/28/18 05:15 Potassium 3.9 mmol/L (3.5-5.1) 05/28/18 05:15 Chloride 99 mmol/L (98-107) 05/28/18 05:15 Carbon Dioxide 31.6 mmol/L (21-32) 05/28/18 05:15 BUN 38 mg/dL (7-18) H 05/28/18 05:15 Creatinine 1.88 mg/dL (0.55-1.02) H 05/28/18 05:15 Est GFR (MDRD) Af Amer 34 (>60) L 05/28/18 05:15 Est GFR (MDRD) Non-Af 28 (>60) L 05/28/18 05:15 Glucose 180 mg/dL (65-99) H 05/28/18 05:15 POC Glucose (mg/dL) 132 mg/dL (65-99) H 05/28/18 20:07 Calcium 8.8 mg/dL (8.5-10.1) 05/28/18 05:15 Corrected Calcium 9.4 mg/dL (8.5-10.1) 05/28/18 05:15 Total Bilirubin 0.60 mg/dL (0.2-1.0) 05/28/18 05:15 AST 20 Units/L (15-37) 05/28/18 05:15 ALT 17 Units/L (12-78) 05/28/18 05:15 Alkaline Phosphatase 116 Units/L (46-116) 05/28/18 05:15 B-Natriuretic Peptide 2780 pg/mL (0-79) H* 05/28/18 05:15 Total Protein 6.8 g/dL (6.4-8.2) 05/28/18 05:15 Albumin 3.3 g/dL (3.4-5.0) L 05/28/18 05:15 Globulin 3.5 g/dL (2.5-4.5) 05/28/18 05:15 Albumin/Globulin Ratio 0.9 Ratio (1.1-2.1) L 05/28/18 05:15 - Plan (1) Cellulitis of both lower extremities Status: Acute (2) Congestive heart failure (CHF) Status: Acute (3) Shortness of breath Status: Acute (4) Essential hypertension Status: Chronic (5) Diabetes mellitus, type 2 Status: Chronic Qualifiers: Diabetes mellitus rn long term care insulin use: with rn long term care use Diabetes mellitus complication status: without complication Qualified Code(s): E11.9 - Type 2 diabetes mellitus without complications; Z79.4 - vermin exterminator (current) use of insulin; Z79.4 - [facility] (current) use of insulin; Z79.4 - vermin exterminator (current) use of insulin; Z79.4 - vermin exterminator (current) use of insulin
--- NOTE | 2018-05-28 21:27 | PCM.PROG ---
Progress Note - Progress Note for Day of Date of Exam: 05/27/18 - Subjective Subjective: WAS ADMITTED FOR SHORTNESS OF BREATH, BILATERAL LOWER EXTREMITY EDEMA, AND CELLULITIS OF THE LOWER EXTREMITIES. TODAY, SHE IS ALERT AND ORIENTED, LYING IN BED ON MORNING ROUNDS. SHE CONTINUES WITH COMPLAINTS OF SHORTNESS OF BREATH, BILATERAL LOWER EXTREMITY SWELLING AND REDNESS, AND GENERALIZED WEAKNESS. ON EXAMINATION, HEART IS REGULAR IN RATE AND RHYTHM. BILATERAL LUNGS ARE NOTED WITH DIMINISHED LUNG SOUNDS THROUGHOUT. ABDOMEN IS ROUND, SOFT, AND NON-TENDER WITH NORMAL BOWEL SOUNDS NOTED IN ALL QUADRANTS. BILATERAL LOWER EXTREMITIES CONTINUE WITH ERYTHEMA AND EDEMA. EDEMA HAS SLIGHTLY DECREASED SINCE YESTERDAY. HER VITALS THIS MORNING ARE 98.9-90-18-97%-100/61. LABS WERE OBTAINED. ABNORMAL LAB VALUES INCLUDE THE FOLLOWING: HGB 8.7, HCT 28.2, CHLORIDE 97, CARBON DIOXIDE 32.2, BUN 39, CREATININE 2.02, GLUCOSE 163, ALK PHOS 117. SHE IS CURRENTLY RECEIVING IV FORTAZ, IV LEVAQUIN, HEMOCYTE 1 TAB PO DAILY, AND LASIX 20MG IV BID, AND ALBUMIN 25% IV DAILY. WE WILL CONTINUE WITH CURRENT PLAN OF CARE TODAY. OTHERWISE, WE WILL FOLLOW UP WITH AM LABS AND CONTINUE TO MONITOR PATIENT. - Past Medical Family Social History Past Med/Fam/Surg Hx: No changes since H&P Allergies: Allergies codeine Allergy (Verified 08/13/17 04:47) morphine Allergy (Verified 08/13/17 04:47) Sulfa (Sulfonamide Antibiotics) [SULFA] Allergy (Verified 08/13/17 04:47) TAPE Allergy (Uncoded 12/28/16 14:14) - Review of Systems ROS: No change since H&P - Vital Signs and I&O's Vital Signs: Temperature 97.7 F Pulse Rate [Right Brachial] 88 Pulse Rate [Left Brachial] 81 Pulse Rate 88 Respiratory Rate 18 Blood Pressure [Left Arm] 98/55 Blood Pressure [Right Arm] 90/58 Blood Pressure [Standing] 84/59 Blood Pressure [Lying] 96/58 Blood Pressure 127/62 O2 Sat by Pulse Oximetry 94 Intake and Output: Intake & Output 05/26/18 05/27/18 05/28/18 05/29/18 11:59 11:59 11:59 11:59 Intake Total 940 / 940 440 / 440 790 / 790 690 / 690 Output Total 2250 / 2250 1250 / 1250 900 / 900 Balance -1310 / -1310 -810 / -810 -110 / -110 690 / 690 - Physical Exam Oriented: Normal Eyes: Normal Ear: Normal Nose: Normal Throat: Normal Respiratory: Generalized, Diminished Cardiovascular: Edema (BILATERAL LOWER EXTREMITY 2+ PITTING EDEMA) : Normal Auscultation: Bowel Sounds: Normal Tenderness: Normal Skin: Red (BILATERAL LOWER EXTREMITIES ), Tender, Hot Musculoskeletal: Normal Psychiatric: Normal Mood Description: Calm Affect: Normal Speech Pattern: Clear, Appropriate - Laboratory and Diagnostics Result Diagrams: 05/28/18 05:15 05/28/18 05:15 Labs: 05/23/18 16:20 Blood Blood Culture - Preliminary 05/23/18 16:13 Blood Blood Culture - Preliminary Laboratory WBC 7.0 X10^3/uL (3.6-10.0) 05/28/18 05:15 RBC 3.83 X10^6/uL (3.5-5.4) 05/28/18 05:15 Hgb 8.7 g/dL (12.0-16.0) L 05/28/18 05:15 Hct 28.0 % (36.0-47.0) L 05/28/18 05:15 MCV 73.2 fL (80.0-100.0) L 05/28/18 05:15 MCH 22.6 pg (27.0-34.0) L 05/28/18 05:15 MCHC 30.9 g/dL (33.0-35.0) L 05/28/18 05:15 RDW 20.1 % (11.6-16.5) H 05/28/18 05:15 Plt Count 189 X10^3/uL (150.0-450.0) 05/28/18 05:15 Plt Count Comment Adequate (ADEQUATE) 05/28/18 05:15 MPV 8.8 fL (7.4-11.0) 05/28/18 05:15 Neut % (Auto) 60.1 % (42.0-75.0) 05/28/18 05:15 Lymph % (Auto) 24.6 % (21.0-51.0) 05/28/18 05:15 [place] % (Auto) 10.9 % (0.0-13.0) 05/28/18 05:15 Eos % (Auto) 3.4 % (0.9-2.9) H 05/28/18 05:15 Baso % (Auto) 1.0 % (0.2-1.0) 05/28/18 05:15 Neut # (Auto) 4.2 x10^3/uL (2.2-4.8) 05/28/18 05:15 Lymph # (Auto) 1.7 X10^3/uL (1.3-2.9) 05/28/18 05:15 [place] # (Auto) 0.8 x10^3/uL (0.3-0.8) 05/28/18 05:15 Eos # (Auto) 0.2 x10^3/uL (0.0-0.2) 05/28/18 05:15 Baso # (Auto) 0.1 X10^3/uL (0.0-0.1) 05/28/18 05:15 Absolute Nucleated RBC 0.1 /100WBC 05/28/18 05:15 Plt Morphology Comment Normal (NORMAL) 05/28/18 05:15 RBC Morphology Abnormal (NORMAL) A 05/28/18 05:15 Hypochromasia 1+ A 05/28/18 05:15 Poikilocytosis Slight A 05/26/18 05:57 Anisocytosis 1+ A 05/28/18 05:15 Microcytosis Slight A 05/24/18 05:08 Sodium 139 mmol/L (136-145) 05/28/18 05:15 Corrected Sodium 141 mmol/L (136-145) 05/28/18 05:15 Potassium 3.9 mmol/L (3.5-5.1) 05/28/18 05:15 Chloride 99 mmol/L (98-107) 05/28/18 05:15 Carbon Dioxide 31.6 mmol/L (21-32) 05/28/18 05:15 BUN 38 mg/dL (7-18) H 05/28/18 05:15 Creatinine 1.88 mg/dL (0.55-1.02) H 05/28/18 05:15 Est GFR (MDRD) Af Amer 34 (>60) L 05/28/18 05:15 Est GFR (MDRD) Non-Af 28 (>60) L 05/28/18 05:15 Glucose 180 mg/dL (65-99) H 05/28/18 05:15 POC Glucose (mg/dL) 132 mg/dL (65-99) H 05/28/18 20:07 Calcium 8.8 mg/dL (8.5-10.1) 05/28/18 05:15 Corrected Calcium 9.4 mg/dL (8.5-10.1) 05/28/18 05:15 Total Bilirubin 0.60 mg/dL (0.2-1.0) 05/28/18 05:15 AST 20 Units/L (15-37) 05/28/18 05:15 ALT 17 Units/L (12-78) 05/28/18 05:15 Alkaline Phosphatase 116 Units/L (46-116) 05/28/18 05:15 B-Natriuretic Peptide 2780 pg/mL (0-79) H* 05/28/18 05:15 Total Protein 6.8 g/dL (6.4-8.2) 05/28/18 05:15 Albumin 3.3 g/dL (3.4-5.0) L 05/28/18 05:15 Globulin 3.5 g/dL (2.5-4.5) 05/28/18 05:15 Albumin/Globulin Ratio 0.9 Ratio (1.1-2.1) L 05/28/18 05:15 - Plan (1) Cellulitis of both lower extremities Status: Acute (2) Congestive heart failure (CHF) Status: Acute (3) Shortness of breath Status: Acute (4) Essential hypertension Status: Chronic (5) Diabetes mellitus, type 2 Status: Chronic Qualifiers: Diabetes mellitus newspaper press operator apprentice insulin use: with newspaper press operator apprentice use Diabetes mellitus complication status: without complication Qualified Code(s): E11.9 - Type 2 diabetes mellitus without complications; Z79.4 - [facility] (current) use of insulin; Z79.4 - component lab tech (current) use of insulin; Z79.4 - [facility] (current) use of insulin; Z79.4 - [facility] (current) use of insulin
[2018-05-28] MEDS: LANTUS SC SCH (21:40)
[2018-05-28] MEDS: ZOCOR TAB 10 MG PO SCH (21:40)
[2018-05-28] MEDS: SNACK - Diabetic Appropriate PO SCH (21:41)
[2018-05-29] MEDS: XANAX PO SCH ×2 (05:41→15:01)
[2018-05-29 06:18] LABS: BASOPHILS # (AUTO) 0.1 X10^3/uL (0.0-0.1); BASOPHILS % (AUTO) 0.8 % (0.2-1.0); EOSINOPHILS # (AUTO) 0.2 x10^3/uL (0.0-0.2); EOSINOPHILS % (AUTO) 2.6 % (0.9-2.9); HEMOGLOBIN 8.2 g/dL (12.0-16.0); LYMPHOCYTES # (AUTO) 1.5 X10^3/uL (1.3-2.9); LYMPHOCYTES % (AUTO) 23.5 % (21.0-51.0); MEAN CORPUSCULAR HEMOGLOBIN 22.9 pg (27.0-34.0); MEAN CORPUSCULAR HGB CONC 31.3 g/dL (33.0-35.0); MEAN CORPUSCULAR VOLUME 73.1 fL (80.0-100.0); MEAN PLATELET VOLUME 8.5 fL (7.4-11.0); MONOCYTES # (AUTO) 0.7 x10^3/uL (0.3-0.8); NEUTROPHILS % (AUTO) 62.1 % (42.0-75.0); PLATELET COUNT 177 X10^3/uL (150.0-450.0); RED BLOOD COUNT 3.56 X10^6/uL (3.5-5.4); RED CELL DISTRIBUTION WIDTH 20.3 % (11.6-16.5); WHITE BLOOD COUNT 6.5 X10^3/uL (3.6-10.0)
[2018-05-29 06:34] LABS: B-TYPE NATRIURETIC PEPTIDE 2650 pg/mL (0-79)
[2018-05-29 06:36] LABS: ALANINE AMINOTRANSFERASE 15 Units/L (12-78); ALBUMIN 3.4 g/dL (3.4-5.0); ALKALINE PHOSPHATASE 99 Units/L (46-116); ASPARTATE AMINO TRANSFERASE 12 Units/L (15-37); BLOOD UREA NITROGEN 36 mg/dL (7-18); CALCIUM 8.7 mg/dL (8.5-10.1); CARBON DIOXIDE 32.1 mmol/L (21-32); CHLORIDE 98 mmol/L (98-107); COR NA(FOR HYPERGLY) 141 mmol/L (136-145); CREATININE 1.72 mg/dL (0.55-1.02); SODIUM 139 mmol/L (136-145); TOTAL PROTEIN 6.8 g/dL (6.4-8.2); eGFR NON BLACK RACES 32 (>60)
[2018-05-29 06:56] LABS: ANISOCYTOSIS 1+; HYPOCHROMASIA 1+; PLATELET MORPHOLOGY COMMENT NORMAL (NORMAL)
[2018-05-29] MEDS ORDERED: COLACE CAP 100 MG PO SCH (09:00)
[2018-05-29] MEDS: ALBUMIN HUMAN 25%- 100 ML 100 ML IV SCH (10:40)
[2018-05-29] MEDS: LOVENOX INJ 30 MG SYR SC SCH (10:41)
[2018-05-29] MEDS: LASIX IVP SCH (10:42)
[2018-05-29] MEDS: FORTAZ or TAZICEF VIAL INJ IVP SCH (10:42)
[2018-05-29] MEDS: CLARITIN PO SCH (10:45)
[2018-05-29] MEDS: PEPCID TAB 20 MG PO SCH (10:45)
[2018-05-29] MEDS: PROTONIX TAB 40 MG PO SCH (10:45)
[2018-05-29] MEDS: COREG TAB 6.25 MG PO SCH (10:46)
[2018-05-29] MEDS: EFFEXOR XR 150 MG CAP PO SCH (10:46)
[2018-05-29] MEDS: MIRALAX POWDER (1 DOSE 17 G) PO SCH (10:46)
[2018-05-29] MEDS: PLAVIX PO SCH (10:46)
[2018-05-29] MEDS: HEMOCYTE-PLUS PO SCH (10:46)
[2018-05-29 17:07] VITALS: BP 116/54
--- NOTE | 2018-05-30 10:58 | PCM.PROG ---
Progress Note - Progress Note for Day of Date of Exam: 05/28/18 - Subjective Subjective: WAS ADMITTED FOR SHORTNESS OF BREATH, BILATERAL LOWER EXTREMITY EDEMA, AND CELLULITIS OF THE LOWER EXTREMITIES. TODAY, SHE IS ALERT AND ORIENTED, LYING IN BED ON MORNING ROUNDS. SHE CONTINUES WITH COMPLAINTS OF BILATERAL LOWER EXTREMITY SWELLING AND REDNESS AND GENERALIZED WEAKNESS. SHE REPORTS NOT HAVING A BOWEL MOVEMENT IN SEVERAL DAYS. ON EXAMINATION, HEART IS REGULAR IN RATE AND RHYTHM. BILATERAL LUNGS ARE NOTED WITH DIMINISHED LUNG SOUNDS THROUGHOUT. ABDOMEN IS ROUND, SOFT, AND NON-TENDER WITH NORMAL BOWEL SOUNDS NOTED IN ALL QUADRANTS. BILATERAL LOWER EXTREMITIES CONTINUE WITH ERYTHEMA AND EDEMA. EDEMA HAS SLIGHTLY DECREASED SINCE YESTERDAY. HER VITALS THIS MORNING ARE 98.4-81-18-100%-119/64. LABS WERE OBTAINED. ABNORMAL LAB VALUES INCLUDE THE FOLLOWING: HGB 8.7, HCT 28.0, BUN 38, CREATININE 1.88, GLUCOSE 180, BNP 2780, ALBUMIN 3.3. SHE IS CURRENTLY RECEIVING IV FORTAZ, IV LEVAQUIN, HEMOCYTE 1 TAB PO DAILY, AND LASIX 20MG IV BID, AND ALBUMIN 25% IV DAILY. WE CHALO L CONTINUE WITH CURRENT PLAN OF CARE TODAY AND START MIRALAX AND COLACE. OTHERWISE, WE WILL FOLLOW UP WITH AM LABS AND CONTINUE TO MONITOR PATIENT. - Past Medical Family Social History Past Med/Fam/Surg Hx: No changes since H&P Allergies: Allergies codeine Allergy (Verified 08/13/17 04:47) morphine Allergy (Verified 08/13/17 04:47) Sulfa (Sulfonamide Antibiotics) [SULFA] Allergy (Verified 08/13/17 04:47) TAPE Allergy (Uncoded 12/28/16 14:14) - Review of Systems ROS: No change since H&P - Vital Signs and I&O's Vital Signs: Temperature 97.8 F Pulse Rate [Right Brachial] 90 Pulse Rate [Left Brachial] 81 Pulse Rate 74 Respiratory Rate 20 Blood Pressure [Left Arm] 127/62 Blood Pressure [Right Arm] 116/54 Blood Pressure [Standing] 84/59 Blood Pressure [Lying] 96/58 Blood Pressure 127/62 O2 Sat by Pulse Oximetry 100 Intake and Output: Intake & Output 05/27/18 05/28/18 05/29/18 05/30/18 11:59 11:59 11:59 11:59 Intake Total 440 / 440 790 / 790 960 / 960 Output Total 1250 / 1250 900 / 900 0 / 0 Balance -810 / -810 -110 / -110 960 / 960 - Physical Exam Oriented: Normal Eyes: Normal Ear: Normal Nose: Normal Throat: Normal Respiratory: Generalized, Diminished Cardiovascular: Edema (BILATERAL LOWER EXTREMITY 2+ PITTING EDEMA) : Normal Auscultation: Bowel Sounds: Normal Tenderness: Normal Skin: Red (BILATERAL LOWER EXTREMITIES ), Tender, Hot Musculoskeletal: Normal Psychiatric: Normal Mood Description: Calm Affect: Normal Speech Pattern: Clear, Appropriate - Laboratory and Diagnostics Result Diagrams: 05/29/18 05:40 05/29/18 05:40 Labs: 05/23/18 16:20 Blood Blood Culture - Final 05/23/18 16:13 Blood Blood Culture - Final Laboratory WBC 6.5 X10^3/uL (3.6-10.0) 05/29/18 05:40 RBC 3.56 X10^6/uL (3.5-5.4) 05/29/18 05:40 Hgb 8.2 g/dL (12.0-16.0) L 05/29/18 05:40 Hct 26.0 % (36.0-47.0) L 05/29/18 05:40 MCV 73.1 fL (80.0-100.0) L 05/29/18 05:40 MCH 22.9 pg (27.0-34.0) L 05/29/18 05:40 MCHC 31.3 g/dL (33.0-35.0) L 05/29/18 05:40 RDW 20.3 % (11.6-16.5) H 05/29/18 05:40 Plt Count 177 X10^3/uL (150.0-450.0) 05/29/18 05:40 Plt Count Comment Adequate (ADEQUATE) 05/29/18 05:40 MPV 8.5 fL (7.4-11.0) 05/29/18 05:40 Neut % (Auto) 62.1 % (42.0-75.0) 05/29/18 05:40 Lymph % (Auto) 23.5 % (21.0-51.0) 05/29/18 05:40 Summers % (Auto) 11.0 % (0.0-13.0) 05/29/18 05:40 Eos % (Auto) 2.6 % (0.9-2.9) 05/29/18 05:40 Baso % (Auto) 0.8 % (0.2-1.0) 05/29/18 05:40 Neut # (Auto) 4.0 x10^3/uL (2.2-4.8) 05/29/18 05:40 Lymph # (Auto) 1.5 X10^3/uL (1.3-2.9) 05/29/18 05:40 Summers # (Auto) 0.7 x10^3/uL (0.3-0.8) 05/29/18 05:40 Eos # (Auto) 0.2 x10^3/uL (0.0-0.2) 05/29/18 05:40 Baso # (Auto) 0.1 X10^3/uL (0.0-0.1) 05/29/18 05:40 Absolute Nucleated RBC 0.0 /100WBC 05/29/18 05:40 Plt Morphology Comment Normal (NORMAL) 05/29/18 05:40 RBC Morphology Abnormal (NORMAL) A 05/29/18 05:40 Hypochromasia 1+ A 05/29/18 05:40 Poikilocytosis Slight A 05/26/18 05:57 Anisocytosis 1+ A 05/29/18 05:40 Microcytosis Slight A 05/24/18 05:08 Sodium 139 mmol/L (136-145) 05/29/18 05:40 Corrected Sodium 141 mmol/L (136-145) 05/29/18 05:40 Potassium 3.7 mmol/L (3.5-5.1) 05/29/18 05:40 Chloride 98 mmol/L (98-107) 05/29/18 05:40 Carbon Dioxide 32.1 mmol/L (21-32) H 05/29/18 05:40 BUN 36 mg/dL (7-18) H 05/29/18 05:40 Creatinine 1.72 mg/dL (0.55-1.02) H 05/29/18 05:40 Est GFR (MDRD) Af Amer 38 (>60) L 05/29/18 05:40 Est GFR (MDRD) Non-Af 32 (>60) L 05/29/18 05:40 Glucose 168 mg/dL (65-99) H 05/29/18 05:40 POC Glucose (mg/dL) 167 mg/dL (65-99) H 05/29/18 11:00 Calcium 8.7 mg/dL (8.5-10.1) 05/29/18 05:40 Corrected Calcium TNP 05/29/18 05:40 Total Bilirubin 0.60 mg/dL (0.2-1.0) 05/29/18 05:40 AST 12 Units/L (15-37) L 05/29/18 05:40 ALT 15 Units/L (12-78) 05/29/18 05:40 Alkaline Phosphatase 99 Units/L (46-116) 05/29/18 05:40 B-Natriuretic Peptide 2650 pg/mL (0-79) H* 05/29/18 05:40 Total Protein 6.8 g/dL (6.4-8.2) 05/29/18 05:40 Albumin 3.4 g/dL (3.4-5.0) 05/29/18 05:40 Globulin 3.4 g/dL (2.5-4.5) 05/29/18 05:40 Albumin/Globulin Ratio 1.0 Ratio (1.1-2.1) L 05/29/18 05:40 - Plan (1) Cellulitis of both lower extremities Status: Acute (2) Congestive heart failure (CHF) Status: Acute (3) Shortness of breath Status: Acute (4) Essential hypertension Status: Chronic (5) Diabetes mellitus, type 2 Status: Chronic Qualifiers: Diabetes mellitus longterm insulin use: with longterm use Diabetes mellitus complication status: without complication Qualified Code(s): E11.9 - Type 2 diabetes mellitus without complications; 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
--- NOTE | 2018-07-12 21:57 | DR.CARTERD ---
- Discharge Summary for: Discharge Summary for Date of:: 05/29/18 - Admission Date Date of Admission: 05/25/18 - Admission Diagnoses Admission Diagnosis: (1) Congestive heart failure (CHF) (2) Cellulitis of both lower extremities (3) Shortness of breath (4) Essential hypertension (5) Diabetes mellitus, type 2 - Discharge Date Discharge Date: 05/29/18 - Discharge Diagnoses Discharge Diagnosis: (1) Congestive heart failure (CHF) (2) Cellulitis of both lower extremities (3) Shortness of breath (4) Essential hypertension (5) Diabetes mellitus, type 2 - Hospital Course Hospital Course: DAY ONE, WAS ADMITTED FOR SHORTNESS OF BREATH, BILATERAL LOWER EXTREMITY EDEMA, AND CELLULITIS OF THE LOWER EXTREMITIES. PATIENT IS STATUS POST FEMERAL POPLITEAL BYPASS. THIS IS LIKELY THE CAUSE OF INFECTION. DAY TWO, SHE IS ALERT AND ORIENTED, LYING IN BED ON MORNING ROUNDS. SHE CONTINUED WITH CO MPLAINTS OF SHORTNESS OF BREATH, BILATERAL LOWER EXTREMITY SWELLING AND REDNESS, AND GENERALIZED WEAKNESS. ON EXAMINATION, HEART WAS REGULAR IN RATE AND RHYTHM. BILATERAL LUNGS WERE NOTED WITH DIMINISHED LUNG SOUNDS THROUGHOUT. ABDOMEN IS ROUND, SOFT, AND NON-TENDER WITH NORMAL BOWEL SOUNDS NOTED IN ALL QUADRANTS. BILATERAL LOWER EXTREMITIES WERE NOTED WITH ERYTHEMA AND 2+PITTING EDEMA. HER VITALS THIS MORNING WERE 98.8-90-20-96%NC-129/66. LABS WERE OBTAINED. ABNORMAL LAB VALUES INCLUDED THE FOLLOWING: RBC 3.47, HGB 7.8, HCT 25.3, POTASSIUM 3.3, BUN 32, CREATININE 1.55, GLUCOSE 232, ALK PHOS 153, BNP 2050, ALBUMIN 2.8. CHEST XRAY ON ADMISSION REVEALED: Cardiomegaly with pulmonary vascular congestion. Right basilar atelectasis. WE STARTED IV FORTAZ, IV LEVAQUIN, HEMOCYTE 1 TAB PO DAILY, AND LASIX 20MG IV BID. WE OBTAINED AN ECHOCARDIOGRAM. WE CONTINUED TO MONITOR OTBS AND ADMINISTERED PRN INSULIN NEEDED. WE FOLLOWED UP WITH AM LABS AND CONTINUED TO MONITOR PATIENT. DAY FOUR, SHE IS ALERT AND ORIENTED, LYING IN BED ON MORNING ROUNDS. SHE CONTINUED WITH COMPLAINTS OF SHORTNESS OF BREATH, BILATERAL LOWER EXTREMITY SWELLING AND REDNESS, AND GENERALIZED WEAKNESS. ON EXAMINATION, HEART WAS REGULAR IN RATE AND RHYTHM. BILATERAL LUNGS WERE NOTED WITH DIMINISHED LUNG SOUNDS THROUGHOUT. ABDOMEN IS ROUND, SOFT, AND NON-TENDER WITH NORMAL BOWEL SOUNDS NOTED IN ALL QUADRANTS. BILATERAL LOWER EXTREMITIES CONTINUED WITH ERYTHEMA AND 2+PITTING EDEMA. HER VITALS THIS MORNING WERE 97.6-93-18-100%-118/68. LABS WERE OBTAINED. ABNORMAL LAB VALUES INCLUDED THE FOLLOWING: HGB 8.7, HCT 28.2, CHLORIDE 97, CARBON DIOXIDE 33.1, BUN 36, CREATININE 1.84, GLUCOSE 149, CALCIUM 8.2, BNP 2170. SHE WAS CURRENTLY RECEIVING IV FORTAZ, IV LEVAQUIN, HEMOCYTE 1 TAB PO DAILY, AND LASIX 20MG IV BID, AND ALBU MIN 25% IV DAILY. WE CONTINUED WITH CURRENT PLAN OF CARE TODAY. WE WILL FOLLOWED UP WITH AM LABS AND CONTINUED TO MONITOR PATIENT. DAY SIX, SHE WAS ALERT AND ORIENTED, LYING IN BED ON MORNING ROUNDS. SHE CONTINUED WITH COMPLAINTS OF BILATERAL LOWER EXTREMITY SWELLING AND REDNESS AND GENERALIZED WEAKNESS. SHE REPORTED NOT HAVING A BOWEL MOVEMENT IN SEVERAL DAYS. ON EXAMINATION, HEART WAS REGULAR IN RATE AND RHYTHM. BILATERAL LUNGS WERE NOTED WITH DIMINISHED LUNG SOUNDS THROUGHOUT. ABDOMEN IS ROUND, SOFT, AND NON-TENDER WITH NORMAL BOWEL SOUNDS NOTED IN ALL QUADRANTS. BILATERAL LOWER EXTREMITIES CONTINUED WITH ERYTHEMA AND EDEMA. EDEMA HAS SLIGHTLY DECREASED SINCE YESTERDAY. HER VITALS THIS MORNING WERE 98.4-81-18-100%-119/64. LABS WERE OBTAINED. ABNORMAL LAB VALUES INCLUDE THE FOLLOWING: HGB 8.7, HCT 28.0, BUN 38, CREATININE 1.88, GLUCOSE 180, BNP 2780, ALBUMIN 3.3. SHE IS CURRENTLY RECEIVING IV FORTAZ, IV LEVAQUIN, HEMOCYTE 1 TAB PO DAILY, AND LASIX 20MG IV BID, AND ALBUMIN 25% IV DAILY. WE CONTINUED WITH CURRENT PLAN OF CARE TODAY AND STARTED MIRALAX AND COLACE. WE FOLLOWED UP WITH AM LABS AND CONTINUED TO MONITOR PATIENT. PATIENT WAS DISCHARGED INPATIENT AND ADMITTED TO HOSPITAL A SWING BED PATIENT FOR IV THERAPY FOR LOWER EXTREMITY CELLULITIS, PT, AND OT FOR GENERALIZED WEAKNEWSS. PLANS TO ADMIT PATIENT SWING BED WAS DISCUSSED WITH PATIENT AND SHE WAS IN AGREEMENT WITH SWING BED PLANS. WE WILL CONTINUE TO FOLLOW PATIENT IN HOSPITAL A SWING BED PATIENT. - Discharge Medications Discharge Medications: Home Medication List alprazolam 1 mg PO TID 05/23/18 [History] carvedilol 6.25 mg PO BID 05/23/18 [History] docusate sodium 100 mg PO Q12H PRN 10/16/18 [History] famotidine 40 mg PO BID 05/23/18 [History] insulin aspart U-100 [Novolog Flexpen U-100 Insulin] 2 - 14 units SUBCUT BIDWM 05/23/18 [History] loratadine 10 mg PO DAILY 05/23/18 [History] oxycodone-acetaminophen 1 tab PO Q12H PRN 05/23/18 [History] tiotropium-olodaterol [Stiolto Respimat] 1 puff INHALATION DAILY PRN 05/23/18 [History] tramadol 100 mg PO Q4H PRN 05/23/18 [History] venlafaxine 150 mg PO DAILY 05/23/18 [History] Prescriptions: Ambulatory Orders clopidogrel [Plavix] 75 mg PO DAILY 12/28/16 simvastatin 10 mg PO HS 12/28/16 fentanyl 1 patch TOP Q72H 08/12/17 furosemide 40 mg PO BID 08/12/17 pantoprazole 40 mg PO BID 08/12/17 insulin glargine [Lantus U-100 Insulin] 10 unit SC HS 09/03/17 digoxin 0.125 mg PO QDAY #30 tab 06/09/18 - Discharge Disposition Discharge Disposition: WE WILL CONTINUE TO FOLLOW UP WITH PATIENT IN THE HOSPITAL A SWING BED PATIENT.
== END 2018-05-29 15:00 | disposition home or self-care (01) | DRG 603 ==
LOC: MED/SURG → OBSVTOIN 10:23 → INTOOBSV 05-25 09:00
PROVIDERS: ADMIT Internal Medicine; ATTEND Internal Medicine
DX: K59.09 Other constipation; E78.2 Mixed hyperlipidemia; R06.02 Shortness of breath; Z98.890 Other specified postprocedural states; L03.116 Cellulitis of left lower limb; L03.115 Cellulitis of right lower limb; I48.2 Chronic atrial fibrillation; E55.9 Vitamin D deficiency, unspecified; R60.0 Localized edema; E11.65 Type 2 diabetes mellitus with hyperglycemia; I73.89 Other specified peripheral vascular diseases; R26.89 Other abnormalities of gait and mobility; D51.9 Vitamin B12 deficiency anemia, unspecified; Z79.4 Long term (current) use of insulin; R53.1 Weakness; I11.0 Hypertensive heart disease with heart failure; I50.9 Heart failure, unspecified
CPT/HCPCS: 36415; 71010; 71045; 80053; 83880; 85025; 87040; 93306; 93970; 94760; 97116; 97163; 97165; 97530; A4222; P9047; G0378; J0713; J1650; J1815; J1940; J1956; J2405; J7050; J7620

== ENCOUNTER 2018-05-29 15:00 | Inpatient (IN) ==
[2018-05-29] MEDS ORDERED: POTASSIUM CHL 40 MEQ/NS 0.45% 500 ML IV PRN (16:43)
[2018-05-29] MEDS ORDERED: MILK OF MAGNESIA PO PRN (16:43)
[2018-05-29] MEDS ORDERED: KLOR-CON PO PRN (16:43)
[2018-05-29] MEDS ORDERED: POTASSIUM CHL 60 MEQ/NS 0.45% 500 ML IV PRN (16:43)
[2018-05-29] MEDS ORDERED: K-RIDER 10 MEQ/NS 100 ML 10 MEQ/100 ML BAG IV PRN (16:43)
[2018-05-29] MEDS ORDERED: ZOFRAN INJ 4 MG VIAL IVP PRN (16:43)
[2018-05-29] MEDS ORDERED: POTASSIUM CHLORIDE LIQ 20 MEQ UDC PO PRN (16:43)
[2018-05-29] MEDS ORDERED: K-DUR TAB 20 MEQ PO PRN (16:43)
[2018-05-29] MEDS ORDERED: MAGNESIUM SULFATE 1 GRAM/100 mL PREMIX 1 GM/100 ML BAG IV PRN (16:43)
[2018-05-29] MEDS ORDERED: MICRO K EXTEN CAP 10 MEQ PO PRN (16:43)
[2018-05-29] MEDS ORDERED: SNACK - Diabetic Appropriate PO SCH (20:00)
[2018-05-29] MEDS: FORTAZ or TAZICEF VIAL INJ IVP SCH (20:47)
[2018-05-29] MEDS: LASIX IVP SCH (20:47)
[2018-05-29] MEDS: ZOCOR TAB 10 MG PO SCH (20:48)
[2018-05-29] MEDS: COREG TAB 6.25 MG PO SCH (20:48)
[2018-05-29] MEDS: PROTONIX TAB 40 MG PO SCH (20:48)
[2018-05-29] MEDS: SNACK - Diabetic Appropriate PO SCH (20:48)
[2018-05-29] MEDS: LOVENOX INJ 30 MG SYR SC SCH (21:00)
[2018-05-29] MEDS: LANTUS SC SCH (22:00)
[2018-05-29] MEDS: XANAX PO SCH (22:57)
[2018-05-30] MEDS: XANAX PO SCH ×3 (06:17→21:03)
[2018-05-30] MEDS: PERCOCET TAB 5/325 MG PO PRN ×3 (06:18→21:07)
[2018-05-30] MEDS: LEVAQUIN PREMIX IV 500 MG 500 MG/100 ML BAG IV SCH (09:41)
[2018-05-30] MEDS: COLACE CAP 100 MG PO SCH (09:42)
[2018-05-30] MEDS: HEMOCYTE-PLUS PO SCH (09:42)
[2018-05-30] MEDS: FORTAZ or TAZICEF VIAL INJ IVP SCH ×2 (09:42→20:50)
[2018-05-30] MEDS: CLARITIN PO SCH (09:43)
[2018-05-30] MEDS: PEPCID TAB 20 MG PO SCH (09:43)
[2018-05-30] MEDS: MIRALAX POWDER (1 DOSE 17 G) PO SCH (09:43)
[2018-05-30] MEDS: PROTONIX TAB 40 MG PO SCH ×2 (09:44→20:51)
[2018-05-30] MEDS: EFFEXOR XR 150 MG CAP PO SCH (09:44)
[2018-05-30] MEDS: COREG TAB 6.25 MG PO SCH ×2 (09:44→20:51)
[2018-05-30] MEDS: LASIX IVP SCH ×2 (09:44→20:50)
[2018-05-30] MEDS: PLAVIX PO SCH (09:45)
[2018-05-30] MEDS: LOVENOX INJ 30 MG SYR SC SCH ×2 (09:45→20:49)
[2018-05-30] MEDS ORDERED: NS 100 ML IV 100 ML IV ONE (09:51)
[2018-05-30] MEDS: ZOCOR TAB 10 MG PO SCH (20:51)
[2018-05-30] MEDS: LANTUS SC SCH (20:52)
[2018-05-30] MEDS: SNACK - Diabetic Appropriate PO SCH (20:52)
[2018-05-31] MEDS: DUONEB 0.5 MG/3 MG NEB PRN ×3 (04:14→12:12)
[2018-05-31] MEDS: XANAX PO SCH ×3 (06:32→21:23)
[2018-05-31] MEDS: MIRALAX POWDER (1 DOSE 17 G) PO SCH (08:55)
[2018-05-31] MEDS: HEMOCYTE-PLUS PO SCH (08:55)
[2018-05-31] MEDS: CLARITIN PO SCH (08:55)
[2018-05-31] MEDS: LASIX IVP SCH ×2 (08:55→21:22)
[2018-05-31] MEDS: COLACE CAP 100 MG PO SCH (08:56)
[2018-05-31] MEDS: PEPCID TAB 20 MG PO SCH (08:56)
[2018-05-31] MEDS: PLAVIX PO SCH (08:56)
[2018-05-31] MEDS: PROTONIX TAB 40 MG PO SCH ×2 (08:56→21:21)
[2018-05-31] MEDS: COREG TAB 6.25 MG PO SCH ×2 (08:56→21:21)
[2018-05-31] MEDS: EFFEXOR XR 150 MG CAP PO SCH (08:56)
[2018-05-31] MEDS: LOVENOX INJ 30 MG SYR SC SCH ×2 (08:57→21:29)
[2018-05-31] MEDS: FORTAZ or TAZICEF VIAL INJ IVP SCH ×2 (08:57→21:22)
[2018-05-31 09:12] VITALS: BMI 30.7
[2018-05-31 11:11] LABS: BASOPHILS # (AUTO) 0.1 X10^3/uL (0.0-0.1); BASOPHILS % (AUTO) 0.8 % (0.2-1.0); EOSINOPHILS # (AUTO) 0.2 x10^3/uL (0.0-0.2); EOSINOPHILS % (AUTO) 2.7 % (0.9-2.9); HEMATOCRIT 28.1 % (36.0-47.0); HEMOGLOBIN 8.6 g/dL (12.0-16.0); LYMPHOCYTES % (AUTO) 25.9 % (21.0-51.0); MEAN CORPUSCULAR HEMOGLOBIN 22.8 pg (27.0-34.0); MEAN CORPUSCULAR HGB CONC 30.7 g/dL (33.0-35.0); MEAN CORPUSCULAR VOLUME 74.4 fL (80.0-100.0); MEAN PLATELET VOLUME 8.7 fL (7.4-11.0); MONOCYTES # (AUTO) 0.8 x10^3/uL (0.3-0.8); MONOCYTES % (AUTO) 10.8 % (0.0-13.0); NEUTROPHILS # (AUTO) 4.5 x10^3/uL (2.2-4.8); NEUTROPHILS % (AUTO) 59.8 % (42.0-75.0); PLATELET COUNT 188 X10^3/uL (150.0-450.0); RED BLOOD COUNT 3.77 X10^6/uL (3.5-5.4); RED CELL DISTRIBUTION WIDTH 21.1 % (11.6-16.5); WHITE BLOOD COUNT 7.6 X10^3/uL (3.6-10.0)
[2018-05-31 11:13] LABS: AMMONIA 20 umol/L (11-32)
[2018-05-31 11:17] LABS: ALANINE AMINOTRANSFERASE 14 Units/L (12-78); ALBUMIN 3.5 g/dL (3.4-5.0); ALKALINE PHOSPHATASE 102 Units/L (46-116); ASPARTATE AMINO TRANSFERASE 15 Units/L (15-37); BLOOD UREA NITROGEN 39 mg/dL (7-18); CALCIUM 8.6 mg/dL (8.5-10.1); CARBON DIOXIDE 32.7 mmol/L (21-32); CHLORIDE 96 mmol/L (98-107); COR NA(FOR HYPERGLY) 136 mmol/L (136-145); CREATININE 1.93 mg/dL (0.55-1.02); SODIUM 135 mmol/L (136-145); TOTAL PROTEIN 7.1 g/dL (6.4-8.2); eGFR NON BLACK RACES 28 (>60)
[2018-05-31 11:47] LABS: ANISOCYTOSIS 1+; HYPOCHROMASIA 1+; MICROCYTOSIS SLIGHT; PLATELET MORPHOLOGY COMMENT NORMAL (NORMAL)
--- NOTE | 2018-05-31 15:36 | CT ---
CT OF THE ABDOMEN AND PELVIS WITHOUT CONTRAST HISTORY: Abdominal distension for months Comparison: 07/01/2015 Technique: Multiple axial images of the abdomen and pelvis were obtained from the lung bases to the pubic symphy sis without the administration of IV contrast. Dose reduction techniques including Automated Exposure Control (AEC) and adjustment of mA and kV were utlized. Findings: Cardiomegaly. Severe coronary artery disease. There is no pericardial effusion.. Large right and mod erate left pleural effusions. The sensitivity for focal lesion detection within the solid abdominal viscera is diminished without t he use of IV contrast. Although there is not identifiable nodularity of the liver, there does appear to be some hypertrophy of the left lobe. No focal lesions. No ductal dilitation. Gallbladder absent. Moderate volume ascites . Pancreas is atrophic. Adrenal glands are normal. Kidneys are normal in contour without hydronephros is or nephrolithiasis. No bowel obstruction or inflammation. No abnormal appearing mesenteric or retroperitoneal lymph node s.. The bladder is normal in appearance. Uterus not well seen. Free fluid in the pelvis. No aggressive osseous lesions. IMPRESSION: 1. Moderate to large volume ascites. There is not a definite nodular contour of the liver however th ere is some mild hypertrophy of the left lobe. Recommend correlation with cirrhosis. 2. Cardiomegaly and pleural effusions. Reported By:
--- NOTE | 2018-05-31 19:43 | DR.UPDATE ---
H&P Update History and Physical Update: ' H&P WAS COMPLETED ON ADMISSION ON THE DATE OF 05/24/18. SHE HAS BEEN CHANGED TO SWINGBED STATUS FOR WOUND CARE AND PHYSICAL THERAPY. SHE WILL RECEIVE IV FORTAZ AND IV LEVAQUIN. NO OTHER CHANGES NOTED TO H&P Changes noted: NO Yes with the following:
--- NOTE | 2018-05-31 19:46 | PCM.PROG ---
Progress Note - Progress Note for Day of Date of Exam: 05/31/18 - Subjective Subjective: WAS ADMITTED TO [facility] STATUS CELLULITIS OF THE LOWER EXTREMITIES AND PHYSICAL THERAPY. TODAY, SHE IS ALERT AND ORIENTED, LYING IN BED ON MORNING ROUNDS. SHE CONTINUES WITH COMPLAINTS OF BILATERAL LOWER EXTREMITY SWELLING AND REDNESS AND GENERALIZED WEAKNESS. SHE ALSO COMPLAINS OF MILD ABDOMINAL PAIN AND FEELING BLOATED. ON EXAMINATION, HEART IS REGULAR IN RATE AND RHYTHM. BILATERAL LUNGS ARE NOTED WITH DIMINISHED LUNG SOUNDS THROUGHOUT. ABDOMEN IS DISTENDED AND NOTED WITH MILD, DIFFUSE TENDERNESS. NORMAL BOWEL SOUNDS NOTED IN ALL QUADRANTS. BILATERAL LOWER EXTREMITIES CONTINUE WITH ERYTHEMA AND TRACE EDEMA. HER VITALS THIS MORNING ARE 97.1-93-20-99%-114/86. LABS WERE OBTAINED. ABNORMAL LAB VALUES INCLUDE THE FOLLOWING: HGB 8.7, HCT 28.0, SODIUM 135, CHLORIDE 96, CARBON DIOXIDE 32.7, BUN 39, CREATININE 1.93, GLUCOSE 157. SHE IS CURRENTLY RECEIVING IV FORTAZ, IV LEVAQUIN, HEMOCYTE 1 TAB PO DAILY, HUMULIN R SLIDING SCALE, AND LASIX 20MG PO BID, WELL HER REGULAR HOME MEDICATIONS WE WILL CONTINUE WITH CURRENT PLAN OF CARE TODAY AND OBTAIN AN ABDOMEN/PELVIS CT WITHOUT CONTRAST. OTHERWISE, WE WILL FOLLOW UP WITH AM LABS AND CONTINUE TO MONITOR PATIENT. - Past Medical Family Social History Past Med/Fam/Surg Hx: No changes since H&P Allergies: Allergies codeine Allergy (Verified 08/13/17 04:47) morphine Allergy (Verified 08/13/17 04:47) Sulfa (Sulfonamide Antibiotics) [SULFA] Allergy (Verified 08/13/17 04:47) TAPE Allergy (Uncoded 12/28/16 14:14) - Review of Systems ROS: No change since H&P - Vital Signs and I&O's Vital Signs: Temperature 97.1 F Pulse Rate [Right Brachial] 93 Pulse Rate 61 Respiratory Rate 20 Blood Pressure [Left Arm] 127/62 Blood Pressure [Right Arm] 114/86 Blood Pressure [Standing] 84/59 Blood Pressure [Lying] 96/58 Blood Pressure 118/59 O2 Sat by Pulse Oximetry 92 Intake and Output: Intake & Output 05/29/18 05/30/18 05/31/18 06/01/18 11:59 11:59 11:59 11:59 Intake Total 460 / 460 1140 / 1140 960 / 960 Balance 460 / 460 1140 / 1140 960 / 960 - Physical Exam Oriented: Normal Eyes: Normal Ear: Normal Nose: Normal Throat: Normal Respiratory: Normal, Generalized, Diminished : Normal Auscultation: Bowel Sounds: Normal Palpation: Normal Tenderness: Diffuse, Mild. negative: Rebound, Guarding, Rigidity Skin: Red (BLE ERYTHEMA AND EDEMA ), Tender, Hot Musculoskeletal: Right, Left, Leg, Swelling, Tender Psychiatric: Normal Mood Description: Calm Affect: Normal Speech Pattern: Clear, Appropriate - Laboratory and Diagnostics Result Diagrams: 05/31/18 10:50 05/31/18 10:50 Labs: Laboratory WBC 7.6 X10^3/uL (3.6-10.0) 05/31/18 10:50 RBC 3.77 X10^6/uL (3.5-5.4) 05/31/18 10:50 Hgb 8.6 g/dL (12.0-16.0) L 05/31/18 10:50 Hct 28.1 % (36.0-47.0) L 05/31/18 10:50 MCV 74.4 fL (80.0-100.0) L 05/31/18 10:50 MCH 22.8 pg (27.0-34.0) L 05/31/18 10:50 MCHC 30.7 g/dL (33.0-35.0) L 05/31/18 10:50 RDW 21.1 % (11.6-16.5) H 05/31/18 10:50 Plt Count 188 X10^3/uL (150.0-450.0) 05/31/18 10:50 Plt Count Comment Adequate (ADEQUATE) 05/31/18 10:50 MPV 8.7 fL (7.4-11.0) 05/31/18 10:50 Neut % (Auto) 59.8 % (42.0-75.0) 05/31/18 10:50 Lymph % (Auto) 25.9 % (21.0-51.0) 05/31/18 10:50 Lamb % (Auto) 10.8 % (0.0-13.0) 05/31/18 10:50 Eos % (Auto) 2.7 % (0.9-2.9) 05/31/18 10:50 Baso % (Auto) 0.8 % (0.2-1.0) 05/31/18 10:50 Neut # (Auto) 4.5 x10^3/uL (2.2-4.8) 05/31/18 10:50 Lymph # (Auto) 2.0 X10^3/uL (1.3-2.9) 05/31/18 10:50 Lamb # (Auto) 0.8 x10^3/uL (0.3-0.8) 05/31/18 10:50 Eos # (Auto) 0.2 x10^3/uL (0.0-0.2) 05/31/18 10:50 Baso # (Auto) 0.1 X10^3/uL (0.0-0.1) 05/31/18 10:50 Absolute Nucleated RBC 0.1 /100WBC 05/31/18 10:50 Plt Morphology Comment Normal (NORMAL) 05/31/18 10:50 RBC Morphology Abnormal (NORMAL) A 05/31/18 10:50 Hypochromasia 1+ A 05/31/18 10:50 Anisocytosis 1+ A 05/31/18 10:50 Microcytosis Slight A 05/31/18 10:50 Sodium 135 mmol/L (136-145) L 05/31/18 10:50 Corrected Sodium 136 mmol/L (136-145) 05/31/18 10:50 Potassium 3.8 mmol/L (3.5-5.1) 05/31/18 10:50 Chloride 96 mmol/L (98-107) L 05/31/18 10:50 Carbon Dioxide 32.7 mmol/L (21-32) H 05/31/18 10:50 BUN 39 mg/dL (7-18) H 05/31/18 10:50 Creatinine 1.93 mg/dL (0.55-1.02) H 05/31/18 10:50 Est GFR (MDRD) Af Amer 33 (>60) L 05/31/18 10:50 Est GFR (MDRD) Non-Af 28 (>60) L 05/31/18 10:50 Glucose 157 mg/dL (65-99) H 05/31/18 10:50 POC Glucose (mg/dL) 154 mg/dL (65-99) H 05/31/18 16:53 Calcium 8.6 mg/dL (8.5-10.1) 05/31/18 10:50 Corrected Calcium TNP 05/31/18 10:50 Total Bilirubin 0.60 mg/dL (0.2-1.0) 05/31/18 10:50 AST 15 Units/L (15-37) 05/31/18 10:50 ALT 14 Units/L (12-78) 05/31/18 10:50 Alkaline Phosphatase 102 Units/L (46-116) 05/31/18 10:50 Ammonia 20 umol/L (11-32) 05/31/18 10:50 B-Natriuretic Peptide 2150 pg/mL (0-79) H* 05/30/18 05:56 Total Protein 7.1 g/dL (6.4-8.2) 05/31/18 10:50 Albumin 3.5 g/dL (3.4-5.0) 05/31/18 10:50 Globulin 3.6 g/dL (2.5-4.5) 05/31/18 10:50 Albumin/Globulin Ratio 1.0 Ratio (1.1-2.1) L 05/31/18 10:50 - Plan (1) Cellulitis of both lower extremities Status: Acute Plan: IV FORTAZ, IV LEVAQUIN, WOUND CARE, CONTINUE TO MONITOR (2) Abdominal pain Status: Acute Qualifiers: Abdominal location: generalized Qualified Code(s): R10.84 - Generalized abdominal pain Plan: ABDOMEN/PELVIS CT WITHOUT CONTRAST, CONTINUE TO MONITOR
[2018-05-31] MEDS: ZOCOR TAB 10 MG PO SCH (21:21)
[2018-05-31] MEDS: SNACK - Diabetic Appropriate PO SCH (21:22)
[2018-05-31] MEDS: PERCOCET TAB 5/325 MG PO PRN (21:27)
[2018-05-31] MEDS: LANTUS SC SCH (21:32)
[2018-06-01] MEDS: XANAX PO SCH ×3 (05:00→21:34)
[2018-06-01] MEDS: HumuLIN R SUBCUT PRN ×2 (05:34→17:24)
[2018-06-01] MEDS: LOVENOX INJ 30 MG SYR SC SCH ×2 (09:12→21:36)
[2018-06-01] MEDS: PEPCID TAB 20 MG PO SCH (09:12)
[2018-06-01] MEDS: HEMOCYTE-PLUS PO SCH (09:13)
[2018-06-01] MEDS: LEVAQUIN PREMIX IV 500 MG 500 MG/100 ML BAG IV SCH (09:13)
[2018-06-01] MEDS: FORTAZ or TAZICEF VIAL INJ IVP SCH ×2 (09:13→21:34)
[2018-06-01] MEDS: MIRALAX POWDER (1 DOSE 17 G) PO SCH (09:13)
[2018-06-01] MEDS: EFFEXOR XR 150 MG CAP PO SCH (09:13)
[2018-06-01] MEDS: CLARITIN PO SCH (09:13)
[2018-06-01] MEDS: PROTONIX TAB 40 MG PO SCH ×2 (09:13→21:34)
[2018-06-01] MEDS: PLAVIX PO SCH (09:14)
[2018-06-01] MEDS: COREG TAB 6.25 MG PO SCH ×2 (09:14→21:35)
[2018-06-01] MEDS: COLACE CAP 100 MG PO SCH (09:14)
[2018-06-01] MEDS: LASIX IVP SCH ×2 (09:18→21:35)
[2018-06-01] MEDS: ULTRAM PO PRN (15:48)
[2018-06-01] MEDS: SNACK - Diabetic Appropriate PO SCH (20:00)
[2018-06-01] MEDS: PERCOCET TAB 5/325 MG PO PRN (21:35)
[2018-06-01] MEDS: ZOCOR TAB 10 MG PO SCH (21:35)
[2018-06-01] MEDS: LANTUS SC SCH (21:35)
[2018-06-02] MEDS: XANAX PO SCH ×3 (05:03→21:14)
[2018-06-02] MEDS: HumuLIN R SUBCUT PRN ×2 (05:33→21:13)
[2018-06-02] MEDS: PROTONIX TAB 40 MG PO SCH ×2 (09:29→21:14)
[2018-06-02] MEDS: CLARITIN PO SCH (09:29)
[2018-06-02] MEDS: FORTAZ or TAZICEF VIAL INJ IVP SCH (09:29)
[2018-06-02] MEDS: PEPCID TAB 20 MG PO SCH (09:29)
[2018-06-02] MEDS: LASIX IVP SCH ×2 (09:29→21:15)
[2018-06-02] MEDS: COLACE CAP 100 MG PO SCH (09:29)
[2018-06-02] MEDS: EFFEXOR XR 150 MG CAP PO SCH (09:29)
[2018-06-02] MEDS: COREG TAB 6.25 MG PO SCH ×2 (09:29→21:15)
[2018-06-02] MEDS: MIRALAX POWDER (1 DOSE 17 G) PO SCH ×2 (09:30→21:17)
[2018-06-02] MEDS: HEMOCYTE-PLUS PO SCH (09:37)
--- NOTE | 2018-06-02 10:21 | DR.CONSULT ---
Consult - Consultation for Day of: Date: 06/02/18 - Chief Complaint Chief Complaint: Pateint referred for ascites. Pateint with complaints of abdominal distention and pain, dysphagia, nausea, dyspepsia. - History of Present Illness History of Present Illness: Patient is a 68yo female who was referred for ascites. Patient with complaints of abdominal distention and pain, dysphagia, nausea, dyspepsia. Pateint states she also has some constipation but the miralax has been helping. She denies vomiting, diarrhea, melena and hematochezia. Last EGD was 05/22/2017 which showed distal esophagitits with irregular z-line and antral gastritis with erosions. Last colon was 11/18/2011 which showed castro diverticulosis, internal hemorrhoids and 3.8cm tubulovillous adenomatous colon polyp. Abdomena nd pelvis CT showed Moderate to large volume ascites. There is not a definite nodular contour of the liver however there is some mild hypertrophy of the left lobe. Recommend correlation with cirrhosis. Previous abnormal LFt panel and Hepatitis panel were negative Hgb 8.6, Hct 28.1, Plt 188, Liver enzymes WNL. Patient noted to have diffuse abdominal tenderness which she states is more of a tight pressure feeling and abdominal distention. - Past Medical History Past Medical History: Anxiety, Arthritis, Depression, Diabetes, GERD, Hypertension Additional Medical History: Chronic Pain Syndrome, Gastroparesis, Chronic Constipation, Fibromyalgia, Cervical Dysplasia - Past Surgical History Surgical History: Hysterectomy, Ortho Surgery, Tonsillectomy, Other Additional Surgical History: Laser surgery for cervical dysplasia - Family History Family Medical History: Diabetes Mellitus, Coronary Artery Disease, Sudden Cardiac , Hypertension - Social History Does patient currently use any type of tobacco product: No Have you used tobacco products in the last 12 months: No Type of Tobacco Use: None - Medications Home Medications: codeine Allergy (Verified 08/13/17 04:47) morphine Allergy (Verified 08/13/17 04:47) Sulfa (Sulfonamide Antibiotics) [SULFA] Allergy (Verified 08/13/17 04:47) TAPE Allergy (Uncoded 12/28/16 14:14) - Review of Systems Constitutional: Weakness Eyes: No Symptoms Reported ENT: No Symptoms Reported Respiratory: Shortness of Breath, SOB with Excertion Cardiovascular: No Symptoms Reported Gastrointestinal: See HPI, Nausea, Abdominal Pain, Constipation, Other (dyspepsia, dysphagia). denies: Vomiting, Diarrhea, Melena, Hematochezia Genitourinary: No Symptoms Reported Musculoskeletal: No Symptoms Reported Skin: No Symptoms Reported Neurological: No Symptoms Reported - Physical Exam Vital Signs: Temperature 97.5 F Pulse Rate [Right Brachial] 97 Pulse Rate 83 Respiratory Rate 20 Blood Pressure [Left Arm] 127/62 Blood Pressure [Right Arm] 115/62 Blood Pressure [Standing] 84/59 Blood Pressure [Lying] 96/58 Blood Pressure 118/59 O2 Sat by Pulse Oximetry 100 Oriented: Normal, Time, Person, Place Eyes: Normal Ear: Normal Nose: Normal Throat: Normal Respiratory: Clear Throughout Cardiovascular: Normal, Edema (lower extremity) Auscultation: Bowel Sounds: Normal Palpation: Other (distention). negative: Spleen Enlarged, Liver Enlarged, Mass Pulsatile Tenderness: Diffuse Skin: Normal Musculoskeletal: Swelling (lower extremity) Psychiatric: Normal Mood Description: Calm Affect: Normal Speech Pattern: Clear, Appropriate - Plan Plan: Assessmet. 1. Ascites likely secondary to CHF. 2. Dysphagia, Dyspepsia, Nausea, GERD. 3. H/O large tubulovillous adenomatous colon polyp. Plan. 1. Paracentesis. 2. Protonix, Possible EGD on tuesday. 3. Will need colonoscopy when more stable. Plan reviewed with Dr. House - Allergies Allergies/Adverse Reactions: Allergies Allergy/AdvReac Type Severity Reaction Status Date / Time codeine Allergy Verified 08/13/17 04:47 morphine Allergy Verified 08/13/17 04:47 Sulfa (Sulfonamide Allergy Verified 08/13/17 04:47 Antibiotics) [SULFA] TAPE Allergy Uncoded 12/28/16 14:14
[2018-06-02] MEDS: PLAVIX PO SCH (11:42)
[2018-06-02] MEDS: LOVENOX INJ 30 MG SYR SC SCH ×2 (11:43→21:14)
[2018-06-02] MEDS: SNACK - Diabetic Appropriate PO SCH (20:00)
[2018-06-02] MEDS: ZOCOR TAB 10 MG PO SCH (21:15)
[2018-06-02] MEDS: PERCOCET TAB 5/325 MG PO PRN (21:15)
[2018-06-02] MEDS: LANTUS SC SCH (21:16)
[2018-06-03] MEDS: XANAX PO SCH ×3 (05:21→21:05)
[2018-06-03] MEDS: LASIX IVP SCH ×2 (08:35→20:58)
[2018-06-03] MEDS: LEVAQUIN PREMIX IV 500 MG 500 MG/100 ML BAG IV SCH (08:35)
[2018-06-03] MEDS: EFFEXOR XR 150 MG CAP PO SCH (08:36)
[2018-06-03] MEDS: LOVENOX INJ 30 MG SYR SC SCH ×2 (08:36→20:59)
[2018-06-03] MEDS: COLACE CAP 100 MG PO SCH (08:36)
[2018-06-03] MEDS: PROTONIX TAB 40 MG PO SCH ×2 (08:37→20:59)
[2018-06-03] MEDS: COREG TAB 6.25 MG PO SCH ×2 (08:37→20:59)
[2018-06-03] MEDS: CLARITIN PO SCH (08:37)
[2018-06-03] MEDS: PEPCID TAB 20 MG PO SCH (08:37)
[2018-06-03] MEDS: HEMOCYTE-PLUS PO SCH (08:37)
[2018-06-03] MEDS: FORTAZ or TAZICEF VIAL INJ IVP SCH (08:48)
[2018-06-03 10:20] LABS: BASOPHILS % (AUTO) 0.6 % (0.2-1.0); EOSINOPHILS # (AUTO) 0.3 x10^3/uL (0.0-0.2); EOSINOPHILS % (AUTO) 3.5 % (0.9-2.9); HEMATOCRIT 28.8 % (36.0-47.0); HEMOGLOBIN 8.8 g/dL (12.0-16.0); LYMPHOCYTES # (AUTO) 1.4 X10^3/uL (1.3-2.9); LYMPHOCYTES % (AUTO) 17.9 % (21.0-51.0); MEAN CORPUSCULAR HEMOGLOBIN 23.2 pg (27.0-34.0); MEAN CORPUSCULAR HGB CONC 30.5 g/dL (33.0-35.0); MEAN CORPUSCULAR VOLUME 75.9 fL (80.0-100.0); MEAN PLATELET VOLUME 8.6 fL (7.4-11.0); MONOCYTES # (AUTO) 0.8 x10^3/uL (0.3-0.8); MONOCYTES % (AUTO) 10.8 % (0.0-13.0); NEUTROPHILS # (AUTO) 5.2 x10^3/uL (2.2-4.8); NEUTROPHILS % (AUTO) 67.2 % (42.0-75.0); PLATELET COUNT 194 X10^3/uL (150.0-450.0); RED BLOOD COUNT 3.79 X10^6/uL (3.5-5.4); RED CELL DISTRIBUTION WIDTH 24.1 % (11.6-16.5); WHITE BLOOD COUNT 7.8 X10^3/uL (3.6-10.0)
[2018-06-03 10:29] LABS: ALBUMIN 3.3 g/dL (3.4-5.0); CALCIUM 8.5 mg/dL (8.5-10.1); CARBON DIOXIDE 32.2 mmol/L (21-32); COR CA(FOR HYPOALB) 9.1 mg/dL (8.5-10.1); CREATININE 1.77 mg/dL (0.55-1.02); TOTAL PROTEIN 7.1 g/dL (6.4-8.2)
[2018-06-03 10:44] LABS: PLATELET MORPHOLOGY COMMENT NORMAL (NORMAL)
[2018-06-03 10:45] LABS: ANISOCYTOSIS 3+; HYPOCHROMASIA 1+; MICROCYTOSIS 1+
[2018-06-03] MEDS: MIRALAX POWDER (1 DOSE 17 G) PO SCH (12:38)
[2018-06-03] MEDS: ZOCOR TAB 10 MG PO SCH (20:59)
[2018-06-03] MEDS: SNACK - Diabetic Appropriate PO SCH (21:00)
[2018-06-03] MEDS: LANTUS SC SCH (21:05)
[2018-06-04] MEDS: XANAX PO SCH ×3 (05:44→21:01)
[2018-06-04] MEDS: HumuLIN R SUBCUT PRN ×2 (05:52→20:49)
[2018-06-04] MEDS: COREG TAB 6.25 MG PO SCH ×2 (08:21→20:57)
[2018-06-04] MEDS: PEPCID TAB 20 MG PO SCH (08:21)
[2018-06-04] MEDS: FORTAZ or TAZICEF VIAL INJ IVP SCH (08:21)
[2018-06-04] MEDS: PROTONIX TAB 40 MG PO SCH ×2 (08:21→20:57)
[2018-06-04] MEDS: COLACE CAP 100 MG PO SCH (08:21)
[2018-06-04] MEDS: HEMOCYTE-PLUS PO SCH (08:22)
[2018-06-04] MEDS: LASIX IVP SCH ×2 (08:22→20:49)
[2018-06-04] MEDS: CLARITIN PO SCH (08:22)
[2018-06-04] MEDS: EFFEXOR XR 150 MG CAP PO SCH (08:22)
[2018-06-04] MEDS: MIRALAX POWDER (1 DOSE 17 G) PO SCH (08:23)
[2018-06-04] MEDS: LANTUS SC SCH (20:54)
[2018-06-04] MEDS: ZOCOR TAB 10 MG PO SCH (20:57)
[2018-06-04] MEDS: SNACK - Diabetic Appropriate PO SCH (21:05)
[2018-06-05] MEDS: XANAX PO SCH ×2 (05:39→13:13)
[2018-06-05] MEDS: HumuLIN R SUBCUT PRN (05:40)
[2018-06-05] MEDS: MIRALAX POWDER (1 DOSE 17 G) PO SCH (09:31)
[2018-06-05] MEDS: HEMOCYTE-PLUS PO SCH (09:31)
[2018-06-05] MEDS: PEPCID TAB 20 MG PO SCH (09:31)
[2018-06-05] MEDS: COREG TAB 6.25 MG PO SCH ×2 (09:31→20:32)
[2018-06-05] MEDS: LEVAQUIN PREMIX IV 500 MG 500 MG/100 ML BAG IV SCH (09:31)
[2018-06-05] MEDS: PROTONIX TAB 40 MG PO SCH ×2 (09:31→20:32)
[2018-06-05] MEDS: EFFEXOR XR 150 MG CAP PO SCH (09:31)
[2018-06-05] MEDS: COLACE CAP 100 MG PO SCH (09:31)
[2018-06-05] MEDS: FORTAZ or TAZICEF VIAL INJ IVP SCH (09:32)
[2018-06-05] MEDS: CLARITIN PO SCH (09:32)
[2018-06-05] MEDS: ULTRAM PO PRN (09:38)
[2018-06-05] MEDS ORDERED: XANAX PO PRN (14:48)
[2018-06-05] MEDS: ZOCOR TAB 10 MG PO SCH (20:32)
[2018-06-05] MEDS: SNACK - Diabetic Appropriate PO SCH (20:32)
[2018-06-05] MEDS: LANTUS SC SCH (20:32)
[2018-06-05] MEDS: PERCOCET TAB 5/325 MG PO PRN (20:33)
[2018-06-06 06:17] LABS: BASOPHILS % (AUTO) 0.5 % (0.2-1.0); EOSINOPHILS # (AUTO) 0.2 x10^3/uL (0.0-0.2); EOSINOPHILS % (AUTO) 2.7 % (0.9-2.9); HEMATOCRIT 27.8 % (36.0-47.0); HEMOGLOBIN 8.6 g/dL (12.0-16.0); LYMPHOCYTES # (AUTO) 1.4 X10^3/uL (1.3-2.9); LYMPHOCYTES % (AUTO) 19.9 % (21.0-51.0); MEAN CORPUSCULAR HEMOGLOBIN 23.3 pg (27.0-34.0); MEAN CORPUSCULAR HGB CONC 30.8 g/dL (33.0-35.0); MEAN CORPUSCULAR VOLUME 75.6 fL (80.0-100.0); MEAN PLATELET VOLUME 8.9 fL (7.4-11.0); MONOCYTES # (AUTO) 0.9 x10^3/uL (0.3-0.8); MONOCYTES % (AUTO) 12.4 % (0.0-13.0); NEUTROPHILS # (AUTO) 4.5 x10^3/uL (2.2-4.8); NEUTROPHILS % (AUTO) 64.5 % (42.0-75.0); PLATELET COUNT 189 X10^3/uL (150.0-450.0); RED BLOOD COUNT 3.68 X10^6/uL (3.5-5.4)
[2018-06-06 06:32] LABS: ALBUMIN 3.1 g/dL (3.4-5.0); CALCIUM 8.2 mg/dL (8.5-10.1); CARBON DIOXIDE 31.4 mmol/L (21-32); COR CA(FOR HYPOALB) 8.9 mg/dL (8.5-10.1); CREATININE 1.6 mg/dL (0.55-1.02); TOTAL PROTEIN 6.8 g/dL (6.4-8.2)
[2018-06-06 07:06] LABS: ANISOCYTOSIS 3+; HYPOCHROMASIA 1+; PLATELET MORPHOLOGY COMMENT NORMAL (NORMAL)
[2018-06-06] MEDS: COLACE CAP 100 MG PO SCH (08:27)
[2018-06-06] MEDS: FORTAZ or TAZICEF VIAL INJ IVP SCH (08:27)
[2018-06-06] MEDS: CLARITIN PO SCH (08:27)
[2018-06-06] MEDS: MIRALAX POWDER (1 DOSE 17 G) PO SCH (08:28)
[2018-06-06] MEDS: HEMOCYTE-PLUS PO SCH (08:28)
[2018-06-06] MEDS: EFFEXOR XR 150 MG CAP PO SCH (08:28)
[2018-06-06] MEDS: COREG TAB 6.25 MG PO SCH (08:28)
[2018-06-06] MEDS: PEPCID TAB 20 MG PO SCH (08:28)
[2018-06-06] MEDS: PROTONIX TAB 40 MG PO SCH (08:28)
[2018-06-06 11:32] VITALS: BP 136/70
[2018-06-06] MEDS ORDERED: ALDACTONE TAB 25 MG PO SCH (14:00)
--- NOTE | 2018-07-14 02:36 | DR.CARTERD ---
- Discharge Summary for: Discharge Summary for Date of:: 06/06/18 - Admission Date Date of Admission: 05/29/18 - Admission Diagnoses Admission Diagnosis: (1) Cellulitis of both lower extremities (2) Abdominal pain - Discharge Date Discharge Date: 06/06/18 - Discharge Diagnoses Discharge Diagnosis: (1) Cellulitis of both lower extremities (2) Abdominal pain - Hospital Course Hospital Course: DAY ONE, SHE HAS BEEN CHANGED TO SWINGBED STATUS FOR WOUND CARE AND PHYSICAL THERAPY. SHE WILL RECEIVE IV FORTAZ AND IV LEVAQUIN. PATIENT RECEIVING AGGRESSIVE PHYSICAL THERAPY FOR WEAKNESS. WE CONTINUED TO MONITOR PATIENT. DAY THREE, SHE CONTINUED WITH COMPLAINTS OF BILATERAL LOWER EXTREMITY SWELLING AND REDNESS AND GENERALIZED WEAKNESS. SHE ALSO COMPLAINED OF MILD ABDOMINAL PAIN AND FEELING BLOATED. ON EXAMINATION, HEART WAS REGULAR IN RATE AND RHYTHM. BILATERAL LUNGS WERE NOTED WITH DIMINISHED LUNG SOUNDS THROUGHOUT. ABDOMEN WAS DISTENDED AND NOTED WITH MILD, DIFFUSE TENDERNESS. NORMAL BOWEL SOUNDS NOTED IN ALL QUADRANTS. BILATERAL LOWER EXTREMITIES CONTINUED WITH ERYTHEMA AND TRACE EDEMA. HER VITALS THIS MORNING WERE 97.1-93-20-99%-114/86. LABS WERE OBTAINED. ABNORMAL LAB VALUES INCLUDED THE FOLLOWING: HGB 8.7, HCT 28.0, SODIUM 135, CHLORIDE 96, CARBON DIOXIDE 32.7, BUN 39, CREATININE 1.93, GLUCOSE 157. SHE RECEIVED IV FORTAZ, IV LEVAQUIN, HEMOCYTE 1 TAB PO DAILY, HUMULIN R SLIDING SCALE, AND LASIX 20MG PO BID, WELL HER REGULAR HOME MEDICATIONS. WE CONTINUED WITH CURRENT PLAN OF CARE TODAY AND OBTAINED AN ABDOMEN/PELVIS CT WITHOUT CONTRAST. WE FOLLOWED UP WITH AM LABS AND CONTINUED TO MONITOR PATIENT. DAY FIVE, DR. BRAMBILA CONSULTED PATIENT AND NOTED: Patient with complaints of abdominal distention and pain, dysphagia, nausea, dyspepsia. Pateint states she also has some constipation but the miralax has been helping. She denies vomiting, diarrhea, melena and hematochezia. Last EGD was 05/22/2017 which showed distal esophagitits with irregular z-line and antral gastritis with erosions. Last colon was 11/18/2011 which showed castro diverticulosis, internal hemorrhoids and 3. 8cm tubulovillous adenomatous colon polyp. Abdomena nd pelvis CT showed Moderate to large volume ascites. There is not a definite nodular contour of the liver however there is some mild hypertrophy of the left lobe. Recommend correlation with cirrhosis. Previous abnormal LFt panel and Hepatitis panel were negative Hgb 8.6, Hct 28.1, Plt 188, Liver enzymes WNL. Patient noted to have diffuse abdominal tenderness which she states is more of a tight pressure feeling and abdominal distention. END NOTE. WE CONTINUED WITH CURRENT PLAN OF TREATMENT AND CONTINUED TO MONITOR PATIENT. DAY NINE. SHE CONTINUED WITH COMPLAINTS OF BILATERAL LOWER EXTREMITY SWELLING AND REDNESS AND GENERALIZED WEAKNESS. SHE ALSO COMPLAINED OF MILD ABDOMINAL PAIN AND FEELING BLOATED. PATIENT'S ABDOMEN IS DISTENDED. PATIENT HAD AN EGD PERFORMED TODAY AND DR. BRAMBILA NOTED:Mild distal esophagitis and mild gastritis. No other significant abnormalities seen. I will recommend to continue with diuresis. She is currently on Lasix. I will add Spironolactone 50 mg p.o. daily. She will be continued on Protonix 40 mg p.o. daily as well. Liver workup will be followed up. END NOTE. PATIENT WAS DISCHARGED FROM SWING BED STATUS AND ADMITTED INPATIENT TODAY. WE PLANNED TO CONTINUE EVALUATION AND TREATMENT OF PATIENT IN THE HOSPITAL AN INPATIENT. - Discharge Medications Discharge Medications: Prescriptions: Ambulatory Orders clopidogrel [Plavix] 75 mg PO DAILY 12/28/16 simvastatin 10 mg PO HS 12/28/16 fentanyl 1 patch TOP Q72H 08/12/17 furosemide 40 mg PO BID 08/12/17 pantoprazole 40 mg PO BID 08/12/17 insulin glargine [Lantus U-100 Insulin] 10 unit SC HS 09/03/17 alprazolam 1 mg PO TID 05/23/18 carvedilol 6.25 mg PO BID 05/23/18 docusate sodium 100 mg PO Q12H PRN 05/23/18 famotidine 40 mg PO BID 05/23/18 insulin aspart U-100 [Novolog Flexpen U-100 Insulin] 2 - 14 units SUBCUT BIDWM 05/23/18 loratadine 10 mg PO DAILY 05/23/18 oxycodone-acetaminophen 1 tab PO Q12H PRN 05/23/18 tiotropium-olodaterol [Stiolto Respimat] 1 puff INHALATION DAILY PRN 05/23/18 tramadol 100 mg PO Q4H PRN 05/23/18 venlafaxine 150 mg PO DAILY 05/23/18 carvedilol [Coreg] 3.125 mg PO BID #60 tab 06/09/18 digoxin 0.125 mg PO QDAY #30 tab 06/09/18 furosemide [Lasix] 20 mg PO QDAY #30 tab 06/09/18 oxycodone 20 mg PO Q6H PRN #120 tab 06/09/18 - Discharge Disposition Discharge Disposition: WE WILL CONTINUE TO FOLLOW UP, EVALUATE, AND TREAT PATIENT IN THE HOSPITAL UNDER INPATIENT STATUS.
== END 2018-06-06 08:30 | disposition critical access hospital (66) | DRG 949 ==
LOC: MED/SURG 15:00
PROVIDERS: ADMIT Internal Medicine; ATTEND Internal Medicine
DX: K59.09 Other constipation; Z79.4 Long term (current) use of insulin; R06.02 Shortness of breath; R10.84 Generalized abdominal pain; I48.2 Chronic atrial fibrillation; K21.9 Gastro-esophageal reflux disease without esophagitis; K29.60 Other gastritis without bleeding; R53.1 Weakness; E55.9 Vitamin D deficiency, unspecified; E78.2 Mixed hyperlipidemia; R26.89 Other abnormalities of gait and mobility; L03.115 Cellulitis of right lower limb; K20.8 Other esophagitis; Z98.890 Other specified postprocedural states; I73.89 Other specified peripheral vascular diseases; L03.116 Cellulitis of left lower limb; I50.9 Heart failure, unspecified; R60.0 Localized edema; E11.65 Type 2 diabetes mellitus with hyperglycemia; I11.0 Hypertensive heart disease with heart failure; D51.9 Vitamin B12 deficiency anemia, unspecified; R10.13 Epigastric pain; Z51.89 Encounter for other specified aftercare
CPT/HCPCS: 36415; 74176; 80053; 82140; 83880; 85025; 85610; 85730; 88305; 88342; 94640; 97163; 99100; A4216; A4217; A4222; J0713; J1650; J1815; J1940; J1956; J2405; J7050; J7620

== ENCOUNTER 2018-06-06 08:30 | Inpatient (IN) ==
[2018-06-06] MEDS ORDERED: DIPRIVAN VIAL 20 ML ONE (12:58)
[2018-06-06] MEDS ORDERED: XYLOCAINE 2 % (PLAIN) ONE (12:58)
[2018-06-06] MEDS ORDERED: NS 500 ML IV 500 ML IV ONE (13:25)
[2018-06-06 16:27] VITALS: BMI 29.1
[2018-06-06] MEDS: NS 1000 ML 1,000 ML IV SCH (16:37)
[2018-06-06] MEDS ORDERED: XANAX ONE (18:04)
[2018-06-06] MEDS ORDERED: DUONEB 0.5 MG/3 MG ONE (18:05)
[2018-06-06] MEDS: XANAX PO SCH ×2 (18:06→22:46)
[2018-06-06] MEDS: DUONEB 0.5 MG/3 MG NEB PRN (18:32)
[2018-06-06] MEDS ORDERED: COLACE CAP 100 MG PO PRN (19:41)
[2018-06-06] MEDS ORDERED: ULTRAM PO PRN (19:41)
[2018-06-06] MEDS ORDERED: TIOTROPIUM OLODATEROL IN PRN (19:41)
[2018-06-06] MEDS: PROTONIX TAB 40 MG PO SCH (20:52)
[2018-06-06] MEDS: COREG TAB 6.25 MG PO SCH (20:52)
[2018-06-06] MEDS: PEPCID TAB 20 MG PO SCH (20:52)
[2018-06-06] MEDS: ZOCOR TAB 10 MG PO SCH (20:52)
[2018-06-06] MEDS: SNACK - Diabetic Appropriate PO SCH (20:55)
[2018-06-06] MEDS: PERCOCET TAB 5/325 MG PO PRN (20:55)
[2018-06-06] MEDS: LANTUS SC SCH (21:01)
[2018-06-07] MEDS: XANAX PO SCH ×3 (05:48→21:57)
[2018-06-07] MEDS: HumuLIN R SUBCUT PRN ×2 (06:11→17:23)
[2018-06-07 06:24] LABS: BASOPHILS # (AUTO) 0.1 X10^3/uL (0.0-0.1); BASOPHILS % (AUTO) 1.3 % (0.2-1.0); EOSINOPHILS # (AUTO) 0.1 x10^3/uL (0.0-0.2); EOSINOPHILS % (AUTO) 2.2 % (0.9-2.9); HEMATOCRIT 29.1 % (36.0-47.0); HEMOGLOBIN 8.9 g/dL (12.0-16.0); LYMPHOCYTES # (AUTO) 1.6 X10^3/uL (1.3-2.9); LYMPHOCYTES % (AUTO) 25.7 % (21.0-51.0); MEAN CORPUSCULAR HEMOGLOBIN 23.4 pg (27.0-34.0); MEAN CORPUSCULAR HGB CONC 30.6 g/dL (33.0-35.0); MEAN CORPUSCULAR VOLUME 76.3 fL (80.0-100.0); MEAN PLATELET VOLUME 8.4 fL (7.4-11.0); MONOCYTES # (AUTO) 0.8 x10^3/uL (0.3-0.8); MONOCYTES % (AUTO) 11.9 % (0.0-13.0); NEUTROPHILS # (AUTO) 3.8 x10^3/uL (2.2-4.8); NEUTROPHILS % (AUTO) 58.9 % (42.0-75.0); PLATELET COUNT 232 X10^3/uL (150.0-450.0); RED BLOOD COUNT 3.81 X10^6/uL (3.5-5.4); RED CELL DISTRIBUTION WIDTH 25.6 % (11.6-16.5); WHITE BLOOD COUNT 6.4 X10^3/uL (3.6-10.0)
[2018-06-07 06:41] LABS: ALBUMIN 3.1 g/dL (3.4-5.0); CALCIUM 8.5 mg/dL (8.5-10.1); CARBON DIOXIDE 31.6 mmol/L (21-32); COR CA(FOR HYPOALB) 9.2 mg/dL (8.5-10.1); CREATININE 1.42 mg/dL (0.55-1.02); TOTAL PROTEIN 6.9 g/dL (6.4-8.2)
[2018-06-07 07:12] LABS: ANISOCYTOSIS 3+; HYPOCHROMASIA 1+; PLATELET MORPHOLOGY COMMENT NORMAL (NORMAL)
[2018-06-07] MEDS: PEPCID TAB 20 MG PO SCH ×2 (08:13→20:21)
[2018-06-07] MEDS: FORTAZ or TAZICEF VIAL INJ IVP SCH (08:13)
[2018-06-07] MEDS: EFFEXOR XR 150 MG CAP PO SCH (08:13)
[2018-06-07] MEDS: PROTONIX TAB 40 MG PO SCH ×2 (08:13→20:20)
[2018-06-07] MEDS: CLARITIN PO SCH (08:14)
[2018-06-07] MEDS: COREG TAB 6.25 MG PO SCH ×2 (08:14→20:21)
[2018-06-07] MEDS: ALBUMIN HUMAN 25%- 100 ML 100 ML IV SCH (14:15)
[2018-06-07] MEDS: LASIX IVP SCH ×2 (14:16→20:20)
[2018-06-07] MEDS: NS 1000 ML 1,000 ML IV SCH ×2 (14:40→22:00)
[2018-06-07] MEDS ORDERED: SNACK - Diabetic Appropriate PO SCH (20:00)
[2018-06-07] MEDS: SNACK - Diabetic Appropriate PO SCH (20:00)
[2018-06-07] MEDS: ZOCOR TAB 10 MG PO SCH (20:21)
[2018-06-07] MEDS: PERCOCET TAB 5/325 MG PO PRN (20:21)
[2018-06-07] MEDS: LANTUS SC SCH (20:27)
[2018-06-08 04:48] LABS: BASOPHILS # (AUTO) 0.1 X10^3/uL (0.0-0.1); EOSINOPHILS # (AUTO) 0.2 x10^3/uL (0.0-0.2); EOSINOPHILS % (AUTO) 2.9 % (0.9-2.9); HEMATOCRIT 29.1 % (36.0-47.0); HEMOGLOBIN 8.8 g/dL (12.0-16.0); LYMPHOCYTES # (AUTO) 1.6 X10^3/uL (1.3-2.9); LYMPHOCYTES % (AUTO) 23.8 % (21.0-51.0); MEAN CORPUSCULAR HEMOGLOBIN 23.2 pg (27.0-34.0); MEAN CORPUSCULAR HGB CONC 30.2 g/dL (33.0-35.0); MEAN CORPUSCULAR VOLUME 76.9 fL (80.0-100.0); MEAN PLATELET VOLUME 8.7 fL (7.4-11.0); MONOCYTES # (AUTO) 0.9 x10^3/uL (0.3-0.8); MONOCYTES % (AUTO) 13.2 % (0.0-13.0); NEUTROPHILS # (AUTO) 4.1 x10^3/uL (2.2-4.8); NEUTROPHILS % (AUTO) 59.1 % (42.0-75.0); PLATELET COUNT 225 X10^3/uL (150.0-450.0); RED BLOOD COUNT 3.78 X10^6/uL (3.5-5.4); RED CELL DISTRIBUTION WIDTH 25.3 % (11.6-16.5); WHITE BLOOD COUNT 6.9 X10^3/uL (3.6-10.0)
[2018-06-08 05:12] LABS: ALANINE AMINOTRANSFERASE 18 Units/L (12-78); ALBUMIN 3.4 g/dL (3.4-5.0); ALKALINE PHOSPHATASE 112 Units/L (46-116); ASPARTATE AMINO TRANSFERASE 21 Units/L (15-37); BLOOD UREA NITROGEN 52 mg/dL (7-18); CALCIUM 8.2 mg/dL (8.5-10.1); CARBON DIOXIDE 30.6 mmol/L (21-32); CHLORIDE 96 mmol/L (98-107); COR NA(FOR HYPERGLY) 134 mmol/L (136-145); CREATININE 1.49 mg/dL (0.55-1.02); SODIUM 133 mmol/L (136-145); eGFR NON BLACK RACES 37 (>60)
[2018-06-08 05:35] LABS: ANISOCYTOSIS 3+; HYPOCHROMASIA 1+; OVALOCYTES PRESENT; PLATELET MORPHOLOGY COMMENT NORMAL (NORMAL)
[2018-06-08] MEDS: XANAX PO SCH ×4 (05:44→20:59)
--- NOTE | 2018-06-08 07:38 | RAD ---
HISTORY: Shortness of breath Study: Chest AP portable Comparison: 06/07/2018 Findings: There is a pacemaker present on the left. The heart remains enlarged. No congestive heart failure is identified. No acute alveolar infiltrates are identified. Mild interstitial lung changes are present. No definite pleural effusions are identified. IMPRESSION: No significant change from the prior examination Reported By:
[2018-06-08] MEDS: ALBUMIN HUMAN 25%- 100 ML 100 ML IV SCH (08:58)
[2018-06-08] MEDS: LASIX IVP SCH ×2 (08:59→20:58)
[2018-06-08] MEDS: FORTAZ or TAZICEF VIAL INJ IVP SCH (08:59)
[2018-06-08] MEDS ORDERED: LEVAQUIN PREMIX IV 500 MG 500 MG/100 ML BAG IV SCH (09:00)
[2018-06-08] MEDS: EFFEXOR XR 150 MG CAP PO SCH (09:00)
[2018-06-08] MEDS: COREG TAB 6.25 MG PO SCH ×2 (09:00→20:58)
[2018-06-08] MEDS: PEPCID TAB 20 MG PO SCH ×2 (09:00→20:59)
[2018-06-08] MEDS: CLARITIN PO SCH (09:00)
[2018-06-08] MEDS: PROTONIX TAB 40 MG PO SCH ×2 (09:00→20:58)
[2018-06-08] MEDS: PERCOCET TAB 5/325 MG PO PRN ×2 (09:07→23:12)
[2018-06-08] MEDS: DUONEB 0.5 MG/3 MG NEB PRN (12:01)
[2018-06-08] MEDS: SNACK - Diabetic Appropriate PO SCH (20:00)
[2018-06-08] MEDS: ZOCOR TAB 10 MG PO SCH (20:59)
[2018-06-08] MEDS: LANTUS SC SCH (20:59)
[2018-06-09] MEDS: XANAX PO SCH (05:42)
[2018-06-09] MEDS: HumuLIN R SUBCUT PRN (05:51)
[2018-06-09 06:23] LABS: BASOPHILS # (AUTO) 0.1 X10^3/uL (0.0-0.1); BASOPHILS % (AUTO) 1.1 % (0.2-1.0); EOSINOPHILS # (AUTO) 0.2 x10^3/uL (0.0-0.2); EOSINOPHILS % (AUTO) 2.9 % (0.9-2.9); HEMOGLOBIN 8.9 g/dL (12.0-16.0); LYMPHOCYTES # (AUTO) 1.2 X10^3/uL (1.3-2.9); LYMPHOCYTES % (AUTO) 18.6 % (21.0-51.0); MEAN CORPUSCULAR HEMOGLOBIN 23.7 pg (27.0-34.0); MEAN CORPUSCULAR HGB CONC 30.7 g/dL (33.0-35.0); MEAN CORPUSCULAR VOLUME 77.1 fL (80.0-100.0); MEAN PLATELET VOLUME 8.6 fL (7.4-11.0); MONOCYTES # (AUTO) 0.9 x10^3/uL (0.3-0.8); MONOCYTES % (AUTO) 13.2 % (0.0-13.0); NEUTROPHILS # (AUTO) 4.2 x10^3/uL (2.2-4.8); NEUTROPHILS % (AUTO) 64.2 % (42.0-75.0); PLATELET COUNT 198 X10^3/uL (150.0-450.0); RED BLOOD COUNT 3.76 X10^6/uL (3.5-5.4); RED CELL DISTRIBUTION WIDTH 24.7 % (11.6-16.5); WHITE BLOOD COUNT 6.5 X10^3/uL (3.6-10.0)
[2018-06-09 06:39] LABS: ALANINE AMINOTRANSFERASE 17 Units/L (12-78); ALBUMIN 3.5 g/dL (3.4-5.0); ALKALINE PHOSPHATASE 114 Units/L (46-116); ASPARTATE AMINO TRANSFERASE 22 Units/L (15-37); BLOOD UREA NITROGEN 54 mg/dL (7-18); CALCIUM 8.3 mg/dL (8.5-10.1); CARBON DIOXIDE 31.1 mmol/L (21-32); CHLORIDE 96 mmol/L (98-107); COR NA(FOR HYPERGLY) 134 mmol/L (136-145); CREATININE 1.69 mg/dL (0.55-1.02); SODIUM 133 mmol/L (136-145); TOTAL PROTEIN 7.2 g/dL (6.4-8.2); eGFR NON BLACK RACES 32 (>60)
[2018-06-09 07:06] LABS: ANISOCYTOSIS 3+; HYPOCHROMASIA 1+; PLATELET MORPHOLOGY COMMENT NORMAL (NORMAL)
--- NOTE | 2018-06-09 07:09 | RAD ---
HISTORY: Shortness of breath Study: Chest AP portable Comparison: 06/08/2018 Findings: There is a pacemaker present on the left. The heart remains enlarged. No definite congestive heart failure is identified. No acute alveolar infiltrates identified. Mild interstitial lung changes are present. No definite pleural effusions identified. IMPRESSION: Moderate cardiomegaly without definite congestive heart failure Mild interstitial lung changes, stable Reported By:
[2018-06-09] MEDS: LASIX IVP SCH (09:20)
[2018-06-09] MEDS: EFFEXOR XR 150 MG CAP PO SCH (09:20)
[2018-06-09] MEDS: FORTAZ or TAZICEF VIAL INJ IVP SCH (09:20)
[2018-06-09] MEDS: COREG TAB 6.25 MG PO SCH (09:21)
[2018-06-09] MEDS: PEPCID TAB 20 MG PO SCH (09:21)
[2018-06-09] MEDS: ALBUMIN HUMAN 25%- 100 ML 100 ML IV SCH (09:21)
[2018-06-09] MEDS: CLARITIN PO SCH (09:21)
[2018-06-09] MEDS: PROTONIX TAB 40 MG PO SCH (09:21)
--- NOTE | 2018-06-09 10:29 | PCM.PROG ---
Progress Note - Progress Note for Day of Date of Exam: 06/07/18 - Subjective Subjective: WAS READMITTED FOR SWINGBED STATUS DUE TO ABDOMINAL PAIN, ASCITES, AND CONGESTIVE HEART FAILURE. WAS CONSULTED AND PERFORMED EGD ON PATIENT. EGD REVEALED: MILD DISTAL ESPHAGITIS AND MILD GASTRITIS. SHE HAD AN ABDOMEN/PELVIS CT WITHOUT CONTAST DONE ON 05/31/2018. IT REVEALED: Moderate to large volume ascites. There is not a definite nodular contour of the liver however there is some mild hypertrophy of the left lobe. Recommend correlation with cirrhosis. SHE HAS A HISTORY OF CONGESTIVE HEART FAILURE WITH ECHO REVEALING AN EJECTION FRACTION OF 25%. TODAY, SHE IS ALERT AND ORIENTED, SITTING UP ON THE SIDE OF THE BED ON MORNING ROUNDS. SHE CONTINUES WITH SHORTNESS OF B REATH AND ABDOMINAL DISTENTION AND TENDERNESS. SHE IS ALSO NOTED WITH GENERALIZED SWELLING ALL OVER BODY. THERE IS 1+ PITTING EDEMA TO EXTREMITIES. HER VITALS THIS MORNING ARE 97.6-92-20-100%-108/67. LABS WERE OBTAINED. ABNORMAL LAB VALUES INCLUDE THE FOLLOWING: HGB 8.9, HCT 29.0, SODIUM 134, CHLORIDE 96, BUN 50, CREATININE 1.42, GLUCOSE 179, ALBUMIN 3.1. AN ABDOMINAL ULTRASOUND WAS OBTAINED YESTERDAY AND REVEALED A VERY SMALL AMOUNT OF ASCITES, PRECLUDING PARACENTESIS AT THIS TIME. TODAY, WE WILL START ALBUMIN 25% IV DAILY AND LASIX 20MG IV BID. WE WILL HEPLOCK IV FLUIDS. OTHERWISE, WE WILL CONTINUE WITH IV ANTIBIOTICS AND CURRENT PLAN OF CARE. WE WILL FOLLOW-UP WITH AM LABS AND CONTINUE TO MONITOR PATIENT. - Past Medical Family Social History Past Med/Fam/Surg Hx: No changes since H&P Allergies: Allergies codeine Allergy (Verified 08/13/17 04:47) morphine Allergy (Verified 08/13/17 04:47) Sulfa (Sulfonamide Antibiotics) [SULFA] Allergy (Verified 08/13/17 04:47) TAPE Allergy (Uncoded 12/28/16 14:14) - Review of Systems ROS: No change since H&P - Vital Signs and I&O's Vital Signs: Temperature 97.5 F Pulse Rate [Right Brachial] 86 Pulse Rate 100 Respiratory Rate 18 Blood Pressure [Left Arm] 119/74 Blood Pressure [Right Arm] 117/62 Blood Pressure [Standing] 84/59 Blood Pressure [Lying] 96/58 Blood Pressure 136/70 O2 Sat by Pulse Oximetry 100 Intake and Output: Intake & Output 06/06/18 06/07/18 06/08/18 06/09/18 11:59 11:59 11:59 11:59 Intake Total 1308 / 1308 713 / 713 880 / 880 Output Total 450 / 450 Balance 1308 / 1308 713 / 713 430 / 430 - Physical Exam Oriented: Normal Eyes: Normal Ear: Normal Nose: Normal Throat: Normal Respiratory: Generalized, Diminished Cardiovascular: Edema (GENERALIZED EDEMA) : Normal Auscultation: Bowel Sounds: Normal Palpation: Normal Tenderness: Diffuse, Moderate. negative: Rebound, Guarding, Rigidity Skin: Red (LOWER EXTREMITIES ), Tender Musculoskeletal: Left, Swelling, Tender Psychiatric: Normal Mood Description: Calm Affect: Normal Speech Pattern: Clear, Appropriate - Laboratory and Diagnostics Result Diagrams: 06/09/18 05:00 06/09/18 05:00 Labs: Laboratory WBC 6.5 X10^3/uL (3.6-10.0) 06/09/18 05:00 RBC 3.76 X10^6/uL (3.5-5.4) 06/09/18 05:00 Hgb 8.9 g/dL (12.0-16.0) L 06/09/18 05:00 Hct 29.0 % (36.0-47.0) L 06/09/18 05:00 MCV 77.1 fL (80.0-100.0) L 06/09/18 05:00 MCH 23.7 pg (27.0-34.0) L 06/09/18 05:00 MCHC 30.7 g/dL (33.0-35.0) L 06/09/18 05:00 RDW 24.7 % (11.6-16.5) H 06/09/18 05:00 Plt Count 198 X10^3/uL (150.0-450.0) 06/09/18 05:00 Plt Count Comment Adequate (ADEQUATE) 06/09/18 05:00 MPV 8.6 fL (7.4-11.0) 06/09/18 05:00 Neut % (Auto) 64.2 % (42.0-75.0) 06/09/18 05:00 Lymph % (Auto) 18.6 % (21.0-51.0) L 06/09/18 05:00 [place] % (Auto) 13.2 % (0.0-13.0) H 06/09/18 05:00 Eos % (Auto) 2.9 % (0.9-2.9) 06/09/18 05:00 Baso % (Auto) 1.1 % (0.2-1.0) H 06/09/18 05:00 Neut # (Auto) 4.2 x10^3/uL (2.2-4.8) 06/09/18 05:00 Lymph # (Auto) 1.2 X10^3/uL (1.3-2.9) L 06/09/18 05:00 [place] # (Auto) 0.9 x10^3/uL (0.3-0.8) H 06/09/18 05:00 Eos # (Auto) 0.2 x10^3/uL (0.0-0.2) 06/09/18 05:00 Baso # (Auto) 0.1 X10^3/uL (0.0-0.1) 06/09/18 05:00 Absolute Nucleated RBC 0.1 /100WBC 06/09/18 05:00 Plt Morphology Comment Normal (NORMAL) 06/09/18 05:00 RBC Morphology Abnormal (NORMAL) A 06/09/18 05:00 Hypochromasia 1+ A 06/09/18 05:00 Anisocytosis 3+ A 06/09/18 05:00 Ovalocytes Present 06/08/18 04:18 Sodium 133 mmol/L (136-145) L 06/09/18 05:00 Corrected Sodium 134 mmol/L (136-145) L 06/09/18 05:00 Potassium 4.9 mmol/L (3.5-5.1) 06/09/18 05:00 Chloride 96 mmol/L (98-107) L 06/09/18 05:00 Carbon Dioxide 31.1 mmol/L (21-32) 06/09/18 05:00 BUN 54 mg/dL (7-18) H 06/09/18 05:00 Creatinine 1.69 mg/dL (0.55-1.02) H 06/09/18 05:00 Est GFR (MDRD) Af Amer 39 (>60) L 06/09/18 05:00 Est GFR (MDRD) Non-Af 32 (>60) L 06/09/18 05:00 Glucose 151 mg/dL (65-99) H 06/09/18 05:00 POC Glucose (mg/dL) 161 mg/dL (65-99) H 06/09/18 05:39 Calcium 8.3 mg/dL (8.5-10.1) L 06/09/18 05:00 Corrected Calcium TNP 06/09/18 05:00 Total Bilirubin 0.80 mg/dL (0.2-1.0) 06/09/18 05:00 AST 22 Units/L (15-37) 06/09/18 05:00 ALT 17 Units/L (12-78) 06/09/18 05:00 Alkaline Phosphatase 114 Units/L (46-116) 06/09/18 05:00 Total Protein 7.2 g/dL (6.4-8.2) 06/09/18 05:00 Albumin 3.5 g/dL (3.4-5.0) 06/09/18 05:00 Globulin 3.7 g/dL (2.5-4.5) 06/09/18 05:00 Albumin/Globulin Ratio 0.9 Ratio (1.1-2.1) L 06/09/18 05:00 - Plan (1) Cellulitis of both lower extremities Status: Acute Plan: CONTINUE IV ANTIBIOTICS (2) Congestive heart failure (CHF) Status: Acute Qualifiers: Heart failure type: unspecified Heart failure chronicity: acute on chronic Qualified Code(s): I50.9 - Heart failure, unspecified Plan: LASIX 20MG IV BID, RESPIRATORY TREATMENTS, SUPPLEMENTAL OXYGEN, CONTINUE COREG, CONTINUE TO MONITOR (3) Shortness of breath Status: Acute Plan: RESPIRATORY TREATMENTS, SUPPLEMENTAL OXYGEN, CONTINUE TO MONITOR (4) Ascites Status: Acute Qualifiers: Ascites type: other type Qualified Code(s): R18.8 - Other ascites Plan: CONTINUE TO MONITOR, LASIX 20MG IV BID (5) Abdominal pain Status: Acute Qualifiers: Abdominal location: generalized Plan: CONTINUE TO MONITOR (6) Chronic kidney disease (CKD) Status: Chronic Qualifiers: Chronic kidney disease stage: unspecified stage Qualified Code(s): N18.9 - Chronic kidney disease, unspecified Plan: CONTINUE TO MONITOR (7) GERD (gastroesophageal reflux disease) Status: Chronic Qualifiers: Esophagitis presence: esophagitis presence not specified Qualified Code(s): K21.9 - Gastro-esophageal reflux disease without esophagitis Plan: CONTINUE PEPCID 40MG PO BID, CONTINUE TO MONITOR (8) Essential hypertension Status: Chronic (9) Diabetes mellitus, type 2 Status: Chronic Qualifiers: Diabetes mellitus skilled nursing insulin use: with terminal block assembler use Diabetes mellitus complication status: with other specified complication Qualified Code(s): E11.69 - Type 2 diabetes mellitus with other specified complication; Z79.4 - [facility] (current) use of insulin Plan: HUMULIN R SLIDING SCALE, MONITOR OTBS
--- NOTE | 2018-06-09 10:49 | DR.UPDATE ---
H&P Update History and Physical Update: History and Physical reviewed and patient examined. Changes noted: Yes with the following: 'S H&P WAS COMPLETED IN THE OFFICE ON 05/22/2018. SHE WAS ADMITTED FOR TREATMENT OF LOWER EXTREMITY CELLULITIS AND CONGESTIVE HEART FAILURE. SHE WAS CHANGED TO SWINGBED STATUS FOR EXTENDED COURSE OF IV ANTIBIOTICS AND PHYSICAL THERAPY ON 05/29/2018. DURING HER SWINGBED STAY, SHE BEGAN WITH ANASARCA, ABDOMINAL PAIN, AND ABDOMINAL DISTENTION. AN ABDOMEN/PELVIS CT WITHOUT CONTRAST WAS OBTAINED AND REVEALED: Moderate to large volume ascites. There is not a definite nodular contour of the liver however there is some mild hypertrophy of the left lobe. Recommend correlation with cirrhosis. was consulted and took patient for EGD. EGD revealed mild distal esophagitis and mild gastritis. She is scheduled for an abdominal ultrasound and possible paracentesis today. Otherwise, we will continue IV antibiotics, IV lasix, and current plan of care. We will follow-up with AM labs and continue to monitor
[2018-06-09 12:34] VITALS: BP 100/62
--- NOTE | 2018-06-28 10:22 | PCM.PROG ---
Progress Note - Progress Note for Day of Date of Exam: 06/08/18 - Subjective Subjective: WAS READMITTED FOR SWINGBED STATUS DUE TO ABDOMINAL PAIN, ASCITES, AND CONGESTIVE HEART FAILURE. WAS CONSULTED AND PERFORMED EGD ON PATIENT. EGD REVEALED: MILD DISTAL ESPHAGITIS AND MILD GASTRITIS. SHE HAD AN ABDOMEN/PELVIS CT WITHOUT CONTAST DONE ON 05/31/2018. IT REVEALED: Moderate to large volume ascites. There is not a definite nodular contour of the liver however there is some mild hypertrophy of the left lobe. Recommend correlation with cirrhosis. SHE HAS A HISTORY OF CONGESTIVE HEART FAILURE WITH ECHO REVEALING AN EJECTION FRACTION OF 25%. TODAY, SHE IS ALERT AND ORIENTED, SITTING UP ON THE SIDE OF THE BED ON MORNING ROUNDS. SHE CONTINUES WITH SHORTNESS OF B REATH AND ABDOMINAL DISTENTION AND TENDERNESS. SHE IS ALSO NOTED WITH GENERALIZED SWELLING ALL OVER BODY. SHE CONTINUES WITH TRACE EDEMA TO EXTREMITIES. HER VITALS THIS MORNING ARE 99.0-93-20-97%-129/70. LABS WERE OBTAINED. ABNORMAL LAB VALUES INCLUDE THE FOLLOWING: HGB 8.8, HCT 29.1, SODIUM 133, CHLORIDE 96, BUN 52, CREATININE 1.49, GLUOCSE 159, CALCIUM 8.2. TODAY, WE WILL DISCUSS HOSPICE CARE AFTER DISCHARGE WITH CASE MANAGEMENT. OTHERWISE, WE WILL CONTINUE WITH IV ANTIBIOTICS AND CURRENT PLAN OF CARE. WE WILL FOLLOW-UP WITH AM LABS AND CONTINUE TO MONITOR PATIENT. - Past Medical Family Social History Past Med/Fam/Surg Hx: No changes since H&P Allergies: Allergies codeine Allergy (Verified 08/13/17 04:47) morphine Allergy (Verified 08/13/17 04:47) Sulfa (Sulfonamide Antibiotics) [SULFA] Allergy (Verified 08/13/17 04:47) TAPE Allergy (Uncoded 12/28/16 14:14) - Review of Systems ROS: No change since H&P - Vital Signs and I&O's Vital Signs: Temperature 98.0 F Pulse Rate [Right Brachial] 91 Pulse Rate 100 Respiratory Rate 20 Blood Pressure [Left Arm] 100/62 Blood Pressure [Right Arm] 117/62 Blood Pressure [Standing] 84/59 Blood Pressure [Lying] 96/58 Blood Pressure 136/70 O2 Sat by Pulse Oximetry 100 - Physical Exam Oriented: Normal Eyes: Normal Ear: Normal Nose: Normal Throat: Normal Respiratory: Generalized, Diminished Cardiovascular: Edema (GENERALIZED EDEMA) : Normal Auscultation: Bowel Sounds: Normal Tenderness: Diffuse, Moderate. negative: Rebound, Guarding, Rigidity Skin: Red (LOWER EXTREMITIES ), Tender Musculoskeletal: Left, Swelling, Tender Psychiatric: Normal Mood Description: Calm Affect: Normal Speech Pattern: Clear, Appropriate - Laboratory and Diagnostics Result Diagrams: 06/09/18 05:00 06/09/18 05:00 Labs: Laboratory WBC 6.5 X10^3/uL (3.6-10.0) 06/09/18 05:00 RBC 3.76 X10^6/uL (3.5-5.4) 06/09/18 05:00 Hgb 8.9 g/dL (12.0-16.0) L 06/09/18 05:00 Hct 29.0 % (36.0-47.0) L 06/09/18 05:00 MCV 77.1 fL (80.0-100.0) L 06/09/18 05:00 MCH 23.7 pg (27.0-34.0) L 06/09/18 05:00 MCHC 30.7 g/dL (33.0-35.0) L 06/09/18 05:00 RDW 24.7 % (11.6-16.5) H 06/09/18 05:00 Plt Count 198 X10^3/uL (150.0-450.0) 06/09/18 05:00 Plt Count Comment Adequate (ADEQUATE) 06/09/18 05:00 MPV 8.6 fL (7.4-11.0) 06/09/18 05:00 Neut % (Auto) 64.2 % (42.0-75.0) 06/09/18 05:00 Lymph % (Auto) 18.6 % (21.0-51.0) L 06/09/18 05:00 [place] % (Auto) 13.2 % (0.0-13.0) H 06/09/18 05:00 Eos % (Auto) 2.9 % (0.9-2.9) 06/09/18 05:00 Baso % (Auto) 1.1 % (0.2-1.0) H 06/09/18 05:00 Neut # (Auto) 4.2 x10^3/uL (2.2-4.8) 06/09/18 05:00 Lymph # (Auto) 1.2 X10^3/uL (1.3-2.9) L 06/09/18 05:00 [place] # (Auto) 0.9 x10^3/uL (0.3-0.8) H 06/09/18 05:00 Eos # (Auto) 0.2 x10^3/uL (0.0-0.2) 06/09/18 05:00 Baso # (Auto) 0.1 X10^3/uL (0.0-0.1) 06/09/18 05:00 Absolute Nucleated RBC 0.1 /100WBC 06/09/18 05:00 Plt Morphology Comment Normal (NORMAL) 06/09/18 05:00 RBC Morphology Abnormal (NORMAL) A 06/09/18 05:00 Hypochromasia 1+ A 06/09/18 05:00 Anisocytosis 3+ A 06/09/18 05:00 Ovalocytes Present 06/08/18 04:18 Sodium 133 mmol/L (136-145) L 06/09/18 05:00 Corrected Sodium 134 mmol/L (136-145) L 06/09/18 05:00 Potassium 4.9 mmol/L (3.5-5.1) 06/09/18 05:00 Chloride 96 mmol/L (98-107) L 06/09/18 05:00 Carbon Dioxide 31.1 mmol/L (21-32) 06/09/18 05:00 BUN 54 mg/dL (7-18) H 06/09/18 05:00 Creatinine 1.69 mg/dL (0.55-1.02) H 06/09/18 05:00 Est GFR (MDRD) Af Amer 39 (>60) L 06/09/18 05:00 Est GFR (MDRD) Non-Af 32 (>60) L 06/09/18 05:00 Glucose 151 mg/dL (65-99) H 06/09/18 05:00 POC Glucose (mg/dL) 148 mg/dL (65-99) H 06/09/18 11:37 Calcium 8.3 mg/dL (8.5-10.1) L 06/09/18 05:00 Corrected Calcium TNP 06/09/18 05:00 Total Bilirubin 0.80 mg/dL (0.2-1.0) 06/09/18 05:00 AST 22 Units/L (15-37) 06/09/18 05:00 ALT 17 Units/L (12-78) 06/09/18 05:00 Alkaline Phosphatase 114 Units/L (46-116) 06/09/18 05:00 Total Protein 7.2 g/dL (6.4-8.2) 06/09/18 05:00 Albumin 3.5 g/dL (3.4-5.0) 06/09/18 05:00 Globulin 3.7 g/dL (2.5-4.5) 06/09/18 05:00 Albumin/Globulin Ratio 0.9 Ratio (1.1-2.1) L 06/09/18 05:00 - Plan (1) Cellulitis of both lower extremities Status: Acute Plan: CONTINUE IV ANTIBIOTICS (2) Congestive heart failure (CHF) Status: Acute Qualifiers: Heart failure type: unspecified Heart failure chronicity: acute on chronic Qualified Code(s): I50.9 - Heart failure, unspecified Plan: LASIX 20MG IV BID, RESPIRATORY TREATMENTS, SUPPLEMENTAL OXYGEN, CONTINUE COREG, CONTINUE TO MONITOR (3) Shortness of breath Status: Acute Plan: RESPIRATORY TREATMENTS, SUPPLEMENTAL OXYGEN, CONTINUE TO MONITOR (4) Ascites Status: Acute Qualifiers: Ascites type: other type Qualified Code(s): R18.8 - Other ascites Plan: CONTINUE TO MONITOR, LASIX 20MG IV BID (5) Abdominal pain Status: Acute Qualifiers: Abdominal location: generalized Plan: CONTINUE TO MONITOR (6) Chronic kidney disease (CKD) Status: Chronic Qualifiers: Chronic kidney disease stage: unspecified stage Qualified Code(s): N18.9 - Chronic kidney disease, unspecified Plan: CONTINUE TO MONITOR (7) GERD (gastroesophageal reflux disease) Status: Chronic Qualifiers: Esophagitis presence: esophagitis presence not specified Qualified Code(s): K21.9 - Gastro-esophageal reflux disease without esophagitis Plan: CONTINUE PEPCID 40MG PO BID, CONTINUE TO MONITOR (8) Essential hypertension Status: Chronic (9) Diabetes mellitus, type 2 Status: Chronic Qualifiers: Diabetes mellitus long-term insulin use: with long-term use Diabetes mellitus complication status: with other specified complication Qualified Code(s): E11.69 - Type 2 diabetes mellitus with other specified complication; Z79.4 - care home (current) use of insulin Plan: HUMULIN R SLIDING SCALE, MONITOR OTBS
--- NOTE | 2018-07-17 23:31 | DR.CARTERD ---
- Discharge Summary for: Discharge Summary for Date of:: 06/09/18 - Admission Date Date of Admission: 06/06/18 - Admission Diagnoses Admission Diagnosis: (1) Congestive heart failure (CHF) (2) Cellulitis of both lower extremities (3) Ascites (4) Abdominal pain (5) Chronic kidney disease (CKD) (6) GERD (gastroesophageal reflux disease) (7) Essential hypertension (8) Shortness of breath (9) Diabetes mellitus, type 2 - Discharge Date Discharge Date: 06/09/18 - Discharge Diagnoses Discharge Diagnosis: (1) Congestive heart failure (CHF) (2) Cellulitis of both lower extremities (3) Ascites (4) Abdominal pain (5) Chronic kidney disease (CKD) (6) GERD (gastroesophageal reflux disease) (7) Essential hypertension (8) Shortness of breath (9) Diabetes mellitus, type 2 - Hospital Course Hospital Course: DAY ONE, SHE WAS ADMITTED FOR TREATMENT OF LOWER EXTREMITY CELLULITIS AND CONGESTIVE HEART FAILURE. SHE WAS CHANGED TO SWINGBED STATUS FOR EXTENDED COURSE OF IV ANTIBIOTICS AND PHYSICAL THERAPY ON 05/29/2018. DURING HER SWINGBED STAY, SHE BEGAN WITH ANASARCA, ABDOMINAL PAIN, AND ABDOMINAL DISTENTION. AN ABDOMEN/PELVIS CT WITHOUT CONTRAST WAS OBTAINED AND REVEALED: Moderate to large volume ascites. There Was not a definite nodular contour of the liver however there was some mild hypertrophy of the left lobe. Recommend correlation with cirrhosis. was consulted and took patient for EGD. EGD revealed mild distal esophagitis and mild gastritis. She was scheduled for an abdominal ultrasound and possible paracentesis today. We continued IV antibiotics, IV lasix, and current plan of care. We followed-up with AM labs and continued to monitor. DAY TWO, WAS CONSULTED AND PERFORMED EGD ON PATIENT. EGD REVEALED: MILD DISTAL ESPHAGITIS AND MILD GASTRITIS. SHE HAD AN ABDOMEN/PELVIS CT WITHOUT CONTAST DONE ON 05/31/2018. IT REVEALED: Moderate to large volume ascites. There is not a definite nodular contour of the liver however there is some mild hypertrophy of the left lobe. Recommend correlation with cirrhosis. SHE HAS A HISTORY OF CONGESTIVE HEART FAILURE WITH ECHO REVEALING AN EJECTION FRACTION OF 25%. TODAY, SHE WAS ALERT AND ORIENTED, SITTING UP ON THE SIDE OF THE BED ON MORNING ROUNDS. SHE CONTINUED WITH SHORTNESS OF BREATH AND ABDOMINAL DISTENTION AND TENDERNESS. SHE WAS ALSO NOTED WITH GENERALIZED SWELLING ALL OVER BODY. THERE WAS 1+ PITTING EDEMA TO EXTREMITIES. HER VITALS THIS MORNING WERE 97.6-92-20-100%-108/67. LABS WERE OBTAINED. ABNORMAL LAB VALUES INCLUDED THE FOLLOWING: HGB 8.9, HCT 29.0, SODIUM 134, CHLORIDE 96, BUN 50, CREATININE 1.42, GLUCOSE 179, ALBUMIN 3.1. AN ABDOMINAL ULTRASOUND WAS OBTAINED YESTERDAY AND REVEALED A VERY SMALL AMOUNT OF ASCITES, PRECLUDING PARACENTESIS AT THIS TIME. WE STARTED ALBUMIN 25% IV DAILY AND LASIX 20MG IV BID. WE HEPLOCKED IV FLUIDS. WE CONTINUED WITH IV ANTIBIOTICS AND CURRENT PLAN OF CARE. WE FOLLOWED-UP WITH AM LABS AND CONTINUED TO MONITOR PATIENT. DAY THREE, SHE WAS ALERT AND ORIENTED, SITTING UP ON THE SIDE OF THE BED ON MORNING ROUNDS. SHE CONTINUED WITH SHORTNESS OF BREATH AND ABDOMINAL DISTENTION AND TENDERNESS. SHE WAS ALSO NOTED WITH GENERALIZED SWELLING ALL OVER BODY. SHE CONTINUED WITH TRACE EDEMA TO EXTREMITIES. HER VITALS THIS MORNING WERE 99.0-93-20-97%-129/70. LABS WERE OBTAINED. ABNORMAL LAB VALUES INCLUDED THE FOLLOWING: HGB 8.8, HCT 29.1, SODIUM 133, CHLORIDE 96, BUN 52, CREATININE 1.49, GLUOCSE 159, CALCIUM 8.2. WE DISCUSSED HOSPICE CARE AFTER DISCHARGE WITH CASE MANAGEMENT. WE CONTINUED WITH IV ANTIBIOTICS AND CURRENT PLAN OF CARE. WE FOLLOWED-UP WITH AM LABS AND CONTINUED TO MONITOR PATIENT. DAY FOUR, PATIENT CONTINUED WITH SHORTNESS OF BREATH, ABDOMINAL DISTENTION, TENDERNESS AND GENERALIZED EDEMA. THERE WAS 1+ PITTING EDEMA TO EXTREMITIES. WE DISCUSSED DISCHARGING WITH HOSPICE CARE WITH PATIENT AND SHE WAS IN AGREEMENT WITH THAT PLAN. VITALS ARE STABLE. LABS WERE OBTAINED AND WERE CONSISTENT WITH PRIOR RESULTS. WE PLANNED FOR DISCHARGE WITH HOSPICE. INSTRUCTIONS FOR HOSPICE, MEDICATIONS AND FOLLOW UP WERE DISCUSSED WITH PATIENT AND FAMILY, BOTH VOICED UNDERSTANDING. PATIENT WAS DISCHARGED HOME WITH HOSPICE CARE AND FAMILY. - Discharge Medications Discharge Medications: Home Medication List carvedilol [Coreg] 3.125 mg PO BID #60 tab 06/09/18 [Rx] digoxin 0.125 mg PO QDAY #30 tab 06/09/18 [Rx] furosemide [Lasix] 20 mg PO QDAY #30 tab 06/09/18 [Rx] oxycodone 20 mg PO Q6H PRN #120 tab 06/09/18 [Rx] Prescriptions: carvedilol [Coreg] Jose Ceja digoxin Jose Ceja furosemide [Lasix] Jose Cjea oxycodone Jose Ceja Ambulatory Orders clopidogrel [Plavix] 75 mg PO DAILY 12/28/16 simvastatin 10 mg PO HS 12/28/16 fentanyl 1 patch TOP Q72H 08/12/17 furosemide 40 mg PO BID 08/12/17 pantoprazole 40 mg PO BID 08/12/17 insulin glargine [Lantus U-100 Insulin] 10 unit SC HS 09/03/17 alprazolam 1 mg PO TID 05/23/18 carvedilol 6.25 mg PO BID 05/23/18 docusate sodium 100 mg PO Q12H PRN 05/23/18 famotidine 40 mg PO BID 05/23/18 insulin aspart U-100 [Novolog Flexpen U-100 Insulin] 2 - 14 units SUBCUT BIDWM 05/23/18 loratadine 10 mg PO DAILY 05/23/18 oxycodone-acetaminophen 1 tab PO Q12H PRN 05/23/18 tiotropium-olodaterol [Stiolto Respimat] 1 puff INHALATION DAILY PRN 05/23/18 tramadol 100 mg PO Q4H PRN 05/23/18 venlafaxine 150 mg PO DAILY 05/23/18 - Discharge Disposition Discharge Disposition: PATIENT DISCHARGED HOME WITH HOSPICE CARE. PATIENT TO FOLLOW UP WITH US IN ONE WEEK.
== END 2018-06-09 13:25 | disposition hospice, home (50) | DRG 603 ==
LOC: MED/SURG 08:30
PROVIDERS: ADMIT Internal Medicine; ATTEND Internal Medicine
DX: R60.0 Localized edema; E11.65 Type 2 diabetes mellitus with hyperglycemia; K29.00 Acute gastritis without bleeding; N18.9 Chronic kidney disease, unspecified; Z79.4 Long term (current) use of insulin; R26.89 Other abnormalities of gait and mobility; I50.9 Heart failure, unspecified; K20.8 Other esophagitis; K21.9 Gastro-esophageal reflux disease without esophagitis; R10.84 Generalized abdominal pain; I11.0 Hypertensive heart disease with heart failure; R06.02 Shortness of breath; L03.115 Cellulitis of right lower limb; L03.116 Cellulitis of left lower limb
CPT/HCPCS: 36415; 71010; 71045; 76705; 80053; 85025; 94640; 97110; 97116; 97162; 97530; A4222; P9047; J0713; J1815; J1940; J1956; J2704; J7030; J7040; J7620